=== PATIENT | female | born 1950 | race Caucasian/White ===

== ENCOUNTER 2017-09-10 08:59 | Inpatient (IN) ==
[2017-09-10] MEDS ORDERED: Ondansetron 4 MG/2 ML VIAL IVP ONE (09:42)
[2017-09-10] MEDS ORDERED: 0.9 % Sodium Chloride 1,000 ML IVC ONE ×2 (09:42→12:34)
[2017-09-10 09:59] LABS: Basophils # 0.1 K/mcL (0.0-0.2); Basophils % 0.8 %; Eosinophils % 0.3 %; Hematocrit 43.9 % (35.3-44.9); Hemoglobin 13.4 g/dL (11.5-15.4); Immature Granulocytes % 1.2 % (0-4); Lymphocytes # 0.9 K/mcL (0.6-4.6); Lymphocytes % 11.3 %; Mean Corpuscular HGB Conc 30.5 g/dL (31.6-35.5); Mean Corpuscular Hemoglobin 29.1 pg (28.0-33.3); Mean Corpuscular Volume 95.2 fL (83.0-100.0); Mean Platelet Volume 8.8 fL (9.4-12.4); Monocytes # 0.2 K/mcL (0.0-1.3); Monocytes % 2.5 %; Neutrophils # 6.4 K/mcL (1.6-8.9); Nucleated Red Blood Cells 0.5 /100 WBC (0); Platelet Count 107 K/mcL (140-400); Red Blood Count 4.61 M/mcL (3.82-4.97); Red Cell Distribution Width 16.6 % (11.5-14.5); Segmented Neutrophils % 83.9 %
--- NOTE | 2017-09-10 10:16 | Emergency Department Note ---
Disposition Clinical Impression: Normal anion gap metabolic acidosis Gastritis Qualifiers: Gastritis type: unspecified gastritis Chronicity: unspecified Gastritis bleeding: without bleeding Qualified Code(s): K29.70 - Gastritis, unspecified, without bleeding Disposition: Admitted As Inpatient Condition: Good Referrals: Chel Munroe TAIL RIPPER [Primary Care Provider] - Forms: ED Satisfaction Letter General Adult HPI - General Chief complaint: ED Chest Pain Stated complaint: Chest Pain Time Seen by Provider: 09/10/17 09:02 Source: EMS Mode of arrival: EMS Limitations: no limitations Nursing Notes Reviewed: Yes Vital Signs Reviewed: Yes - History of Present Illness HPI Narrative: 66-year-old female history of COPD not oxygen dependent who presents to the ER with a chief complaint of weakness, chest pain, nausea, not feeling well. Patient states she started feeling unwell yesterday. States she lives at home alone and has a sedentary lifestyle. He reports that she has had a cough that is chronic for her. She also states she has been nauseous. No episodes of vomiting, diarrhea or abdominal pain. Reports some chest pain as been constant since yesterday. No prior history of cardiac disease. EMS was called and the patient was brought in for evaluation. She reports she is prescribed tramadol but only uses them when she really needs them. States that her pain improved with it. Pt Subjective Complaint: Chest pain, weakness, nausea Onset (ago): day(s) Location: chest Radiation: non-radiation Pain Severity: mild Pain Scale: 3 Quality: stabbing Consistency: constant Improves with: nothing Worsens with: nothing Associated symptoms: Reports: chest pain, cough, nausea/vomiting. Denies: shortness of breath Treatments Prior to Arrival: none - Related Data Home Medications Medication Instructions Recorded Confirmed Atenolol [Tenormin] 25 mg PO QPM 09/10/17 09/10/17 Atenolol [Tenormin] 50 mg PO QAM 09/10/17 09/10/17 Atorvastatin [Lipitor] 80 mg PO HS 09/10/17 09/10/17 Omeprazole [PriLOSEC] 20 mg PO DAILY 09/10/17 09/10/17 Tramadol HCl [Ultram] 50 mg PO Q6-8H PRN 09/10/17 09/10/17 Allergies Allergy/AdvReac Type Severity Reaction Status Date / Time No Known Allergies Allergy Verified 07/19/17 09:11 All systems ED: reviewed and negative except as stated. Constitutional: Denies: fever Cardiovascular: Reports: chest pain Respiratory: Reports: cough, dyspnea Gastrointestinal: Reports: nausea. Denies: abdominal pain, vomiting Neurological: Reports: weakness Past Medical History - Past Medical History Attestation: Yes The following information was validated with the patient. Source: patient Medical history: Reports: diabetes, GERD, hyperlipidemia, hypertension, migraine Psychiatric history: Reports: no psych history - Social History Smoking Status: Current every day smoker Smokeless Tobacco Status: No Alcohol use: Reports: occasionally Drug use: Reports: none Physical Exam - General Limitations: no limitations General appearance: alert, in no apparent distress - Head Head exam: atraumatic, normocephalic - Eye Eye exam: Present: normal appearance - ENT ENT exam: normal exam - Neck Neck exam: Present: normal inspection, full ROM - Chest Chest inspection: Present: normal inspection, symmetric chest wall rise, tenderness (Reproducible sternal tenderness on exam) - Respiratory Respiratory exam: Present: normal lung sounds bilaterally - Cardiovascular Cardiovascular exam: Present: regular rate, normal rhythm, normal heart sounds - Abdominal Exam Abdominal exam: Present: soft, Non-Tender. Absent: tenderness - Extremities Exam Extremities exam: Present: normal inspection, full ROM - Expanded Upper Extremity Exam Shoulder exam: Present: normal inspection, full ROM Arm exam: Present: normal inspection, full ROM Elbow exam: Present: normal inspection, full ROM Forearm/Wrist exam: Present: normal inspection, full ROM Hand exam: Present: normal inspection, full ROM - Expanded Lower Extremity Exam Hip/Pelvis exam: Present: normal inspection, full ROM Upper leg exam: Present: normal inspection, full ROM Knee exam: Present: normal inspection, full ROM Lower leg exam: Present: normal inspection, full ROM Ankle exam: Present: normal inspection, full ROM Foot/toe exam: Present: normal inspection, full ROM - Neurological Exam Neurological exam: Present: alert, other (GCS 15. Nonfocal neurologic exam. Moves all extremities equally.) - Skin Skin exam: Present: warm, dry Course Course Narrative: Patient seen and examined. Vital signs reviewed. We will get an EKG, chest x- ray as well as labs and urinalysis for weakness. - Reevaluation(s) Reevaluation #1: Discussed results of labs with the patient. She is noted to be acidotic here with a bicarbonate of 10. She denies any alcohol ingestion, toxic alcohols, salicylates. She does not appear to be in DKA by labs. No evidence of uremia. We will continue IV rehydration. She requests something for her headache. We will also CT of her abdomen and pelvis as well as check a lactate level. Reevaluation #2: Patient's lactate is normal. I reviewed her prior labs showing profound hypokalemia in the past. She is unsure the etiology of this. I will discuss with nephrology and she will likely require admission for her metabolic derangements. - Consultations Consultation #1: I spoke with the on-call drain tile machine operator Dr. Perez. Discussed the patient's history labs and imaging as well as interventions today. Currently unsure of the etiology of her metabolic acidosis. He believe that she likely has a mixed acidosis. Does recommend to obtain urine pH, sodium, chloride, potassium 4 urine anion gap. Believes it could potentially be a renal tubular acidosis. Recommends admission to the hospitalist service with nephrology consultation. Vital Signs Temperature 97.7 F 09/10/17 09:00 Pulse Rate 110 09/10/17 09:00 Respiratory Rate 22 09/10/17 09:00 Blood Pressure 169/89 09/10/17 09:00 O2 Sat by Pulse Oximetry 98 09/10/17 09:00 Temperature 97.7 F 09/10/17 09:00 Pulse Rate 82 09/10/17 12:37 Respiratory Rate 18 09/10/17 12:37 Blood Pressure 161/78 09/10/17 12:37 O2 Sat by Pulse Oximetry 97 09/10/17 12:37 Oxygen Delivery Oxygen Delivery Nasal Cannula Medical Decision Making - [facility] Narrative Medical decision making narrative: 66-year-old female presents to the ER due to multiple complaints. Has felt weak and shaky as well as a headache. States she has had some chest pain during this time. Reports weight loss over the last several years. Reports she only eats once every couple of days. Her EKG is nonischemic. During her workup she was noted to have a bicarbonate of 10. VBG pH of 7.16. Lactate is normal. We did CT her abdomen and pelvis given her profound acidemia without evidence of acute pathology. Discussed with the on-call drain tile machine operator for recommendations. We did order additional urine studies with concern for possible RTA. Patient will be admitted to the hospitalist service with nephrology consultation for further management. This documentation is done with the assistance of Dragon dictation. There may be inaccuracies in indian blanket weaver or spelling and typographical errors. I examined this patient and my medical decision-making was reviewed with the Resident Physician. I agree with the documented findings, disposition and treatment plan as described except to the extent set forth below. Patient presents to the emergency department today and was seen by Dr. Carter and myself, I agree with his evaluation management plan, supervised care the patient's stay. Patient presents with multiple complaints she is feeling weak she shaky has a little bit of a headache. She is nontoxic in appearance here. She denies any chest pain at this time. Remaining lab work on her hydrate her and then reassess. She may need admission. Chest X-Ray 09/10/17 09:04 IMPRESSION: Negative chest. D/ / Kirit Love MD / Kirit Love MD Interpreting Provider: Kirit Love MD 11:53: Patient's labs come back and shows a bicarbonate of 10 with an anion gap metabolic acidosis. Searching for cause. She should she is getting lab work done now fluids and then we will reassess will need admission. 1400 hrs. colon was counseled with Dr. Brandt from nephrology. He will consult on patient here. He thinks this may be acute tubular renal acidosis. As she has had a history of hypokalemia in the past. We will admit her to medicine. She is in agreement with this plan. Patient is critical care time exclusive A separately billable procedures is 45 minutes. - Lab Data Lab results reviewed: Yes I reviewed the patient's lab results. Result diagrams: 09/10/17 09:50 09/10/17 09:50 Lab Results 09/10/17 09/10/17 09/10/17 Range/Units 09:50 09:50 10:44 WBC 7.6 (4.3-11.1) K/mcL RBC 4.61 (3.82-4.97) M/mcL Hgb 13.4 (11.5-15.4) g/dL Hct 43.9 (35.3-44.9) % MCV 95.2 (83.0-100.0) fL MCH 29.1 (28.0-33.3) pg MCHC 30.5 L (31.6-35.5) g/dL RDW 16.6 H (11.5-14.5) % Plt Count 107 L (140-400) K/mcL MPV 8.8 L (9.4-12.4) fL Immature Gran % 1.2 (0-4) % Seg Neutrophils % 83.9 % Lymphocytes % 11.3 % Monocytes % 2.5 % Eosinophils % 0.3 % Basophils % 0.8 % Neutrophils # 6.4 (1.6-8.9) K/mcL Lymphocytes # 0.9 (0.6-4.6) K/mcL Monocytes # 0.2 (0.0-1.3) K/mcL Eosinophils # 0.0 (0.0-0.6) K/mcL Basophils # 0.1 (0.0-0.2) K/mcL Nucleated RBCs/100 WBC 0.5 H (0) /100 WBC VBG pH (7.32-7.42) pH Units VBG pCO2 (41-51) mmHg VBG pO2 (25-50) mmHg VBG HCO3 (21-27) mEq/L Sodium 138 (136-145) mEq/L Potassium 4.0 (3.5-5.1) mEq/L Chloride 103 (98-107) mEq/L Carbon Dioxide 10 L* (23-29) mEq/L BUN 11 (8-23) mg/dL Creatinine 0.83 (0.60-1.20) mg/dL Est GFR ( Amer) > 60 (> 60) Est GFR (Non-Af Amer) > 60 (> 60) BUN/Creatinine Ratio 13 (6-26) Glucose 77 (70-105) mg/dL Calculated Osmolality 284 (280-300) Lactic Acid (0.5-2.2) mmol/L Calcium 7.8 L (8.6-10.3) mg/dL Total Bilirubin 0.8 (0.3-1.0) mg/dL AST 89 H (13-39) Units/L ALT 51 (7-52) Units/L Alkaline Phosphatase 175 H (34-104) Units/L Serum Total Protein 6.9 (6.4-8.9) g/dL Albumin 4.1 (3.5-5.7) g/dL Globulin 2.8 (2.4-3.5) g/dL Albumin/Globulin Ratio 1.5 (1.1-2.2) Beta-Hydroxybutyric Acd (0.02-0.27) mmol/L TSH 1.682 (0.340-5.600) mcIU/mL Urine Color (Yellow) Urine Clarity (Clear) Urine pH (5.0-8.0) pH Units Ur Specific Mellott (1.010-1.025) Urine Protein (Neg-Trace) mg/dL Urine Glucose (UA) (Normal) mg/dL Urine Ketones (Negative) mg/dL Urine Blood (Negative) Urine Nitrite (Negative) Urine Bilirubin (Negative) Urine Urobilinogen (Normal) mg/dL Ur Leukocyte Esterase (Negative) Urine Microscopic RBC (0-3) per hpf Urine Microscopic WBC (0-3) per hpf Ur Squamous Epith Cells (None-Few) per lpf Urine Bacteria (None-Few) per hpf Hyaline Casts (None-Few) per lpf Ur Culture Indicated? (NO) Urine Opiates Screen Negative (Gmfdta=509) ng/mL Acetaminophen (10-30) mcg/mL Ur Barbiturates Screen Negative (Oiboii=836) ng/mL Ur Phencyclidine Scrn Negative (Cutoff=25) ng/mL Ur Amphetamines Screen Negative (Lryomk=3510) ng/mL U Benzodiazepines Scrn Negative (Pocpec=966) ng/mL Urine Cocaine Screen Negative (Cutoff= 300) ng/mL U Marijuana (THC) Screen Negative (Cutoff = 50) ng/mL Ethyl Alcohol (0-10) mg/dL Person Notif of Crit 09/10/17 09/10/17 09/10/17 Range/Units 10:48 11:08 11:08 WBC (4.3-11.1) K/mcL RBC (3.82-4.97) M/mcL Hgb (11.5-15.4) g/dL Hct (35.3-44.9) % MCV (83.0-100.0) fL MCH (28.0-33.3) pg MCHC (31.6-35.5) g/dL RDW (11.5-14.5) % Plt Count (140-400) K/mcL MPV (9.4-12.4) fL Immature Gran % (0-4) % Seg Neutrophils % % Lymphocytes % % Monocytes % % Eosinophils % % Basophils % % Neutrophils # (1.6-8.9) K/mcL Lymphocytes # (0.6-4.6) K/mcL Monocytes # (0.0-1.3) K/mcL Eosinophils # (0.0-0.6) K/mcL Basophils # (0.0-0.2) K/mcL Nucleated RBCs/100 WBC (0) /100 WBC VBG pH (7.32-7.42) pH Units VBG pCO2 (41-51) mmHg VBG pO2 (25-50) mmHg VBG HCO3 (21-27) mEq/L Sodium (136-145) mEq/L Potassium (3.5-5.1) mEq/L Chloride (98-107) mEq/L Carbon Dioxide (23-29) mEq/L BUN (8-23) mg/dL Creatinine (0.60-1.20) mg/dL Est GFR ( Amer) (> 60) Est GFR (Non-Af Amer) (> 60) BUN/Creatinine Ratio (6-26) Glucose (70-105) mg/dL Calculated Osmolality (280-300) Lactic Acid 1.1 (0.5-2.2) mmol/L Calcium (8.6-10.3) mg/dL Total Bilirubin (0.3-1.0) mg/dL AST (13-39) Units/L ALT (7-52) Units/L Alkaline Phosphatase (34-104) Units/L Serum Total Protein (6.4-8.9) g/dL Albumin (3.5-5.7) g/dL Globulin (2.4-3.5) g/dL Albumin/Globulin Ratio (1.1-2.2) Beta-Hydroxybutyric Acd > 2.00 H (0.02-0.27) mmol/L TSH (0.340-5.600) mcIU/mL Urine Color Yellow (Yellow) Urine Clarity Clear (Clear) Urine pH 6.0 (5.0-8.0) pH Units Ur Specific Mellott 1.025 (1.010-1.025) Urine Protein 100 H (Neg-Trace) mg/dL Urine Glucose (UA) Normal (Normal) mg/dL Urine Ketones >=160 H (Negative) mg/dL Urine Blood Trace H (Negative) Urine Nitrite Negative (Negative) Urine Bilirubin Negative (Negative) Urine Urobilinogen Normal (Normal) mg/dL Ur Leukocyte Esterase Moderate H (Negative) Urine Microscopic RBC 3-5 H (0-3) per hpf Urine Microscopic WBC 5-15 H (0-3) per hpf Ur Squamous Epith Cells Many H (None-Few) per lpf Urine Bacteria None Seen (None-Few) per hpf Hyaline Casts None Seen (None-Few) per lpf Ur Culture Indicated? NO. (NO) Urine Opiates Screen (Slgqna=807) ng/mL Acetaminophen (10-30) mcg/mL Ur Barbiturates Screen (Tezzud=179) ng/mL Ur Phencyclidine Scrn (Cutoff=25) ng/mL Ur Amphetamines Screen (Pgtnid=3770) ng/mL U Benzodiazepines Scrn (Xpydgf=536) ng/mL Urine Cocaine Screen (Cutoff= 300) ng/mL U Marijuana (THC) Screen (Cutoff = 50) ng/mL Ethyl Alcohol < 10 (0-10) mg/dL Person Notif of Crit 09/10/17 09/10/17 Range/Units 11:08 11:19 WBC (4.3-11.1) K/mcL RBC (3.82-4.97) M/mcL Hgb (11.5-15.4) g/dL Hct (35.3-44.9) % MCV (83.0-100.0) fL MCH (28.0-33.3) pg MCHC (31.6-35.5) g/dL RDW (11.5-14.5) % Plt Count (140-400) K/mcL MPV (9.4-12.4) fL Immature Gran % (0-4) % Seg Neutrophils % % Lymphocytes % % Monocytes % % Eosinophils % % Basophils % % Neutrophils # (1.6-8.9) K/mcL Lymphocytes # (0.6-4.6) K/mcL Monocytes # (0.0-1.3) K/mcL Eosinophils # (0.0-0.6) K/mcL Basophils # (0.0-0.2) K/mcL Nucleated RBCs/100 WBC (0) /100 WBC VBG pH 7.17 L* (7.32-7.42) pH Units VBG pCO2 22 L (41-51) mmHg VBG pO2 100 H (25-50) mmHg VBG HCO3 8 L (21-27) mEq/L Sodium (136-145) mEq/L Potassium (3.5-5.1) mEq/L Chloride (98-107) mEq/L Carbon Dioxide (23-29) mEq/L BUN (8-23) mg/dL Creatinine (0.60-1.20) mg/dL Est GFR ( Amer) (> 60) Est GFR (Non-Af Amer) (> 60) BUN/Creatinine Ratio (6-26) Glucose (70-105) mg/dL Calculated Osmolality (280-300) Lactic Acid (0.5-2.2) mmol/L Calcium (8.6-10.3) mg/dL Total Bilirubin (0.3-1.0) mg/dL AST (13-39) Units/L ALT (7-52) Units/L Alkaline Phosphatase (34-104) Units/L Serum Total Protein (6.4-8.9) g/dL Albumin (3.5-5.7) g/dL Globulin (2.4-3.5) g/dL Albumin/Globulin Ratio (1.1-2.2) Beta-Hydroxybutyric Acd (0.02-0.27) mmol/L TSH (0.340-5.600) mcIU/mL Urine Color (Yellow) Urine Clarity (Clear) Urine pH (5.0-8.0) pH Units Ur Specific Mellott (1.010-1.025) Urine Protein (Neg-Trace) mg/dL Urine Glucose (UA) (Normal) mg/dL Urine Ketones (Negative) mg/dL Urine Blood (Negative) Urine Nitrite (Negative) Urine Bilirubin (Negative) Urine Urobilinogen (Normal) mg/dL Ur Leukocyte Esterase (Negative) Urine Microscopic RBC (0-3) per hpf Urine Microscopic WBC (0-3) per hpf Ur Squamous Epith Cells (None-Few) per lpf Urine Bacteria (None-Few) per hpf Hyaline Casts (None-Few) per lpf Ur Culture Indicated? (NO) Urine Opiates Screen (Zcdgbn=739) ng/mL Acetaminophen < 1.0 L (10-30) mcg/mL Ur Barbiturates Screen (Tllzul=563) ng/mL Ur Phencyclidine Scrn (Cutoff=25) ng/mL Ur Amphetamines Screen (Xfujkp=3697) ng/mL U Benzodiazepines Scrn (Jeeldi=276) ng/mL Urine Cocaine Screen (Cutoff= 300) ng/mL U Marijuana (THC) Screen (Cutoff = 50) ng/mL Ethyl Alcohol (0-10) mg/dL Person Notif of Crit dr carter - Radiology Data Radiology results reviewed: Yes I reviewed the patient's radiology results. Chest X-Ray 09/10/17 09:04 IMPRESSION: Negative chest. D/ / Kirit Love MD / Kirit Love MD Interpreting Provider: Kirit Love MD - EKG Data EKG #1 EKG attestation: Yes I reviewed and interpreted this EKG. EKG results narrative: EKG demonstrates sinus tachycardia with rate of 112. Normal axis. Normal intervals. Normal R-wave progression. No gross ST elevations or depressions. No acute ischemic findings. No significant changes from previous EKG dated .
[2017-09-10 10:33] LABS: Alanine Aminotransferase 51 Units/L (7-52); Albumin 4.1 g/dL (3.5-5.7); Albumin/Globulin Ratio 1.5 (1.1-2.2); Alkaline Phosphatase 175 Units/L (34-104); Aspartate Amino Transferase 89 Units/L (13-39); BUN/Creatinine Ratio 13 (6-26); Bilirubin,Total 0.8 mg/dL (0.3-1.0); Blood Urea Nitrogen 11 mg/dL (8-23); Calcium 7.8 mg/dL (8.6-10.3); Carbon Dioxide 10 mEq/L (23-29); Chloride 103 mEq/L (98-107); Globulin 2.8 g/dL (2.4-3.5); Glucose 77 mg/dL (70-105); Osmolality,Calculated 284 (280-300); Sodium 138 mEq/L (136-145); Thyroid Stimulating Hormone 1.682 mcIU/mL (0.340-5.600); Total Protein 6.9 g/dL (6.4-8.9); eGFR For African Americans > 60 (> 60); eGFR For Non-African Americans > 60 (> 60)
[2017-09-10 10:55] LABS: Bilirubin,Urine Negative (Negative); Blood,Urine Trace (Negative); Clarity,Urine Clear (Clear); Color,Urine Yellow (Yellow); Glucose,Urine (UA) Normal (Normal); Ketones,Urine >=160 mg/dL (Negative); Leukocyte Esterase,Urine Moderate (Negative); Nitrite,Urine Negative (Negative); Protein,Urine 100 mg/dL (Neg-Trace); Specific Gravity,Urine 1.025 (1.010-1.025); Urobilinogen,Urine Normal (Normal)
[2017-09-10 10:57] LABS: Bacteria,Urine None Seen per hpf (None-Few); Hyaline Casts,Urine None Seen per lpf (None-Few); Squamous Epithelial Cell,Urine Many per lpf (None-Few)
[2017-09-10 11:24] LABS: VBG HCO3 8 mEq/L (21-27); VBG PCO2 22 mmHg (41-51); VBG PH 7.17 pH Units (7.32-7.42); VBG PO2 100 mmHg (25-50)
[2017-09-10 11:35] LABS: Beta-Hydroxybutyric Acid > 2.00 mmol/L (0.02-0.27)
[2017-09-10 11:37] LABS: Ethanol < 10 mg/dL (0-10)
[2017-09-10 12:25] LABS: Amphetamine Screen,Urine Negative ng/mL (Cutoff=1000); Barbiturate Screen,Urine Negative ng/mL (Cutoff=200); Benzodiazepines Screen,Urine Negative ng/mL (Cutoff=200); Cannabinoid Screen,Urine Negative ng/mL (Cutoff = 50); Cocaine Screen,Urine Negative ng/mL (Cutoff= 300); Opiate Screen,Urine Negative ng/mL (Cutoff=300); Phencyclidine Screen,Urine Negative ng/mL (Cutoff=25)
[2017-09-10] MEDS ORDERED: Metoclopramide 10 MG/2 ML VIAL IVP ONE (12:34)
[2017-09-10] MEDS ORDERED: Naloxone 0.4 MG/ML INJ IVP PRN (17:01)
--- NOTE | 2017-09-10 17:11 | Internal Med History&Physical ---
Date of Encounter: 09/10/17 Time of Encounter: 16:20 Assessment and Plan (1) Normal anion gap metabolic acidosis Current visit: Yes Status: Acute Will place the pt into tele for observation She does have severe metabolic acidosis with HCo3 @ 10 mostly due to dehydration, with intractable nausea / vomiting due to gastritis will start her on NaHCo3 gtt Symptomatic and supportive care Nephro was consulted by ER (2) Gastritis Current visit: Yes Status: Acute Mostly viral gastritis reviewed CT of Abd showed gastritis no need of abx cont close monitoring symptomatic and supportive care Qualifiers: Gastritis type: unspecified gastritis Chronicity: unspecified Gastritis bleeding: without bleeding Qualified Code(s): K29.70 - Gastritis, unspecified , without bleeding (3) Dehydration Current visit: Yes Status: Acute cont IVF (4) Chest pain Current visit: Yes Status: Acute Atypical chest pain mostly musculoskeletal negative trop reviewed EKG - No acute ischemic changes, No ST T changes cont on Tele no further work up needed now Qualifiers: Qualified Code(s): R07.9 - Chest pain, unspecified (5) COPD (chronic obstructive pulmonary disease) Current visit: Yes Status: Acute not in exacerbation cont duoneb Qualifiers: Qualified Code(s): J44.9 - Chronic obstructive pulmonary disease, unspecified (6) Oral thrush Current visit: Yes Status: Acute noticed oral thrush started her on Nystastin tim (7) Hypertension Current visit: Yes Status: Acute resumed home meds fairly controlled - due to anxiety will use Hydralazine PRN Qualifiers: Qualified Code(s): I10 - Essential (primary) hypertension (8) Tobacco dependence Current visit: Yes Status: Acute Counseled to quit smoking on nicotine patch Internal Medicine - H&P: HPI Chief complaint: Nausea/ vomiting - dry heaves Admitted From: Emergency Dept Plans for Post Hospital Care: Home History of present illness: 66-year-old female history of COPD not oxygen dependent, HTN, chronic tobacco smoker who presents to the ER with a chief complaint of weakness, chest pain, nausea, not feeling well. She does c/o generalized body pains too. Patient states since yesterday she is not feeling well. States she lives at home alone and has a sedentary lifestyle. She denied any constipation / diarrhea, however she does c/o nasuea and vomiting. Reports some chest pain located sub sternally , non radiating, 4/10 in severity, sharp pain, worsening with movements, which has been constant since yesterday. No prior history of cardiac disease. EMS was called and the patient was brought in for evaluation. She reports she is prescribed tramadol but only uses them when she really needs them. States that her pain improved with it. Past Med Surg Social Fam HX - Past Medical History Medical history: diabetes, GERD, hyperlipidemia, hypertension, migraine Psychiatric history: no psych history - Social History Smoking Status: Current every day smoker Smokeless Tobacco Status: No Alcohol use: occasionally Drug use: none Internal Medicine - H&P: Meds Atenolol [Tenormin] 25 mg PO QPM 09/10/17 [History] Atenolol [Tenormin] 50 mg PO QAM 09/10/17 [History] Atorvastatin [Lipitor] 80 mg PO HS 09/10/17 [History] Omeprazole [PriLOSEC] 20 mg PO DAILY 09/10/17 [History] Tramadol HCl [Ultram] 50 mg PO Q6-8H PRN 09/10/17 [History] 3 Allergy/AdvReac Type Severity Reaction Status Date / Time No Known Allergies Allergy Verified 07/19/17 09:11 All Systems PM: A 10-system review of systems was performed and is negative for pertinent findings except as documented above in the HPI. Review of systems: Reviewed all the systems, everything is benign except the systems and symptoms I mentioned in HPI - Constitutional Vitals: Temp Pulse Resp BP Pulse Ox 97.7 F 82 22 156/84 97 09/10/17 09:00 09/10/17 12:37 09/10/17 16:57 09/10/17 16:57 09/10/17 12:37 General appearance: Present: cooperative, A&O X 3, answers questions appropriately Exam: Looks more weak,lethargic and dehydrated - Head Head exam: Present: atraumatic, normal inspection - ENT ENT exam: Present: mucous membranes dry Additional comments: oral thrush noticed - Neck Neck exam general surgery: Present: supple - Respiratory Respiratory exam: Present: decreased breath sounds. Absent: rales, respiratory distress, rhonchi, wheezes - Cardiovascular Cardiovascular exam: Present: RRR, +S1, +S2. Absent: tachycardia - GI/Abdominal GI/Abdominal exam: Present: normal bowel sounds, soft. Absent: rebound, rigid, tenderness - Extremities Exam Extremities exam: Absent: calf tenderness, pedal edema, tenderness - Back Exam Back exam: Absent: CVA tenderness (L), CVA tenderness (R) - Neurological Exam Neurological exam: Present: alert, oriented X3, no focal deficits, strengths equal and symetr throughout. Absent: pronater drift, facial droop, speech deficit - Psychiatric Psychiatric exam: Present: normal affect, normal mood - Skin Skin exam: Absent: rash Internal Med - H&P Results - Labs CBC & Chem 7: 09/10/17 09:50 09/10/17 09:50
[2017-09-10] MEDS: Nicotine 21 MG PATCH.TD24 TD SCH (17:43)
[2017-09-10] MEDS: *HR* HYDROcodone/Acet 5/325 mg TABLET PO PRN (17:45)
[2017-09-10] MEDS: Sodium Bicarbonate 75 MEQ in D5% in 0.45% NACL 1,000 ML IVC SCH (18:11)
[2017-09-10 18:52] LABS: Potassium,Urine 20.2 mEq/L; Sodium, Urine 166.6 mEq/L
[2017-09-10] MEDS: Nystatin SUSP 5 ML UD.LIQ PO SCH (21:13)
[2017-09-10] MEDS: Acetaminophen 325 MG TABLET PO PRN (21:15)
[2017-09-11 00:35] LABS: BUN/Creatinine Ratio 14 (6-26); Blood Urea Nitrogen 10 mg/dL (8-23); Carbon Dioxide 14 mEq/L (23-29); Chloride 108 mEq/L (98-107); Glucose 78 mg/dL (70-105); Magnesium 1.2 mg/dL (1.6-2.6); Osmolality,Calculated 278 (280-300); Phosphorous < 1.0 mg/dL (2.7-4.5); Potassium 3.3 mEq/L (3.5-5.1); Sodium 135 mEq/L (136-145); eGFR For African Americans > 60 (> 60); eGFR For Non-African Americans > 60 (> 60)
[2017-09-11] MEDS ORDERED: Potassium Phosphate 44 MEQ in 0.9 % Sodium Chloride 250 ML IVPB ONE (02:10)
[2017-09-11] MEDS: Sodium Bicarbonate 75 MEQ in D5% in 0.45% NACL 1,000 ML IVC SCH ×2 (02:58→15:20)
[2017-09-11] MEDS: *HR* HYDROcodone/Acet 5/325 mg TABLET PO PRN ×2 (04:24→21:37)
[2017-09-11 06:27] LABS: Hematocrit 35.3 % (35.3-44.9); Mean Corpuscular HGB Conc 31.4 g/dL (31.6-35.5); Mean Corpuscular Hemoglobin 29.2 pg (28.0-33.3); Mean Corpuscular Volume 92.9 fL (83.0-100.0); Mean Platelet Volume 10.3 fL (9.4-12.4); Red Cell Distribution Width 16.2 % (11.5-14.5)
[2017-09-11 06:29] LABS: Basophils % 0.8 %; Eosinophils # 0.2 K/mcL (0.0-0.6); Eosinophils % 4.6 %; Hemoglobin 11.1 g/dL (11.5-15.4); Immature Granulocytes % 0.8 % (0-4); Immature Platelets 2.4 % (1.1-6.1); Lymphocytes % 25.3 %; Monocytes # 0.2 K/mcL (0.0-1.3); Monocytes % 5.6 %; Neutrophils # 2.5 K/mcL (1.6-8.9); Nucleated Red Blood Cells 0.5 /100 WBC (0); Platelet Count 61 K/mcL (140-400); Segmented Neutrophils % 62.9 %
[2017-09-11 06:51] LABS: BUN/Creatinine Ratio 13 (6-26); Blood Urea Nitrogen 8 mg/dL (8-23); Calcium 7.2 mg/dL (8.6-10.3); Carbon Dioxide 19 mEq/L (23-29); Chloride 107 mEq/L (98-107); Chol/HDL Ratio 1.7 (0-4.9); Cholesterol 176 mg/dL (< 200); Glucose 113 mg/dL (70-105); HDL Cholesterol 101 mg/dL (40-59); LDL Cholesterol,Calculated 45 mg/dL (0-99); Osmolality,Calculated 281 (280-300); Sodium 136 mEq/L (136-145); Triglycerides 152 mg/dL (< 150); eGFR For African Americans > 60 (> 60); eGFR For Non-African Americans > 60 (> 60)
--- NOTE | 2017-09-11 08:00 | Nephrology Consult Note ---
Date of Encounter: 09/11/17 Time of Encounter: 07:57 Assessment and Plan (1) Metabolic acidosis Current Visit: Yes Status: Acute The patient presents with a significant metabolic acidosis. Initial lab studies suggested a combined normal anion gap with elevated anion gap metabolic acidosis. This morning her anion gap is normal. This is associated with hypophosphatemia, hypomagnesemia, and hypokalemia. Urinary anion gap is positive suggesting bicarbonate wasting. Differential diagnosis includes a proximal renal tubular acidosis and possible Fanconi syndrome. We are going to proceed with additional workup including 24-hour urine excretion of phosphorus and magnesium. Once we have these studies completed we can start replacement of both her phosphorus and magnesium. History of Present Illness - History of Present Illness This is a 66-year-old female who presents to the emergency room yesterday with a complaint of several days of experiencing weakness and chest pressure nausea and headache. She had been vomiting some mucus. She denied any diarrhea. She denies any fevers or chills. Initial labs showed that the patient had a significant metabolic acidosis. The anion gap suggested that the patient had a combined normal anion gap and elevated anion gap metabolic acidosis. She also was found to be hypophosphatemic and hypomagnesemic. Patient had been taking a potassium supplement prescribed by her physician approximately a year ago. She has not been taking any diuretics. She does take atenolol for hypertension. Laboratory studies today show that she is again hypokalemic. Yesterday her potassium was normal. She has been placed on a bicarbonate IV. Her urine anion gap is positive. Review of previous lab studies shows that she has been hypokalemic since 2013. Her CO2 on her chemistries has been low since 2017. She has been hypomagnesemic since 2014. There are no previous phosphorous levels available for review. Patient states that she has lost approximately 60 pounds since 2010. She does admit to changing her dietary habits. She also says that she has not had a very good appetite for the past 3 years or so but she thinks her weight has been relatively stable. She does not take aspirin. She occasionally takes [id number] nonsteroidal anti-inflammatory agents. She does smoke. She did have an open lung biopsy which she thinks was benign several years ago she is not sure exactly when. Past Med Surg Social Fam HX - Past Medical History Medical history: diabetes, GERD, hyperlipidemia, hypertension, migraine Psychiatric history: no psych history - Past Surgical History Surgical History: - Social History Smoking Status: Current every day smoker Packs per day: 1 Smokeless Tobacco Status: No Alcohol use: occasionally Drug use: none - Family History Mother Living Status: Hx Family Cardiac Disorders: Yes Hx Family Endocrine Disorder: Yes (uncontrolled DM) Father Living Status: Hx Family Cardiac Disorders: Yes Hx Family GI Disorders: Yes Medications and Allergies Atenolol [Tenormin] 25 mg PO QPM 09/10/17 [History] Atenolol [Tenormin] 50 mg PO QAM 09/10/17 [History] Atorvastatin [Lipitor] 80 mg PO HS 09/10/17 [History] Omeprazole [PriLOSEC] 20 mg PO DAILY 09/10/17 [History] Tramadol HCl [Ultram] 50 mg PO Q6-8H PRN 09/10/17 [History] 3 Allergy/AdvReac Type Severity Reaction Status Date / Time No Known Allergies Allergy Verified 07/19/17 09:11 Review of Systems Constitutional: as per HPI, anorexia, fatigue, headache(s), weakness, weight loss Eyes: bilateral: blurred vision (patient denies), diplopia (patient denies) Nose, mouth and throat: no dizziness, no headache(s) Cardiovascular: chest pain, chest pain at rest, dyspnea on exertion Respiratory: as per HPI, dyspnea on exertion Gastrointestinal: dyspepsia, nausea, vomiting, no abdominal pain, no change in bowel habits Genitourinary Female: as per HPI Musculoskeletal: no muscle weakness, no numbness Integumentary: no hirsutism, no striae Neurological: as per HPI Psychiatric: no depression, no difficulty concentrating Endocrine: as per HPI Exam - Vital Signs Vital signs: Initial Vital Signs Temp Pulse Resp BP Pulse Ox 97.7 F 110 22 169/89 98 09/10/17 09:00 09/10/17 09:00 09/10/17 09:00 09/10/17 09:00 09/10/17 09:00 Vital Signs - Last 8 Hours Temp Pulse Resp BP Pulse Ox 09/11/17 07:33 98.3 F 62 19 147/66 100 09/11/17 04:59 97.6 F 57 18 143/64 100 09/11/17 00:24 98.2 F 60 18 142/70 99 Intake and Output 09/10/17 09/10/17 09/11/17 15:59 23:59 07:59 Intake Total 1000 / 1000 1000 / 1000 Output Total 700 / 700 Balance 300 / 300 1000 / 1000 Intake: IV Fluids 1000 / 1000 1000 / 1000 0.9 % Sodium Chloride 1,000 ML 1000 / 1000 @ 3750 mls/hr IVC .Q16M ONE Rx# :[id number] Sodium Bicarbonate 75 MEQ In D5 1000 / 1000 % And 0.45% Nacl 1000 Ml Bag 1, 000 ML @ 125 mls/hr IVC .Q8H36M [facility] Rx#:[id number] Oral 0 / 0 0 / 0 Output: Urine 700 / 700 Other: Meal Dinner Percent of Meal Consumed 5% # Voids 1 1 Weight 55.338 kg Blood Glucose* 99 133 Patient Weight 09/11/17 23:59 Weight 55.338 kg - General Appearance Exam: Patient is alert and oriented. She is in no acute distress. Lungs show diminished breath sounds otherwise clear. Heart regular rate and rhythm without any murmurs or S4 gallops clicks or rubs. Abdomen shows normal bowel sounds braze masses again megaly or tenderness. Lower extremity show no peripheral edema. She has maintenance IV running. There is a thoracotomy scar on the left thoracic area. Results - Lab Results 09/11/17 05:58 09/11/17 05:58 Most recent lab results Calcium 7.2 mg/dL (8.6-10.3) L 09/11/17 05:58 Phosphorus 1.0 mg/dL (2.7-4.5) L* 09/11/17 05:58 Magnesium 2.0 mg/dL (1.6-2.6) 09/11/17 05:58 Urine Sodium 166.6 mEq/L 09/10/17 18:13 Consult Discharge Plan - Plan Referrals: Chel Munroe, METHODS AND PROCEDURES ANALYST [Primary Care Provider] -
[2017-09-11 08:01] LABS: Platelet Estimate Decreased (Normal)
[2017-09-11] MEDS: Nystatin SUSP 5 ML UD.LIQ PO SCH ×4 (09:22→21:41)
[2017-09-11] MEDS: Potassium Chloride Elixir 20 MEQ/15 ML UDC PO SCH ×2 (09:22→14:03)
[2017-09-11] MEDS: Nicotine 21 MG PATCH.TD24 TD SCH (09:23)
--- NOTE | 2017-09-11 14:58 | Internal Med Progress Note ---
Date of Encounter: 09/11/17 Time of Encounter: 09:00 - Assessment and plan (1) Metabolic acidosis Current Visit: Yes Status: Acute Assessment and plan: presented with anion gap metabolic acidosis, normal lactate; started on bicarbonate drip, serum bicarbonate improved to 19 today, anion gap closed; Nephrology consult appreciated- f/up urine studies. (2) COPD (chronic obstructive pulmonary disease) Current Visit: Yes Status: Chronic Assessment and plan: current smoker; not in acute exacerbation; continue PRN bronchodilators and supplemental O2; Qualifiers: COPD type: unspecified COPD Qualified Code(s): J44.9 - Chronic obstructive pulmonary disease, unspecified (3) Chest pain Current Visit: Yes Status: Resolved Assessment and plan: likely related to dry heaving and gastritis; cardiac enzymes, EKG negative for ACS/ischemia; Qualifiers: Chest pain type: unspecified Qualified Code(s): R07.9 - Chest pain, unspecified (4) Gastritis Current Visit: Yes Status: Chronic Assessment and plan: continue PPI; Qualifiers: Gastritis type: unspecified gastritis Chronicity: unspecified Gastritis bleeding: without bleeding Qualified Code(s): K29.70 - Gastritis, unspecified , without bleeding (5) Hypertension Current Visit: Yes Status: Chronic Assessment and plan: BP well-controlled; continue Atenolol; Qualifiers: Hypertension type: unspecified Qualified Code(s): I10 - Essential (primary ) hypertension (6) Tobacco dependence Current Visit: Yes Status: Chronic Assessment and plan: continue Nicotine transdermal patch; (7) Hypokalemia Current Visit: Yes Status: Acute Assessment and plan: no diuretic use, vomiting or diarrhea; f/up 24 hour urine potassium; supplement as needed, with oral KCl; (8) Hypophosphatemia Current Visit: Yes Status: Acute Assessment and plan: has received IV potassium phosphate; will start Neutraphos; - Subjective Interval history: Feels better; improving weakness and fatigue, improving nausea and chest pain; reports a poor appetite and oral intake in general; may be depressed.. noncompliant with physician appointments and home meds; - Constitutional Vitals: Temp Pulse Resp BP Pulse Ox 98.1 F 61 19 123/74 98 09/11/17 11:19 09/11/17 11:19 09/11/17 11:19 09/11/17 11:19 09/11/17 11:19 General appearance: Present: cachectic, A&O X 3, answers questions appropriately - Respiratory Respiratory exam: Present: CTAB. Absent: accessory muscle use, rales, rhonchi, wheezes - Cardiovascular Cardiovascular exam: Present: RRR, +S1, +S2. Absent: diastolic murmur, gallop, rubs, systolic murmur - GI/Abdominal GI/Abdominal exam: Present: normal bowel sounds, soft, no peritoneal signs. Absent: distended, tenderness - Extremities Exam Extremities exam: Present: full ROM, warm, radial pulses palpable and symmetrical. Absent: calf tenderness, cyanotic, pedal edema - Neurological Exam Neurological exam: Present: CN II-XII intact, oriented X3, no focal deficits. Absent: pronater drift, facial droop, speech deficit Internal Medicine: Result - Labs CBC & Chem 7: 09/11/17 05:58 09/11/17 05:58 Labs: Short CBC 09/11/17 Range/Units 05:58 WBC 4.0 L (4.3-11.1) K/mcL Hgb 11.1 L D (11.5-15.4) g/dL Hct 35.3 (35.3-44.9) % Plt Count 61 L (140-400) K/mcL Neutrophils # 2.5 (1.6-8.9) K/mcL BMP 09/10/17 09/11/17 23:57 05:58 Sodium 135 L 136 Potassium 3.3 L 3.0 L Chloride 108 H 107 Carbon Dioxide 14 L 19 L BUN 10 8 Creatinine 0.69 0.61 Glucose 78 113 H Calcium 7.0 L 7.2 L Cardiac Enzymes 09/10/17 09/10/17 Range/Units 17:45 23:57 Troponin I < 0.03 < 0.03 (< 0.04) ng/mL Consult Discharge Plan - Plan Referrals: Chel Munroe CNP [Primary Care Provider] - 09/20/17 9:00 am (Please follow up as schedule.... )
[2017-09-11] MEDS: Artificial Tears SOLN 15 ML BOTTLE BOTH EYES SCH ×2 (17:16→21:46)
--- NOTE | 2017-09-11 20:47 | Electrocardiograph Report ---
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
[2017-09-12] MEDS: Sodium Bicarbonate 75 MEQ in D5% in 0.45% NACL 1,000 ML IVC SCH (01:15)
[2017-09-12] MEDS: *HR* HYDROcodone/Acet 5/325 mg TABLET PO PRN ×2 (03:57→14:18)
[2017-09-12 04:38] LABS: Red Cell Distribution Width 16.2 % (11.5-14.5)
[2017-09-12 04:40] LABS: Basophils % 0.6 %; Eosinophils # 0.2 K/mcL (0.0-0.6); Eosinophils % 4.2 %; Hematocrit 36.2 % (35.3-44.9); Hemoglobin 11.8 g/dL (11.5-15.4); Immature Granulocytes % 0.4 % (0-4); Immature Platelets 3.7 % (1.1-6.1); Lymphocytes # 1.5 K/mcL (0.6-4.6); Lymphocytes % 29.1 %; Mean Corpuscular HGB Conc 32.6 g/dL (31.6-35.5); Mean Corpuscular Hemoglobin 29.6 pg (28.0-33.3); Mean Corpuscular Volume 90.7 fL (83.0-100.0); Mean Platelet Volume 10.5 fL (9.4-12.4); Monocytes # 0.1 K/mcL (0.0-1.3); Monocytes % 2.1 %; Red Blood Count 3.99 M/mcL (3.82-4.97); Segmented Neutrophils % 63.6 %
[2017-09-12 04:43] LABS: Neutrophils # 3.4 K/mcL (1.6-8.9)
[2017-09-12 04:44] LABS: Platelet Count 67 K/mcL (140-400)
[2017-09-12 05:07] LABS: BUN/Creatinine Ratio 7 (6-26); Blood Urea Nitrogen 4 mg/dL (8-23); Calcium 7.7 mg/dL (8.6-10.3); Carbon Dioxide 26 mEq/L (23-29); Chloride 105 mEq/L (98-107); Glucose 108 mg/dL (70-105); Magnesium 1.2 mg/dL (1.6-2.6); Osmolality,Calculated 283 (280-300); Phosphorous < 1.0 mg/dL (2.7-4.5); Potassium 3.3 mEq/L (3.5-5.1); Sodium 138 mEq/L (136-145); eGFR For African Americans > 60 (> 60); eGFR For Non-African Americans > 60 (> 60)
[2017-09-12] MEDS: Nystatin SUSP 5 ML UD.LIQ PO SCH ×4 (08:19→20:04)
[2017-09-12] MEDS: Artificial Tears SOLN 15 ML BOTTLE BOTH EYES SCH ×5 (08:20→20:21)
[2017-09-12] MEDS: Nicotine 21 MG PATCH.TD24 TD SCH (08:20)
[2017-09-12] MEDS: Acetaminophen 325 MG TABLET PO PRN (08:31)
--- NOTE | 2017-09-12 09:00 | Nephrology Progress Note ---
Date of Encounter: 09/12/17 Time of Encounter: 08:58 - Assessment and Plan (1) Metabolic acidosis Current Visit: Yes Status: Acute Patient is a clinical picture of some type of tubular acidosis and possible Fanconi syndrome. Her sodium bicarbonate is improved. I am going to switch her to oral bicarbonate and start her on phosphorus and magnesium replacement orally as well. She also will be placed on potassium replacement therapy. 24- hour urine studies have been ordered and are currently pending. Due to the patient's history of weight loss, no order a CT scan of abdomen and pelvis and chest just to rule out any type of underlying malignancy. Subjective Interval history: The patient reports multiple complaints. She is complaining of arm pain from IV infiltrations and bruising. She is also complaining of eye drainage. She is also complaining of diffuse pain. Her sodium bicarbonate is improved. Her phosphorus and magnesium remained low. Evaluation is in progress for tubular dysfunction possible Fanconi syndrome. Potassium remains low at 3.3. Objective - Vital Signs Vital signs: Vital Signs Temp Pulse Resp BP Pulse Ox 09/12/17 05:00 98.4 F 76 18 144/79 100 09/12/17 00:00 98.2 F 72 18 143/82 100 09/11/17 19:00 98.3 F 76 20 167/79 99 09/11/17 15:55 98.6 F 65 17 150/78 100 09/11/17 15:09 98 09/11/17 11:19 98.1 F 61 19 123/74 98 Intake and Output 09/11/17 09/12/17 09/12/17 23:59 07:59 15:59 Intake Total 1075 / 1075 360 / 360 Output Total 100 / 100 Balance 975 / 975 360 / 360 Intake: IV Fluids 1075 / 1075 Sodium Bicarbonate 75 MEQ In D5 1075 / 1075 % And 0.45% Nacl 1000 Ml Bag 1, 000 ML @ 125 mls/hr IVC .Q8H36M [facility] Rx#:[id number] Oral 360 / 360 Output: Urine 100 / 100 Other: # Voids 2 Weight 56.3 kg Patient Weight 09/12/17 23:59 Weight 56.3 kg - General Appearance Exam: Patient is alert and oriented. She is in no acute distress. Lungs diminished breath sounds otherwise clear. Heart regular rate and rhythm. Abdomen is benign. There is no peripheral edema noted lower extremities. There is some edema of the left upper extremity related to an infiltrated IV. - Lab 09/12/17 03:54 09/12/17 03:54 Most recent lab results Calcium 7.7 mg/dL (8.6-10.3) L 09/12/17 03:54 Phosphorus < 1.0 mg/dL (2.7-4.5) L* 09/12/17 03:54 Magnesium 1.2 mg/dL (1.6-2.6) L 09/12/17 03:54 Urine Sodium 166.6 mEq/L 09/10/17 18:13 Consult Discharge Plan - Plan Referrals: Chel Munroe, POLICE LIAISON OFFICER [Primary Care Provider] - 09/20/17 9:00 am (Please follow up as schedule.... )
[2017-09-12] MEDS ORDERED: Potassium Phosphate 44 MEQ in 0.9 % Sodium Chloride 250 ML IVPB ONE (10:32)
[2017-09-12] MEDS: Magnesium Oxide 400 MG TABLET PO SCH ×2 (10:59→20:04)
--- NOTE | 2017-09-12 17:37 | Internal Med Progress Note ---
Date of Encounter: 09/12/17 Time of Encounter: 10:00 - Assessment and plan (1) Metabolic acidosis Current Visit: Yes Status: Acute Assessment and plan: presented with anion gap metabolic acidosis, normal lactate; serum bicarbonate improved to 26 today, changed IV bicarbonate drip to oral sodium bicarbonate. Nephrology consult appreciated, suspect renal tubular acidosis/Fanconi syndrome. Pending 24-hour urine electrolytes. Physical and occupational therapy evaluation noted, patient has no needs at discharge. (2) COPD (chronic obstructive pulmonary disease) Current Visit: Yes Status: Chronic Assessment and plan: current smoker; not in acute exacerbation; continue PRN bronchodilators and supplemental O2; Qualifiers: COPD type: unspecified COPD Qualified Code(s): J44.9 - Chronic obstructive pulmonary disease, unspecified (3) Chest pain Current Visit: Yes Status: Resolved Qualifiers: Chest pain type: unspecified Qualified Code(s): R07.9 - Chest pain, unspecified (4) Gastritis Current Visit: Yes Status: Chronic Assessment and plan: continue PPI; Qualifiers: Gastritis type: unspecified gastritis Chronicity: unspecified Gastritis bleeding: without bleeding Qualified Code(s): K29.70 - Gastritis, unspecified , without bleeding (5) Hypertension Current Visit: Yes Status: Chronic Qualifiers: Hypertension type: unspecified Qualified Code(s): I10 - Essential (primary ) hypertension (6) Tobacco dependence Current Visit: Yes Status: Chronic (7) Hypokalemia Current Visit: Yes Status: Acute Assessment and plan: Continue to supplement with oral potassium chloride, started on scheduled potassium supplements. Also noted to have hypomagnesemia, supplement with IV magnesium sulfate and continue scheduled oral magnesium oxide. (8) Hypophosphatemia Current Visit: Yes Status: Acute Assessment and plan: Continue supplementation with IV potassium phosphate, started on scheduled Neutra-Phos. (9) Anorexia Current Visit: Yes Status: Acute Assessment and plan: Due to anorexia, weight loss, tobacco abuse, will check CT chest/abdomen/pelvis to rule out occult malignancy. - Subjective Interval history: Feels better but complains of burning in both her arms and hands due to multiple attempts at IV access and electrolyte supplements. Also reports daily yellowish secretions from both her eyes associated with crusting and burning. No chest pain, shortness of breath, abdominal pain. - Constitutional Vitals: Temp Pulse Resp BP Pulse Ox 97.8 F 75 16 165/79 100 09/12/17 14:24 09/12/17 14:24 09/12/17 14:24 09/12/17 14:24 09/12/17 14:24 General appearance: Present: cachectic, A&O X 3, answers questions appropriately - Respiratory Respiratory exam: Present: CTAB. Absent: accessory muscle use, rales, rhonchi, wheezes - Cardiovascular Cardiovascular exam: Present: RRR, +S1, +S2. Absent: diastolic murmur, gallop, rubs, systolic murmur - GI/Abdominal GI/Abdominal exam: Present: normal bowel sounds, soft, no peritoneal signs. Absent: distended, tenderness - Extremities Exam Extremities exam: Present: full ROM, warm, radial pulses palpable and symmetrical. Absent: calf tenderness, cyanotic, pedal edema - Neurological Exam Neurological exam: Present: CN II-XII intact, oriented X3, no focal deficits. Absent: pronater drift, facial droop, speech deficit Internal Medicine: Result - Labs CBC & Chem 7: 09/12/17 03:54 09/13/17 03:03 Labs: Short CBC 09/12/17 Range/Units 03:54 WBC 5.3 (4.3-11.1) K/mcL Hgb 11.8 (11.5-15.4) g/dL Hct 36.2 (35.3-44.9) % Plt Count 67 L (140-400) K/mcL Neutrophils # 3.4 (1.6-8.9) K/mcL BMP 09/12/17 03:54 Sodium 138 Potassium 3.3 L Chloride 105 Carbon Dioxide 26 BUN 4 L Creatinine 0.54 L Glucose 108 H Calcium 7.7 L - Impressions Impressions Abdomen/Pelvis CT 09/12/17 13:30 IMPRESSION: 1. No acute intrapulmonary findings. 2. No CT evidence of a pulmonary embolism. 3. Mild atherosclerotic disease of the thoracic aorta, without evidence of aneurysm or dissection. 4. No acute intra-abdominal or intrapelvic process. 5. Stable nonspecific diffuse wall thickening of the stomach, most likely secondary to a chronic gastritis. Underlying gastric malignancy cannot be excluded. 6. Stable diffuse hepatic steatosis. 7. Stable small 3 mm nodular high attenuation focus adherent to the anterior gallbladder wall, most likely a gallbladder polyp. This could be further characterized with a follow-up gallbladder ultrasound. 8. Stable bilateral renal cysts. 9. Stable small right adrenal adenoma. 10. Stable 5.6 cm cystic lesion within the left adnexal space. Recommend further evaluation with a follow-up pelvic ultrasound, as detailed on the prior study of 09/10/2017. D/ / 09/12/2017 14:59:22 Derick Herrera MD / aniya Interpreting Provider: Derick Herrera MD Chest CT 09/12/17 13:30 IMPRESSION: 1. No acute intrapulmonary findings. 2. No CT evidence of a pulmonary embolism. 3. Mild atherosclerotic disease of the thoracic aorta, without evidence of aneurysm or dissection. 4. No acute intra-abdominal or intrapelvic process. 5. Stable nonspecific diffuse wall thickening of the stomach, most likely secondary to a chronic gastritis. Underlying gastric malignancy cannot be excluded. 6. Stable diffuse hepatic steatosis. 7. Stable small 3 mm nodular high attenuation focus adherent to the anterior gallbladder wall, most likely a gallbladder polyp. This could be further characterized with a follow-up gallbladder ultrasound. 8. Stable bilateral renal cysts. 9. Stable small right adrenal adenoma. 10. Stable 5.6 cm cystic lesion within the left adnexal space. Recommend further evaluation with a follow-up pelvic ultrasound, as detailed on the prior study of 09/10/2017. D/ / 09/12/2017 14:59:22 Derick Herrera MD / aniya Interpreting Provider: Derick Herrera MD Consult Discharge Plan - Plan Referrals: Chel Munroe, LONG [Primary Care Provider] - 09/20/17 9:00 am (Please follow up as schedule.... )
[2017-09-12] MEDS ORDERED: Ciprofloxacin OPTH Soln 2.5 ML BOTTLE RIGHT EYE SCH (20:00)
[2017-09-12] MEDS: traMADol 50 MG TABLET PO PRN (20:04)
[2017-09-12] MEDS: Ciprofloxacin OPTH Soln 2.5 ML BOTTLE BOTH EYES SCH ×2 (20:07→23:38)
[2017-09-13 03:52] LABS: Alanine Aminotransferase 27 Units/L (7-52); Albumin/Globulin Ratio 1.4 (1.1-2.2); Alkaline Phosphatase 109 Units/L (34-104); Aspartate Amino Transferase 40 Units/L (13-39); BUN/Creatinine Ratio 10 (6-26); Bilirubin,Total 0.6 mg/dL (0.3-1.0); Blood Urea Nitrogen 5 mg/dL (8-23); Calcium 7.6 mg/dL (8.6-10.3); Carbon Dioxide 29 mEq/L (23-29); Chloride 107 mEq/L (98-107); Globulin 2.1 g/dL (2.4-3.5); Glucose 87 mg/dL (70-105); Magnesium 1.4 mg/dL (1.6-2.6); Osmolality,Calculated 287 (280-300); Phosphorous 2.1 mg/dL (2.7-4.5); Potassium 4.1 mEq/L (3.5-5.1); Sodium 140 mEq/L (136-145); Total Protein 5.1 g/dL (6.4-8.9); eGFR For African Americans > 60 (> 60); eGFR For Non-African Americans > 60 (> 60)
[2017-09-13] MEDS: Ciprofloxacin OPTH Soln 2.5 ML BOTTLE BOTH EYES SCH ×5 (05:27→21:16)
--- NOTE | 2017-09-13 09:02 | Nephrology Progress Note ---
Date of Encounter: 09/13/17 Time of Encounter: 08:20 - Assessment and Plan (1) Metabolic acidosis Current Visit: Yes Status: Acute Clinical picture of some type of tubular acidosis and possible Fanconi syndrome. Oral supplements K, Mg, Phos, Bicarb maintaining levels. Awaiting [address] abd and pelvis-5. Stable nonspecific diffuse wall thickening of the stomach, most likely secondary to a chronic gastritis. Underlying gastric malignancy cannot be excluded. Stable 5.6 cm cystic lesion within the left adnexal space. Recommendation for further evaluation with a follow-up pelvic ultrasound Will order pelvic US. Consult Dr. Stephenson for EGD. Subjective Interval history: Laying in bed, states just feels tired. Objective - Vital Signs Vital signs: Vital Signs Temp Pulse Resp BP Pulse Ox 09/13/17 06:53 98.1 F 80 16 164/96 98 09/13/17 05:20 98.2 F 81 17 162/87 99 09/13/17 00:17 98.1 F 79 16 161/86 98 09/12/17 19:20 98.1 F 71 17 141/79 99 Intake and Output 09/12/17 09/13/17 09/13/17 23:59 07:59 15:59 Other: # Voids 1 # Bowel Movements 1 Weight 57.323 kg Patient Weight 09/13/17 23:59 Weight 57.323 kg - General Appearance General appearance: Present: frail EENT: Present: mucous membranes moist Neck: Present: no JVD Respiratory: Present: clear Cardiology: Present: no edema, regular rate, regular rhythm Gastrointestinal: Present: normoactive bowel sounds, no tenderness Integumentary: Present: warm and dry Neurologic: Present: alert and oriented x3 - Lab 09/12/17 03:54 09/13/17 03:03 Most recent lab results Calcium 7.6 mg/dL (8.6-10.3) L 09/13/17 03:03 Phosphorus 2.1 mg/dL (2.7-4.5) L 09/13/17 03:03 Magnesium 1.4 mg/dL (1.6-2.6) L 09/13/17 03:03 Urine Sodium 166.6 mEq/L 09/10/17 18:13 Consult Discharge Plan - Plan Referrals: Chel Munroe, PATROL OFFICER [Primary Care Provider] - 09/20/17 9:00 am (Please follow up as schedule.... )
[2017-09-13] MEDS: Artificial Tears SOLN 15 ML BOTTLE BOTH EYES SCH ×4 (09:13→21:54)
[2017-09-13] MEDS: Magnesium Oxide 400 MG TABLET PO SCH ×2 (09:14→21:14)
[2017-09-13] MEDS: Nicotine 21 MG PATCH.TD24 TD SCH (09:15)
[2017-09-13] MEDS: Nystatin SUSP 5 ML UD.LIQ PO SCH ×4 (09:17→21:14)
[2017-09-13] MEDS: traMADol 50 MG TABLET PO PRN (09:21)
[2017-09-13] MEDS: Sodium Bicarbonate 75 MEQ in D5% in 0.45% NACL 1,000 ML IVC SCH ×2 (10:18→10:19)
[2017-09-13] MEDS ORDERED: Magnesium Sulfate 1 GM in 0.9 % Sodium Chloride 50 ML IVPB ONE (10:38)
[2017-09-13] MEDS: amLODIPine 5 MG TABLET PO SCH (11:19)
--- NOTE | 2017-09-13 11:34 | Gastroenterology Consult Note ---
<Alessio Zheng - Last Filed: 09/13/17 11:32> Date of Encounter: 09/13/17 Time of Encounter: 10:05 - Assessment and plan (1) Gastritis Current Visit: Yes Status: Chronic Assessment and plan: CT A/P showed diffuse wall thickening of the stomach, most likely secondary to chronic gastritis but malignancy cannot be ruled out. Plan for EGD to r/o esophagitis, gastritis, duodenitis, PUD, MW tear, AVM, or malignancy. Keep pt NPO. Continue PPI. Qualifiers: Gastritis type: unspecified gastritis Chronicity: unspecified Gastritis bleeding: without bleeding Qualified Code(s): K29.70 - Gastritis, unspecified , without bleeding - Time Spent With Patient Total time spent is greater than 50% in coordination of care (as documented) at patient's floor/unit and/or counseling patient: GI History of Present Illness - Data of Consult Patient: new to practice Consult date: 09/13/17 Requesting Physician: Joy Borjas MD - Consult Narrative Reason for consult: r/o malignancy History of present illness: Ms. Cabrera is a 66 year old female with PMHx of DM, GERD, HLD, HTN who presented to the ED with c/o weakness, chest pain, nausea, and vomiting. She denied fever , chills, vomiting, diarrhea, constipation, melena, hematochezia. CT A/P showed diffuse wall thickening of the stomach, most likely secondary to chronic gastritis but malignancy cannot be ruled out. Pt reports weight loss, but states she was trying to lose weight by changing her eating habits. She also states that she has not had a very good appetite for the past 3 years or so but she thinks her weight has been relatively stable. Procedures: Colonoscopy 02/03/2000 Dr. Renae: Tubular adenoma, villoglandular polyp. NSAIDs: None Anticoagulation: None Past Med Surg Social Fam HX - Past Medical History Medical history: diabetes, GERD, hyperlipidemia, hypertension, migraine Psychiatric history: no psych history - Past Surgical History Surgical History: - Social History Smoking Status: Current every day smoker Packs per day: 1 Smokeless Tobacco Status: No Alcohol use: occasionally Drug use: none - Family History Mother Living Status: Hx Family Cardiac Disorders: Yes Hx Family Endocrine Disorder: Yes (uncontrolled DM) Father Living Status: Hx Family Cardiac Disorders: Yes Hx Family GI Disorders: Yes - Gastrointestinal Gastrointestinal: Present: as per HPI - Constitutional Constitutional: as per HPI - EENT Eyes: as per HPI Ears: Present: as per HPI Nose, mouth and throat: Present: as per HPI - Cardiovascular Cardiovascular ROS: Present: as per HPI - Respiratory Respiratory IM: Present: as per HPI - Genitourinary Genitourinary: Absent: change in color, Urinary frequency - Neurological ROS Neurological GI: Present: as per HPI - Hematologic/Lymphatic Hematologic/Lymphatic pediatric: Present: as per HPI - Musculoskeletal Musculoskeletal ROS GI: Present: as per HPI - Integumentary Integumentary GI: Present: as per HPI - Psychiatric ROS Psychiatric GI: Present: as per HPI - Endocrine Endocrine IM: Present: as per HPI - Constitutional Vitals: Temp Pulse Resp BP Pulse Ox 98.0 F 69 16 138/81 97 09/13/17 10:54 09/13/17 10:54 09/13/17 10:54 09/13/17 10:54 09/13/17 10:54 General appearance: Present: cachectic, cooperative, A&O X 3, no acute distress , answers questions appropriately - Head Head exam: Present: atraumatic, normocephalic - Eye Eye exam: Present: normal appearance, sclera anicteric - ENT ENT exam: Present: mucous membranes dry - Neck Neck exam general surgery: Present: normal inspection, trachea midline - Respiratory Respiratory exam: Present: CTAB. Absent: rales, rhonchi - Cardiovascular Cardiovascular exam: Present: RRR, +S1, +S2 - GI/Abdominal GI/Abdominal exam: Present: soft, no peritoneal signs. Absent: distended, firm , guarding, tenderness - Rectal Rectal exam: Present: deferred - Extremities Exam Extremities exam: Present: warm - Neurological Exam Neurological exam: Present: no focal deficits - Psychiatric Psychiatric exam: Present: normal affect, normal mood - Skin Skin exam: Present: dry, intact, normal color, warm Results - Labs CBC & Chem 7: 09/12/17 03:54 09/13/17 03:03 Labs: Last Result Calcium 7.6 mg/dL (8.6-10.3) L 09/13/17 03:03 Troponin I < 0.03 ng/mL (< 0.04) 09/10/17 23:57 Triglycerides 152 mg/dL (< 150) H 09/11/17 05:58 Urine Opiates Screen Negative ng/mL ([id number]) 09/10/17 10:44 Entire Visit Hgb 11.8 g/dL (11.5-15.4) 09/12/17 03:54 Hct 36.2 % (35.3-44.9) 09/12/17 03:54 Total Bilirubin 0.6 mg/dL (0.3-1.0) 09/13/17 03:03 AST 40 Units/L (13-39) H 09/13/17 03:03 ALT 27 Units/L (7-52) 09/13/17 03:03 Acetaminophen < 1.0 mcg/mL (10-30) L 09/10/17 11:08 Consult Discharge Plan - Plan Referrals: Chel Munroe, DIRECTOR DIGITAL ANALYTICS [Primary Care Provider] - 09/20/17 9:00 am (Please follow up as schedule.... ) <Yaneth Stephenson - Last Filed: 09/13/17 17:10> Date of Encounter: 09/13/17 Time of Encounter: 17:00 - Time Spent With Patient Total time spent is greater than 50% in coordination of care (as documented) at patient's floor/unit and/or counseling patient: GI History of Present Illness - Data of Consult Requesting Physician: Joy Borjas MD - Consult Narrative History of present illness: Ms. Cabrera is a 66 year old female - Constitutional Vitals: Temp Pulse Resp BP Pulse Ox 98.4 F 67 15 143/51 99 09/13/17 17:08 09/13/17 17:08 09/13/17 17:08 09/13/17 17:08 09/13/17 17:08 Results - Labs CBC & Chem 7: 09/12/17 03:54 09/13/17 03:03 Labs: Last Result Calcium 7.6 mg/dL (8.6-10.3) L 09/13/17 03:03 Troponin I < 0.03 ng/mL (< 0.04) 09/10/17 23:57 Triglycerides 152 mg/dL (< 150) H 09/11/17 05:58 Urine Opiates Screen Negative ng/mL ([id number]) 09/10/17 10:44 Entire Visit Hgb 11.8 g/dL (11.5-15.4) 09/12/17 03:54 Hct 36.2 % (35.3-44.9) 09/12/17 03:54 Total Bilirubin 0.6 mg/dL (0.3-1.0) 09/13/17 03:03 AST 40 Units/L (13-39) H 09/13/17 03:03 ALT 27 Units/L (7-52) 09/13/17 03:03 Acetaminophen < 1.0 mcg/mL (10-30) L 09/10/17 11:08 - Impressions Impressions Pelvis Ultrasound 09/13/17 15:00 IMPRESSION: 1. 4.7 cm x 5.0 cm x 3.4 cm left ovarian cystic lesion not definitely present on 09/12/2007 and containing a 0.4 cm x 0.3 cm hyperechoic mural nodule. An ovarian neoplasm is favored. Recommend gynecology evaluation. 2. No ovarian torsion. 3. Normal sonographic appearance of the uterus and right ovary for age. 4. Trace free fluid appears at most minimally complex and is abnormal for age. The finding most likely is related to intra-abdominal inflammation. D/ / Alessio Schwartz MD / Alessio Schwartz MD Interpreting Provider: Alessio Schwartz MD - Attending Attestation I examined this patient and my medical decision-making was reviewed with the HRIS COORDINATOR. I agree with the documented findings, disposition and treatment plan as described except to the extent set forth below.
[2017-09-13] MEDS ORDERED: *HR* FentaNYL (PF) 100 MCG/2 ML VIAL ONE (16:29)
[2017-09-13] MEDS ORDERED: *HR* Midazolam HCl 5 MG/5 ML VIAL IVP ONE (16:29)
[2017-09-13] MEDS ORDERED: Tetracaine/Benzocaine/Butamben 200MG/SPRAY (100SPY/BOT) MM ONE (17:11)
[2017-09-13] MEDS ORDERED: Simethicone 40 MG/0.6 ML MLS IR ONE (17:11)
[2017-09-13] MEDS ORDERED: *HR* Midazolam HCl 2 MG/2 ML VIAL IVP ONE (17:11)
[2017-09-13] MEDS ORDERED: *HR* FentaNYL (PF) 100 MCG/2 ML VIAL IVP ONE (17:11)
--- NOTE | 2017-09-13 17:11 | Pre-Sedation Evaluation ---
Pre-sedation evaluation - Pre-sedation checklist Date of procedure: 09/13/17 Recent Vitals: Last Vital Signs Temp 98.4 F 09/13/17 17:08 Pulse 67 09/13/17 17:10 Resp 16 09/13/17 17:10 BP 147/57 09/13/17 17:10 Pulse Ox 99 09/13/17 17:10 ASA Classification *see protocol: CLASS III-Severe systemic disease Plan of Care: Pt appropriate candidate for procedure/moderate/conscious sedation , Risks/benefits of procedure/sedation discussed w/ patient/family
--- NOTE | 2017-09-13 17:13 | Internal Med Progress Note ---
Date of Encounter: 09/13/17 Time of Encounter: 11:00 - Assessment and plan (1) Metabolic acidosis Current Visit: Yes Status: Acute Assessment and plan: presented with anion gap metabolic acidosis, normal lactate; serum bicarbonate improved to 29 today, continue oral sodium bicarbonate. 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 Pending 24-hour urine electrolytes. Physical and occupational therapy evaluation noted, patient has no needs at discharge. (2) COPD (chronic obstructive pulmonary disease) Current Visit: Yes Status: Chronic Qualifiers: COPD type: unspecified COPD Qualified Code(s): J44.9 - Chronic obstructive pulmonary disease, unspecified (3) Chest pain Current Visit: Yes Status: Resolved Qualifiers: Chest pain type: unspecified Qualified Code(s): R07.9 - Chest pain, unspecified (4) Gastritis Current Visit: Yes Status: Chronic Qualifiers: Gastritis type: unspecified gastritis Chronicity: unspecified Gastritis bleeding: without bleeding Qualified Code(s): K29.70 - Gastritis, unspecified , without bleeding (5) Hypertension Current Visit: Yes Status: Chronic Qualifiers: Hypertension type: unspecified Qualified Code(s): I10 - Essential (primary ) hypertension (6) Tobacco dependence Current Visit: Yes Status: Chronic (7) Hypokalemia Current Visit: Yes Status: Resolved Assessment and plan: continue scheduled potassium supplements; (8) Hypophosphatemia Current Visit: Yes Status: Acute Assessment and plan: improving; Continue supplementation with IV potassium phosphate, started on scheduled Neutra-Phos. (9) Anorexia Current Visit: Yes Status: Acute Assessment and plan: Due to anorexia, weight loss, tobacco abuse, checked CT chest/abdomen/pelvis to rule out occult malignancy-showed no acute lung findings, nonspecific diffuse stomach wall thickening, stable 5.6 cm cystic lesion in the left adnexal space. Case was discussed with nephrology with GI, plan for EGD today to rule out gastritis versus malignancy. To check pelvic ultrasound to further evaluate adnexal lesion, could be a benign ovarian cyst. - Subjective Interval history: Feels much better today except some fatigue; no chest or abdominal pain, nausea , vomiting; has been having some dark-colored diarrhea; - Constitutional Vitals: Temp Pulse Resp BP Pulse Ox 98.4 F 67 16 147/57 99 09/13/17 17:08 09/13/17 17:10 09/13/17 17:10 09/13/17 17:10 09/13/17 17:10 General appearance: Present: cachectic, A&O X 3, answers questions appropriately - Respiratory Respiratory exam: Present: CTAB. Absent: accessory muscle use, rales, rhonchi, wheezes - Cardiovascular Cardiovascular exam: Present: RRR, +S1, +S2. Absent: diastolic murmur, gallop, rubs, systolic murmur - GI/Abdominal GI/Abdominal exam: Present: normal bowel sounds, soft, no peritoneal signs. Absent: distended, tenderness - Extremities Exam Extremities exam: Present: full ROM, warm, radial pulses palpable and symmetrical. Absent: calf tenderness, cyanotic, pedal edema - Neurological Exam Neurological exam: Present: CN II-XII intact, oriented X3, no focal deficits. Absent: pronater drift, facial droop, speech deficit Internal Medicine: Result - Labs CBC & Chem 7: 09/12/17 03:54 09/13/17 03:03 Labs: BMP 09/13/17 03:03 Sodium 140 Potassium 4.1 Chloride 107 Carbon Dioxide 29 BUN 5 L Creatinine 0.51 L Glucose 87 Calcium 7.6 L Liver Function 09/13/17 Range/Units 03:03 Total Bilirubin 0.6 (0.3-1.0) mg/dL AST 40 H (13-39) Units/L ALT 27 (7-52) Units/L Alkaline Phosphatase 109 H (34-104) Units/L Albumin 3.0 L (3.5-5.7) g/dL - Impressions Impressions Pelvis Ultrasound 09/13/17 15:00 IMPRESSION: 1. 4.7 cm x 5.0 cm x 3.4 cm left ovarian cystic lesion not definitely present on 09/12/2007 and containing a 0.4 cm x 0.3 cm hyperechoic mural nodule. An ovarian neoplasm is favored. Recommend gynecology evaluation. 2. No ovarian torsion. 3. Normal sonographic appearance of the uterus and right ovary for age. 4. Trace free fluid appears at most minimally complex and is abnormal for age. The finding most likely is related to intra-abdominal inflammation. D/ / Alessio Schwartz MD / Alessio Schwartz MD Interpreting Provider: Alessio Schwartz MD Consult Discharge Plan - Plan Referrals: Chel Munroe, INTEGRATION LEAD [Primary Care Provider] - 09/20/17 9:00 am (Please follow up as schedule.... )
[2017-09-14] MEDS: Ciprofloxacin OPTH Soln 2.5 ML BOTTLE BOTH EYES SCH ×4 (00:42→13:37)
[2017-09-14 05:18] LABS: Chloride 103 mEq/L (98-107); Potassium 4.6 mEq/L (3.5-5.1); Sodium 137 mEq/L (136-145)
[2017-09-14 05:43] LABS: Alanine Aminotransferase 27 Units/L (7-52); Albumin 3.1 g/dL (3.5-5.7); Albumin/Globulin Ratio 1.5 (1.1-2.2); Alkaline Phosphatase 113 Units/L (34-104); Aspartate Amino Transferase 47 Units/L (13-39); BUN/Creatinine Ratio 8 (6-26); Bilirubin,Total 0.7 mg/dL (0.3-1.0); Blood Urea Nitrogen 4 mg/dL (8-23); Calcium 8.2 mg/dL (8.6-10.3); Carbon Dioxide 28 mEq/L (23-29); Globulin 2.1 g/dL (2.4-3.5); Glucose 88 mg/dL (70-105); Magnesium 1.3 mg/dL (1.6-2.6); Osmolality,Calculated 280 (280-300); Phosphorous 2.5 mg/dL (2.7-4.5); Total Protein 5.2 g/dL (6.4-8.9); eGFR For African Americans > 60 (> 60); eGFR For Non-African Americans > 60 (> 60)
[2017-09-14 06:02] LABS: HIV-1&2 Antibody & p24 Ag Nonreactive (Nonreactive); Hepatitis A Antibody IgM Nonreactive (Nonreactive); Hepatitis B Core IgM Nonreactive (Nonreactive); Hepatitis B Surface Antigen Nonreactive (Nonreactive); Hepatitis C Virus Antibody Nonreactive (Nonreactive)
[2017-09-14] MEDS ORDERED: Magnesium Sulfate 2 GM in D5% in Water 100 ML IVPB ONE (08:49)
[2017-09-14] MEDS ORDERED: Magnesium Oxide 400 MG TABLET PO SCH (09:00)
[2017-09-14 09:31] LABS: Basophils % 0.8 %; Eosinophils # 0.2 K/mcL (0.0-0.6); Eosinophils % 5.1 %; Hematocrit 37.6 % (35.3-44.9); Hemoglobin 11.9 g/dL (11.5-15.4); Immature Granulocytes % 0.5 % (0-4); Immature Platelets 7.8 % (1.1-6.1); Lymphocytes # 0.9 K/mcL (0.6-4.6); Mean Corpuscular HGB Conc 31.6 g/dL (31.6-35.5); Mean Corpuscular Hemoglobin 29.6 pg (28.0-33.3); Mean Corpuscular Volume 93.5 fL (83.0-100.0); Mean Platelet Volume 11.3 fL (9.4-12.4); Monocytes # 0.3 K/mcL (0.0-1.3); Monocytes % 7.3 %; Neutrophils # 2.3 K/mcL (1.6-8.9); Platelet Count 72 K/mcL (140-400); Red Blood Count 4.02 M/mcL (3.82-4.97); Red Cell Distribution Width 16.2 % (11.5-14.5); Segmented Neutrophils % 61.3 %
--- NOTE | 2017-09-14 09:31 | Nephrology Progress Note ---
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 Oral supplements K, Mg, Phos, Bicarb maintaining levels. Awaiting 24 hour urine studies. Noted GI consult and EGD. Subjective Interval history: Laying in bed, states feels somewhat better, improved appetite. Objective - Vital Signs Vital signs: Vital Signs Temp Pulse Resp BP Pulse Ox 09/14/17 06:59 97.7 F 57 16 152/79 99 09/14/17 05:02 98.5 F 65 16 140/75 97 09/14/17 00:41 98.2 F 60 17 139/74 98 09/13/17 21:31 95 09/13/17 20:21 98.2 F 69 17 117/76 95 09/13/17 17:25 78 16 160/87 96 09/13/17 17:20 89 16 164/91 97 09/13/17 17:15 68 16 152/76 96 09/13/17 17:10 67 16 147/57 99 09/13/17 17:08 98.4 F 67 15 143/51 99 09/13/17 16:32 97.8 F 65 16 156/86 98 09/13/17 10:54 98.0 F 69 16 138/81 97 09/13/17 10:40 98.3 F 69 16 163/96 98 Intake and Output 09/13/17 09/14/17 09/14/17 23:59 07:59 15:59 Intake Total 800 / 800 Balance 800 / 800 Intake: Oral 800 / 800 Other: # Voids 1 1 Weight 57.3 kg Patient Weight 09/14/17 23:59 Weight 57.3 kg - General Appearance General appearance: Present: well-developed, appears started age EENT: Present: mucous membranes moist Neck: Present: no JVD Respiratory: Present: clear Cardiology: Present: no edema, regular rate, regular rhythm Gastrointestinal: Present: normoactive bowel sounds, no tenderness Integumentary: Present: warm and dry Neurologic: Present: alert and oriented x3 - Lab 09/12/17 03:54 09/14/17 03:50 Most recent lab results Calcium 8.2 mg/dL (8.6-10.3) L 09/14/17 03:50 Phosphorus 2.5 mg/dL (2.7-4.5) L 09/14/17 03:50 Magnesium 1.3 mg/dL (1.6-2.6) L 09/14/17 03:50 Urine Sodium 166.6 mEq/L 09/10/17 18:13 Consult Discharge Plan - Plan Referrals: Chel Munroe, EXP[employer]ED D[employer] DENTAL ASSISTANT [Primary Care Provider] - 09/20/17 9:00 am (Please follow up as schedule.... )
[2017-09-14 09:34] LABS: INR 1.1; Prothrombin Time 12.1 Seconds (9.4-12.1)
[2017-09-14 10:45] VITALS: BP 161/74
[2017-09-14] MEDS: Nicotine 21 MG PATCH.TD24 TD SCH (11:22)
[2017-09-14] MEDS: Nystatin SUSP 5 ML UD.LIQ PO SCH ×2 (11:23→13:36)
[2017-09-14] MEDS: amLODIPine 5 MG TABLET PO SCH (11:23)
[2017-09-14] MEDS: Artificial Tears SOLN 15 ML BOTTLE BOTH EYES SCH ×2 (11:24→13:37)
[2017-09-14 12:24] LABS: Total Volume 24 Hour,Urine 2.07 Liters (0.60-1.60)
[2017-09-14 12:25] LABS: Total Volume 24 Hour,Urine 2.07 Liters (0.60-1.60)
[2017-09-14 12:27] LABS: Total Volume 24 Hour,Urine 2.07 Liters (0.60-1.60)
--- NOTE | 2017-09-14 12:40 | Discharge Summary ---
Date of Encounter: 09/14/17 Time of Encounter: 12:37 - Discharge Diagnosis (1) Metabolic acidosis Priority: Primary Status: Acute (2) COPD (chronic obstructive pulmonary disease) Priority: Secondary Status: Chronic Qualifiers: COPD type: unspecified COPD Qualified Code(s): J44.9 - Chronic obstructive pulmonary disease, unspecified (3) Chest pain Priority: Primary Status: Resolved Qualifiers: Chest pain type: unspecified Qualified Code(s): R07.9 - Chest pain, unspecified (4) Hypertension Priority: Secondary Status: Chronic Qualifiers: Hypertension type: unspecified Qualified Code(s): I10 - Essential (primary ) hypertension (5) Tobacco dependence Priority: Secondary Status: Chronic (6) Hypokalemia Priority: Primary Status: Resolved (7) Hypophosphatemia Priority: Primary Status: Acute (8) Anorexia Priority: Primary Status: Chronic (9) Hypomagnesemia Priority: Primary Status: Acute (10) Ovarian cyst, left Priority: Primary Status: Acute - Discharge Medications Prescriptions: amLODIPine [Norvasc] 10 mg PO DAILY #60 tablet Atenolol [Tenormin] 50 mg PO BID #60 tablet Magnesium Oxide [Mag-Ox] 800 mg PO BID #120 tablet Phos-NaK [Neutra-Phos] 2 each PO BID #120 powd.pack Potassium Chloride 20 meq PO BID #60 tab.er.prt Sodium Bicarbonate 650 mg PO TID #180 tablet Home Medications: Atorvastatin [Lipitor] 80 mg PO HS 09/10/17 [History] Omeprazole [PriLOSEC] 20 mg PO DAILY 09/10/17 [History] Tramadol HCl [Ultram] 50 mg PO Q6-8H PRN 09/10/17 [History] Atenolol [Tenormin] 50 mg PO BID #60 tablet 09/14/17 [Rx] Magnesium Oxide [Mag-Ox] 800 mg PO BID #120 tablet 09/14/17 [Rx] Phos-NaK [Neutra-Phos] 2 each PO BID #120 powd.pack 09/14/17 [Rx] Potassium Chloride 20 meq PO BID #60 tab.er.prt 09/14/17 [Rx] Sodium Bicarbonate 650 mg PO TID #180 tablet 09/14/17 [Rx] amLODIPine [Norvasc] 10 mg PO DAILY #60 tablet 09/14/17 [Rx] Allergies/Adverse Reactions: 3 Allergy/AdvReac Type Severity Reaction Status Date / Time No Known Allergies Allergy Verified 07/19/17 09:11 Procedures/tests Complete & Pending: Procedures Performed prior 72 hours Category Date Time Status US pelvis extended [US] Routine Exams 09/13/17 15:00 Completed - Notes to Outpatient Provider Please monitor electrolytes, acidosis; scheduled DIRECTOR ASSET Oncology appointment for concerning left ovarian cyst, to r/o malignancy; Date of admission: 09/12/17 17:36 Primary care physician: Chel Munroe CNP Consults: 09/13/17 09:01 Consult to Gastroenterology [CONS] Routine Consulting Provider: Alex Byrnes Reason for Consult: diffuse wall thickening of the stomach on CT abd, r/o malignancy Time Notified: 09:05 Call Completed: Yes Discharging clinician: Joy Borjas Anticipated date of discharge: 09/14/17 - Patient Status Disposition: Home, Self-Care Condition: Good Functional capacity at discharge: independent ambulation Overall status at discharge: patient is progressing back to baseline - Ambulatory Orders Ambulatory Orders: Basic Metabolic Panel [CHEM] Time Frame: 1 Week, Facility: [facility], Location: Lab Magnesium [CHEM] Time Frame: 1 Week, Facility: [facility], Location: Lab Phosphorous [CHEM] Time Frame: 1 Week, Facility: [facility], Location: Lab - Discharge Instructions Follow Up With: Chel Munroe CNP [Primary Care Provider] - 09/20/17 9:00 am (Please follow up as schedule.... ) Additional Instructions: F/up with Nephrology in 2-3 weeks; please call Office on 09/17/17, for appointment; F/up with [facility] DIRECTOR ASSET-Oncology as scheduled - Diet and Activity Activity: resume usual activities as tolerated Diet: advance to your usual diet Hospital course: Ms. Cabrera is a 66 year old female with the above medical problems with poor medical compliance and follow-up, who was initially admitted with generalized weakness and malaise. Patient was noted to have abnormal metabolic panel with metabolic acidosis and electrolyte abnormalities. She was initially started on IV bicarbonate drip, potassium, magnesium and phosphorus were appropriately supplemented. Nephrology was consulted and patient was diagnosed with non- anion gap metabolic acidosis, likely related to a type of renal tubular acidosis versus Fanconi syndrome. 24-hour urine studies were ordered, which were pending at the time of discharge. Patient is to follow up with nephrology as outpatient. She also has significant history of anorexia, unintentional weight loss and chronic tobacco abuse. CT chest/abdomen/pelvis was done to rule out occult malignancy, which revealed nonspecific gastric wall thickening, left adnexal cyst. Gastroenterology was consulted and patient underwent EGD, which showed thickened gastric folds, biopsies pending. Pelvic ultrasound showed a 5 x 5 cm left ovarian cyst with mural nodule, to be further evaluated for malignancy. Case was discussed with with [facility]- DIRECTOR ASSET Oncology, and patient will be given a clinic appointment in the next 2 weeks. CA-125 and carcinoembryonic antigen were ordered at DIRECTOR ASSET request. Smoking cessation counseling was done for 4 minutes and patient verbalized understanding. Medication compliance and the importance of following up with her PCP and DIRECTOR ASSET oncology, nephrology was reinforced and she verbalized understanding. She is otherwise medically stable for discharge. Time spent discussing smoking cessation with patient: 3 to 10 minutes - Time Spent with Patient Total time spent providing and/or coordinating discharge services: Greater than 30 minutes (55 min) - Constitutional Vitals: Temp Pulse Resp BP Pulse Ox 98.3 F 61 17 161/74 99 09/14/17 10:43 09/14/17 10:43 09/14/17 10:43 09/14/17 10:43 09/14/17 10:43 General appearance: Present: cachectic, A&O X 3, answers questions appropriately - Cardiovascular Cardiovascular exam: Present: RRR, +S1, +S2. Absent: diastolic murmur, gallop, rubs, systolic murmur
[2017-09-14 14:31] LABS: Carcinoembryonic Antigen 6.6 ng/mL (Less than 5.0)
[2017-09-14 22:15] LABS: Potassium,Urine 13.7 mEq/L
[2017-09-16 03:15] LABS: Urine Magnesium mg/dL 1.8 mg/dL
== END 2017-09-14 15:47 | disposition home or self-care (01) | DRG 641 ==
LOC: 2ANU 08:59 → EMEROO 08:59 → SUATTDRO 16:19 → 2ANU 16:51
PROVIDERS: ADMIT Internal Medicine; ATTEND Internal Medicine
PROC: ENDOEBX (2017-09-13 16:00)

== ENCOUNTER 2017-12-05 17:58 | Inpatient (IN) ==
[2017-12-05] MEDS ORDERED: 0.9 % Sodium Chloride 1,000 ML IVC ONE (18:12)
[2017-12-05] MEDS ORDERED: Thiamine (B-1) 100 MG in D5% in Water 50 ML IVPB ONE (18:41)
[2017-12-05] MEDS ORDERED: diazePAM 10 MG/2 ML SYRINGE IVP ONE ×2 (18:42→19:49)
[2017-12-05 19:13] LABS: Basophils % 0.2 %; Hematocrit 34.5 % (35.3-44.9); Hemoglobin 11.7 g/dL (11.5-15.4); Immature Granulocytes % 0.8 % (0-4); Lymphocytes # 1.4 K/mcL (0.6-4.6); Lymphocytes % 14.3 %; Mean Corpuscular HGB Conc 33.9 g/dL (31.6-35.5); Mean Corpuscular Hemoglobin 31.3 pg (28.0-33.3); Mean Corpuscular Volume 92.2 fL (83.0-100.0); Mean Platelet Volume 10.4 fL (9.4-12.4); Monocytes % 9.8 %; Neutrophils # 7.4 K/mcL (1.6-8.9); Platelet Count 163 K/mcL (140-400); Red Blood Count 3.74 M/mcL (3.82-4.97); Segmented Neutrophils % 74.9 %
--- NOTE | 2017-12-05 19:34 | Emergency Department Note ---
Disposition Clinical Impression: Hypokalemia, Hypomagnesemia, Hypocalcemia, NSTEMI (non-ST elevated myocardial infarction), Elevated troponin I level Altered mental status Qualifiers: Altered mental status type: delirium Qualified Code(s): R41.0 - Disorientation , unspecified Disposition: Admitted As Inpatient Condition: Undetermined Time of Disposition: 01:30 Altered Mental Status HPI - General Chief Complaint: ED Altered Mental Status Stated Complaint: AMS Source: EMS Nursing Notes Reviewed: Yes Vital Signs Reviewed: Yes - History of Present Illness HPI Narrative: 67-year-old female brought in by EMS for altered mental status. Patient has a history of failure to thrive per family. Family also states that patient fell in her driveway one day ago but was still alert and oriented. Today, patient is completely altered and not responding to any commands. EMS was called at that time - Related Data Home Medications Medication Instructions Recorded Confirmed Atorvastatin [Lipitor] 80 mg PO HS 09/10/17 12/05/17 Omeprazole [PriLOSEC] 20 mg PO DAILY 09/10/17 12/05/17 Tramadol HCl [Ultram] 50 mg PO Q6-8H PRN 09/10/17 12/05/17 Lactulose [Lactulose] 15 ml PO DAILY 12/05/17 12/05/17 Magnesium Oxide [Mag-Ox] 400 mg PO TID 12/05/17 12/05/17 Previous Rx's Medication Instructions Recorded Atenolol [Tenormin] 50 mg PO BID #60 tablet 09/14/17 Phos-NaK [Neutra-Phos] 2 each PO BID #120 powd.pack 09/14/17 Potassium Chloride 20 meq PO BID #60 tab.er.prt 09/14/17 Sodium Bicarbonate 650 mg PO TID #180 tablet 09/14/17 amLODIPine [Norvasc] 10 mg PO DAILY #60 tablet 09/14/17 Allergies Allergy/AdvReac Type Severity Reaction Status Date / Time No Known Allergies Allergy Verified 12/05/17 18:06 Limitations: ROS unobtainable due to patients medical condition Past Medical History - Past Medical History Source: unable to obtain, old records reviewed, obtained from family (Daughter at bedside) Medical history: Reports: diabetes, GERD, hyperlipidemia, hypertension, migraine Surgical history: Reports: Psychiatric history: Reports: no psych history - Social History Smoking Status: Current every day smoker Smokeless Tobacco Status: No Alcohol use: Reports: occasionally Drug use: Reports: none Physical Exam Vital Signs Temperature 97.8 F 12/05/17 18:03 Pulse Rate 86 12/05/17 18:03 Respiratory Rate 16 12/05/17 18:03 Blood Pressure 121/23 12/05/17 18:03 O2 Sat by Pulse Oximetry 98 12/05/17 18:03 Temperature 97.8 F 12/05/17 18:03 Pulse Rate 86 12/05/17 18:03 Respiratory Rate 16 12/05/17 18:03 Blood Pressure 121/23 12/05/17 18:03 O2 Sat by Pulse Oximetry 98 12/05/17 18:03 Oxygen Delivery Oxygen Delivery Room Air CONSTITUTIONAL: Thin almost cachectic appearing female who is alert but not oriented and does not respond to any commands. Patient does purposely removed her hand when you touch her on any part of her body. Patient continues to rhithe about the bed. Some fine tremor's witness. HEAD: Normocephalic; atraumatic. EYES: PERRL, no scleral icterus. NOSE: The nose is normal in appearance without rhinorrhea RESP: Normal chest excursion with respiration; breath sounds clear and equal bilaterally; no wheezes, rhonchi, or rales CARD: Regular rhythm, without murmurs, rub or gallop ABD: Non-distended; non-tender, soft,without rigidity, rebound or guarding SKIN: Normal for age and race; warm and dry; no apparent lesions - General Limitations: altered mental status General appearance: alert - Head Head exam: normal inspection - Eye Eye exam: Present: normal appearance Course Course Narrative: Dr. Sirena briseno (Senior resident overseeing workup in conjunction with Dr. Gray and Dr. Muñiz) - I spoke with Dr. Duran about patient presentation , lab workup including EKG with new T wave inversions in lead II, Lead III, V2- v5, mild ST elevation in V3. Patient given aspirin 325mg. Dr. Duran was comfortable with ER team starting heparin after head CT came back. Head CT negative, rectal exam negative for blood. WIll proceed with heparin. Please see Dr. Muñiz's note for further care and dispo. - Reevaluation(s) Reevaluation #1: potassium 2.5 Medical restraints soft restraints ordered Time: 19:50 Reevaluation #2: CT scan negative for intracranial hemorrhage, heparin ordered. Time: 22:34 - Consultations Consultation #1: Dr. Borjas the hositalist has accepted the patient for admission to the ICU. Time: 23:30 Vital Signs Temperature 97.8 F 12/05/17 18:03 Pulse Rate 86 12/05/17 18:03 Respiratory Rate 16 12/05/17 18:03 Blood Pressure 121/23 12/05/17 18:03 O2 Sat by Pulse Oximetry 98 12/05/17 18:03 Temperature 97.8 F 12/05/17 18:03 Pulse Rate 78 12/05/17 23:49 Respiratory Rate 18 12/06/17 00:36 Blood Pressure 100/64 12/06/17 00:36 O2 Sat by Pulse Oximetry 100 12/06/17 01:11 Oxygen Delivery Oxygen Delivery Nasal Cannula Altered Mental Status - MDM Narrative Medical decision making narrative: Altered mental status. Patient is on her own and had a ground-level fall times one day ago which since then her condition has seemed to be declining. 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 Patient labs imaging workup were completed to identify causes the patient ultimately mental status today. However to do so required patient to be medically restrained and given a combination of Valium and Ativan along with Haldol to assist in completing patient's workup because patient has been fairly uncooperative. She has been alert but unresponsive to questioning or any direction. Patient's workup revealed severe hypokalemia, hypomagnesemia, and hypocalcemia for which patient received replacement therapy for to include 4 g of magnesium IV, 40 mEq of IV potassium, and 1 g of calcium carbonate. Patient's EKG came back with EKG changes from previous EKG for signs of ischemia with ST elevations in lead V3 and T-wave inversions across V2, V3 and V4. Troponin was ordered which resulted in an elevation of 2.05. Patient was started on treatment for NSTEMI to include low-dose heparin and aspirin. Therefore initiation of treatment patient required a head CT which was accomplished and was negative for any intracranial hemorrhage. Rectal exam was was performed and physical occult blood test negative for signs of blood in her stool. ABG was performed which was negative for acidosis or alkalosis. No hypercapnia as well and there is no widening of the anion gap. Of note there was a period would not patient required placement on nonrebreather mask and high flow O2 for drop in O2 saturation that was most likely secondary to her treatment with benzodiazepines include Valium and Ativan. Patient was monitored closely for any respiratory failure but recovered nicely without having to perform an intubation to secure an airway. Patient was then transferred for the ICU for further evaluation and treatment after she was accepted for admission by Dr. Borjas the hospitalist. - Lab Data Lab results reviewed: Yes I reviewed the patient's lab results. Lab results narrative: Short CBC 12/05/17 Range/Units 18:50 WBC 9.8 (4.3-11.1) K/mcL Hgb 11.7 (11.5-15.4) g/dL Hct 34.5 L (35.3-44.9) % Plt Count 163 (140-400) K/mcL Neutrophils # 7.4 (1.6-8.9) K/mcL BMP 12/05/17 Range/Units 18:50 Sodium 138 (136-145) mEq/L Potassium 2.5 L* (3.5-5.1) mEq/L Chloride 101 (98-107) mEq/L Carbon Dioxide 24 (23-29) mEq/L BUN 5 L (8-23) mg/dL Creatinine 0.64 (0.60-1.20) mg/dL Glucose 86 (70-105) mg/dL Calcium 6.5 L (8.6-10.3) mg/dL Cardiac Enzymes 12/05/17 Range/Units 18:50 Troponin I 2.05 H* (< 0.04) ng/mL Liver Function 12/05/17 Range/Units 18:50 Total Bilirubin 1.0 (0.3-1.0) mg/dL Direct Bilirubin 0.3 H (0.0-0.2) mg/dL AST 43 H (13-39) Units/L ALT 16 (7-52) Units/L Alkaline Phosphatase 92 (34-104) Units/L Albumin 3.4 L (3.5-5.7) g/dL Urine 12/05/17 Range/Units 19:27 Urine Color Yellow (Yellow) Urine Clarity Cloudy A (Clear) Urine pH 6.5 (5.0-8.0) pH Units Ur Specific [place] 1.008 L (1.010-1.025) Urine Protein Trace (Neg-Trace) mg/dL Urine Glucose (UA) Normal (Normal) mg/dL Result diagrams: 12/05/17 18:50 12/05/17 18:50 Lab Results 12/05/17 12/05/17 12/05/17 Range/Units 18:50 18:50 18:50 WBC 9.8 (4.3-11.1) K/mcL RBC 3.74 L (3.82-4.97) M/mcL Hgb 11.7 (11.5-15.4) g/dL Hct 34.5 L (35.3-44.9) % MCV 92.2 (83.0-100.0) fL MCH 31.3 (28.0-33.3) pg MCHC 33.9 (31.6-35.5) g/dL RDW 18.0 H (11.5-14.5) % Plt Count 163 (140-400) K/mcL MPV 10.4 (9.4-12.4) fL Immature Gran % 0.8 (0-4) % Seg Neutrophils % 74.9 % Lymphocytes % 14.3 % Monocytes % 9.8 % Eosinophils % 0.0 % Basophils % 0.2 % Neutrophils # 7.4 (1.6-8.9) K/mcL Lymphocytes # 1.4 (0.6-4.6) K/mcL Monocytes # 1.0 (0.0-1.3) K/mcL Eosinophils # 0.0 (0.0-0.6) K/mcL Basophils # 0.0 (0.0-0.2) K/mcL PT 16.2 H (9.4-12.1) Seconds INR 1.5 APTT 27.8 (26.0-36.0) Seconds Sample Site ABG pH (7.32-7.45) pH Units ABG pCO2 (35-45) mmHg ABG pO2 (85-104) mmHg ABG HCO3 (21-27) mEq/L ABG Total CO2 (20-26) mEq/L ABG O2 Saturation (95-98) % ABG Base Excess (-2 to 3) mEq/L Gunner Test O2 Delivery Device Sodium 138 (136-145) mEq/L Potassium 2.5 L* (3.5-5.1) mEq/L Chloride 101 (98-107) mEq/L Carbon Dioxide 24 (23-29) mEq/L BUN 5 L (8-23) mg/dL Creatinine 0.64 (0.60-1.20) mg/dL Est GFR ( Amer) > 60 (> 60) Est GFR (Non-Af Amer) > 60 (> 60) BUN/Creatinine Ratio 8 (6-26) Glucose 86 (70-105) mg/dL POC Glucose (70-99) mg/dL Calculated Osmolality 283 (280-300) Calcium 6.5 L (8.6-10.3) mg/dL Magnesium < 0.5 L (1.6-2.6) mg/dL Total Bilirubin 1.0 (0.3-1.0) mg/dL Direct Bilirubin 0.3 H (0.0-0.2) mg/dL Indirect Bilirubin 0.7 (0.0-1.2) mg/dL AST 43 H (13-39) Units/L ALT 16 (7-52) Units/L Alkaline Phosphatase 92 (34-104) Units/L Troponin I 2.05 H* (< 0.04) ng/mL Serum Total Protein 5.7 L (6.4-8.9) g/dL Albumin 3.4 L (3.5-5.7) g/dL Globulin 2.3 L (2.4-3.5) g/dL Albumin/Globulin Ratio 1.5 (1.1-2.2) Urine Color (Yellow) Urine Clarity (Clear) Urine pH (5.0-8.0) pH Units Ur Specific [place] (1.010-1.025) Urine Protein (Neg-Trace) mg/dL Urine Glucose (UA) (Normal) mg/dL Urine Ketones (Negative) mg/dL Urine Blood (Negative) Urine Nitrite (Negative) Urine Bilirubin (Negative) Urine Urobilinogen (Normal) mg/dL Ur Leukocyte Esterase (Negative) Urine Microscopic RBC (0-3) per hpf Urine Microscopic WBC (0-3) per hpf Ur Squamous Epith Cells (None-Few) per lpf Urine Bacteria (None-Few) per hpf Hyaline Casts (None-Few) per lpf Ur Culture Indicated? (NO) 12/05/17 12/05/17 12/06/17 Range/Units 19:27 22:58 00:53 WBC (4.3-11.1) K/mcL RBC (3.82-4.97) M/mcL Hgb (11.5-15.4) g/dL Hct (35.3-44.9) % MCV (83.0-100.0) fL MCH (28.0-33.3) pg MCHC (31.6-35.5) g/dL RDW (11.5-14.5) % Plt Count (140-400) K/mcL MPV (9.4-12.4) fL Immature Gran % (0-4) % Seg Neutrophils % % Lymphocytes % % Monocytes % % Eosinophils % % Basophils % % Neutrophils # (1.6-8.9) K/mcL Lymphocytes # (0.6-4.6) K/mcL Monocytes # (0.0-1.3) K/mcL Eosinophils # (0.0-0.6) K/mcL Basophils # (0.0-0.2) K/mcL PT (9.4-12.1) Seconds INR APTT (26.0-36.0) Seconds Sample Site R Radial ABG pH 7.44 (7.32-7.45) pH Units ABG pCO2 34 L (35-45) mmHg ABG pO2 349 H (85-104) mmHg ABG HCO3 23 (21-27) mEq/L ABG Total CO2 24 (20-26) mEq/L ABG O2 Saturation 100 H (95-98) % ABG Base Excess -1 (-2 to 3) mEq/L Gunner Test N/A O2 Delivery Device NRB Sodium (136-145) mEq/L Potassium (3.5-5.1) mEq/L Chloride (98-107) mEq/L Carbon Dioxide (23-29) mEq/L BUN (8-23) mg/dL Creatinine (0.60-1.20) mg/dL Est GFR ( Amer) (> 60) Est GFR (Non-Af Amer) (> 60) BUN/Creatinine Ratio (6-26) Glucose (70-105) mg/dL POC Glucose 83 (70-99) mg/dL Calculated Osmolality (280-300) Calcium (8.6-10.3) mg/dL Magnesium (1.6-2.6) mg/dL Total Bilirubin (0.3-1.0) mg/dL Direct Bilirubin (0.0-0.2) mg/dL Indirect Bilirubin (0.0-1.2) mg/dL AST (13-39) Units/L ALT (7-52) Units/L Alkaline Phosphatase (34-104) Units/L Troponin I (< 0.04) ng/mL Serum Total Protein (6.4-8.9) g/dL Albumin (3.5-5.7) g/dL Globulin (2.4-3.5) g/dL Albumin/Globulin Ratio (1.1-2.2) Urine Color Yellow (Yellow) Urine Clarity Cloudy A (Clear) Urine pH 6.5 (5.0-8.0) pH Units Ur Specific [place] 1.008 L (1.010-1.025) Urine Protein Trace (Neg-Trace) mg/dL Urine Glucose (UA) Normal (Normal) mg/dL Urine Ketones 15 H (Negative) mg/dL Urine Blood Negative (Negative) Urine Nitrite Negative (Negative) Urine Bilirubin Moderate H (Negative) Urine Urobilinogen Normal (Normal) mg/dL Ur Leukocyte Esterase Moderate H (Negative) Urine Microscopic RBC 0-3 (0-3) per hpf Urine Microscopic WBC 5-15 H (0-3) per hpf Ur Squamous Epith Cells Many H (None-Few) per lpf Urine Bacteria None Seen (None-Few) per hpf Hyaline Casts None Seen (None-Few) per lpf Ur Culture Indicated? NO. A (NO) - Radiology Data Radiology results reviewed: Yes I reviewed the patient's radiology results. Chest X-Ray 12/05/17 18:12 IMPRESSION: No acute process. D/ / Simone Garcia MD / Simone Garcia MD Interpreting Provider: Simone Garcia MD Head CT 12/05/17 18:13 IMPRESSION: No acute intracranial abnormality. D/ / 12/05/2017 22:27:47 Dylan Mark MD / [email or web address] Interpreting Provider: Dylan Mark MD - EKG Data EKG attestation: Yes I reviewed and interpreted this EKG. EKG results narrative: EKG taken to December 2017 and 1920 hrs. shows sinus rhythm at a rate of 81 beats minute with no acute ST elevation in V3 with T-wave inversion in V2 V3 and V4. This is a change from previous EKG taken 09/10/2017 which shows a sinus tachycardia some mild ST depressions in V3. EKG #2 taken to December 2017 at 2147 hrs. shows sinus tachycardia at a rate of 101 beats minute with decrease in deep T waves in [address] elevation. The rest of waveform morphology similar to previous. TPA Checklist - LKW: 3-4.5 hrs Add. Warnings/Precautions Patient/family understanding: The patient/family members have been counseled and understood the risk, benefit , and alternatives of treatment.
[2017-12-05 19:38] LABS: Bilirubin,Urine Moderate (Negative); Blood,Urine Negative (Negative); Clarity,Urine Cloudy (Clear); Color,Urine Yellow (Yellow); Glucose,Urine (UA) Normal (Normal); Ketones,Urine 15 mg/dL (Negative); Leukocyte Esterase,Urine Moderate (Negative); Nitrite,Urine Negative (Negative); PH,Urine 6.5 pH Units (5.0-8.0); Protein,Urine Trace mg/dL (Neg-Trace); Specific Gravity,Urine 1.008 (1.010-1.025); Urobilinogen,Urine Normal (Normal)
[2017-12-05 19:41] LABS: Bacteria,Urine None Seen per hpf (None-Few); Hyaline Casts,Urine None Seen per lpf (None-Few); RBC,Urine 0-3 per hpf (0-3); Squamous Epithelial Cell,Urine Many per lpf (None-Few)
[2017-12-05 19:50] LABS: Alanine Aminotransferase 16 Units/L (7-52); Albumin 3.4 g/dL (3.5-5.7); Albumin/Globulin Ratio 1.5 (1.1-2.2); Alkaline Phosphatase 92 Units/L (34-104); Aspartate Amino Transferase 43 Units/L (13-39); BUN/Creatinine Ratio 8 (6-26); Bilirubin,Direct 0.3 mg/dL (0.0-0.2); Bilirubin,Indirect 0.7 mg/dL (0.0-1.2); Blood Urea Nitrogen 5 mg/dL (8-23); Calcium 6.5 mg/dL (8.6-10.3); Carbon Dioxide 24 mEq/L (23-29); Chloride 101 mEq/L (98-107); Globulin 2.3 g/dL (2.4-3.5); Glucose 86 mg/dL (70-105); Magnesium < 0.5 mg/dL (1.6-2.6); Osmolality,Calculated 283 (280-300); Potassium 2.5 mEq/L (3.5-5.1); Sodium 138 mEq/L (136-145); Total Protein 5.7 g/dL (6.4-8.9); eGFR For African Americans > 60 (> 60); eGFR For Non-African Americans > 60 (> 60)
[2017-12-05] MEDS ORDERED: Aspirin 81 MG TAB.CHEW PO STA (20:12)
[2017-12-05] MEDS ORDERED: *HR* LORazepam 2 MG/ML VIAL IVP ONE (20:13)
[2017-12-05 20:19] LABS: Troponin I 2.05 ng/mL (< 0.04)
[2017-12-05] MEDS ORDERED: Haloperidol Lactate 5 MG/ML VIAL IVP ONE (20:44)
[2017-12-05] MEDS ORDERED: *HR* Heparin 5,000 UNIT/ML VIAL IVP PRN ×2 (22:32)
[2017-12-05] MEDS ORDERED: *HR* Heparin 5,000 UNIT/ML VIAL IVP ONE (22:32)
[2017-12-05] MEDS ORDERED: Heparin 25,000 UNIT/500 ML D5W 25,000 UNIT/500 ML BAG IVC SCH (22:45)
[2017-12-05 22:49] LABS: INR 1.5; Prothrombin Time 16.2 Seconds (9.4-12.1)
[2017-12-05 22:51] LABS: Activated Partial Thrombo Time 27.8 Seconds (26.0-36.0)
[2017-12-05 23:03] LABS: ABG Base Excess -1 mEq/L (-2 to 3); ABG HCO3 23 mEq/L (21-27); ABG Oxygen Saturation 100 % (95-98); ABG PCO2 34 mmHg (35-45); ABG PH 7.44 pH Units (7.32-7.45); ABG PO2 349 mmHg (85-104); ABG TCO2 24 mEq/L (20-26)
--- NOTE | 2017-12-06 01:01 | Emergency Department Note ---
Disposition Clinical Impression: Altered mental status Disposition: Admitted As Inpatient Condition: Undetermined General Adult HPI - General Chief complaint: ED Altered Mental Status Stated complaint: AMS Source: EMS Limitations: altered mental status - History of Present Illness Pain Scale: 0 - Related Data Home Medications Medication Instructions Recorded Confirmed Atorvastatin [Lipitor] 80 mg PO HS 09/10/17 12/05/17 Omeprazole [PriLOSEC] 20 mg PO DAILY 09/10/17 12/05/17 Tramadol HCl [Ultram] 50 mg PO Q6-8H PRN 09/10/17 12/05/17 Lactulose [Lactulose] 15 ml PO DAILY 12/05/17 12/05/17 Magnesium Oxide [Mag-Ox] 400 mg PO TID 12/05/17 12/05/17 Previous Rx's Medication Instructions Recorded Atenolol [Tenormin] 50 mg PO BID #60 tablet 09/14/17 Phos-NaK [Neutra-Phos] 2 each PO BID #120 powd.pack 09/14/17 Potassium Chloride 20 meq PO BID #60 tab.er.prt 09/14/17 Sodium Bicarbonate 650 mg PO TID #180 tablet 09/14/17 amLODIPine [Norvasc] 10 mg PO DAILY #60 tablet 09/14/17 Allergies Allergy/AdvReac Type Severity Reaction Status Date / Time No Known Allergies Allergy Verified 12/05/17 18:06 Past Medical History - Past Medical History Medical history: Reports: diabetes, GERD, hyperlipidemia, hypertension, migraine Surgical history: Reports: Psychiatric history: Reports: no psych history - Social History Smoking Status: Current every day smoker Smokeless Tobacco Status: No Alcohol use: Reports: occasionally Drug use: Reports: none Physical Exam - General Limitations: altered mental status General appearance: alert Course Vital Signs Temperature 97.8 F 12/05/17 18:03 Pulse Rate 86 12/05/17 18:03 Respiratory Rate 16 12/05/17 18:03 Blood Pressure 121/23 12/05/17 18:03 O2 Sat by Pulse Oximetry 98 12/05/17 18:03 Temperature 97.8 F 12/05/17 18:03 Pulse Rate 78 12/05/17 23:49 Respiratory Rate 18 12/06/17 00:36 Blood Pressure 100/64 12/06/17 00:36 O2 Sat by Pulse Oximetry 100 12/05/17 23:49 Oxygen Delivery Oxygen Delivery Nasal Cannula Medical Decision Making - Lab Data Result diagrams: 12/05/17 18:50 12/05/17 18:50 Lab Results 12/05/17 12/05/17 12/05/17 Range/Units 18:50 18:50 18:50 WBC 9.8 (4.3-11.1) K/mcL RBC 3.74 L (3.82-4.97) M/mcL Hgb 11.7 (11.5-15.4) g/dL Hct 34.5 L (35.3-44.9) % MCV 92.2 (83.0-100.0) fL MCH 31.3 (28.0-33.3) pg MCHC 33.9 (31.6-35.5) g/dL RDW 18.0 H (11.5-14.5) % Plt Count 163 (140-400) K/mcL MPV 10.4 (9.4-12.4) fL Immature Gran % 0.8 (0-4) % Seg Neutrophils % 74.9 % Lymphocytes % 14.3 % Monocytes % 9.8 % Eosinophils % 0.0 % Basophils % 0.2 % Neutrophils # 7.4 (1.6-8.9) K/mcL Lymphocytes # 1.4 (0.6-4.6) K/mcL Monocytes # 1.0 (0.0-1.3) K/mcL Eosinophils # 0.0 (0.0-0.6) K/mcL Basophils # 0.0 (0.0-0.2) K/mcL PT 16.2 H (9.4-12.1) Seconds INR 1.5 APTT 27.8 (26.0-36.0) Seconds Sample Site ABG pH (7.32-7.45) pH Units ABG pCO2 (35-45) mmHg ABG pO2 (85-104) mmHg ABG HCO3 (21-27) mEq/L ABG Total CO2 (20-26) mEq/L ABG O2 Saturation (95-98) % ABG Base Excess (-2 to 3) mEq/L Gunner Test O2 Delivery Device Sodium 138 (136-145) mEq/L Potassium 2.5 L* (3.5-5.1) mEq/L Chloride 101 (98-107) mEq/L Carbon Dioxide 24 (23-29) mEq/L BUN 5 L (8-23) mg/dL Creatinine 0.64 (0.60-1.20) mg/dL Est GFR ( Amer) > 60 (> 60) Est GFR (Non-Af Amer) > 60 (> 60) BUN/Creatinine Ratio 8 (6-26) Glucose 86 (70-105) mg/dL Calculated Osmolality 283 (280-300) Calcium 6.5 L (8.6-10.3) mg/dL Magnesium < 0.5 L (1.6-2.6) mg/dL Total Bilirubin 1.0 (0.3-1.0) mg/dL Direct Bilirubin 0.3 H (0.0-0.2) mg/dL Indirect Bilirubin 0.7 (0.0-1.2) mg/dL AST 43 H (13-39) Units/L ALT 16 (7-52) Units/L Alkaline Phosphatase 92 (34-104) Units/L Troponin I 2.05 H* (< 0.04) ng/mL Serum Total Protein 5.7 L (6.4-8.9) g/dL Albumin 3.4 L (3.5-5.7) g/dL Globulin 2.3 L (2.4-3.5) g/dL Albumin/Globulin Ratio 1.5 (1.1-2.2) Urine Color (Yellow) Urine Clarity (Clear) Urine pH (5.0-8.0) pH Units Ur Specific [place] (1.010-1.025) Urine Protein (Neg-Trace) mg/dL Urine Glucose (UA) (Normal) mg/dL Urine Ketones (Negative) mg/dL Urine Blood (Negative) Urine Nitrite (Negative) Urine Bilirubin (Negative) Urine Urobilinogen (Normal) mg/dL Ur Leukocyte Esterase (Negative) Urine Microscopic RBC (0-3) per hpf Urine Microscopic WBC (0-3) per hpf Ur Squamous Epith Cells (None-Few) per lpf Urine Bacteria (None-Few) per hpf Hyaline Casts (None-Few) per lpf Ur Culture Indicated? (NO) 12/05/17 12/05/17 Range/Units 19:27 22:58 WBC (4.3-11.1) K/mcL RBC (3.82-4.97) M/mcL Hgb (11.5-15.4) g/dL Hct (35.3-44.9) % MCV (83.0-100.0) fL MCH (28.0-33.3) pg MCHC (31.6-35.5) g/dL RDW (11.5-14.5) % Plt Count (140-400) K/mcL MPV (9.4-12.4) fL Immature Gran % (0-4) % Seg Neutrophils % % Lymphocytes % % Monocytes % % Eosinophils % % Basophils % % Neutrophils # (1.6-8.9) K/mcL Lymphocytes # (0.6-4.6) K/mcL Monocytes # (0.0-1.3) K/mcL Eosinophils # (0.0-0.6) K/mcL Basophils # (0.0-0.2) K/mcL PT (9.4-12.1) Seconds INR APTT (26.0-36.0) Seconds Sample Site R Radial ABG pH 7.44 (7.32-7.45) pH Units ABG pCO2 34 L (35-45) mmHg ABG pO2 349 H (85-104) mmHg ABG HCO3 23 (21-27) mEq/L ABG Total CO2 24 (20-26) mEq/L ABG O2 Saturation 100 H (95-98) % ABG Base Excess -1 (-2 to 3) mEq/L Gunner Test N/A O2 Delivery Device NRB Sodium (136-145) mEq/L Potassium (3.5-5.1) mEq/L Chloride (98-107) mEq/L Carbon Dioxide (23-29) mEq/L BUN (8-23) mg/dL Creatinine (0.60-1.20) mg/dL Est GFR ( Amer) (> 60) Est GFR (Non-Af Amer) (> 60) BUN/Creatinine Ratio (6-26) Glucose (70-105) mg/dL Calculated Osmolality (280-300) Calcium (8.6-10.3) mg/dL Magnesium (1.6-2.6) mg/dL Total Bilirubin (0.3-1.0) mg/dL Direct Bilirubin (0.0-0.2) mg/dL Indirect Bilirubin (0.0-1.2) mg/dL AST (13-39) Units/L ALT (7-52) Units/L Alkaline Phosphatase (34-104) Units/L Troponin I (< 0.04) ng/mL Serum Total Protein (6.4-8.9) g/dL Albumin (3.5-5.7) g/dL Globulin (2.4-3.5) g/dL Albumin/Globulin Ratio (1.1-2.2) Urine Color Yellow (Yellow) Urine Clarity Cloudy A (Clear) Urine pH 6.5 (5.0-8.0) pH Units Ur Specific [place] 1.008 L (1.010-1.025) Urine Protein Trace (Neg-Trace) mg/dL Urine Glucose (UA) Normal (Normal) mg/dL Urine Ketones 15 H (Negative) mg/dL Urine Blood Negative (Negative) Urine Nitrite Negative (Negative) Urine Bilirubin Moderate H (Negative) Urine Urobilinogen Normal (Normal) mg/dL Ur Leukocyte Esterase Moderate H (Negative) Urine Microscopic RBC 0-3 (0-3) per hpf Urine Microscopic WBC 5-15 H (0-3) per hpf Ur Squamous Epith Cells Many H (None-Few) per lpf Urine Bacteria None Seen (None-Few) per hpf Hyaline Casts None Seen (None-Few) per lpf Ur Culture Indicated? NO. A (NO) Attestation Statement - Attestation Attestation: I examined this patient and my medical decision-making was reviewed with the Resident Physician. I agree with the documented findings, disposition and treatment plan as described except to the extent set forth below. Heavy drinker who hasn't drank in at least a couple of days and probably longer. Pt stated earlier that she hadn't drank in about a week and a half but not sure how reliable this is. Drinks a 12-pack of beer and/or vodka, anywhere from a half bottle to a full bottle per day. Fell yesterday, neighbor called daughter who came to check on her. At that point she was awake, conversant, apologizing to the daughter for the neighbor bothering her. Changed when she saw her today. Restless, minimal to no tremor. HR/BP/temp normal, not in DTs, hard to make case for alcohol withdrawal. LFTs normal except for minimal elevation of AST. Thiamine given, no change. K+ 2.5, Mg++ undetectable, replaced in ED. Sodium normal. Urine not infected. CT normal. Not retaining CO2. I don't have a clear explanation for her mental status change at this point. EKG is abnormal with deep T-wave inversion in V3 with PHONG, but PHONG is not present in 2 contiguous leads and there is no reciprocal ST depression. EKG and abnormal troponin were discussed with cardiology by Dr. Pack, they will discuss pros and cons of heart cath with family tomorrow. Given her mental stats, elevated troponin, severe electrolye abnormalities, pt will be admitted to the ICU overnight. Critical care time: I was directly and primarily involved in the care of this patient for 40 minutes excluding procedures.
[2017-12-06] MEDS ORDERED: Naloxone 0.4 MG/ML INJ IVP PRN (01:10)
[2017-12-06] MEDS ORDERED: 0.9 % Sodium Chloride 1,000 ML IVC SCH (01:15)
[2017-12-06] MEDS ORDERED: Calcium Gluconate 2,000 MG in 0.9 % Sodium Chloride 100 ML IVPB ONE (01:21)
[2017-12-06] MEDS ORDERED: *HR* LORazepam 2 MG/ML VIAL IVP PRN ×3 (01:27→13:37)
[2017-12-06] MEDS ORDERED: *HR* LORazepam 2 MG/ML VIAL ONE (01:35)
--- NOTE | 2017-12-06 01:35 | Internal Med History&Physical ---
Date of Encounter: 12/06/17 Time of Encounter: 01:29 Internal Medicine - H&P: HPI Chief complaint: AMS Admitted From: Emergency Dept Plans for Post Hospital Care: Home History of present illness: Ms. Cabrera is a 67 year old female with past medical history of chronic alcoholism, hypertension, GERD, and recent hospitalization for electrolyte abnormalities and failure to thrive who presented to [facility] on 12/05/2017 for altered mental status. Per patient's daughter and son who are at bedside, the patient was found down wall retrieving her mail yesterday by the neighbor. A squad was called at that time. Patient was initially treated, however, she quickly refused to be transferred to the ED. Patient's daughter saw her when she got off work yesterday evening and states that she seemed a little confused but still who she was and was alert and oriented. Her daughter checked on her today after she got off work, and the patient was unable to identify her. She was minimally responsive. Upon arrival to the ED, patient was restless picking at things. She was not alert or oriented at all. Initial laboratory analysis revealed severe hypokalemia and hypomagnesemia. Patient had elevations of her troponin and T- wave inversions in 23 and V2 through V5. Cardiology was consulted from the ED and recommended a heparin drip and aspirin after CT scan of the head was negative for acute intracranial pathology. Patient was given multiple doses of benzodiazepine to quell her agitation. She was able to report at one point that she had not drank alcohol for a week and a half. During examination, patient does not follow commands. She is minimally responsive. She is however protecting her airway and appears to be resting somewhat comfortably. Patient's daughter states patient was recently hospitalized here 2 months ago. At that time, it was noted that patient had some gastric fold thickening for which she was post to follow-up with GI. An outpatient EGD and colonoscopy were supposed to be scheduled, however, patient's daughter states she has been canceling recent doctor's appointments. Also a left-sided ovarian cyst was found. Patient was referred to the [facility]. Patient' s daughter states she went to initial evaluation with negative CEA 125 tumor marker. However she believes patient did not go to follow-up appointments. She also denies patient following up with her nephrology appointment that was scheduled during last hospitalization for further workup to rule out Fanconi's anemia. Her daughter reports the patient has been progressively forgetting things lately. She states she will get lost when trying to drive home, and has forgotten her a few times. She reports that her mom has complained of diarrhea, but is unsure of her other ROS. Past Med Surg Social Fam HX - Past Medical History Attestation: Yes The following information was validated with the patient. Source: patient, old records reviewed Medical history: COPD, GERD, hyperlipidemia, hypertension, migraine Psychiatric history: anxiety, depression, other (Chronic alcoholism) - Past Surgical History Surgical History: - Social History Smoking Status: Current every day smoker Packs per day: 2 Smokeless Tobacco Status: No Alcohol use: heavy Drug use: none Occupational status: retired Current living situation: Home - Independent Recent Out of Country Travel Within the Last 8 Weeks: No Exposure or Possible Exposure to Illness During Travel: No - Family History Mother Living Status: Hx Family Cardiac Disorders: Yes Hx Family Endocrine Disorder: Yes (uncontrolled DM) Father Living Status: Hx Family Cardiac Disorders: Yes Hx Family GI Disorders: Yes Internal Medicine - H&P: Meds Atorvastatin [Lipitor] 80 mg PO HS 09/10/17 [History] Omeprazole [PriLOSEC] 20 mg PO DAILY 09/10/17 [History] Tramadol HCl [Ultram] 50 mg PO Q6-8H PRN 09/10/17 [History] Atenolol [Tenormin] 50 mg PO BID #60 tablet 09/14/17 [Rx] Phos-NaK [Neutra-Phos] 2 each PO BID #120 powd.pack 09/14/17 [Rx] Potassium Chloride 20 meq PO BID #60 tab.er.prt 09/14/17 [Rx] Sodium Bicarbonate 650 mg PO TID #180 tablet 09/14/17 [Rx] amLODIPine [Norvasc] 10 mg PO DAILY #60 tablet 09/14/17 [Rx] Lactulose [Lactulose] 15 ml PO DAILY 12/05/17 [History] Magnesium Oxide [Mag-Ox] 400 mg PO TID 12/05/17 [History] 3 Allergy/AdvReac Type Severity Reaction Status Date / Time No Known Allergies Allergy Verified 12/05/17 18:06 ROS unobtainable: due to mental status All Systems PM: A 10-system review of systems was performed and is negative for pertinent findings except as documented above in the HPI. - Constitutional Vitals: Temp Pulse Resp BP Pulse Ox 97.8 F 78 18 100/64 100 12/05/17 18:03 12/05/17 23:49 12/06/17 00:36 12/06/17 00:36 12/06/17 01:11 General appearance: Present: A&O X 0, disheveled, no acute distress, underweight , loss of weight. Absent: cooperative - Head Head exam: Present: atraumatic, normocephalic Additional comments: Telangiectasias noted on bilateral cheeks. - Eye Eye exam: Present: conjuntiva pink, sclera anicteric - Neck Neck exam general surgery: Present: supple, trachea midline. Absent: lymphadenopathy - Respiratory Respiratory exam: Present: CTAB. Absent: accessory muscle use, rales, rhonchi, wheezes - Cardiovascular Cardiovascular exam: Present: RRR, +S1, +S2. Absent: diastolic murmur, gallop, rubs, systolic murmur - GI/Abdominal GI/Abdominal exam: Present: normal bowel sounds, soft, no peritoneal signs. Absent: distended, firm, guarding, tenderness - Extremities Exam Extremities exam: Present: warm, radial pulses palpable and symmetrical. Absent : calf tenderness, cyanotic, pedal edema - Neurological Exam Neurological exam: Present: altered. Absent: pronater drift, facial droop, speech deficit - Skin Skin exam: Present: dry, intact, warm Internal Med - H&P Results - Labs CBC & Chem 7: 12/05/17 18:50 12/05/17 18:50 - Assessment and plan (1) Encephalopathy Current Visit: Yes Status: Acute Assessment and plan: 67-year-old female with past medical history chronic alcoholism and reported medical noncompliance presents to [facility] with AMS. -Patient's family reports concerns for recent onset of dementia. At this point considering metabolic versus toxic encephalopathy. Patients LFTs WNL, however, patient with some stigmata of liver disease including telangiectasias. -CT head negative for acute abnormality. -We will continue to trend up BMPs every 4 hours and replete as necessary. -We will get an ammonia level, tox screen, TSH. -CIWA protocol. (2) NSTEMI (non-ST elevated myocardial infarction) Current Visit: Yes Status: Acute Assessment and plan: Patient with EKG changes including T-wave inversions in II, III, and V2 through V5 and troponins elevated at 2.05. -We will trend troponins, EKG in the morning. -Telemetry. -Aspirin given in the ED. -Continue heparin drip. -Cardiology to see the patient tomorrow to discuss LHC with family. -echo in the AM -NPO (3) Hypokalemia Current Visit: No Status: Acute Assessment and plan: Electrolyte protocol orders per ICU nurses. -Repletion as necessary. (4) Hypomagnesemia Current Visit: Yes Status: Acute Assessment and plan: Electrolyte protocol orders per ICU nurses. -Repletion as necessary. (5) Hypocalcemia Current Visit: Yes Status: Acute Assessment and plan: 2 g IV calcium gluconate given. -Repletion per electrolyte protocol orders. (6) Ovarian cyst, left Current Visit: No Status: Acute (7) Hypertension Current Visit: No Status: Chronic Assessment and plan: Blood pressure borderline low. Will hold home medications for now. Qualifiers: Hypertension type: unspecified Qualified Code(s): I10 - Essential (primary ) hypertension (8) COPD (chronic obstructive pulmonary disease) Current Visit: No Status: Chronic Assessment and plan: Chronic, stable. Qualifiers: COPD type: unspecified COPD Qualified Code(s): J44.9 - Chronic obstructive pulmonary disease, unspecified (9) DVT prophylaxis Current Visit: Yes Status: Acute Assessment and plan: Patient currently on heparin drip. - Time Spent With Patient Total time spent is greater than 50% in coordination of care (as documented) at patient's floor/unit and/or counseling patient:
[2017-12-06] MEDS ORDERED: Potassium Phosphate 44 MEQ in 0.9 % Sodium Chloride 250 ML IVPB PRN (01:36)
[2017-12-06] MEDS ORDERED: Haloperidol Lactate 5 MG/ML VIAL IVP ONE (02:14)
[2017-12-06 02:17] LABS: Amphetamine Screen,Urine Negative ng/mL (Cutoff=1000); Barbiturate Screen,Urine Negative ng/mL (Cutoff=200); Benzodiazepines Screen,Urine Positive ng/mL (Cutoff=200); Cannabinoid Screen,Urine Negative ng/mL (Cutoff = 50); Cocaine Screen,Urine Negative ng/mL (Cutoff= 300); Opiate Screen,Urine Negative ng/mL (Cutoff=300); Phencyclidine Screen,Urine Negative ng/mL (Cutoff=25)
[2017-12-06 02:21] LABS: Troponin I 2.24 ng/mL (< 0.04)
[2017-12-06 02:22] LABS: BUN/Creatinine Ratio 7 (6-26); Blood Urea Nitrogen 5 mg/dL (8-23); Calcium 6.3 mg/dL (8.6-10.3); Carbon Dioxide 23 mEq/L (23-29); Chloride 107 mEq/L (98-107); Glucose 92 mg/dL (70-105); Magnesium 2.1 mg/dL (1.6-2.6); Osmolality,Calculated 291 (280-300); Phosphorous 2.1 mg/dL (2.7-4.5); Potassium 2.6 mEq/L (3.5-5.1); Sodium 142 mEq/L (136-145); eGFR For African Americans > 60 (> 60); eGFR For Non-African Americans > 60 (> 60)
--- NOTE | 2017-12-06 02:53 | Event Note ---
Date of Encounter: 12/06/17 Time of Encounter: 01:30 Patient was assessed and evaluated along with site medical director , agree with the detailed H&P except to the extent set forth below- 67 year old female with h/o- medical noncompliance and lost to followup, chronic alcoholism, who is known to me from previous admission, is brought in by family with altered mental status and failure to thrive. I have seen patient for electrolyte abnormalities, non anion gap metabolic acidosis, left ovarian mass, and arranged for nephrology and [facility] Oncology followups for these, but she failed to f/up per her family. Patient cannot provide history due to altered mentation, which was provided by her daughter; Patient is noted to be cachectic, awake but not alert; picking at things; restless and trying to pull put medical lines; Chest- S1, S2 heard, lungs are clear to auscultation B/L Abdomen- soft and nontender Labs show significantly low serum K, Mg, Ca; elevated Troponin; EKG shows sinus rhythm with ST depression and TWI in anterolateral leads; CT head shows no acute abnormality Acute toxic/metabolic encephalopathy- alcohol-related dementia vs withdrawal vs Wernicke's encephalopathy, electrolyte abnormalities; supportive care, treat underlying conditions. Hypokalemia, hypomagnesemia, hypophosphatemia, hypocalcemia- likely due to poor oral intake and alcohol abuse; replace appropriately and monitor closely; NSTEMI- elevated Troponin with EKG changes; does not report chest pain; case was d/w Cardiology by ER, recommend anticoagulation with IV Heparin drip; to resume ASA and statin; check TTE; f/up Cardiology consult; Telemetry, serial Troponins; Chronic alcoholism- at risk for withdrawal; CIWA protocol; PRN IV Haldol, noted to be very agitated and restless; may require Precedex drip, if she fails current, treatment; soft wrist restraints, fall precautions, 1:1 sitter for safety. Thiamine and folate supplements; Failure to thrive- patient requires placement. reference services head and Nutrition consult;
[2017-12-06 06:11] LABS: Eosinophils % 0.4 %; Immature Granulocytes % 0.4 % (0-4)
[2017-12-06 06:13] LABS: Basophils % 0.2 %; Hematocrit 29.3 % (35.3-44.9); Hemoglobin 9.8 g/dL (11.5-15.4); Lymphocytes % 20.3 %; Mean Corpuscular HGB Conc 33.4 g/dL (31.6-35.5); Mean Corpuscular Hemoglobin 31.2 pg (28.0-33.3); Mean Corpuscular Volume 93.3 fL (83.0-100.0); Mean Platelet Volume 10.1 fL (9.4-12.4); Monocytes # 0.4 K/mcL (0.0-1.3); Monocytes % 8.6 %; Neutrophils # 3.5 K/mcL (1.6-8.9); Red Blood Count 3.14 M/mcL (3.82-4.97); Red Cell Distribution Width 18.1 % (11.5-14.5); Segmented Neutrophils % 70.1 %
[2017-12-06 06:34] LABS: BUN/Creatinine Ratio 8 (6-26); Blood Urea Nitrogen 5 mg/dL (8-23); Calcium 6.1 mg/dL (8.6-10.3); Carbon Dioxide 20 mEq/L (23-29); Chloride 113 mEq/L (98-107); Glucose 75 mg/dL (70-105); Magnesium 1.6 mg/dL (1.6-2.6); Osmolality,Calculated 290 (280-300); Phosphorous 9.1 mg/dL (2.7-4.5); Potassium 5.2 mEq/L (3.5-5.1); Sodium 142 mEq/L (136-145); eGFR For African Americans > 60 (> 60); eGFR For Non-African Americans > 60 (> 60)
[2017-12-06 06:48] LABS: Thyroid Stimulating Hormone 1.732 mcIU/mL (0.340-5.600)
[2017-12-06 07:23] LABS: Platelet Count 87 K/mcL (140-400)
[2017-12-06 07:26] LABS: Troponin I 1.35 ng/mL (< 0.04)
[2017-12-06 08:07] LABS: BUN/Creatinine Ratio 8 (6-26); Blood Urea Nitrogen 5 mg/dL (8-23); Calcium 6.2 mg/dL (8.6-10.3); Carbon Dioxide 18 mEq/L (23-29); Chloride 113 mEq/L (98-107); Glucose 76 mg/dL (70-105); Osmolality,Calculated 288 (280-300); Potassium 2.9 mEq/L (3.5-5.1); Sodium 141 mEq/L (136-145); eGFR For African Americans > 60 (> 60); eGFR For Non-African Americans > 60 (> 60)
--- NOTE | 2017-12-06 09:34 | Cardiology Consult Note ---
<Karla Isidro - Last Filed: 12/06/17 10:33> Date of Encounter: 12/06/17 Time of Encounter: 10:31 Assessment and Plan (1) NSTEMI (non-ST elevated myocardial infarction) Current Visit: Yes Status: Acute Echo pending at this time. Patient is not a cath candidate at this time due to decreasing platelets and altered mental status. Profound drop in platelet ( almost 50%) concerns for suspected HIT. We will defer management of heparin to primary team but benefit may not outweigh the risk at this time. Hold aspirin therapy due to decrease in platelets as well. Discussion w patient/family: The assessment and plan as outlined above was discussed with the patient and/or family members who expressed understanding and agreement. All questions were answered. Thank you for involving us in the care of your patient. Please call with any questions. History of Present Illness Consult date: 12/06/17 Consult reason: NSTEMI History of present illness: Ms. Cabrera is a 67 year old female past medical history of chronic alcoholism, hypertension admitted to the hospital for AMS and NSTEMI. Patient unable to provide any history. Patient denies complaints in the room. Distractable and picking at things during interview. CT completed in ED WNL. Patient started on heparin for NSTEMI. Past Med Surg Social Fam HX - Past Medical History Medical history: COPD, GERD, hyperlipidemia, hypertension, migraine Psychiatric history: anxiety, depression, other (Chronic alcoholism) - Past Surgical History Surgical History: - Social History Smoking Status: Current every day smoker Packs per day: 2 Smokeless Tobacco Status: No Alcohol use: heavy Drug use: none - Family History Mother Living Status: Hx Family Cardiac Disorders: Yes Hx Family Endocrine Disorder: Yes (uncontrolled DM) Father Living Status: Hx Family Cardiac Disorders: Yes Hx Family GI Disorders: Yes Medications and Allergies Atorvastatin [Lipitor] 80 mg PO HS 09/10/17 [History] Omeprazole [PriLOSEC] 20 mg PO DAILY 09/10/17 [History] Tramadol HCl [Ultram] 50 mg PO Q6-8H PRN 09/10/17 [History] Atenolol [Tenormin] 50 mg PO BID #60 tablet 09/14/17 [Rx] Phos-NaK [Neutra-Phos] 2 each PO BID #120 powd.pack 09/14/17 [Rx] Potassium Chloride 20 meq PO BID #60 tab.er.prt 09/14/17 [Rx] Sodium Bicarbonate 650 mg PO TID #180 tablet 09/14/17 [Rx] amLODIPine [Norvasc] 10 mg PO DAILY #60 tablet 09/14/17 [Rx] Lactulose [Lactulose] 15 ml PO DAILY 12/05/17 [History] Magnesium Oxide [Mag-Ox] 400 mg PO TID 12/05/17 [History] 3 Allergy/AdvReac Type Severity Reaction Status Date / Time No Known Allergies Allergy Verified 12/05/17 18:06 ROS unobtainable: due to mental status All Systems Review: The remainder of the systems were reviewed and are negative Physical Examination Vital Signs, Last 4 Hours Temp Pulse Resp BP Pulse Ox 12/06/17 09:00 97.7 F 84 20 106/64 100 12/06/17 08:00 97.7 F 70 20 102/66 100 12/06/17 07:00 77 22 106/65 100 12/06/17 06:00 77 16 114/73 100 General: No Apparent Distress, Other (Altered) HEENT: Atraumatic, Normocephaly Neck: No JVD, Normal carotid pulses Cardiac: Reg Rate and Rhythm, Normal S1 and S2, No Murmur Lungs: Normal Breath Sounds, No Wheeze, Rales, Rhonchi Neuro: No focal deficits noted Abdomen: Soft, Non-Tender Skin: No rashes noted on visualized skin Musculoskeletal: No Chest Wall Tenderness Extremities: No Edema, Normal Pulses Results 12/06/17 06:01 12/06/17 07:36 Lab Results 12/06/17 12/06/17 12/06/17 01:43 06:01 06:01 WBC 5.0 Hgb 9.8 L D Hct 29.3 L Plt Count 87 L APTT Sodium 142 142 Potassium 2.6 L 5.2 H D Chloride 107 113 H Carbon Dioxide 23 20 L BUN 5 L 5 L Creatinine 0.69 0.64 Glucose 92 75 Calcium 6.3 L 6.1 L Magnesium 2.1 1.6 Troponin I 2.24 H* B-Natriuretic Peptide TSH 12/06/17 12/06/17 12/06/17 06:01 06:01 06:01 WBC Hgb Hct Plt Count APTT 85.5 H D Sodium Potassium Chloride Carbon Dioxide BUN Creatinine Glucose Calcium Magnesium Troponin I 1.35 H* B-Natriuretic Peptide 2096 H TSH 1.732 12/06/17 07:36 WBC Hgb Hct Plt Count APTT Sodium 141 Potassium 2.9 L D Chloride 113 H Carbon Dioxide 18 L BUN 5 L Creatinine 0.65 Glucose 76 Calcium 6.2 L Magnesium Troponin I B-Natriuretic Peptide TSH Consult Discharge Plan - Plan Referrals: Chel Munroe, SILVERLIGHT DEVELOPER [Primary Care Provider] - <Ashley Duran - Last Filed: 12/06/17 13:40> Date of Encounter: 12/06/17 - Attending Attestation I examined this patient and my medical decision-making was reviewed with the Resident Physician. I agree with the documented findings, disposition and treatment plan. Ms. Cabrera independently seen and examined. Presented with AMS and a fall. History of alcoholism. Incidentally discovered to have elevated troponin, 2.24 now downtrending. ECG with marked TWI anterior leads which appear new. Patient denies having recent chest pain - she is unsure of the details of her presentation. Agree with echo for further evaluation and guidance in plan of care. Given history of alcoholism and mild abnormality of LFTs in addition to newly reduced platelet count, am hesitant to recommend LHC. Patient expresses understanding - does not indicate her wishes at this time. Patient on heparin gtt - platelet count decreased significantly. Will defer heparin management to primary team. Continue statin. Hold asa in light of profound drop in platelets. Further recommendations pending Echo. Assessment and Plan Discussion w patient/family: The assessment and plan as outlined above was discussed with the patient and/or family members who expressed understanding and agreement. All questions were answered. Thank you for involving us in the care of your patient. Please call with any questions. History of Present Illness History of present illness: Ms. Cabrera is a 67 year old female All Systems Review: The remainder of the systems were reviewed and are negative Physical Examination Vital Signs, Last 4 Hours Pulse Resp BP Pulse Ox 12/06/17 12:00 91 20 102/63 100 12/06/17 11:00 78 20 109/66 100 12/06/17 10:00 81 20 111/68 100 Results 12/06/17 11:56 12/06/17 07:36 Lab Results 12/06/17 12/06/17 12/06/17 01:43 06:01 06:01 WBC 5.0 Hgb 9.8 L D Hct 29.3 L Plt Count 87 L APTT Sodium 142 142 Potassium 2.6 L 5.2 H D Chloride 107 113 H Carbon Dioxide 23 20 L BUN 5 L 5 L Creatinine 0.69 0.64 Glucose 92 75 Calcium 6.3 L 6.1 L Magnesium 2.1 1.6 Troponin I 2.24 H* B-Natriuretic Peptide [facility] 12/06/17 12/06/17 12/06/17 06:01 06:01 06:01 WBC Hgb Hct Plt Count APTT 85.5 H D Sodium Potassium Chloride Carbon Dioxide BUN Creatinine Glucose Calcium Magnesium Troponin I 1.35 H* B-Natriuretic Peptide 2096 H [facility] 1.732 12/06/17 12/06/17 12/06/17 07:36 11:56 11:56 WBC Hgb Hct Plt Count APTT 66.6 H Sodium 141 Potassium 2.9 L D Chloride 113 H Carbon Dioxide 18 L BUN 5 L Creatinine 0.65 Glucose 76 Calcium 6.2 L Magnesium Troponin I 1.10 H* B-Natriuretic Peptide [facility] 12/06/17 12/06/17 11:56 11:56 WBC 5.6 Hgb 10.8 L Hct 32.7 L Plt Count 95 L APTT Sodium Potassium Chloride Carbon Dioxide BUN Creatinine Glucose Calcium Magnesium 1.6 Troponin I B-Natriuretic Peptide [facility]
[2017-12-06 09:37] LABS: Anisocytosis 1+ (Not Present); Platelet Estimate Slight Decrease (Normal)
[2017-12-06] MEDS ORDERED: D5% in Water 1,000 ML IVC PRN (12:08)
[2017-12-06] MEDS ORDERED: *HR* Dextrose 50 % in Water (Syg) 50 ML SYRINGE IVP PRN (12:08)
[2017-12-06] MEDS ORDERED: Dextrose Gel 15 GM/37.5 ML TUBE PO PRN ×2 (12:08)
[2017-12-06 12:30] LABS: Hemoglobin 10.8 g/dL (11.5-15.4); Red Cell Distribution Width 18.6 % (11.5-14.5)
[2017-12-06 12:31] LABS: Hematocrit 32.7 % (35.3-44.9); Immature Platelets 5.2 % (1.1-6.1); Mean Corpuscular Hemoglobin 31.3 pg (28.0-33.3); Mean Corpuscular Volume 94.8 fL (83.0-100.0); Mean Platelet Volume 10.2 fL (9.4-12.4); Red Blood Count 3.45 M/mcL (3.82-4.97)
[2017-12-06 12:45] LABS: Magnesium 1.6 mg/dL (1.6-2.6); Phosphorous 5.7 mg/dL (2.7-4.5)
--- NOTE | 2017-12-06 13:42 | Internal Med Progress Note ---
Date of Encounter: 12/06/17 Time of Encounter: 13:39 - Assessment and plan (1) NSTEMI (non-ST elevated myocardial infarction) Current Visit: Yes Status: Acute Assessment and plan: Non-STEMI EKG changes including T-wave inversions in II, III, and V2 through V5 and troponins elevated at 2.05. -Telemetry. -Aspirin , atenolol, Lipitor -Continue heparin drip. -Cardiology to decide on C -echo pending Thrombocytopenia is likely related to alcohol abuse There was concern about her thrombocytopenia, unlikely HIT. During last admission the patient's platelets dropped, pharmacy reviewed the records and the patient did not receive any heparin at any point. Platelets were rechecked and her numbers slightly increased To 95 ( it was 87). Consider switching to Arixtra/fondaparinux 2.5 mg Sub Q if HIT is suspected (2) COPD (chronic obstructive pulmonary disease) Current Visit: No Status: Chronic Assessment and plan: Chronic, stable. No exacerbation Qualifiers: Qualified Code(s): J44.9 - Chronic obstructive pulmonary disease, unspecified (3) Hypertension Current Visit: No Status: Chronic Assessment and plan: Blood pressure was low upon admission. Stable Qualifiers: Qualified Code(s): I10 - Essential (primary) hypertension (4) Hypokalemia Current Visit: No Status: Acute Assessment and plan: Electrolyte protocol orders per ICU nurses. -Repletion as necessary. (5) Hypomagnesemia Current Visit: Yes Status: Acute Assessment and plan: Electrolyte protocol orders per ICU nurses. -Repletion (6) Ovarian cyst, left Current Visit: No Status: Acute (7) Hypocalcemia Current Visit: Yes Status: Acute Assessment and plan: Received 2 g IV calcium gluconate given. Replete orally (8) Encephalopathy Current Visit: Yes Status: Acute Assessment and plan: Acute metabolic encephalopathy, consider alcohol withdrawal No evidence of hepatic encephalopathy Continue lactulose concerns for recent onset of dementia. At this point considering metabolic versus toxic encephalopathy. -CT head negative for acute abnormality. -CIWA protocol. Start low dose Librium Ativan as needed - Time Spent With Patient Total time spent is greater than 50% in coordination of care (as documented) at patient's floor/unit and/or counseling patient: - Subjective Interval history: Denies any chest pain, does not remember what happened last night, denies any shortness of breath, no abdominal pain or dysuria. No fevers - Constitutional Vitals: Temp Pulse Resp BP Pulse Ox 97.7 F 91 20 102/63 100 12/06/17 09:00 12/06/17 12:00 12/06/17 12:00 12/06/17 12:00 12/06/17 12:00 General appearance: Present: disheveled, A&O X 3, no acute distress, underweight , loss of weight. Absent: cooperative - Head Head exam: Present: atraumatic, normocephalic - Eye Eye exam: Present: PERRL, conjuntiva pink, sclera anicteric Pupils: Present: PERRL - Neck Neck exam general surgery: Present: supple, trachea midline. Absent: lymphadenopathy - Respiratory Respiratory exam: Present: CTAB. Absent: accessory muscle use, rales, rhonchi, wheezes - Cardiovascular Cardiovascular exam: Present: RRR, +S1, +S2. Absent: diastolic murmur, gallop, rubs, systolic murmur - GI/Abdominal GI/Abdominal exam: Present: normal bowel sounds, soft, no peritoneal signs. Absent: distended, tenderness - Extremities Exam Extremities exam: Present: warm, radial pulses palpable and symmetrical. Absent : calf tenderness, cyanotic, pedal edema - Neurological Exam Neurological exam: Present: CN II-XII intact, oriented X3, no focal deficits. Absent: pronater drift, facial droop, speech deficit - Skin Skin exam: Present: dry, intact Internal Medicine: Result - Labs CBC & Chem 7: 12/06/17 11:56 12/06/17 07:36 Labs: Short CBC 12/06/17 12/06/17 Range/Units 06:01 11:56 WBC 5.0 5.6 (4.3-11.1) K/mcL Hgb 9.8 L D 10.8 L (11.5-15.4) g/dL Hct 29.3 L 32.7 L (35.3-44.9) % Plt Count 87 L 95 L (140-400) K/mcL Neutrophils # 3.5 (1.6-8.9) K/mcL BMP 12/06/17 12/06/17 12/06/17 01:43 06:01 07:36 Sodium 142 142 141 Potassium 2.6 L 5.2 H D 2.9 L D Chloride 107 113 H 113 H Carbon Dioxide 23 20 L 18 L BUN 5 L 5 L 5 L Creatinine 0.69 0.64 0.65 Glucose 92 75 76 Calcium 6.3 L 6.1 L 6.2 L Cardiac Enzymes 12/06/17 12/06/17 12/06/17 Range/Units 01:43 06:01 11:56 Troponin I 2.24 H* 1.35 H* 1.10 H* (< 0.04) ng/mL - ABG Interpretation ABG results: ABG ABG pH 7.44 pH Units (7.32-7.45) 12/05/17 22:58 ABG pCO2 34 mmHg (35-45) L 12/05/17 22:58 ABG pO2 349 mmHg (85-104) H 12/05/17 22:58 ABG O2 Saturation 100 % (95-98) H 12/05/17 22:58 PT/INR, D-dimer PT 16.2 Seconds (9.4-12.1) H 12/05/17 18:50 Consult Discharge Plan - Plan Referrals: Chel Munroe, WEATHERIZATION TECHNICIAN [Primary Care Provider] -
[2017-12-06 14:29] LABS: BUN/Creatinine Ratio 9 (6-26); Blood Urea Nitrogen 6 mg/dL (8-23); Calcium 6.4 mg/dL (8.6-10.3); Carbon Dioxide 19 mEq/L (23-29); Chloride 113 mEq/L (98-107); Glucose 81 mg/dL (70-105); Osmolality,Calculated 293 (280-300); Sodium 143 mEq/L (136-145); eGFR For African Americans > 60 (> 60); eGFR For Non-African Americans > 60 (> 60)
[2017-12-06] MEDS: Pantoprazole 40 MG VIAL IVP SCH (14:31)
[2017-12-06] MEDS: Potassium Chloride 10 MEQ in 0.9 % Sodium Chloride 100 ML IVPB PRN ×4 (15:12→18:51)
[2017-12-06] MEDS: Lactulose Oral Soln 20 GM/30 ML UDC PO SCH (15:45)
[2017-12-06] MEDS: Cholecalciferol (D-3) 1,000 UNIT TABLET PO SCH (15:45)
--- NOTE | 2017-12-06 16:18 | Electrocardiograph Report ---
[address] [place] [address] Test Date: 2017-12-05 Pat Name: Amy Cabrera Department: 104 Room: 11 Gender: F Actuarial Mathematician: BONI : 1950 Requested By: Justo Muñiz Order Number: [id number] Reading MD: Ashley Duran Measurements Intervals [place] Rate: 101 P: 64 MA: 137 QRS: 28 QRSD: 74 T: 267 QT: 347 QTc: 405 Interpretive Statements SINUS TACHY[address]ARDIA ST DEVIATION AND MARKED T-WAVE ABNORMALITY, CONSIDER ANTEROLATERAL ISCHEMIA [- 0.5+ mV T WAVE IN I/aVL/V3-V6] ARTIFACT Electronically Signed On 12-06-2017 16:16:27 EDT by Ashley Duran
--- NOTE | 2017-12-06 16:20 | Electrocardiograph Report ---
[place] [address] Test Date: 2017-12-05 Pat Name: Amy Cabrera Department: 102 Room: 11 Gender: F Pie Icer Machine: Colleen : 1950 Requested By: Justo Muñiz Order Number: [id number] Reading MD: Ashley Duran Measurements Intervals [place] Rate: 81 P: 41 WA: 179 QRS: 25 QRSD: 82 T: 259 QT: 386 QTc: 423 Interpretive Statements SINUS RHYTHM MARKED T-WAVE ABNORMALITY, CONSIDER ANTEROLATERAL ISCHEMIA [-0.5+ mV T WAVE IN I/aVL/V3-V6] MODERATE T-WAVE ABNORMALITY, CONSIDER INFERIOR ISCHEMIA [-0.1+ mV T WAVE IN II/aVF] Electronically Signed On 12-06-2017 16:19:00 EDT by Ashley Duran
[2017-12-06] MEDS: Thiamine (B-1) 100 MG, Folic Acid 1 MG, MVI, adult with vitamin K 10 ML in 0.9 % Sodi... IVPB SCH (17:26)
[2017-12-06] MEDS: *HR* LORazepam 2 MG/ML VIAL IVP PRN ×2 (19:23→20:27)
[2017-12-06] MEDS ORDERED: Dexmedetomidine HCl 400 MCG/100 ML MLS IVC ONE (19:47)
[2017-12-06] MEDS: Dexmedetomidine HCl 400 MCG/100 ML MLS IVC SCH (19:56)
[2017-12-06] MEDS ORDERED: Haloperidol Lactate 5 MG/ML VIAL IM STA (21:07)
[2017-12-06] MEDS: Nicotine 21 MG PATCH.TD24 TD SCH (21:14)
[2017-12-06 23:33] LABS: ABG Base Excess -8 mEq/L (-2 to 3); ABG HCO3 18 mEq/L (21-27); ABG Oxygen Saturation 97 % (95-98); ABG PCO2 33 mmHg (35-45); ABG PH 7.34 pH Units (7.32-7.45); ABG PO2 92 mmHg (85-104); ABG TCO2 19 mEq/L (20-26)
[2017-12-07 00:50] LABS: BUN/Creatinine Ratio 11 (6-26); Blood Urea Nitrogen 9 mg/dL (8-23); Calcium 6.7 mg/dL (8.6-10.3); Carbon Dioxide 17 mEq/L (23-29); Chloride 118 mEq/L (98-107); Glucose 158 mg/dL (70-105); Magnesium 1.8 mg/dL (1.6-2.6); Osmolality,Calculated 296 (280-300); Phosphorous 4.2 mg/dL (2.7-4.5); Potassium 3.5 mEq/L (3.5-5.1); Sodium 142 mEq/L (136-145); eGFR For African Americans > 60 (> 60); eGFR For Non-African Americans > 60 (> 60)
[2017-12-07] MEDS ORDERED: Haloperidol Lactate 5 MG/ML VIAL IM STA (02:59)
[2017-12-07] MEDS ORDERED: Haloperidol Lactate 5 MG/ML VIAL ONE (03:03)
[2017-12-07] MEDS ORDERED: Haloperidol Lactate 5 MG/ML VIAL IVP STA (03:22)
[2017-12-07 03:58] LABS: Hematocrit 29.2 % (35.3-44.9); Hemoglobin 9.4 g/dL (11.5-15.4); Mean Corpuscular HGB Conc 32.2 g/dL (31.6-35.5)
[2017-12-07 03:59] LABS: Immature Platelets 6.6 % (1.1-6.1); Mean Corpuscular Volume 96.4 fL (83.0-100.0); Mean Platelet Volume 11.2 fL (9.4-12.4); Red Blood Count 3.03 M/mcL (3.82-4.97); Red Cell Distribution Width 18.9 % (11.5-14.5)
[2017-12-07] MEDS: Potassium Chloride 10 MEQ in 0.9 % Sodium Chloride 100 ML IVPB PRN ×3 (04:05→07:08)
[2017-12-07 04:11] LABS: BUN/Creatinine Ratio 11 (6-26); Blood Urea Nitrogen 9 mg/dL (8-23); Calcium 6.8 mg/dL (8.6-10.3); Carbon Dioxide 16 mEq/L (23-29); Chloride 118 mEq/L (98-107); Glucose 163 mg/dL (70-105); Osmolality,Calculated 292 (280-300); Potassium 3.6 mEq/L (3.5-5.1); Sodium 140 mEq/L (136-145); eGFR For African Americans > 60 (> 60); eGFR For Non-African Americans > 60 (> 60)
[2017-12-07] MEDS ORDERED: *HR* FentaNYL (PF) 100 MCG/2 ML VIAL ONE (07:26)
[2017-12-07] MEDS ORDERED: Norepinephrine 4 MG in D5% in Water 250 ML IVC SCH (07:30)
[2017-12-07] MEDS ORDERED: *HR* FentaNYL (PF) 100 MCG/2 ML VIAL IVP ONE (07:31)
[2017-12-07] MEDS ORDERED: *HR* Etomidate 20 MG/10 ML AMPUL IVP ONE (07:46)
[2017-12-07 08:18] LABS: ABG Base Excess -7 mEq/L (-2 to 3); ABG HCO3 18 mEq/L (21-27); ABG Oxygen Saturation 99 % (95-98); ABG PCO2 37 mmHg (35-45); ABG PO2 138 mmHg (85-104); ABG TCO2 20 mEq/L (20-26); Blood Gas Modality ASSIST CONTROL; Blood Gas PEEP 5 cm H2O; Blood Gas Respiration Rate 12; Blood Gas VT 450 cc
[2017-12-07] MEDS ORDERED: Lacri-Lube 3.5 GM TUBE BOTH EYES PRN (08:18)
[2017-12-07] MEDS ORDERED: *HR* Midazolam HCl 2 MG/2 ML VIAL IV ONE (08:18)
[2017-12-07] MEDS: Pantoprazole 40 MG VIAL IVP SCH (08:54)
[2017-12-07] MEDS: Chlorhexidine Rinse 15 ML MOUTHWASH MM SCH ×2 (08:54→21:19)
[2017-12-07] MEDS: Cholecalciferol (D-3) 1,000 UNIT TABLET PO SCH (08:55)
[2017-12-07] MEDS: Nicotine 21 MG PATCH.TD24 TD SCH (08:55)
[2017-12-07] MEDS: Magnesium Oxide 400 MG TABLET PO SCH (08:55)
[2017-12-07] MEDS: Norepinephrine 4 MG in D5% in Water 250 ML IVC SCH (08:56)
[2017-12-07] MEDS: Lactulose Oral Soln 20 GM/30 ML UDC PO SCH (08:57)
[2017-12-07] MEDS: Potassium Chloride Elixir 20 MEQ/15 ML UDC PO SCH ×2 (09:15→15:49)
--- NOTE | 2017-12-07 09:47 | Cardiology Progress Note ---
<Karla Isidro L - Last Filed: 12/07/17 09:50> Date of Encounter: 12/07/17 Time of Encounter: 09:47 Assessment and Plan (1) NSTEMI (non-ST elevated myocardial infarction) Current Visit: Yes Status: Acute Echo concerning for ischemia in LAD territory. Patient is not a cath candidate at this time due to decreasing platelets and altered mental status. Due to concern for HIT recommend stopping heparin and starting bivalrudin for anticoagulation. Plan to sign off on patient until mental status improves for reassessment for possible cath. Discussion w patient/family: The assessment and plan as outlined above was discussed with the patient and/or family members who expressed understanding and agreement. All questions were answered. Thank you for involving us in the care of your patient. Please call with any questions. Subjective Interval history: Patient became tachypnic overnight with respiratory rate of >60. Decision made my intestivist to intubate patient this am. Patient's troponin continues to downtrend. Echo concerning for ischemia in the LAD region. Objective Vital Signs, Last 4 Hours Temp Pulse Resp BP Pulse Ox 12/07/17 09:00 74 21 102/78 100 12/07/17 08:00 97.0 F L 71 14 95/68 98 12/07/17 07:40 21 98 12/07/17 07:17 62 96 12/07/17 07:00 79 65 95/74 100 12/07/17 06:00 74 60 90/79 94 General: Other (intubated) HEENT: Atraumatic, Normocephaly, Mucus Membranes Moist Neck: No JVD, Normal carotid pulses Cardiac: Reg Rate and Rhythm, Normal S1 and S2, No Murmur Lungs: Other (coarse breath sounds, left greater than right) Neuro: No focal deficits noted Abdomen: Soft Skin: No rashes noted on visualized skin Extremities: No Cyanosis, Normal Pulses Results 12/07/17 03:23 12/07/17 03:23 Lab Results 12/06/17 12/06/17 12/06/17 11:56 11:56 11:56 WBC 5.6 Hgb 10.8 L Hct 32.7 L Plt Count 95 L APTT 66.6 H Sodium Potassium Chloride Carbon Dioxide BUN Creatinine Glucose Calcium Magnesium Troponin I 1.10 H* 12/06/17 12/07/17 12/07/17 11:56 00:23 03:23 WBC 6.2 Hgb 9.4 L Hct 29.2 L Plt Count 76 L APTT Sodium 143 142 Potassium 3.0 L 3.5 Chloride 113 H 118 H Carbon Dioxide 19 L 17 L BUN 6 L 9 Creatinine 0.67 0.84 Glucose 81 158 H Calcium 6.4 L 6.7 L Magnesium 1.6 1.8 Troponin I 12/07/17 03:23 WBC Hgb Hct Plt Count APTT Sodium 140 Potassium 3.6 Chloride 118 H Carbon Dioxide 16 L BUN 9 Creatinine 0.81 Glucose 163 H Calcium 6.8 L Magnesium Troponin I Consult Discharge Plan - Plan Referrals: Chel Munroe, [employer] [Primary Care Provider] - <Ashley Duran - Last Filed: 12/07/17 12:45> Date of Encounter: 12/07/17 Assessment and Plan Discussion w patient/family: I examined this patient and my medical decision-making was reviewed with the Resident Physician. I agree with the documented findings, disposition and treatment plan. Ms. Cabrera's echo returned with LV systolic dysfunction and regional variations. Together with the ECG, findings are concerning for LAD territory. However, at this time she is not a good candidate for LHC. Heparin was stopped out of concern for HIT and platelet count decreased. Recommend addition of an alternative to heparin such as Bivalrudin for anticoagulation. It is also not known whether patient could be compliant with medical therapy and may be at risk for increased bleeding if she continues to abuse alcohol. Will make attempt to contact family for clarification of her social situation. Objective Vital Signs, Last 4 Hours Temp Pulse Resp BP Pulse Ox 12/07/17 12:09 98.2 F 12/07/17 12:00 98.2 F 70 20 81/65 100 12/07/17 11:30 20 100 12/07/17 11:00 69 20 105/77 100 12/07/17 09:35 95 12/07/17 09:00 74 21 102/78 100 Results 12/07/17 03:23 12/07/17 03:23 Lab Results 12/06/17 12/06/17 12/07/17 11:56 11:56 00:23 WBC Hgb Hct Plt Count APTT 66.6 H Sodium 143 142 Potassium 3.0 L 3.5 Chloride 113 H 118 H Carbon Dioxide 19 L 17 L BUN 6 L 9 Creatinine 0.67 0.84 Glucose 81 158 H Calcium 6.4 L 6.7 L Magnesium 1.6 1.8 12/07/17 12/07/17 03:23 03:23 WBC 6.2 Hgb 9.4 L Hct 29.2 L Plt Count 76 L APTT Sodium 140 Potassium 3.6 Chloride 118 H Carbon Dioxide 16 L BUN 9 Creatinine 0.81 Glucose 163 H Calcium 6.8 L Magnesium
[2017-12-07] MEDS ORDERED: Perflutren Lipid Microsphere 1.3 ML in 0.9 % Sodium Chloride 8.7 ML IVP ONE (12:56)
--- NOTE | 2017-12-07 13:19 | Pulmonology Consult Note ---
<Alessio Kohler - Last Filed: 12/07/17 16:54> Date of Encounter: 12/07/17 Time of Encounter: 09:45 Assessment and Plan (1) Encephalopathy Current Visit: Yes Status: Acute Metabolic encephalopathy, secondary likely to alcohol and electrolyte disturbance The patient was found to have significant electrolyte abnormalities Head CT is negative for acute intracranial process No obvious indicators of hepatic disease The patient has been sedated for intubation, we will continue to monitor Correct electrolytes over course of stay (2) NSTEMI (non-ST elevated myocardial infarction) Current Visit: Yes Status: Acute NSTEMI, elevated troponin on arrival Troponins 2.05 -> 2.24 -> 1.35 -> 1.[address]-T wave changes in the infero lateral leads Echo is concerning for ischemic hypokinesis, and there is evidence of L Atrial thrombus There is concern for HIT, so heparin was stopped. Started on Argatriban Appreciate cordiology recommendations (3) Acute and chronic respiratory failure with hypoxia Current Visit: Yes Status: Acute Attentive examination the patient was extremely distress Respirations were occurring at approximately 30 or 35/m on BiPAP Due to the patient's mental state and respiratory distress, we determine that intubation would be appropriate Post Intubation AB.3/37/138/18/99 on FiO2 50% The patient this time demonstrates no evidence of infectious process Chest x-ray does show some air trapping, however no consolidation We will continue to monitor, SBT in the morning (4) Elevated troponin I level Current Visit: Yes Status: Acute Blood pressure borderline low. Will hold home medications for now. (5) Hypertension Current Visit: No Status: Chronic Qualifiers: Hypertension type: unspecified Qualified Code(s): I10 - Essential (primary ) hypertension (6) Hypokalemia Current Visit: Yes Status: Acute Electrolyte protocol orders per ICU nurses. -Repletion as necessary (7) Hypomagnesemia Current Visit: Yes Status: Acute Electrolyte protocol orders per ICU nurses. -Repletion as necessary (8) DVT prophylaxis Current Visit: Yes Status: Acute History of Present Illness Consult date: 12/07/17 Requesting physician: Joy Borjas Reason for consult: COPD Chief complaint: Shortness of breath History of present illness: Ms. Cabrera is a 67-year-old woman with a past medical history significant for chronic alcoholism, hypertension, GERD, recent hospitalization for electrolyte abnormalities and a failure to thrive who presented to the [facility] on 12/05/2017 for altered mental status. Definitely, at the time of examination, the patient is unable to communicate effectively due to severe respiratory distress, and shortly after she was intubated. A significant amount of her history is drawn from that of previous notes. It appears that the patient was originally feeling short of breath and was brought to the ED via squad when her daughter found her restless at home and altered. According to her daughter. The patient was recently hospitalized here approximately 2 months ago at which time she had some concerns for GI and ovarian cyst which was worked up for possible carcinogenic origin and found to be negative thus far. Apparently the patient has been complaining of abdominal pain and diarrhea , and she has been more forgetful than she had been previously. Resolve the significant medical history unable to obtain from previous encounters. Past Med Surg Social Fam HX - Past Medical History Medical history: COPD, GERD, hyperlipidemia, hypertension, migraine Psychiatric history: anxiety, depression, other (Chronic alcoholism) - Past Surgical History Surgical History: - Social History Smoking Status: Current every day smoker Packs per day: 2 Smokeless Tobacco Status: No Alcohol use: heavy Drug use: none - Family History Mother Living Status: Hx Family Cardiac Disorders: Yes Hx Family Endocrine Disorder: Yes (uncontrolled DM) Father Living Status: Hx Family Cardiac Disorders: Yes Hx Family GI Disorders: Yes Medications and Allergies Atorvastatin [Lipitor] 80 mg PO HS 09/10/17 [History] Omeprazole [PriLOSEC] 20 mg PO DAILY 09/10/17 [History] Tramadol HCl [Ultram] 50 mg PO Q6-8H PRN 09/10/17 [History] Atenolol [Tenormin] 50 mg PO BID #60 tablet 09/14/17 [Rx] Phos-NaK [Neutra-Phos] 2 each PO BID #120 powd.pack 09/14/17 [Rx] Potassium Chloride 20 meq PO BID #60 tab.er.prt 09/14/17 [Rx] Sodium Bicarbonate 650 mg PO TID #180 tablet 09/14/17 [Rx] amLODIPine [Norvasc] 10 mg PO DAILY #60 tablet 09/14/17 [Rx] Lactulose [Lactulose] 15 ml PO DAILY 12/05/17 [History] Magnesium Oxide [Mag-Ox] 400 mg PO TID 12/05/17 [History] 3 Allergy/AdvReac Type Severity Reaction Status Date / Time No Known Allergies Allergy Verified 12/05/17 18:06 ROS unobtainable: due to endotracheal tube, due to mental status All Systems: The remainder of the systems were reviewed and are negative Physical Examination Vital Signs: Vital Signs, Last 4 Hours Temp Pulse Resp BP Pulse Ox 12/07/17 12:09 98.2 F 12/07/17 12:00 98.2 F 70 20 81/65 100 12/07/17 11:30 20 100 12/07/17 11:00 69 20 105/77 100 12/07/17 10:00 98.2 F 70 20 104/77 100 12/07/17 09:35 95 Gen: Vitals noted. Patient is very distressed on BiPAP HEENT: PERRL/EOMI, oropharynx clear, Normocephalic, atraumatic Neck: Supple. There is a firmness over the patient's trachea consistent with healing of goiter Cardiac: RRR, no murmur, +S1/S2 Pulmonary: CTA bilaterally, no wheezes, rales or rhonchi, equal chest expansion Abdomen: soft, nontender, BS noted, no guarding MSK: ROM intact, no joint swelling noted Extremities: no BLE edema, nontender calf, no cyanosis or clubbing Neuro: moves all extremities, no focal deficits. Orientation is difficult to assess due to mental status Psych: Sporadic and confused behavior Ventilator Settings Ventilator Settings: Ventilator Settings, Last 8 Hours Ventilator Tidal Volume 450 Setting Ventilator Tidal Volume 450 Setting Ventilator Tidal Volume 450 Setting Ventilator Tidal Volume 450 Setting Ventilator Tidal Volume 450 Setting Ventilator Tidal Volume 450 Setting Ventilator Tidal Volume 450 Setting Ventilator Tidal Volume 450 Setting Ventilator Tidal Volume 450 Setting Ventilator Respiratory Rate 20 Setting Ventilator Respiratory Rate 20 Setting Ventilator Respiratory Rate 20 Setting Ventilator Respiratory Rate 20 Setting Ventilator Respiratory Rate 20 Setting Ventilator Respiratory Rate 12 Setting Ventilator Respiratory Rate 12 Setting Ventilator Respiratory Rate 12 Setting Ventilator Respiratory Rate 12 Setting Actual Respiratory Rate 20 Actual Respiratory Rate 20 Actual Respiratory Rate 20 Actual Respiratory Rate 20 Actual Respiratory Rate 20 Actual Respiratory Rate 13 Positive End Expiratory 5 Pressure Positive End Expiratory 5 Pressure Positive End Expiratory 5 Pressure Positive End Expiratory 5 Pressure Positive End Expiratory 5 Pressure Positive End Expiratory 5 Pressure Positive End Expiratory 5 Pressure Positive End Expiratory 5 Pressure Positive End Expiratory 5 Pressure Peak Inspiratory Airway 24 Pressure Peak Inspiratory Airway 24 Pressure Peak Inspiratory Airway 24 Pressure Peak Inspiratory Airway 24 Pressure Peak Inspiratory Airway 27 Pressure Peak Inspiratory Airway 27 Pressure Results - Laboratory Findings CBC and BMP: 12/07/17 03:23 12/07/17 13:31 ABG ABG pH 7.30 pH Units (7.32-7.45) L 12/07/17 08:14 ABG pCO2 37 mmHg (35-45) 12/07/17 08:14 ABG pO2 138 mmHg (85-104) H 12/07/17 08:14 ABG O2 Saturation 99 % (95-98) H 12/07/17 08:14 PT/INR, D-dimer PT 16.2 Seconds (9.4-12.1) H 12/05/17 18:50 Abnormal lab findings: Abnormal lab results RBC 3.03 M/mcL (3.82-4.97) L 12/07/17 03:23 Hgb 9.4 g/dL (11.5-15.4) L 12/07/17 03:23 Hct 29.2 % (35.3-44.9) L 12/07/17 03:23 RDW 18.9 % (11.5-14.5) H 12/07/17 03:23 Plt Count 76 K/mcL (140-400) L 12/07/17 03:23 Platelet Estimate Slight Decrease (Normal) L 12/06/17 06:01 Immature Plt Fraction 6.6 % (1.1-6.1) H 12/07/17 03:23 Anisocytosis 1+ (Not Present) A 12/06/17 06:01 PT 16.2 Seconds (9.4-12.1) H 12/05/17 18:50 APTT 66.6 Seconds (26.0-36.0) H 12/06/17 11:56 ABG pH 7.30 pH Units (7.32-7.45) L 12/07/17 08:14 ABG pO2 138 mmHg (85-104) H 12/07/17 08:14 ABG HCO3 18 mEq/L (21-27) L 12/07/17 08:14 ABG O2 Saturation 99 % (95-98) H 12/07/17 08:14 ABG Base Excess -7 mEq/L (-2 to 3) L 12/07/17 08:14 Chloride 118 mEq/L (98-107) H 12/07/17 03:23 Carbon Dioxide 16 mEq/L (23-29) L 12/07/17 03:23 Glucose 163 mg/dL (70-105) H 12/07/17 03:23 POC Glucose 115 mg/dL (70-99) H 12/07/17 11:34 Calcium 6.8 mg/dL (8.6-10.3) L 12/07/17 03:23 Direct Bilirubin 0.3 mg/dL (0.0-0.2) H 12/05/17 18:50 AST 43 Units/L (13-39) H 12/05/17 18:50 Troponin I 1.10 ng/mL (< 0.04) H* 12/06/17 11:56 B-Natriuretic Peptide 2096 pg/mL (Less than 100) H 12/06/17 06:01 Serum Total Protein 5.7 g/dL (6.4-8.9) L 12/05/17 18:50 Albumin 3.4 g/dL (3.5-5.7) L 12/05/17 18:50 Globulin 2.3 g/dL (2.4-3.5) L 12/05/17 18:50 Urine Clarity Cloudy (Clear) A 12/05/17 19:27 Ur Specific Sadler 1.008 (1.010-1.025) L 12/05/17 19:27 Urine Ketones 15 mg/dL (Negative) H 12/05/17 19:27 Urine Bilirubin Moderate (Negative) H 12/05/17 19:27 Ur Leukocyte Esterase Moderate (Negative) H 12/05/17 19:27 Urine Microscopic WBC 5-15 per hpf (0-3) H 12/05/17 19:27 Ur Squamous Epith Cells Many per lpf (None-Few) H 12/05/17 19:27 Ur Culture Indicated? NO. (NO) A 12/05/17 19:27 U Benzodiazepines Scrn Positive ng/mL (Dinncj=843) H 12/06/17 01:30 - Clinical Findings Intake & Output: Intake & Output 12/06/17 12/07/17 12/07/17 23:59 07:59 15:59 Intake Total 980 / 980 1826.2 / 1826.2 Output Total 1540 / 1540 125 / 125 150 / 150 Balance -560 / -560 1701.2 / 1701.2 -150 / -150 Consult Discharge Plan - Plan Referrals: Chel Munroe, [employer] [Primary Care Provider] - <Aria Bell - Last Filed: 12/07/17 21:05> Date of Encounter: 12/07/17 All Systems: The remainder of the systems were reviewed and are negative Physical Examination Vital Signs: Vital Signs, Last 4 Hours Temp Pulse Resp BP Pulse Ox 12/07/17 20:41 97.7 F 12/07/17 19:51 20 117/79 90 12/07/17 19:00 66 20 117/77 95 12/07/17 18:00 65 20 114/76 94 12/07/17 17:14 20 98 12/07/17 17:00 65 20 113/75 99 Ventilator Settings Ventilator Settings: Ventilator Settings, Last 8 Hours Ventilator Tidal Volume 450 Setting Ventilator Tidal Volume 450 Setting Ventilator Tidal Volume 450 Setting Ventilator Tidal Volume 450 Setting Ventilator Tidal Volume 450 Setting Ventilator Tidal Volume 450 Setting Ventilator Tidal Volume 450 Setting Ventilator Tidal Volume 450 Setting Ventilator Tidal Volume 450 Setting Ventilator Tidal Volume 450 Setting Ventilator Tidal Volume 450 Setting Ventilator Respiratory Rate 20 Setting Ventilator Respiratory Rate 20 Setting Ventilator Respiratory Rate 20 Setting Ventilator Respiratory Rate 20 Setting Ventilator Respiratory Rate 20 Setting Ventilator Respiratory Rate 20 Setting Ventilator Respiratory Rate 20 Setting Ventilator Respiratory Rate 20 Setting Ventilator Respiratory Rate 20 Setting Ventilator Respiratory Rate 20 Setting Ventilator Respiratory Rate 20 Setting Actual Respiratory Rate 20 Actual Respiratory Rate 20 Actual Respiratory Rate 20 Actual Respiratory Rate 20 Actual Respiratory Rate 20 Actual Respiratory Rate 20 Actual Respiratory Rate 20 Actual Respiratory Rate 20 Actual Respiratory Rate 20 Actual Respiratory Rate 20 Actual Respiratory Rate 20 Positive End Expiratory 5 Pressure Positive End Expiratory 5 Pressure Positive End Expiratory 5 Pressure Positive End Expiratory 5 Pressure Positive End Expiratory 5 Pressure Positive End Expiratory 5 Pressure Positive End Expiratory 5 Pressure Positive End Expiratory 5 Pressure Positive End Expiratory 5 Pressure Positive End Expiratory 5 Pressure Positive End Expiratory 5 Pressure Peak Inspiratory Airway 25 Pressure Peak Inspiratory Airway 25 Pressure Peak Inspiratory Airway 25 Pressure Peak Inspiratory Airway 25 Pressure Peak Inspiratory Airway 26 Pressure Peak Inspiratory Airway 26 Pressure Peak Inspiratory Airway 26 Pressure Peak Inspiratory Airway 26 Pressure Peak Inspiratory Airway 27 Pressure Peak Inspiratory Airway 26 Pressure Peak Inspiratory Airway 24 Pressure Results - Laboratory Findings CBC and BMP: 12/07/17 03:23 12/07/17 13:31 ABG ABG pH 7.30 pH Units (7.32-7.45) L 12/07/17 08:14 ABG pCO2 37 mmHg (35-45) 12/07/17 08:14 ABG pO2 138 mmHg (85-104) H 12/07/17 08:14 ABG O2 Saturation 99 % (95-98) H 12/07/17 08:14 PT/INR, D-dimer PT 16.2 Seconds (9.4-12.1) H 12/05/17 18:50 Abnormal lab findings: Abnormal lab results RBC 3.03 M/mcL (3.82-4.97) L 12/07/17 03:23 Hgb 9.4 g/dL (11.5-15.4) L 12/07/17 03:23 Hct 29.2 % (35.3-44.9) L 12/07/17 03:23 RDW 18.9 % (11.5-14.5) H 12/07/17 03:23 Plt Count 76 K/mcL (140-400) L 12/07/17 03:23 Platelet Estimate Slight Decrease (Normal) L 12/06/17 06:01 Immature Plt Fraction 6.6 % (1.1-6.1) H 12/07/17 03:23 Anisocytosis 1+ (Not Present) A 12/06/17 06:01 PT 16.2 Seconds (9.4-12.1) H 12/05/17 18:50 APTT 66.6 Seconds (26.0-36.0) H 12/06/17 11:56 ABG pH 7.30 pH Units (7.32-7.45) L 12/07/17 08:14 ABG pO2 138 mmHg (85-104) H 12/07/17 08:14 ABG HCO3 18 mEq/L (21-27) L 12/07/17 08:14 ABG O2 Saturation 99 % (95-98) H 12/07/17 08:14 ABG Base Excess -7 mEq/L (-2 to 3) L 12/07/17 08:14 Chloride 118 mEq/L (98-107) H 12/07/17 03:23 Carbon Dioxide 16 mEq/L (23-29) L 12/07/17 03:23 Glucose 163 mg/dL (70-105) H 12/07/17 03:23 POC Glucose 136 mg/dL (70-99) H 12/07/17 20:11 Calcium 6.8 mg/dL (8.6-10.3) L 12/07/17 03:23 Venous Ioniz Calcium 1.08 mmol/L (1.15-1.35) L 12/07/17 13:36 Direct Bilirubin 0.3 mg/dL (0.0-0.2) H 12/05/17 18:50 AST 43 Units/L (13-39) H 12/05/17 18:50 Troponin I 1.10 ng/mL (< 0.04) H* 12/06/17 11:56 B-Natriuretic Peptide 2096 pg/mL (Less than 100) H 12/06/17 06:01 Serum Total Protein 5.7 g/dL (6.4-8.9) L 12/05/17 18:50 Albumin 3.4 g/dL (3.5-5.7) L 12/05/17 18:50 Globulin 2.3 g/dL (2.4-3.5) L 12/05/17 18:50 Urine Clarity Cloudy (Clear) A 12/05/17 19:27 Ur Specific Sadler 1.008 (1.010-1.025) L 12/05/17 19:27 Urine Ketones 15 mg/dL (Negative) H 12/05/17 19:27 Urine Bilirubin Moderate (Negative) H 12/05/17 19:27 Ur Leukocyte Esterase Moderate (Negative) H 12/05/17 19:27 Urine Microscopic WBC 5-15 per hpf (0-3) H 12/05/17 19:27 Ur Squamous Epith Cells Many per lpf (None-Few) H 12/05/17 19:27 Ur Culture Indicated? NO. (NO) A 12/05/17 19:27 U Benzodiazepines Scrn Positive ng/mL (Zwbqdi=189) H 12/06/17 01:30 - Clinical Findings Intake & Output: Intake & Output 12/07/17 12/07/17 12/07/17 07:59 15:59 23:59 Intake Total 1876.2 / 1876.2 100 / 100 260 / 260 Output Total 125 / 125 150 / 150 200 / 200 Balance 1751.2 / 1751.2 -50 / -50 60 / 60 - Attending Attestation I saw and evaluated this patient and my medical decision-making was reviewed with the Resident Physician. I agree with the documented findings, disposition and treatment plan as described except to the extent set forth below. We independently had [id number] contact with the patient I spent 45 minutes of Critical Care time with this patient. It involved decision making of high complexity to assess, manipulate, and support vital organ system failure and/or to prevent further life threatening deterioration of the patient's condition. The time involved in the performance of separately reportable procedures was not counted toward critical care time . Patient seen and examined at bedside Labs, radiology, chart personally reviewed. Management was reviewed during multidisciplinary critical care rounds. DENTURE CONTOUR WIRE SPECIALIST:Patient is completely disoriented with hallucinations patient has extensive alcoholic history of late she is not drinking alcohol that much during the past week , looks like alcohol withdrawal , when i examined patient was completely obtunded .CT head was repeated to make sure any intracranial bleed as patient was on anti-coagulation . Most likely secondary to toxic and metabolic encephalopathy .. Pulm: Patient COPD changes in the CXR with some airtrapping but no consolidation ABG looks uncompensated metabolic acidosis . Cards: Patient has NSTEMI with Chronic systolic heart failure with EF of 20% patient has LV thrombus will need anti-coagulation because of thrombocytopenia held heparin drip . Going to start on Argatroban FEN-GI: According to Nutrition recs Renal: Labs reviewed ID:No active source of infection Heme/Onc:Thrombocytopenia Endo: Glucose Monitored Integ/MSK: Skin Care per routine ICU Nursing Protocol to prevent ulcers. Lines: All lines examined without evidence of infection : Dispo: Patient remains critically ill CODE: Full Code
[2017-12-07] MEDS: Lacri-Lube 3.5 GM TUBE BOTH EYES SCH ×3 (13:38→21:16)
[2017-12-07 13:40] LABS: VBG Ionized Calcium 1.08 mmol/L (1.15-1.35)
[2017-12-07 13:57] LABS: Magnesium 1.9 mg/dL (1.6-2.6)
[2017-12-07] MEDS: Argatroban 250 MG in D5% in Water 250 ML IVC SCH (15:39)
[2017-12-07] MEDS: Thiamine (B-1) 100 MG, Folic Acid 1 MG, MVI, adult with vitamin K 10 ML in 0.9 % Sodi... IVPB SCH (18:14)
--- NOTE | 2017-12-07 20:53 | Procedure Note ---
Date of procedure: 12/07/17 Pre-op diagnosis: Acute respiratory failure Post-op diagnosis: same Procedure: A time-out was completed verifying correct patient, procedure, site, positioning , and special equipment if applicable. The patient was placed in a flat position. Sedation was obtained using Fentanyl and additionally with Etomidate 20mg. The patient was easily ventilated using an ambu bag. The [employer]/ MAC 3 BLADE was used and inserted into the oropharynx at which time there was a Grade 1 view of the vocal cords. A 7.5-zambian endotracheal tube was inserted and visualized going through the vocal cords. The stylette was removed. Colorimetric change was visualized on the CO2 meter. Breath sounds were heard in both lung [place] equally. The endotracheal tube was placed at 23 cm, measured at the teeth. Attending was present for the entire procedure. A chest x-ray was ordered to assess for pneumothorax and verify endotrachealtube placement. Estimated Blood Loss: Nil The patient tolerated the procedure well and there were no complications. Surgeon: Aria Bell Was there an fws faculty assistant present: Yes Talent Development Specialist: Alessio Kohler Estimated blood loss (cc): 0 Specimen: none Pathology: none sent Condition: critical
[2017-12-07] MEDS: Dexmedetomidine HCl 400 MCG/100 ML MLS IVC SCH (21:15)
[2017-12-07 22:34] LABS: VBG Ionized Calcium 1.12 mmol/L (1.15-1.35)
[2017-12-08] MEDS: Lacri-Lube 3.5 GM TUBE BOTH EYES SCH ×6 (00:31→20:49)
[2017-12-08] MEDS: Dexmedetomidine HCl 400 MCG/100 ML MLS IVC SCH ×2 (04:28→14:07)
[2017-12-08 05:25] LABS: Basophils % 0.4 %; Eosinophils # 0.1 K/mcL (0.0-0.6); Hematocrit 29.5 % (35.3-44.9); Hemoglobin 9.5 g/dL (11.5-15.4); Immature Granulocytes % 0.8 % (0-4); Lymphocytes % 13.2 %; Mean Corpuscular HGB Conc 32.2 g/dL (31.6-35.5); Mean Corpuscular Hemoglobin 31.3 pg (28.0-33.3); Mean Platelet Volume 11.5 fL (9.4-12.4); Monocytes # 0.6 K/mcL (0.0-1.3); Monocytes % 7.6 %; Neutrophils # 5.9 K/mcL (1.6-8.9); Red Blood Count 3.04 M/mcL (3.82-4.97); Red Cell Distribution Width 19.4 % (11.5-14.5)
[2017-12-08 05:26] LABS: Platelet Count 74 K/mcL (140-400)
[2017-12-08 05:39] LABS: ABG Base Excess -6 mEq/L (-2 to 3); ABG HCO3 17 mEq/L (21-27); ABG Oxygen Saturation 99 % (95-98); ABG PCO2 24 mmHg (35-45); ABG PH 7.46 pH Units (7.32-7.45); ABG PO2 142 mmHg (85-104); ABG TCO2 18 mEq/L (20-26); Blood Gas Modality VC; Blood Gas PEEP 5 cm H2O; Blood Gas Respiration Rate 20; Blood Gas VT 450 cc
[2017-12-08 05:47] LABS: BUN/Creatinine Ratio 19 (6-26); Blood Urea Nitrogen 13 mg/dL (8-23); Calcium 7.5 mg/dL (8.6-10.3); Carbon Dioxide 19 mEq/L (23-29); Chloride 119 mEq/L (98-107); Glucose 172 mg/dL (70-105); Osmolality,Calculated 296 (280-300); Sodium 141 mEq/L (136-145); eGFR For African Americans > 60 (> 60); eGFR For Non-African Americans > 60 (> 60)
--- NOTE | 2017-12-08 06:22 | Electrocardiograph Report ---
[address] [place], [place] [address] Test Date: 2017-12-06 Pat Name: Amy Cabrera Department: 109 Room: 11 Gender: F Pest Control Chemical Technician: DAMIEN : 1950 Requested By: Mary Kate Borjas Order Number: [id number] Reading MD: Navjot Amor Measurements Intervals [place] Rate: 132 P: 25 W[place]: 84 QRS: 43 QRSD: 70 T: 244 QT: 365 QTc: 443 Interpretive Statements SINUS TACHYCARDIA WITH SHORT [place] INTERVAL ANTEROLATERAL ISCHEMIA CONSIDER INFERIOR ISCHEMIA Electronically Signed On 12-08-2017 6:20:33 EDT by Navjot Amor
[2017-12-08] MEDS: Chlorhexidine Rinse 15 ML MOUTHWASH MM SCH ×2 (07:39→20:49)
[2017-12-08] MEDS: Lactulose Oral Soln 20 GM/30 ML UDC PO SCH (07:39)
[2017-12-08] MEDS: Magnesium Oxide 400 MG TABLET PO SCH (07:39)
[2017-12-08] MEDS: Potassium Chloride Elixir 20 MEQ/15 ML UDC PO SCH ×2 (07:39→17:07)
[2017-12-08] MEDS: Cholecalciferol (D-3) 1,000 UNIT TABLET PO SCH (07:39)
[2017-12-08] MEDS: Nicotine 21 MG PATCH.TD24 TD SCH (07:40)
[2017-12-08] MEDS ORDERED: Ringers Solution, Lactated 1,000 ML IVC SCH (08:30)
[2017-12-08] MEDS: Pantoprazole 40 MG VIAL IVP SCH (10:17)
--- NOTE | 2017-12-08 10:40 | Pulmonology Progress Note ---
<Alessio Kohler - Last Filed: 12/08/17 10:37> Date of Encounter: 12/08/17 Time of Encounter: 08:25 Assessment and Plan (1) Encephalopathy Current Visit: Yes Status: Acute Metabolic encephalopathy, secondary likely to alcohol and electrolyte disturbance The patient was found to have significant electrolyte abnormalities Head CT is negative for acute intracranial process No obvious indicators of hepatic disease The patient has been sedated for intubation, we will continue to monitor Maintain electrolytes over course of stay Attempt sedation vacation for SBT later this afternoon We will be starting Seroquel 20mg. Baseline QTc 443 Repeat EKG tomorrow morning (2) NSTEMI (non-ST elevated myocardial infarction) Current Visit: Yes Status: Acute NSTEMI, elevated troponin on arrival Troponins 2.05 -> 2.24 -> 1.35 -> 1.[address]-T wave changes in the infero lateral leads Echo is concerning for ischemic hypokinesis, and there is evidence of L Atrial thrombus There is concern for HIT, so heparin was stopped. Started on Argatriban Appreciate cordiology recommendations (3) Mural thrombus of heart Current Visit: Yes Status: Acute Mural thrombus demonstrated on echocardiogram Cardiology is on board, recommends anticoagulation We started the patient on argatriban (4) Acute and chronic respiratory failure with hypoxia Current Visit: Yes Status: Acute Acute on chronic respiratory failure with hypoxia, status post intubation Patient's respiratory status is improved greatly overnight while intubated The patient this time demonstrates no evidence of infectious process Chest x-ray does show some air trapping, however no consolidation AB.46/24/142/17/99% on 35% FiO2 Patient currently has respiratory alkalosis, we will decrease minute ventilation to achieve mild acidosis We will attempt to decrease sedation later today for SBT Goal to liberate from vent DAX (5) Hypertension Current Visit: No Status: Chronic Blood pressure borderline low. Will hold home medications for now. Qualifiers: Hypertension type: unspecified Qualified Code(s): I10 - Essential (primary ) hypertension (6) Hypokalemia Current Visit: Yes Status: Acute Electrolyte protocol orders per ICU nurses. -Repletion as necessary (7) Hypomagnesemia Current Visit: Yes Status: Acute Electrolyte protocol orders per ICU nurses. -Repletion as necessary (8) DVT prophylaxis Current Visit: Yes Status: Acute On Argatriban Subjective Principal diagnosis: Respiratory Failure Interval history: The patient remains sedated and intubated. She did not have any acute problems overnight. Echocardiogram yesterday did demonstrate new left mural thrombus which required the addition of anti-coagulation. Objective PUL Vital signs: Last Vital Signs Temp 97.7 F 12/08/17 08:00 Pulse 65 12/08/17 10:00 Resp 27 12/08/17 10:00 BP 95/61 12/08/17 10:00 Pulse Ox 100 12/08/17 10:00 Gen: Vitals noted. Patient is sedated on ventilator and appears comfortable HEENT: Normocephalic, atraumatic Neck: Supple. There is a firmness over the patient's trachea consistent with goiter Cardiac: RRR, no murmur, +S1/S2 Pulmonary: CTAB with minimally diminished right base Abdomen: soft, nontender, BS noted, no guarding MSK: ROM intact, no joint swelling noted Extremities: no BLE edema, nontender calf, no cyanosis or clubbing Neuro: Currently sedated on ventilator. Ventilator Settings Ventilator Settings: Ventilator Settings, Last 8 Hours Ventilator Mode A/C Ventilator Mode A/C Ventilator Mode A/C Ventilator Mode A/C Ventilator Mode A/C Ventilator Mode A/C Ventilator Tidal Volume 380 Setting Ventilator Tidal Volume 450 Setting Ventilator Tidal Volume 450 Setting Ventilator Tidal Volume 450 Setting Ventilator Tidal Volume 450 Setting Ventilator Tidal Volume 450 Setting Ventilator Tidal Volume 450 Setting Ventilator Tidal Volume 450 Setting Ventilator Tidal Volume 450 Setting Ventilator Tidal Volume 450 Setting Ventilator Respiratory Rate 16 Setting Ventilator Respiratory Rate 20 Setting Ventilator Respiratory Rate 20 Setting Ventilator Respiratory Rate 20 Setting Ventilator Respiratory Rate 20 Setting Ventilator Respiratory Rate 20 Setting Ventilator Respiratory Rate 20 Setting Ventilator Respiratory Rate 20 Setting Ventilator Respiratory Rate 20 Setting Ventilator Respiratory Rate 20 Setting Actual Respiratory Rate 27 Actual Respiratory Rate 20 Actual Respiratory Rate 20 Actual Respiratory Rate 20 Actual Respiratory Rate 20 Actual Respiratory Rate 20 Actual Respiratory Rate 20 Actual Respiratory Rate 20 Actual Respiratory Rate 20 Positive End Expiratory 5 Pressure Positive End Expiratory 5 Pressure Positive End Expiratory 5 Pressure Positive End Expiratory 5 Pressure Positive End Expiratory 5 Pressure Positive End Expiratory 5 Pressure Positive End Expiratory 5 Pressure Positive End Expiratory 5 Pressure Positive End Expiratory 5 Pressure Positive End Expiratory 5 Pressure Peak Inspiratory Airway 24 Pressure Peak Inspiratory Airway 26 Pressure Peak Inspiratory Airway 25 Pressure Peak Inspiratory Airway 24 Pressure Peak Inspiratory Airway 26 Pressure Peak Inspiratory Airway 25 Pressure Peak Inspiratory Airway 24 Pressure Peak Inspiratory Airway 24 Pressure Peak Inspiratory Airway 24 Pressure Results - Laboratory Findings CBC and BMP: 12/08/17 05:15 12/08/17 05:15 ABG ABG pH 7.46 pH Units (7.32-7.45) H 12/08/17 05:35 ABG pCO2 24 mmHg (35-45) L 12/08/17 05:35 ABG pO2 142 mmHg (85-104) H 12/08/17 05:35 ABG O2 Saturation 99 % (95-98) H 12/08/17 05:35 PT/INR, D-dimer PT 16.2 Seconds (9.4-12.1) H 12/05/17 18:50 Abnormal lab findings: Abnormal lab results RBC 3.04 M/mcL (3.82-4.97) L 12/08/17 05:15 Hgb 9.5 g/dL (11.5-15.4) L 12/08/17 05:15 Hct 29.5 % (35.3-44.9) L 12/08/17 05:15 RDW 19.4 % (11.5-14.5) H 12/08/17 05:15 Plt Count 74 K/mcL (140-400) L 12/08/17 05:15 Platelet Estimate Slight Decrease (Normal) L 12/06/17 06:01 Immature Plt Fraction 6.6 % (1.1-6.1) H 12/07/17 03:23 Anisocytosis 1+ (Not Present) A 12/06/17 06:01 PT 16.2 Seconds (9.4-12.1) H 12/05/17 18:50 APTT 60.5 Seconds (26.0-36.0) H 12/08/17 05:15 ABG pH 7.46 pH Units (7.32-7.45) H 12/08/17 05:35 ABG pCO2 24 mmHg (35-45) L 12/08/17 05:35 ABG pO2 142 mmHg (85-104) H 12/08/17 05:35 ABG HCO3 17 mEq/L (21-27) L 12/08/17 05:35 ABG Total CO2 18 mEq/L (20-26) L 12/08/17 05:35 ABG O2 Saturation 99 % (95-98) H 12/08/17 05:35 ABG Base Excess -6 mEq/L (-2 to 3) L 12/08/17 05:35 Chloride 119 mEq/L (98-107) H 12/08/17 05:15 Carbon Dioxide 19 mEq/L (23-29) L 12/08/17 05:15 Glucose 172 mg/dL (70-105) H 12/08/17 05:15 POC Glucose 179 mg/dL (70-99) H 12/08/17 07:45 Calcium 7.5 mg/dL (8.6-10.3) L 12/08/17 05:15 Venous Ioniz Calcium 1.12 mmol/L (1.15-1.35) L 12/07/17 22:30 Direct Bilirubin 0.3 mg/dL (0.0-0.2) H 12/05/17 18:50 AST 43 Units/L (13-39) H 12/05/17 18:50 Troponin I 1.10 ng/mL (< 0.04) H* 12/06/17 11:56 B-Natriuretic Peptide 2096 pg/mL (Less than 100) H 12/06/17 06:01 Serum Total Protein 5.7 g/dL (6.4-8.9) L 12/05/17 18:50 Albumin 3.4 g/dL (3.5-5.7) L 12/05/17 18:50 Globulin 2.3 g/dL (2.4-3.5) L 12/05/17 18:50 Urine Clarity Cloudy (Clear) A 12/05/17 19:27 Ur Specific [place] 1.008 (1.010-1.025) L 12/05/17 19:27 Urine Ketones 15 mg/dL (Negative) H 12/05/17 19:27 Urine Bilirubin Moderate (Negative) H 12/05/17 19:27 Ur Leukocyte Esterase Moderate (Negative) H 12/05/17 19:27 Urine Microscopic WBC 5-15 per hpf (0-3) H 12/05/17 19:27 Ur Squamous Epith Cells Many per lpf (None-Few) H 12/05/17 19:27 Ur Culture Indicated? NO. (NO) A 12/05/17 19:27 U Benzodiazepines Scrn Positive ng/mL (Lnfgwr=112) H 12/06/17 01:30 - Clinical Findings Intake & Output: Intake & Output 12/07/17 12/08/17 12/08/17 23:59 07:59 15:59 Intake Total 472.5 / 472.5 1154.2 / 1154.2 Output Total 200 / 200 150 / 150 Balance 272.5 / 272.5 1004.2 / 1004.2 -10 Weight 62.8 kg Consult Discharge Plan - Plan Referrals: Chel Munroe, [employer] ADMINISTRATOR [Primary Care Provider] - <Aria Bell - Last Filed: 12/08/17 23:40> Date of Encounter: 12/08/17 Objective PUL Vital signs: Last Vital Signs Temp 97.5 F L 12/08/17 20:51 Pulse 59 12/08/17 23:00 Resp 23 12/08/17 23:00 BP 88/59 12/08/17 23:00 Pulse Ox 100 12/08/17 23:00 Ventilator Settings Ventilator Settings: Ventilator Settings, Last 8 Hours Ventilator Mode A/C Ventilator Mode A/C Ventilator Mode A/C Ventilator Mode A/C Ventilator Mode A/C Ventilator Tidal Volume 380 Setting Ventilator Tidal Volume 380 Setting Ventilator Tidal Volume 380 Setting Ventilator Tidal Volume 380 Setting Ventilator Tidal Volume 380 Setting Ventilator Tidal Volume 380 Setting Ventilator Tidal Volume 380 Setting Ventilator Tidal Volume 380 Setting Ventilator Tidal Volume 380 Setting Ventilator Respiratory Rate 16 Setting Ventilator Respiratory Rate 16 Setting Ventilator Respiratory Rate 16 Setting Ventilator Respiratory Rate 16 Setting Ventilator Respiratory Rate 16 Setting Ventilator Respiratory Rate 16 Setting Ventilator Respiratory Rate 16 Setting Ventilator Respiratory Rate 16 Setting Ventilator Respiratory Rate 16 Setting Actual Respiratory Rate 23 Actual Respiratory Rate 27 Actual Respiratory Rate 22 Actual Respiratory Rate 26 Actual Respiratory Rate 22 Actual Respiratory Rate 24 Actual Respiratory Rate 23 Actual Respiratory Rate 25 Actual Respiratory Rate 26 Positive End Expiratory 5 Pressure Positive End Expiratory 5 Pressure Positive End Expiratory 5 Pressure Positive End Expiratory 5 Pressure Positive End Expiratory 5 Pressure Positive End Expiratory 5 Pressure Positive End Expiratory 5 Pressure Positive End Expiratory 5 Pressure Positive End Expiratory 5 Pressure Peak Inspiratory Airway 21 Pressure Peak Inspiratory Airway 22 Pressure Peak Inspiratory Airway 23 Pressure Peak Inspiratory Airway 23 Pressure Peak Inspiratory Airway 26 Pressure Peak Inspiratory Airway 24 Pressure Peak Inspiratory Airway 26 Pressure Peak Inspiratory Airway 24 Pressure Peak Inspiratory Airway 21 Pressure Results - Laboratory Findings CBC and BMP: 12/08/17 05:15 12/08/17 05:15 ABG ABG pH 7.46 pH Units (7.32-7.45) H 12/08/17 05:35 ABG pCO2 24 mmHg (35-45) L 12/08/17 05:35 ABG pO2 142 mmHg (85-104) H 12/08/17 05:35 ABG O2 Saturation 99 % (95-98) H 12/08/17 05:35 PT/INR, D-dimer PT 16.2 Seconds (9.4-12.1) H 12/05/17 18:50 Abnormal lab findings: Abnormal lab results RBC 3.04 M/mcL (3.82-4.97) L 12/08/17 05:15 Hgb 9.5 g/dL (11.5-15.4) L 12/08/17 05:15 Hct 29.5 % (35.3-44.9) L 12/08/17 05:15 RDW 19.4 % (11.5-14.5) H 12/08/17 05:15 Plt Count 74 K/mcL (140-400) L 12/08/17 05:15 Platelet Estimate Slight Decrease (Normal) L 12/06/17 06:01 Immature Plt Fraction 6.6 % (1.1-6.1) H 12/07/17 03:23 Anisocytosis 1+ (Not Present) A 12/06/17 06:01 PT 16.2 Seconds (9.4-12.1) H 12/05/17 18:50 APTT 58.0 Seconds (26.0-36.0) H 12/08/17 12:20 ABG pH 7.46 pH Units (7.32-7.45) H 12/08/17 05:35 ABG pCO2 24 mmHg (35-45) L 12/08/17 05:35 ABG pO2 142 mmHg (85-104) H 12/08/17 05:35 ABG HCO3 17 mEq/L (21-27) L 12/08/17 05:35 ABG Total CO2 18 mEq/L (20-26) L 12/08/17 05:35 ABG O2 Saturation 99 % (95-98) H 12/08/17 05:35 ABG Base Excess -6 mEq/L (-2 to 3) L 12/08/17 05:35 Chloride 119 mEq/L (98-107) H 12/08/17 05:15 Carbon Dioxide 19 mEq/L (23-29) L 12/08/17 05:15 Glucose 172 mg/dL (70-105) H 12/08/17 05:15 POC Glucose 153 mg/dL (70-99) H 12/08/17 23:20 Calcium 7.5 mg/dL (8.6-10.3) L 12/08/17 05:15 Venous Ioniz Calcium 1.12 mmol/L (1.15-1.35) L 12/07/17 22:30 Direct Bilirubin 0.3 mg/dL (0.0-0.2) H 12/05/17 18:50 AST 43 Units/L (13-39) H 12/05/17 18:50 Troponin I 1.10 ng/mL (< 0.04) H* 12/06/17 11:56 B-Natriuretic Peptide 2096 pg/mL (Less than 100) H 12/06/17 06:01 Serum Total Protein 5.7 g/dL (6.4-8.9) L 12/05/17 18:50 Albumin 3.4 g/dL (3.5-5.7) L 12/05/17 18:50 Globulin 2.3 g/dL (2.4-3.5) L 12/05/17 18:50 Urine Clarity Cloudy (Clear) A 12/05/17 19:27 Ur Specific [place] 1.008 (1.010-1.025) L 12/05/17 19:27 Urine Ketones 15 mg/dL (Negative) H 12/05/17 19:27 Urine Bilirubin Moderate (Negative) H 12/05/17 19:27 Ur Leukocyte Esterase Moderate (Negative) H 12/05/17 19:27 Urine Microscopic WBC 5-15 per hpf (0-3) H 12/05/17 19:27 Ur Squamous Epith Cells Many per lpf (None-Few) H 12/05/17 19:27 Ur Culture Indicated? NO. (NO) A 12/05/17 19:27 U Benzodiazepines Scrn Positive ng/mL (Dihyjs=113) H 12/06/17 01:30 - Clinical Findings Intake & Output: Intake & Output 12/08/17 12/08/17 12/08/17 07:59 15:59 23:59 Intake Total 1154.2 / 1154.2 542 / 542 311 / 311 Output Total 150 / 150 25 / 25 175 / 175 Balance 1004.2 / 1004.2 517 / 517 136 / 136 Weight 62.8 kg - Attending Attestation - Attending Attestation I saw and evaluated this patient and my medical decision-making was reviewed with the Resident Physician. I agree with the documented findings, disposition and treatment plan as described except to the extent set forth below. We independently had [id number] contact with the patient I spent 33 minutes of Critical Care time with this patient. It involved decision making of high complexity to assess, manipulate, and support vital organ system failure and/or to prevent further life threatening deterioration of the patient's condition. The time involved in the performance of separately reportable procedures was not counted toward critical care time . Patient seen and examined at bedside Labs, radiology, chart personally reviewed. Management was reviewed during multidisciplinary critical care rounds. PRECAST WORKER:Patient is completely disoriented with hallucinations patient has extensive alcoholic history of late she is not drinking alcohol that much during the past week , looks like alcohol withdrawal , when i examined patient was completely obtunded .CT head was repeated to make sure any intracranial bleed as patient was on anti-coagulation . Most likely secondary to toxic and metabolic encephalopathy .. 5/ Patient has alcohol withdrawal will add Seroquel will give sedation holiday Pulm: Patient COPD changes in the CXR with some airtrapping but no consolidation adjusted TV and RR . Lung protective strategy . Cards: Patient has NSTEMI with Chronic systolic heart failure with EF of 20% patient has LV thrombus will need anti-coagulation because of thrombocytopenia held heparin drip . Started on Argatroban . FEN-GI: According to Nutrition recs Renal: Labs reviewed decreased urine output will give some IV fluids ID:No active source of infection Heme/Onc:Thrombocytopenia Endo: Glucose Monitored Integ/MSK: Skin Care per routine ICU Nursing Protocol to prevent ulcers. Lines: All lines examined without evidence of infection : Dispo: Patient remains critically ill CODE: Full Code
[2017-12-08] MEDS: Norepinephrine 4 MG in D5% in Water 250 ML IVC SCH (12:24)
[2017-12-08] MEDS: Thiamine (B-1) 100 MG, Folic Acid 1 MG, MVI, adult with vitamin K 10 ML in 0.9 % Sodi... IVPB SCH (18:15)
[2017-12-09] MEDS: Lacri-Lube 3.5 GM TUBE BOTH EYES SCH ×6 (00:52→20:59)
[2017-12-09] MEDS: Dexmedetomidine HCl 400 MCG/100 ML MLS IVC SCH ×3 (00:53→23:05)
[2017-12-09 04:19] LABS: Mean Corpuscular Volume 99.7 fL (83.0-100.0); Red Cell Distribution Width 19.7 % (11.5-14.5)
[2017-12-09 04:21] LABS: Basophils % 0.1 %; Eosinophils # 0.1 K/mcL (0.0-0.6); Hematocrit 29.1 % (35.3-44.9); Hemoglobin 9.1 g/dL (11.5-15.4); Immature Granulocytes % 1.7 % (0-4); Immature Platelets 9.4 % (1.1-6.1); Lymphocytes # 1.1 K/mcL (0.6-4.6); Lymphocytes % 13.5 %; Mean Corpuscular HGB Conc 31.3 g/dL (31.6-35.5); Mean Corpuscular Hemoglobin 31.2 pg (28.0-33.3); Mean Platelet Volume 11.7 fL (9.4-12.4); Monocytes # 0.7 K/mcL (0.0-1.3); Monocytes % 8.6 %; Neutrophils # 5.9 K/mcL (1.6-8.9); Nucleated Red Blood Cells 0.3 /100 WBC (0); Red Blood Count 2.92 M/mcL (3.82-4.97); Segmented Neutrophils % 75.1 %
[2017-12-09 04:23] LABS: VBG Ionized Calcium 1.22 mmol/L (1.15-1.35)
[2017-12-09 04:31] LABS: Platelet Count 87 K/mcL (140-400)
[2017-12-09 04:46] LABS: BUN/Creatinine Ratio 26 (6-26); Blood Urea Nitrogen 16 mg/dL (8-23); Calcium 7.9 mg/dL (8.6-10.3); Carbon Dioxide 22 mEq/L (23-29); Chloride 118 mEq/L (98-107); Glucose 182 mg/dL (70-105); Magnesium 1.5 mg/dL (1.6-2.6); Osmolality,Calculated 300 (280-300); Potassium 5.1 mEq/L (3.5-5.1); Sodium 142 mEq/L (136-145); eGFR For African Americans > 60 (> 60); eGFR For Non-African Americans > 60 (> 60)
[2017-12-09 05:06] LABS: Anisocytosis 1+ (Not Present); Poikilocytosis 2+ (Not Present)
[2017-12-09 05:07] LABS: Macrocytosis Present (Not Present); Platelet Estimate Decreased (Normal)
[2017-12-09 05:58] LABS: ABG Base Excess -6 mEq/L (-2 to 3); ABG HCO3 18 mEq/L (21-27); ABG Oxygen Saturation 99 % (95-98); ABG PCO2 28 mmHg (35-45); ABG PH 7.41 pH Units (7.32-7.45); ABG PO2 122 mmHg (85-104); ABG TCO2 19 mEq/L (20-26); Blood Gas Modality ASSIST CONTROL; Blood Gas PEEP 5 cm H2O; Blood Gas Respiration Rate 16; Blood Gas VT 380 cc
[2017-12-09] MEDS: Argatroban 250 MG in D5% in Water 250 ML IVC SCH (06:13)
[2017-12-09] MEDS ORDERED: Ringers Solution, Lactated 1,000 ML IVC ONE (07:17)
[2017-12-09] MEDS: Pantoprazole 40 MG VIAL IVP SCH (07:47)
[2017-12-09] MEDS: Norepinephrine 4 MG in D5% in Water 250 ML IVC SCH (07:53)
[2017-12-09] MEDS: Chlorhexidine Rinse 15 ML MOUTHWASH MM SCH ×2 (07:56→20:57)
[2017-12-09] MEDS: Cholecalciferol (D-3) 1,000 UNIT TABLET PO SCH (08:02)
[2017-12-09] MEDS: Magnesium Oxide 400 MG TABLET PO SCH (08:02)
[2017-12-09] MEDS: Nicotine 21 MG PATCH.TD24 TD SCH (08:02)
[2017-12-09] MEDS: Lactulose Oral Soln 20 GM/30 ML UDC PO SCH (08:03)
--- NOTE | 2017-12-09 08:42 | Pulmonology Progress Note ---
<Alessio Kohlre - Last Filed: 12/09/17 10:02> Date of Encounter: 12/09/17 Time of Encounter: 07:30 Assessment and Plan (1) Encephalopathy Current Visit: Yes Status: Acute Metabolic encephalopathy, secondary likely to alcohol and electrolyte disturbance The patient was found to have significant electrolyte abnormalities Head CT is negative for acute intracranial process No obvious indicators of hepatic disease The patient has been sedated for intubation, we will continue to monitor Maintain electrolytes over course of stay Started Seroquel yesterday with 25mg Increase Seroquel to 25mg BID (2) NSTEMI (non-ST elevated myocardial infarction) Current Visit: Yes Status: Acute NSTEMI, elevated troponin on arrival Troponins 2.05 -> 2.24 -> 1.35 -> 1.[address]-T wave changes in the infero lateral leads Echo is concerning for ischemic hypokinesis, and there is evidence of L Atrial thrombus There is concern for HIT, so heparin was stopped. Started on Argatriban Cardiology has signed off with no further recommendations (3) Mural thrombus of heart Current Visit: Yes Status: Acute Mural thrombus demonstrated on echocardiogram Cardiology is on board, recommends anticoagulation We started the patient on argatriban (4) Acute and chronic respiratory failure with hypoxia Current Visit: Yes Status: Acute Acute on chronic respiratory failure with hypoxia, status post intubation Patient's respiratory status is improved greatly overnight while intubated The patient this time demonstrates no evidence of infectious process Chest x-ray does show some air trapping, however no consolidation AB.41/28/122/8/19/99 on 30% FIO2 Patient currently has respiratory alkalosis, we will decrease minute ventilation to achieve mild acidosis Failed SBT due to tachypnea and increased/intolerable work of breathing We will increase sedation and attempt again tomorrow (5) Decreased urine output Current Visit: Yes Status: Acute Decreased urine output with hematuria Currently on Argatriban for mural thrombus We will give one liter of lactated ringers, consider Albumin after (6) Hypertension Current Visit: No Status: Chronic Blood pressure borderline low. Will hold home medications for now. Qualifiers: Hypertension type: unspecified Qualified Code(s): I10 - Essential (primary ) hypertension (7) Hypokalemia Current Visit: Yes Status: Acute Electrolyte protocol orders per ICU nurses. -Repletion as necessary (8) Hypomagnesemia Current Visit: Yes Status: Acute Electrolyte protocol orders per ICU nurses. -Repletion as necessary (9) DVT prophylaxis Current Visit: Yes Status: Acute On Argatriban Subjective Principal diagnosis: Respiratory Failure Interval history: The patient remains on vent. She did undergo CPAP trial this morning without success. Objective PUL Vital signs: Last Vital Signs Temp 96.4 F L 12/09/17 07:51 Pulse 65 12/09/17 08:00 Resp 28 12/09/17 08:00 BP 99/66 12/09/17 08:00 Pulse Ox 100 12/09/17 08:00 Gen: Vitals noted. Patient is alert, and appears uncomfortable/distressed HEENT: Normocephalic, atraumatic Neck: Supple. There is a firmness over the patient's trachea consistent with goiter Cardiac: RRR, no murmur, +S1/S2 Pulmonary: CTAB Abdomen: soft, nontender, BS noted, no guarding MSK: ROM intact, no joint swelling noted Extremities: Trace BLE edema, nontender calf, no cyanosis or clubbing Neuro: Alert and distressed, cannot communicate due to ET tube. Ventilator Settings Ventilator Settings: Ventilator Settings, Last 8 Hours Ventilator Mode A/C Ventilator Mode A/C Ventilator Mode A/C Ventilator Mode A/C Ventilator Mode A/C Ventilator Mode A/C Ventilator Mode A/C Ventilator Tidal Volume 380 Setting Ventilator Tidal Volume 380 Setting Ventilator Tidal Volume 380 Setting Ventilator Tidal Volume 380 Setting Ventilator Tidal Volume 380 Setting Ventilator Tidal Volume 380 Setting Ventilator Tidal Volume 380 Setting Ventilator Tidal Volume 380 Setting Ventilator Tidal Volume 380 Setting Ventilator Respiratory Rate 16 Setting Ventilator Respiratory Rate 16 Setting Ventilator Respiratory Rate 16 Setting Ventilator Respiratory Rate 16 Setting Ventilator Respiratory Rate 16 Setting Ventilator Respiratory Rate 16 Setting Ventilator Respiratory Rate 16 Setting Ventilator Respiratory Rate 16 Setting Ventilator Respiratory Rate 16 Setting Actual Respiratory Rate 24 Actual Respiratory Rate 30 Actual Respiratory Rate 23 Actual Respiratory Rate 27 Actual Respiratory Rate 24 Actual Respiratory Rate 21 Actual Respiratory Rate 27 Actual Respiratory Rate 29 Positive End Expiratory 5 Pressure Positive End Expiratory 5 Pressure Positive End Expiratory 5 Pressure Positive End Expiratory 5 Pressure Positive End Expiratory 5 Pressure Positive End Expiratory 5 Pressure Positive End Expiratory 5 Pressure Positive End Expiratory 5 Pressure Positive End Expiratory 5 Pressure Peak Inspiratory Airway 23 Pressure Peak Inspiratory Airway 23 Pressure Peak Inspiratory Airway 25 Pressure Peak Inspiratory Airway 25 Pressure Peak Inspiratory Airway 26 Pressure Peak Inspiratory Airway 27 Pressure Peak Inspiratory Airway 31 Pressure Peak Inspiratory Airway 27 Pressure Results - Laboratory Findings CBC and BMP: 12/09/17 04:00 12/09/17 04:00 ABG ABG pH 7.41 pH Units (7.32-7.45) 12/09/17 05:55 ABG pCO2 28 mmHg (35-45) L 12/09/17 05:55 ABG pO2 122 mmHg (85-104) H 12/09/17 05:55 ABG O2 Saturation 99 % (95-98) H 12/09/17 05:55 PT/INR, D-dimer PT 16.2 Seconds (9.4-12.1) H 12/05/17 18:50 Abnormal lab findings: Abnormal lab results RBC 2.92 M/mcL (3.82-4.97) L 12/09/17 04:00 Hgb 9.1 g/dL (11.5-15.4) L 12/09/17 04:00 Hct 29.1 % (35.3-44.9) L 12/09/17 04:00 MCHC 31.3 g/dL (31.6-35.5) L 12/09/17 04:00 RDW 19.7 % (11.5-14.5) H 12/09/17 04:00 Plt Count 87 K/mcL (140-400) L 12/09/17 04:00 Nucleated RBCs/100 WBC 0.3 /100 WBC (0) H 12/09/17 04:00 Platelet Estimate Decreased (Normal) L 12/09/17 04:00 Immature Plt Fraction 9.4 % (1.1-6.1) H 12/09/17 04:00 Poikilocytosis 2+ (Not Present) A 12/09/17 04:00 Anisocytosis 1+ (Not Present) A 12/09/17 04:00 Macrocytosis Present (Not Present) A 12/09/17 04:00 PT 16.2 Seconds (9.4-12.1) H 12/05/17 18:50 APTT 55.2 Seconds (26.0-36.0) H 12/09/17 04:00 ABG pCO2 28 mmHg (35-45) L 12/09/17 05:55 ABG pO2 122 mmHg (85-104) H 12/09/17 05:55 ABG HCO3 18 mEq/L (21-27) L 12/09/17 05:55 ABG Total CO2 19 mEq/L (20-26) L 12/09/17 05:55 ABG O2 Saturation 99 % (95-98) H 12/09/17 05:55 ABG Base Excess -6 mEq/L (-2 to 3) L 12/09/17 05:55 Chloride 118 mEq/L (98-107) H 12/09/17 04:00 Carbon Dioxide 22 mEq/L (23-29) L 12/09/17 04:00 Glucose 182 mg/dL (70-105) H 12/09/17 04:00 POC Glucose 125 mg/dL (70-99) H 12/09/17 07:11 Calcium 7.9 mg/dL (8.6-10.3) L 12/09/17 04:00 Magnesium 1.5 mg/dL (1.6-2.6) L 12/09/17 04:00 Direct Bilirubin 0.3 mg/dL (0.0-0.2) H 12/05/17 18:50 AST 43 Units/L (13-39) H 12/05/17 18:50 Troponin I 1.10 ng/mL (< 0.04) H* 12/06/17 11:56 B-Natriuretic Peptide 2096 pg/mL (Less than 100) H 12/06/17 06:01 Serum Total Protein 5.7 g/dL (6.4-8.9) L 12/05/17 18:50 Albumin 3.4 g/dL (3.5-5.7) L 12/05/17 18:50 Globulin 2.3 g/dL (2.4-3.5) L 12/05/17 18:50 Urine Clarity Cloudy (Clear) A 12/05/17 19:27 Ur Specific [place] 1.008 (1.010-1.025) L 12/05/17 19:27 Urine Ketones 15 mg/dL (Negative) H 12/05/17 19:27 Urine Bilirubin Moderate (Negative) H 12/05/17 19:27 Ur Leukocyte Esterase Moderate (Negative) H 12/05/17 19:27 Urine Microscopic WBC 5-15 per hpf (0-3) H 12/05/17 19:27 Ur Squamous Epith Cells Many per lpf (None-Few) H 12/05/17 19:27 Ur Culture Indicated? NO. (NO) A 12/05/17 19:27 U Benzodiazepines Scrn Positive ng/mL (Cqgxrr=800) H 12/06/17 01:30 - Clinical Findings Intake & Output: Intake & Output 12/08/17 12/09/17 12/09/17 23:59 07:59 15:59 Intake Total 443 / 443 1446.2 / 1446.2 100 / 100 Output Total 200 / 200 85 / 85 Balance 243 / 243 1361.2 / 1361.2 100 / 100 Weight 66.1 kg Consult Discharge Plan - Plan Referrals: Chel Munroe CNP [Primary Care Provider] - <Aria Bell - Last Filed: 12/09/17 12:00> Date of Encounter: 12/09/17 Objective PUL Vital signs: Last Vital Signs Temp 96.9 F L 12/09/17 11:28 Pulse 67 12/09/17 11:04 Resp 30 12/09/17 11:09 BP 96/64 12/09/17 11:09 Pulse Ox 100 12/09/17 11:09 Ventilator Settings Ventilator Settings: Ventilator Settings, Last 8 Hours Ventilator Mode A/C Ventilator Mode A/C Ventilator Mode A/C Ventilator Mode A/C Ventilator Tidal Volume 380 Setting Ventilator Tidal Volume 380 Setting Ventilator Tidal Volume 380 Setting Ventilator Tidal Volume 380 Setting Ventilator Tidal Volume 380 Setting Ventilator Tidal Volume 380 Setting Ventilator Tidal Volume 380 Setting Ventilator Tidal Volume 380 Setting Ventilator Tidal Volume 380 Setting Ventilator Tidal Volume 380 Setting Ventilator Respiratory Rate 16 Setting Ventilator Respiratory Rate 16 Setting Ventilator Respiratory Rate 16 Setting Ventilator Respiratory Rate 16 Setting Ventilator Respiratory Rate 16 Setting Ventilator Respiratory Rate 16 Setting Ventilator Respiratory Rate 16 Setting Ventilator Respiratory Rate 16 Setting Ventilator Respiratory Rate 16 Setting Ventilator Respiratory Rate 16 Setting Actual Respiratory Rate 22 Actual Respiratory Rate 30 Actual Respiratory Rate 27 Actual Respiratory Rate 24 Actual Respiratory Rate 26 Actual Respiratory Rate 24 Actual Respiratory Rate 30 Actual Respiratory Rate 23 Actual Respiratory Rate 27 Positive End Expiratory 5 Pressure Positive End Expiratory 5 Pressure Positive End Expiratory 5 Pressure Positive End Expiratory 5 Pressure Positive End Expiratory 5 Pressure Positive End Expiratory 5 Pressure Positive End Expiratory 5 Pressure Positive End Expiratory 5 Pressure Positive End Expiratory 5 Pressure Positive End Expiratory 5 Pressure Peak Inspiratory Airway 25 Pressure Peak Inspiratory Airway 23 Pressure Peak Inspiratory Airway 22 Pressure Peak Inspiratory Airway 22 Pressure Peak Inspiratory Airway 20 Pressure Peak Inspiratory Airway 23 Pressure Peak Inspiratory Airway 23 Pressure Peak Inspiratory Airway 25 Pressure Peak Inspiratory Airway 25 Pressure Results - Laboratory Findings CBC and BMP: 12/09/17 04:00 12/09/17 04:00 ABG ABG pH 7.41 pH Units (7.32-7.45) 12/09/17 05:55 ABG pCO2 28 mmHg (35-45) L 12/09/17 05:55 ABG pO2 122 mmHg (85-104) H 12/09/17 05:55 ABG O2 Saturation 99 % (95-98) H 12/09/17 05:55 PT/INR, D-dimer PT 16.2 Seconds (9.4-12.1) H 12/05/17 18:50 Abnormal lab findings: Abnormal lab results RBC 2.92 M/mcL (3.82-4.97) L 12/09/17 04:00 Hgb 9.1 g/dL (11.5-15.4) L 12/09/17 04:00 Hct 29.1 % (35.3-44.9) L 12/09/17 04:00 MCHC 31.3 g/dL (31.6-35.5) L 12/09/17 04:00 RDW 19.7 % (11.5-14.5) H 12/09/17 04:00 Plt Count 87 K/mcL (140-400) L 12/09/17 04:00 Nucleated RBCs/100 WBC 0.3 /100 WBC (0) H 12/09/17 04:00 Platelet Estimate Decreased (Normal) L 12/09/17 04:00 Immature Plt Fraction 9.4 % (1.1-6.1) H 12/09/17 04:00 Poikilocytosis 2+ (Not Present) A 12/09/17 04:00 Anisocytosis 1+ (Not Present) A 12/09/17 04:00 Macrocytosis Present (Not Present) A 12/09/17 04:00 PT 16.2 Seconds (9.4-12.1) H 12/05/17 18:50 APTT 55.2 Seconds (26.0-36.0) H 12/09/17 04:00 ABG pCO2 28 mmHg (35-45) L 12/09/17 05:55 ABG pO2 122 mmHg (85-104) H 12/09/17 05:55 ABG HCO3 18 mEq/L (21-27) L 12/09/17 05:55 ABG Total CO2 19 mEq/L (20-26) L 12/09/17 05:55 ABG O2 Saturation 99 % (95-98) H 12/09/17 05:55 ABG Base Excess -6 mEq/L (-2 to 3) L 12/09/17 05:55 Chloride 118 mEq/L (98-107) H 12/09/17 04:00 Carbon Dioxide 22 mEq/L (23-29) L 12/09/17 04:00 Glucose 182 mg/dL (70-105) H 12/09/17 04:00 POC Glucose 148 mg/dL (70-99) H 12/09/17 11:10 Calcium 7.9 mg/dL (8.6-10.3) L 12/09/17 04:00 Magnesium 1.5 mg/dL (1.6-2.6) L 12/09/17 04:00 Direct Bilirubin 0.3 mg/dL (0.0-0.2) H 12/05/17 18:50 AST 43 Units/L (13-39) H 12/05/17 18:50 Troponin I 1.10 ng/mL (< 0.04) H* 12/06/17 11:56 B-Natriuretic Peptide 2096 pg/mL (Less than 100) H 12/06/17 06:01 Serum Total Protein 5.7 g/dL (6.4-8.9) L 12/05/17 18:50 Albumin 3.4 g/dL (3.5-5.7) L 12/05/17 18:50 Globulin 2.3 g/dL (2.4-3.5) L 12/05/17 18:50 Urine Clarity Cloudy (Clear) A 12/05/17 19:27 Ur Specific [place] 1.008 (1.010-1.025) L 12/05/17 19:27 Urine Ketones 15 mg/dL (Negative) H 12/05/17 19:27 Urine Bilirubin Moderate (Negative) H 12/05/17 19:27 Ur Leukocyte Esterase Moderate (Negative) H 12/05/17 19:27 Urine Microscopic WBC 5-15 per hpf (0-3) H 12/05/17 19:27 Ur Squamous Epith Cells Many per lpf (None-Few) H 12/05/17 19:27 Ur Culture Indicated? NO. (NO) A 12/05/17 19:27 U Benzodiazepines Scrn Positive ng/mL (Yhnfxg=124) H 12/06/17 01:30 - Clinical Findings Intake & Output: Intake & Output 12/08/17 12/09/17 12/09/17 23:59 07:59 15:59 Intake Total 443 / 443 1496.2 / 1496.2 1106 / 1106 Output Total 200 / 200 85 / 85 150 / 150 Balance 243 / 243 1411.2 / 1411.2 956 / 956 Weight 66.1 kg - Attending Attestation - Attending Attestation I saw and evaluated this patient and my medical decision-making was reviewed with the Resident Physician. I agree with the documented findings, disposition and treatment plan as described except to the extent set forth below. We independently had [id number] contact with the patient . Patient seen and examined at bedside Labs, radiology, chart personally reviewed. Management was reviewed during multidisciplinary critical care rounds. 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 Most likely secondary to toxic and metabolic encephalopathy .. 5/ Patient has alcohol withdrawal will add Seroquel will give sedation holiday 12/09 She is more awake and following commands to continue precedex , patient is off Versed Pulm: Patient COPD changes in the CXR with some airtrapping but no consolidation adjusted TV and RR . Lung protective strategy . 5/6 Tried SBT patient RR was in the 40's .On ventilator patient has acceptable oxygenation and ventilation. Cards: Patient has NSTEMI with Chronic systolic heart failure with EF of 20% patient has LV thrombus will need anti-coagulation because of thrombocytopenia held heparin drip . Started on Argatroban . FEN-GI: According to Nutrition recs Renal: Labs reviewed decreased urine output will give some IV fluids ID:No active source of infection Heme/Onc:Thrombocytopenia Endo: Glucose Monitored Integ/MSK: Skin Care per routine ICU Nursing Protocol to prevent ulcers. Lines: All lines examined without evidence of infection : Dispo: Patient remains critically ill CODE: Full Code
[2017-12-10] MEDS: Lacri-Lube 3.5 GM TUBE BOTH EYES SCH ×6 (00:05→20:14)
[2017-12-10 04:26] LABS: Eosinophils % 0.7 %; Immature Granulocytes % 0.8 % (0-4)
[2017-12-10 04:27] LABS: Basophils % 0.2 %; Eosinophils # 0.1 K/mcL (0.0-0.6); Hematocrit 27.8 % (35.3-44.9); Hemoglobin 8.7 g/dL (11.5-15.4); Immature Platelets 6.6 % (1.1-6.1); Lymphocytes # 0.9 K/mcL (0.6-4.6); Lymphocytes % 8.7 %; Mean Corpuscular HGB Conc 31.3 g/dL (31.6-35.5); Mean Corpuscular Hemoglobin 31.1 pg (28.0-33.3); Mean Corpuscular Volume 99.3 fL (83.0-100.0); Mean Platelet Volume 11.5 fL (9.4-12.4); Monocytes % 10.4 %; Neutrophils # 8.4 K/mcL (1.6-8.9); Platelet Count 104 K/mcL (140-400); Red Cell Distribution Width 19.4 % (11.5-14.5); Segmented Neutrophils % 79.2 %
[2017-12-10 04:28] LABS: Monocytes # 1.1 K/mcL (0.0-1.3)
[2017-12-10 04:35] LABS: ABG Base Excess -2 mEq/L (-2 to 3); ABG HCO3 22 mEq/L (21-27); ABG Oxygen Saturation 98 % (95-98); ABG PCO2 32 mmHg (35-45); ABG PH 7.43 pH Units (7.32-7.45); ABG PO2 96 mmHg (85-104); ABG TCO2 22 mEq/L (20-26); Blood Gas Modality ASSIST CONTROL; Blood Gas PEEP 5 cm H2O; Blood Gas Respiration Rate 16; Blood Gas VT 380 cc
[2017-12-10 04:50] LABS: Alanine Aminotransferase 15 Units/L (7-52); Albumin 2.1 g/dL (3.5-5.7); Alkaline Phosphatase 90 Units/L (34-104); Aspartate Amino Transferase 14 Units/L (13-39); BUN/Creatinine Ratio 22 (6-26); Bilirubin,Total 0.4 mg/dL (0.3-1.0); Blood Urea Nitrogen 15 mg/dL (8-23); Calcium 7.8 mg/dL (8.6-10.3); Carbon Dioxide 22 mEq/L (23-29); Chloride 113 mEq/L (98-107); Globulin 2.2 g/dL (2.4-3.5); Glucose 165 mg/dL (70-105); Osmolality,Calculated 293 (280-300); Potassium 3.9 mEq/L (3.5-5.1); Sodium 139 mEq/L (136-145); Total Protein 4.3 g/dL (6.4-8.9); eGFR For African Americans > 60 (> 60); eGFR For Non-African Americans > 60 (> 60)
[2017-12-10 05:10] LABS: Platelet Estimate Slight Decrease (Normal)
[2017-12-10 05:11] LABS: Hypochromasia Present (Not Present); Macrocytosis Present (Not Present); Poikilocytosis 1+ (Not Present)
[2017-12-10] MEDS: Potassium Chloride 10 MEQ in 0.9 % Sodium Chloride 100 ML IVPB PRN (05:22)
[2017-12-10 05:42] LABS: VBG Ionized Calcium 1.21 mmol/L (1.15-1.35); VBG PH 7.32 pH Units (7.32-7.42)
--- NOTE | 2017-12-10 08:36 | Pulmonology Progress Note ---
<HarperLindydenia M - Last Filed: 12/10/17 13:17> Date of Encounter: 12/10/17 Objective PUL Vital signs: Last Vital Signs Temp 96.4 F L 12/10/17 08:10 Pulse 64 12/10/17 09:00 Resp 20 12/10/17 09:00 BP 96/59 12/10/17 09:00 Pulse Ox 100 12/10/17 09:00 Ventilator Settings Ventilator Settings: Ventilator Settings, Last 8 Hours Ventilator Mode CPAP Ventilator Mode CPAP Ventilator Mode VC+ Ventilator Mode VC+ Ventilator Mode A/C Ventilator Mode VC+ Ventilator Mode VC+ Ventilator Tidal Volume 380 Setting Ventilator Tidal Volume 380 Setting Ventilator Tidal Volume 380 Setting Ventilator Tidal Volume 380 Setting Ventilator Tidal Volume 380 Setting Ventilator Tidal Volume 380 Setting Ventilator Tidal Volume 380 Setting Ventilator Respiratory Rate 16 Setting Ventilator Respiratory Rate 16 Setting Ventilator Respiratory Rate 16 Setting Ventilator Respiratory Rate 16 Setting Ventilator Respiratory Rate 16 Setting Ventilator Respiratory Rate 16 Setting Ventilator Respiratory Rate 16 Setting Actual Respiratory Rate 35 Actual Respiratory Rate 25 Actual Respiratory Rate 24 Actual Respiratory Rate 21 Actual Respiratory Rate 21 Actual Respiratory Rate 20 Actual Respiratory Rate 20 Positive End Expiratory 5 Pressure Positive End Expiratory 5 Pressure Positive End Expiratory 5 Pressure Positive End Expiratory 5 Pressure Positive End Expiratory 5 Pressure Positive End Expiratory 5 Pressure Positive End Expiratory 5 Pressure Peak Inspiratory Airway 15 Pressure Peak Inspiratory Airway 27 Pressure Peak Inspiratory Airway 25 Pressure Peak Inspiratory Airway 24 Pressure Peak Inspiratory Airway 23 Pressure Peak Inspiratory Airway 23 Pressure Peak Inspiratory Airway 23 Pressure Results - Laboratory Findings CBC and BMP: 12/10/17 04:15 12/10/17 04:15 ABG ABG pH 7.42 pH Units (7.32-7.45) 12/10/17 09:35 ABG pCO2 33 mmHg (35-45) L 12/10/17 09:35 ABG pO2 86 mmHg (85-104) 12/10/17 09:35 ABG O2 Saturation 97 % (95-98) 12/10/17 09:35 PT/INR, D-dimer PT 16.2 Seconds (9.4-12.1) H 12/05/17 18:50 Abnormal lab findings: Abnormal lab results RBC 2.80 M/mcL (3.82-4.97) L 12/10/17 04:15 Hgb 8.7 g/dL (11.5-15.4) L 12/10/17 04:15 Hct 27.8 % (35.3-44.9) L 12/10/17 04:15 MCHC 31.3 g/dL (31.6-35.5) L 12/10/17 04:15 RDW 19.4 % (11.5-14.5) H 12/10/17 04:15 Plt Count 104 K/mcL (140-400) L 12/10/17 04:15 Nucleated RBCs/100 WBC 0.3 /100 WBC (0) H 12/09/17 04:00 Platelet Estimate Slight Decrease (Normal) L 12/10/17 04:15 Immature Plt Fraction 6.6 % (1.1-6.1) H 12/10/17 04:15 Hypochromasia Present (Not Present) A 12/10/17 04:15 Poikilocytosis 1+ (Not Present) A 12/10/17 04:15 Anisocytosis 1+ (Not Present) A 12/09/17 04:00 Macrocytosis Present (Not Present) A 12/10/17 04:15 PT 16.2 Seconds (9.4-12.1) H 12/05/17 18:50 APTT 50.7 Seconds (26.0-36.0) H 12/10/17 04:15 ABG pCO2 33 mmHg (35-45) L 12/10/17 09:35 Chloride 113 mEq/L (98-107) H 12/10/17 04:15 Carbon Dioxide 22 mEq/L (23-29) L 12/10/17 04:15 Glucose 165 mg/dL (70-105) H 12/10/17 04:15 POC Glucose 115 mg/dL (70-99) H 12/10/17 07:35 Calcium 7.8 mg/dL (8.6-10.3) L 12/10/17 04:15 Direct Bilirubin 0.3 mg/dL (0.0-0.2) H 12/05/17 18:50 Troponin I 1.10 ng/mL (< 0.04) H* 12/06/17 11:56 B-Natriuretic Peptide 2096 pg/mL (Less than 100) H 12/06/17 06:01 Serum Total Protein 4.3 g/dL (6.4-8.9) L 12/10/17 04:15 Albumin 2.1 g/dL (3.5-5.7) L 12/10/17 04:15 Globulin 2.2 g/dL (2.4-3.5) L 12/10/17 04:15 Albumin/Globulin Ratio 1.0 (1.1-2.2) L 12/10/17 04:15 Urine Clarity Cloudy (Clear) A 12/05/17 19:27 Ur Specific [place] 1.008 (1.010-1.025) L 12/05/17 19:27 Urine Ketones 15 mg/dL (Negative) H 12/05/17 19:27 Urine Bilirubin Moderate (Negative) H 12/05/17 19:27 Ur Leukocyte Esterase Moderate (Negative) H 12/05/17 19:27 Urine Microscopic WBC 5-15 per hpf (0-3) H 12/05/17 19:27 Ur Squamous Epith Cells Many per lpf (None-Few) H 12/05/17 19:27 Ur Culture Indicated? NO. (NO) A 12/05/17 19:27 U Benzodiazepines Scrn Positive ng/mL ([id number]=577) H 12/06/17 01:30 - Clinical Findings Intake & Output: Intake & Output 12/09/17 12/10/17 12/10/17 23:59 07:59 15:59 Intake Total 1440 / 1440 752 / 752 350 / 350 Output Total 200 / 200 250 / 250 150 / 150 Balance 1240 / 1240 502 / 502 200 / 200 Weight 68.9 kg Consult Discharge Plan - Plan Referrals: Chel Munroe, EXTENSION EDGER [Primary Care Provider] - - Attending Attestation I examined this patient and my medical decision-making was reviewed with the Resident Physician. I agree with the documented findings, disposition and treatment plan as described except to the extent set forth below. Patient seen and examined. Labs, radiology, chart personally reviewed. Agree with resident's history and physical, assessment, plan with following comments: OUTDOOR STUDIES DIRECTOR: Patient doesn't follows commands, Increase Serqual dose Pulmonary: Acceptable oxygenation and ventilation and failed CPAP trial. Changed vent setting on her and follow up ABG is acceptable. Cardiovascular: stable GI: Nutrition per dietary and GI prophylaxis per routine Heme: DVT prophylaxis per routine. Patient has on Argatroban and change to Fundopronax. ID: No antibiotics Renal; urine out put and renal funtion reviewed Endorcine: blood glucose is monitored Lines: all lines checked and no evidence of infections Skin: skin care to prevent pressure ulcers per nursing routine care I spent 35 min of Critical Care time with this patient. It involved decision making of high complexity to assess, manipulate, and support vital organ system failure and/or to prevent further life threatening deterioration of the patient' s condition. The time involved in the performance of separately reportable procedures was not counted toward critical care time. <Donaldo Ochoa - Last Filed: 12/10/17 16:24> Date of Encounter: 12/10/17 Time of Encounter: 14:39 Assessment and Plan (1) Encephalopathy Current Visit: Yes Status: Acute Metabolic encephalopathy, secondary likely to alcohol and electrolyte disturbance The patient was found to have significant electrolyte abnormalities Patient is on CICA protocol Head CT is negative for acute intracranial processes. No obvious indications of hepatic disease The patient has been sedated for intubation we will continue to monitor we did attempt to try CPAP today patient did fail his his respiratory rate increased. Maintained electrolytes over course of stay. Increase Seroquel from 25 mg twice daily to 50 mg twice daily We will attempt transition to CPAP tomorrow. (2) CHF (congestive heart failure) Current Visit: Yes Status: Acute Patient does have newly diagnosed systolic CHF per cardiology is unclear what the etiology and chronicity is. There is been no prior cardiac Vasser testing or ischemic evaluation. Cumulative I/O are +8383 mL Cardiology recommended changing atenolol to low-dose Toprol-XL and to optimize as blood pressure and heart rate will allow. Also consider addition of OCTAVIANO inhibitor if BP will allow by discharge. They also recommended left heart catheterization to rule out ischemic etiology but patient is a poor candidate at this time due to reduced hemoglobin and platelets. No continue to monitor. The recommended strict I's and O's, daily weights, sodium and fluid restricted diet cardiology still following Qualifiers: Heart failure type: systolic Heart failure chronicity: unspecified Qualified Code(s): I50.20 - Unspecified systolic (congestive) heart failure (3) NSTEMI (non-ST elevated myocardial infarction) Current Visit: Yes Status: Acute NSTEMI, elevated troponin on arrival Troponins 2.05> 2.24>1.35> 1.10 Troponins have normalized there is no need to keep on following troponins he has been canceled. EKG did show ST wave changes in the inferolateral leads. EKG was reviewed on myself did not show any signs of QT prolongation as the QTC was 443 so there is little concern for adding more cervical to prolong the QT. Echo was concerning for ischemic hypokinesis and there was evidence of a left atrial thrombus. There is concern for hit so heparin was stopped and argatroban was started but since then has been stopped and we transitioned patient to fondaparinux 7.5 daily. Cardiology did see the patient again and they recommend possible catheterization once hemodynamically stable for further recommendations from them please review their note Cardiology has seen the patient and they would like to place the patient on Coumadin with a goal INR of 2-3. This can be done after testing procedures are completed and prior to discharge. If HIT his negative based on lab testing we will follow their recommendations of Lovenox-Coumadin bridge. (4) Acute and chronic respiratory failure with hypoxia Current Visit: Yes Status: Acute Acute on chronic respiratory failure with hypoxia, status post an ablation. Patient's respiratory status improved greatly after being intubated The patient this time does not demonstrate any infectious processes. Next line chest x-ray does show some air trapping however no consolidation. AB.42/33/86/22/23/97 100 percent on 30 FiO2 via CPAP/PS Patient's respiratory alkalosis has normalized we change the vent to later settings to fit this. Patient is still sedated at this time we will attempt SBT tomorrow also will increase Seroquel (5) Mural thrombus of heart Current Visit: Yes Status: Acute Mural thrombus demonstrated on echocardiogram Cardiology is still following the patient has recommended anticoagulation patient is on fondaparinux we will consider bridging to warfarin as patient stabilizes For further recommendations please refer to cardiology's note (6) Decreased urine output Current Visit: Yes Status: Acute There was decreased urine output with hematuria. Patient is now on Lovenox for anticoagulation. 1 L of lactate Ringer's was given patient's urine output has increased since being on this. Continue strict I's and O's and daily weights (7) Hypertension Current Visit: No Status: Chronic Blood pressure has been borderline low continue to hold medications now and will continue to monitor Qualifiers: Hypertension type: unspecified Qualified Code(s): I10 - Essential (primary ) hypertension (8) Hypomagnesemia Current Visit: Yes Status: Acute Electrolyte protocol orders per ICU nurses. Repletion as necessary (9) Hypokalemia Current Visit: Yes Status: Acute Electrolyte protocol orders per ICU nurses. Repletion as necessary (10) DVT prophylaxis Current Visit: Yes Status: Acute Was on argatriban but we are changing to fondaparinux 7.5 daily Subjective Principal diagnosis: Respiratory Failure Interval history: Patient is still on the vent did attempt CPAP trial today patient did not do well with that as respiratory rate continued to increase. We will possibly attempt tomorrow Objective PUL Vital signs: Last Vital Signs Temp 96.4 F L 12/10/17 08:10 Pulse 58 12/10/17 06:00 Resp 25 12/10/17 06:00 BP 102/60 12/10/17 06:00 Pulse Ox 100 12/10/17 06:00 General appearance: no acute distress, other (Intubated and sedated at this time and somnolent) Eyes: nonicteric ENT: oropharynx moist Neck: supple Effort: normal Auscultation: bilateral: rales Cardiovascular: regular rate and rhythm Gastrointestinal: normoactive bowel sounds, soft, non-tender, non-distended Integumentary: normal Extremities: no cyanosis, no edema, no clubbing Musculoskeletal: no deformities, ROM normal normal mental status, non-focal exam, pupils equal and round, unable to assess due to mental status Ventilator Settings Ventilator Settings: Ventilator Settings, Last 8 Hours Ventilator Mode VC+ Ventilator Mode VC+ Ventilator Mode A/C Ventilator Mode VC+ Ventilator Mode VC+ Ventilator Mode VC+ Ventilator Mode VC+ Ventilator Tidal Volume 380 Setting Ventilator Tidal Volume 380 Setting Ventilator Tidal Volume 380 Setting Ventilator Tidal Volume 380 Setting Ventilator Tidal Volume 380 Setting Ventilator Tidal Volume 380 Setting Ventilator Tidal Volume 380 Setting Ventilator Tidal Volume 380 Setting Ventilator Tidal Volume 380 Setting Ventilator Tidal Volume 380 Setting Ventilator Respiratory Rate 16 Setting Ventilator Respiratory Rate 16 Setting Ventilator Respiratory Rate 16 Setting Ventilator Respiratory Rate 16 Setting Ventilator Respiratory Rate 16 Setting Ventilator Respiratory Rate 16 Setting Ventilator Respiratory Rate 16 Setting Ventilator Respiratory Rate 16 Setting Ventilator Respiratory Rate 16 Setting Ventilator Respiratory Rate 16 Setting Actual Respiratory Rate 25 Actual Respiratory Rate 24 Actual Respiratory Rate 21 Actual Respiratory Rate 21 Actual Respiratory Rate 20 Actual Respiratory Rate 20 Actual Respiratory Rate 25 Actual Respiratory Rate 24 Actual Respiratory Rate 25 Positive End Expiratory 5 Pressure Positive End Expiratory 5 Pressure Positive End Expiratory 5 Pressure Positive End Expiratory 5 Pressure Positive End Expiratory 5 Pressure Positive End Expiratory 5 Pressure Positive End Expiratory 5 Pressure Positive End Expiratory 5 Pressure Positive End Expiratory 5 Pressure Positive End Expiratory 5 Pressure Peak Inspiratory Airway 27 Pressure Peak Inspiratory Airway 25 Pressure Peak Inspiratory Airway 24 Pressure Peak Inspiratory Airway 23 Pressure Peak Inspiratory Airway 23 Pressure Peak Inspiratory Airway 23 Pressure Peak Inspiratory Airway 25 Pressure Peak Inspiratory Airway 24 Pressure Peak Inspiratory Airway 23 Pressure Results - Laboratory Findings CBC and BMP: 12/10/17 04:15 12/10/17 04:15 ABG ABG pH 7.43 pH Units (7.32-7.45) 12/10/17 04:31 ABG pCO2 32 mmHg (35-45) L 12/10/17 04:31 ABG pO2 96 mmHg (85-104) 12/10/17 04:31 ABG O2 Saturation 98 % (95-98) 12/10/17 04:31 PT/INR, D-dimer PT 16.2 Seconds (9.4-12.1) H 12/05/17 18:50 Abnormal lab findings: Abnormal lab results RBC 2.80 M/mcL (3.82-4.97) L 12/10/17 04:15 Hgb 8.7 g/dL (11.5-15.4) L 12/10/17 04:15 Hct 27.8 % (35.3-44.9) L 12/10/17 04:15 MCHC 31.3 g/dL (31.6-35.5) L 12/10/17 04:15 RDW 19.4 % (11.5-14.5) H 12/10/17 04:15 Plt Count 104 K/mcL (140-400) L 12/10/17 04:15 Nucleated RBCs/100 WBC 0.3 /100 WBC (0) H 12/09/17 04:00 Platelet Estimate Slight Decrease (Normal) L 12/10/17 04:15 Immature Plt Fraction 6.6 % (1.1-6.1) H 12/10/17 04:15 Hypochromasia Present (Not Present) A 12/10/17 04:15 Poikilocytosis 1+ (Not Present) A 12/10/17 04:15 Anisocytosis 1+ (Not Present) A 12/09/17 04:00 Macrocytosis Present (Not Present) A 12/10/17 04:15 PT 16.2 Seconds (9.4-12.1) H 12/05/17 18:50 APTT 50.7 Seconds (26.0-36.0) H 12/10/17 04:15 ABG pCO2 32 mmHg (35-45) L 12/10/17 04:31 Chloride 113 mEq/L (98-107) H 12/10/17 04:15 Carbon Dioxide 22 mEq/L (23-29) L 12/10/17 04:15 Glucose 165 mg/dL (70-105) H 12/10/17 04:15 POC Glucose 115 mg/dL (70-99) H 12/10/17 07:35 Calcium 7.8 mg/dL (8.6-10.3) L 12/10/17 04:15 Direct Bilirubin 0.3 mg/dL (0.0-0.2) H 12/05/17 18:50 Troponin I 1.10 ng/mL (< 0.04) H* 12/06/17 11:56 B-Natriuretic Peptide 2096 pg/mL (Less than 100) H 12/06/17 06:01 Serum Total Protein 4.3 g/dL (6.4-8.9) L 12/10/17 04:15 Albumin 2.1 g/dL (3.5-5.7) L 12/10/17 04:15 Globulin 2.2 g/dL (2.4-3.5) L 12/10/17 04:15 Albumin/Globulin Ratio 1.0 (1.1-2.2) L 12/10/17 04:15 Urine Clarity Cloudy (Clear) A 12/05/17 19:27 Ur Specific [place] 1.008 (1.010-1.025) L 12/05/17 19:27 Urine Ketones 15 mg/dL (Negative) H 12/05/17 19:27 Urine Bilirubin Moderate (Negative) H 12/05/17 19:27 Ur Leukocyte Esterase Moderate (Negative) H 12/05/17 19:27 Urine Microscopic WBC 5-15 per hpf (0-3) H 12/05/17 19:27 Ur Squamous Epith Cells Many per lpf (None-Few) H 12/05/17 19:27 Ur Culture Indicated? NO. (NO) A 12/05/17 19:27 U Benzodiazepines Scrn Positive ng/mL ([id number]=264) H 12/06/17 01:30 - Diagnostic Findings Chest x-ray: image reviewed - Clinical Findings Intake & Output: Intake & Output 12/09/17 12/10/17 12/10/17 23:59 07:59 15:59 Intake Total 1440 / 1440 752 / 752 Output Total 200 / 200 250 / 250 150 / 150 Balance 1240 / 1240 502 / 502 -150 / -150 Weight 68.9 kg
[2017-12-10] MEDS: Cholecalciferol (D-3) 1,000 UNIT TABLET PO SCH (08:43)
[2017-12-10] MEDS: Lactulose Oral Soln 20 GM/30 ML UDC PO SCH (08:43)
[2017-12-10] MEDS: Nicotine 21 MG PATCH.TD24 TD SCH (08:43)
[2017-12-10] MEDS: Magnesium Oxide 400 MG TABLET PO SCH (08:43)
[2017-12-10] MEDS: Pantoprazole 40 MG VIAL IVP SCH (08:45)
[2017-12-10] MEDS: Chlorhexidine Rinse 15 ML MOUTHWASH MM SCH ×2 (08:45→20:14)
[2017-12-10] MEDS: Argatroban 250 MG in D5% in Water 250 ML IVC SCH (09:22)
[2017-12-10 09:38] LABS: ABG Base Excess -2 mEq/L (-2 to 3); ABG HCO3 22 mEq/L (21-27); ABG Oxygen Saturation 97 % (95-98); ABG PCO2 33 mmHg (35-45); ABG PH 7.42 pH Units (7.32-7.45); ABG PO2 86 mmHg (85-104); ABG TCO2 23 mEq/L (20-26); Blood Gas Modality CPAP/PS; Blood Gas Pressure Support 10 cm H2O
[2017-12-10] MEDS: Dexmedetomidine HCl 400 MCG/100 ML MLS IVC SCH ×3 (10:20→21:14)
[2017-12-10] MEDS: Norepinephrine 4 MG in D5% in Water 250 ML IVC SCH (12:54)
--- NOTE | 2017-12-10 12:59 | Cardiology Progress Note ---
Date of Encounter: 12/10/17 Time of Encounter: 12:30 Assessment and Plan (1) CHF (congestive heart failure) Current Visit: Yes Status: Acute Newly diagnosed severe systolic CHF. Unclear etiology and chronicity. Hx of chronic ETOH abuse. No prior CV testing or ischemic evaluation. Remains intubated/sedated. Appears volume overload upon exam. Cumulative I&O: +8383 mL Change atenolol (has been held 24+ hours d/t hypotension) to low dose Toprol-Xl- -optimize as BP/HR will allow. Consider addition of ACEi if BP will allow by discharge. Ideally recommend LHC to r/o ischemic etiology, however patient is a poor candidate due to reduced HgB and PLT. Hematology consult pending, appreciate recommendations. Recommend strict I&O's, daily weights, Na/fluid restricted diet. Will continue to follow. Qualifiers: Heart failure type: systolic Heart failure chronicity: unspecified Qualified Code(s): I50.20 - Unspecified systolic (congestive) heart failure (2) Elevated troponin I level Current Visit: Yes Status: Acute Peak troponin 2.24 in the setting of acute encephalopathy. ACS cannot be ruled out, was on heparin gt, transitioned to agatroban, and now on fondaparinux No reported chest pain prior to event per previous documentation. Ischemic ECG changes noted. No prior CV testing. Of note, during last admission 2017 (severe electroylyte abnormality, FTT) she was found to have a complex pelvic mass in which malignancy could not be excluded, was referred to [facility], per notes (eCW), patient opted for surveillance given known hx of ovarian cyst and negative CA-125. TTE shows severe reduction in LVEF, 15-20% with segmental LV systolic dysfunction with LV thrombus. Patient is currently a poor candidate for LHC given anemia/thrombocytopenia. Recommend LHC when able, appreciate Hematology recommendations. Not a candidate for cardiac rehab at this time. Continue betablocker, statin. Start ASA 81 mg daily if okay with Hematology. (3) LV (left ventricular) mural thrombus Current Visit: Yes Status: Acute LV thrombus identified on repeat limited TTE (with definity). 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 Agratroban stopped, Fondaparinux to be started SC today. Hematology consulted today for long-term anticoagulation recommendations/safety ; ideally will place on Coumadin (goal INR 2-3) when testing/procedures have been completed and/or prior to discharge. Discussed with Dr. Amor; if HIT not suspected, would recommend lovenox-coumadin bridge. (4) Encephalopathy Current Visit: Yes Status: Acute Secondary to chronic alcoholism. Remains intubated d/t alcohol withdraw, CIWA protocol. ICU team to manage. Discussion w patient/family: The assessment and plan as outlined above was discussed with the patient and/or family members who expressed understanding and agreement. All questions were answered. Thank you for involving us in the care of your patient. Please call with any questions. The patient will be discussed and reviewed with Dr. Amor; changes to be made accordingly. Subjective Principal diagnosis: Respiratory Failure Interval history: Seen and examined. Remains intubated and sedated. Family not present at bedside. Objective Vital Signs, Last 4 Hours Temp Pulse Resp BP Pulse Ox 12/10/17 12:00 97.6 F 66 18 97/56 100 12/10/17 11:51 18 100 12/10/17 11:00 69 17 104/56 100 12/10/17 10:50 18 105/68 100 12/10/17 10:00 74 44 104/87 100 12/10/17 09:00 64 20 96/59 100 General: Conversant, Other (intubated/sedated) Cardiac: Reg Rate and Rhythm, Normal S1 and S2 Lungs: Normal Breath Sounds Neuro: Other (intubated/sedated) Extremities: Other (generalized edema noted bilateral lower and upper extremities/dependent edema) Results 12/10/17 04:15 12/10/17 04:15 Lab Results 12/09/17 12/09/17 12/10/17 12:00 20:20 04:15 WBC Hgb Hct Plt Count APTT 50.7 H Sodium Potassium Chloride Carbon Dioxide BUN Creatinine Glucose Calcium Magnesium 1.7 2.2 Total Bilirubin AST ALT Alkaline Phosphatase 12/10/17 12/10/17 12/10/17 04:15 04:15 04:15 WBC 10.6 Hgb 8.7 L Hct 27.8 L Plt Count 104 L APTT Sodium 139 Potassium 3.9 Chloride 113 H Carbon Dioxide 22 L BUN 15 Creatinine 0.67 Glucose 165 H Calcium 7.8 L Magnesium 2.0 Total Bilirubin 0.4 AST 14 ALT 15 Alkaline Phosphatase 90 Active Medications Artificial Tears (Lacri-Lube) 1 appl BOTH EYES Q4HR EVARISTO PRN Reason: Protocol Stop: 06/08/18 12:01 Last Admin: 12/10/17 12:16 Dose: 1 appl Artificial Tears (Lacri-Lube) 1 appl BOTH EYES Q2HR PRN; Protocol PRN Reason: Dry Eyes Stop: 06/08/18 08:19 Atenolol (Tenormin) 50 mg PO BID EVARISTO Stop: 06/07/18 21:01 Last Admin: 12/10/17 09:23 Dose: Not Given Atorvastatin Calcium (Lipitor) 80 mg PO HS EVARISTO Stop: 06/07/18 21:01 Last Admin: 12/09/17 20:57 Dose: 80 mg Calcium Carbonate (Tums) 1,000 mg PO TID EVARISTO PRN Reason: Protocol Stop: 06/07/18 15:01 Last Admin: 12/10/17 08:43 Dose: 1,000 mg Chlordiazepoxide HCl (Librium) 10 mg PO QID EVARISTO Stop: 06/07/18 13:46 Last Admin: 12/10/17 12:16 Dose: 10 mg Chlorhexidine Gluconate (Chlorhexidine Rinse) 15 ml MM BID EVARISTO Stop: 06/08/18 09:01 Last Admin: 12/10/17 08:45 Dose: 15 ml Dextrose/Water (Dextrose 50% (Syg)) 25 ml IVP AD PRN PRN Reason: Hypoglycemia Stop: 06/07/18 12:09 Fondaparinux (Arixtra) 7.5 mg SQ DAILY EVARISTO Stop: 06/12/18 12:16 Glucagon (Glucagen) 1 mg IM ONCE PRN PRN Reason: Hypoglycemia Stop: 06/07/18 12:09 Glucose (Gluctose) 15 gm PO ONCE PRN PRN Reason: Hypoglycemia Stop: 06/07/18 12:09 Glucose (Gluctose) 30 gm PO ONCE PRN PRN Reason: Hypoglycemia Stop: 06/07/18 12:09 Calcium Gluconate 1,000 mg/ (Sodium Chloride) 110 mls @ 220 mls/hr IVPB Q6HR PRN PRN Reason: Hypocalcemia Stop: 06/07/18 01:37 Last Infusion: 12/07/17 16:40 Dose: Infused Magnesium Sulfate (Magnesium Sulfate Premix 2gm/50ml) 2 gm in 50 mls @ 50 mls/ hr IVPB Q6H PRN PRN Reason: Hypomagnesemia Stop: 06/07/18 01:37 Last Admin: 12/09/17 14:05 Dose: 50 mls/hr Potassium Phosphate 44 meq/ (Sodium Chloride) 260 mls @ 40 mls/hr IVPB Q10H PRN PRN Reason: Phosphate less than 3 Stop: 06/07/18 01:37 Last Infusion: 12/06/17 11:38 Dose: Infused Dextrose (Dextrose 5%) 1,000 mls @ 100 mls/hr IVC .Q10H PRN PRN Reason: HYPOGLYCEMIA Stop: 06/07/18 12:09 Potassium Chloride 10 meq/ (Sodium Chloride) 100 mls @ 100 mls/hr IVPB Q1H PRN PRN Reason: Potassium less than 4 Stop: 06/07/18 01:37 Last Infusion: 12/10/17 06:42 Dose: Infused Dexmedetomidine HCl (Precedex Premix) 400 mcg in 100 mls @ 2.676 mls/hr IVC .Q24H EVARISTO; 0.2 MCG/KG/HR PRN Reason: Protocol Stop: 06/07/18 19:46 Last Admin: 12/10/17 11:05 Dose: 0.7 mcg/kg/hr, 9.367 mls/hr Dopamine HCl/Dextrose (Dopamine Premix 400mg/250ml) 400 mg in 250 mls @ 5.018 mls/hr IVC .Q24H EVARISTO; 2.5 MCG/KG/MIN PRN Reason: Protocol Stop: 06/08/18 07:31 Last Admin: 12/10/17 12:54 Dose: Not Given Norepinephrine Bitartrate 4 mg (/ Dextrose) 254 mls @ 0 mls/hr IVC CONT EVARISTO; MCG/MIN PRN Reason: Protocol Stop: 06/08/18 07:46 Last Admin: 12/10/17 12:54 Dose: Not Given Midazolam HCl 50 mg/ Sodium (Chloride) 100 mls @ 4 mls/hr IVC CONT EVARISTO; 2 MG/HR PRN Reason: Protocol Stop: 06/08/18 08:16 Last Titration: 12/10/17 10:18 Dose: 2 mg/hr, 4 mls/hr Lactulose (Lactulose) 20 gm PO DAILY EVARISTO Stop: 06/07/18 14:01 Last Admin: 12/10/17 08:43 Dose: 20 gm Lorazepam (Ativan) 2 mg IVP Q6HR PRN PRN Reason: [email or web address] Stop: 06/07/18 13:38 Last Admin: 12/06/17 18:11 Dose: 2 mg Lorazepam (Ativan) 4 mg IVP Q4HR PRN PRN Reason: [email or web address] Stop: 06/07/18 13:38 Lorazepam (Ativan) 1 mg IVP Q1H PRN PRN Reason: Anxiety Stop: 06/07/18 01:28 Last Admin: 12/06/17 20:27 Dose: 1 mg Magnesium Oxide (Mag-Ox) 400 mg PO DAILY EVARISTO PRN Reason: Protocol Stop: 06/08/18 09:01 Last Admin: 12/10/17 08:43 Dose: 400 mg Naloxone HCl (Narcan) 0.4 mg IVP Q2MIN PRN PRN Reason: SEE COMMENTS Stop: 06/07/18 01:11 Nicotine (Nicoderm) 21 mg TD DAILY EVARISTO PRN Reason: Protocol Stop: 06/07/18 21:16 Last Admin: 12/10/17 08:43 Dose: 21 mg Pantoprazole Sodium (Protonix) 40 mg IVP DAILY@0730 EVARISTO Stop: 06/07/18 12:31 Last Admin: 12/10/17 08:45 Dose: 40 mg Quetiapine Fumarate (Seroquel) 50 mg PO BID EVARISTO PRN Reason: Protocol Stop: 06/11/18 21:01 Sodium Bicarbonate (Sodium Bicarbonate) 650 mg PO TID EVARISTO Stop: 06/07/18 15:01 Last Admin: 12/10/17 08:43 Dose: 650 mg Vitamin D (Vitamin D) 1,000 unit PO DAILY EVARISTO Stop: 06/07/18 13:46 Last Admin: 12/10/17 08:43 Dose: 1,000 unit - Imaging and Cardiology Echo: report reviewed Other Results: 12 hour tele: avg HR=63 SR. No significant event noted. - EKG Interpretation EKG results cardiology: personally reviewed Consult Discharge Plan - Plan Referrals: Chel Munroe, CATALOGING ASSISTANT [Primary Care Provider] -
[2017-12-10] MEDS: *HR* Fondaparinux 7.5 MG/0.6 ML SYRINGE SQ SCH (13:58)
[2017-12-11] MEDS: Lacri-Lube 3.5 GM TUBE BOTH EYES SCH ×7 (00:10→23:54)
[2017-12-11 04:59] LABS: Basophils % 0.2 %; Eosinophils # 0.1 K/mcL (0.0-0.6); Eosinophils % 0.5 %; Hematocrit 26.2 % (35.3-44.9); Hemoglobin 8.2 g/dL (11.5-15.4); Immature Granulocytes % 1.2 % (0-4); Lymphocytes # 1.2 K/mcL (0.6-4.6); Lymphocytes % 9.9 %; Mean Corpuscular HGB Conc 31.3 g/dL (31.6-35.5); Mean Corpuscular Hemoglobin 30.9 pg (28.0-33.3); Mean Corpuscular Volume 98.9 fL (83.0-100.0); Mean Platelet Volume 11.7 fL (9.4-12.4); Monocytes # 1.3 K/mcL (0.0-1.3); Monocytes % 10.4 %; Neutrophils # 9.6 K/mcL (1.6-8.9); Platelet Count 120 K/mcL (140-400); Red Blood Count 2.65 M/mcL (3.82-4.97); Red Cell Distribution Width 19.2 % (11.5-14.5); Segmented Neutrophils % 77.8 %
[2017-12-11 05:09] LABS: BUN/Creatinine Ratio 27 (6-26); Blood Urea Nitrogen 17 mg/dL (8-23); Calcium 7.9 mg/dL (8.6-10.3); Carbon Dioxide 21 mEq/L (23-29); Chloride 114 mEq/L (98-107); Glucose 146 mg/dL (70-105); Osmolality,Calculated 298 (280-300); Potassium 4.1 mEq/L (3.5-5.1); Sodium 142 mEq/L (136-145); eGFR For African Americans > 60 (> 60); eGFR For Non-African Americans > 60 (> 60)
[2017-12-11 05:10] LABS: Magnesium 1.5 mg/dL (1.6-2.6); Phosphorous 4.1 mg/dL (2.7-4.5)
[2017-12-11 05:19] LABS: ABG Base Excess 0 mEq/L (-2 to 3); ABG HCO3 24 mEq/L (21-27); ABG Oxygen Saturation 97 % (95-98); ABG PCO2 36 mmHg (35-45); ABG PH 7.43 pH Units (7.32-7.45); ABG PO2 84 mmHg (85-104); ABG TCO2 25 mEq/L (20-26); Blood Gas Modality VC; Blood Gas PEEP 5 cm H2O; Blood Gas Respiration Rate 12; Blood Gas VT 450 cc
--- NOTE | 2017-12-11 07:41 | Pulmonology Progress Note ---
<Lindy Saleemdenia M - Last Filed: 12/11/17 15:35> Date of Encounter: 12/11/17 Objective PUL Vital signs: Last Vital Signs Temp 98.2 F 12/11/17 04:00 Pulse 62 12/11/17 06:00 Resp 24 12/11/17 06:58 BP 112/66 12/11/17 06:58 Pulse Ox 100 12/11/17 06:58 Ventilator Settings Ventilator Settings: Ventilator Settings, Last 8 Hours Ventilator Mode VC+ Ventilator Mode VC+ Ventilator Mode VC+ Ventilator Mode VC+ Ventilator Mode A/C Ventilator Mode A/C Ventilator Mode VC+ Ventilator Mode VC+ Ventilator Tidal Volume 450 Setting Ventilator Tidal Volume 450 Setting Ventilator Tidal Volume 450 Setting Ventilator Tidal Volume 450 Setting Ventilator Tidal Volume 450 Setting Ventilator Tidal Volume 450 Setting Ventilator Tidal Volume 450 Setting Ventilator Tidal Volume 450 Setting Ventilator Tidal Volume 450 Setting Ventilator Tidal Volume 450 Setting Ventilator Tidal Volume 450 Setting Ventilator Respiratory Rate 12 Setting Ventilator Respiratory Rate 12 Setting Ventilator Respiratory Rate 12 Setting Ventilator Respiratory Rate 12 Setting Ventilator Respiratory Rate 12 Setting Ventilator Respiratory Rate 12 Setting Ventilator Respiratory Rate 12 Setting Ventilator Respiratory Rate 12 Setting Ventilator Respiratory Rate 12 Setting Ventilator Respiratory Rate 12 Setting Ventilator Respiratory Rate 12 Setting Actual Respiratory Rate 24 Actual Respiratory Rate 16 Actual Respiratory Rate 14 Actual Respiratory Rate 16 Actual Respiratory Rate 20 Actual Respiratory Rate 15 Actual Respiratory Rate 15 Actual Respiratory Rate 16 Actual Respiratory Rate 15 Actual Respiratory Rate 18 Actual Respiratory Rate 19 Positive End Expiratory 5 Pressure Positive End Expiratory 5 Pressure Positive End Expiratory 5 Pressure Positive End Expiratory 5 Pressure Positive End Expiratory 5 Pressure Positive End Expiratory 5 Pressure Positive End Expiratory 5 Pressure Positive End Expiratory 5 Pressure Positive End Expiratory 5 Pressure Positive End Expiratory 5 Pressure Positive End Expiratory 5 Pressure Positive End Expiratory 5 Pressure Peak Inspiratory Airway 15 Pressure Peak Inspiratory Airway 20 Pressure Peak Inspiratory Airway 23 Pressure Peak Inspiratory Airway 19 Pressure Peak Inspiratory Airway 19 Pressure Peak Inspiratory Airway 19 Pressure Peak Inspiratory Airway 18 Pressure Peak Inspiratory Airway 18 Pressure Peak Inspiratory Airway 24 Pressure Peak Inspiratory Airway 19 Pressure Peak Inspiratory Airway 22 Pressure Results - Laboratory Findings CBC and BMP: 12/11/17 04:00 12/11/17 04:00 ABG ABG pH 7.43 pH Units (7.32-7.45) 12/11/17 05:16 ABG pCO2 36 mmHg (35-45) 12/11/17 05:16 ABG pO2 84 mmHg (85-104) L 12/11/17 05:16 ABG O2 Saturation 97 % (95-98) 05/08/18 05:16 PT/INR, D-dimer PT 16.2 Seconds (9.4-12.1) H 12/05/17 18:50 Abnormal lab findings: Abnormal lab results WBC 12.3 K/mcL (4.3-11.1) H 12/11/17 04:00 RBC 2.65 M/mcL (3.82-4.97) L 12/11/17 04:00 Hgb 8.2 g/dL (11.5-15.4) L 12/11/17 04:00 Hct 26.2 % (35.3-44.9) L 12/11/17 04:00 MCHC 31.3 g/dL (31.6-35.5) L 12/11/17 04:00 RDW 19.2 % (11.5-14.5) H 12/11/17 04:00 Plt Count 120 K/mcL (140-400) L 12/11/17 04:00 Neutrophils # 9.6 K/mcL (1.6-8.9) H 12/11/17 04:00 Nucleated RBCs/100 WBC 0.3 /100 WBC (0) H 12/09/17 04:00 Platelet Estimate Slight Decrease (Normal) L 12/10/17 04:15 Immature Plt Fraction 6.6 % (1.1-6.1) H 12/10/17 04:15 Hypochromasia Present (Not Present) A 12/10/17 04:15 Poikilocytosis 1+ (Not Present) A 12/10/17 04:15 Anisocytosis 1+ (Not Present) A 12/09/17 04:00 Macrocytosis Present (Not Present) A 12/10/17 04:15 PT 16.2 Seconds (9.4-12.1) H 12/05/17 18:50 APTT 50.7 Seconds (26.0-36.0) H 12/10/17 04:15 ABG pO2 84 mmHg (85-104) L 12/11/17 05:16 Chloride 114 mEq/L (98-107) H 12/11/17 04:00 Carbon Dioxide 21 mEq/L (23-29) L 12/11/17 04:00 BUN/Creatinine Ratio 27 (6-26) H 12/11/17 04:00 Glucose 146 mg/dL (70-105) H 12/11/17 04:00 POC Glucose 143 mg/dL (70-99) H 12/11/17 04:48 Calcium 7.9 mg/dL (8.6-10.3) L 12/11/17 04:00 Magnesium 1.5 mg/dL (1.6-2.6) L 12/11/17 04:14 Direct Bilirubin 0.3 mg/dL (0.0-0.2) H 12/05/17 18:50 Troponin I 1.10 ng/mL (< 0.04) H* 12/06/17 11:56 B-Natriuretic Peptide 2096 pg/mL (Less than 100) H 12/06/17 06:01 Serum Total Protein 4.3 g/dL (6.4-8.9) L 12/10/17 04:15 Albumin 2.1 g/dL (3.5-5.7) L 12/10/17 04:15 Globulin 2.2 g/dL (2.4-3.5) L 12/10/17 04:15 Albumin/Globulin Ratio 1.0 (1.1-2.2) L 12/10/17 04:15 Urine Clarity Cloudy (Clear) A 12/05/17 19:27 Ur Specific [place] 1.008 (1.010-1.025) L 12/05/17 19:27 Urine Ketones 15 mg/dL (Negative) H 12/05/17 19:27 Urine Bilirubin Moderate (Negative) H 12/05/17 19:27 Ur Leukocyte Esterase Moderate (Negative) H 12/05/17 19:27 Urine Microscopic WBC 5-15 per hpf (0-3) H 12/05/17 19:27 Ur Squamous Epith Cells Many per lpf (None-Few) H 12/05/17 19:27 Ur Culture Indicated? NO. (NO) A 12/05/17 19:27 U Benzodiazepines Scrn Positive ng/mL (Ilgndy=332) H 12/06/17 01:30 - Clinical Findings Intake & Output: Intake & Output 12/10/17 12/10/17 12/11/17 15:59 23:59 07:59 Intake Total 827 / 827 813 / 813 613 / 613 Output Total 400 / 400 300 / 300 350 / 350 Balance 427 / 427 513 / 513 263 / 263 Consult Discharge Plan - Plan Referrals: Chel Munroe, CORPORATE SAFETY COORDINATOR [Primary Care Provider] - - Attending Attestation I examined this patient and my medical decision-making was reviewed with the Resident Physician. I agree with the documented findings, disposition and treatment plan as described except to the extent set forth below. Patient seen and examined. Labs, radiology, chart personally reviewed. 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 Patient did not tolerate spontaneous breathing trial. Cardiovascular: Relatively stable and cardiology follow-up. GI: Nutrition per dietary and GI prophylaxis per routine Heme: DVT prophylaxis per routine. Patient will need long-term anticoagulation ID: Continue antibiotics and plan to de-escalation Renal; urine out put and renal funtion reviewed Endorcine: blood glucose is monitored Lines: all lines checked and no evidence of infections Skin: skin care to prevent pressure ulcers per nursing routine care <Donaldo Ochoa - Last Filed: 12/11/17 17:39> Date of Encounter: 12/11/17 Time of Encounter: 14:41 Assessment and Plan (1) Encephalopathy Current Visit: Yes Status: Acute Metabolic encephalopathy, secondary likely to alcohol and electrolyte disturbance The patient was found to have significant electrolyte abnormalities Patient is on CIWA protocol Head CT is negative for acute intracranial processes. No obvious indications of hepatic disease The patient has been sedated for intubation we will continue to monitor we did attempt to try CPAP today patient did fail his his respiratory rate increased. Maintained electrolytes over course of stay. Increase Seroquel from 25 mg twice daily to 50 mg twice daily Attempted to transition to CPAP today patient only last a few hours for longer than yesterday so We will attempt transition to CPAP tomorrow. (2) CHF (congestive heart failure) Current Visit: Yes Status: Acute Patient does have newly diagnosed systolic CHF per cardiology is unclear what the etiology and chronicity is. There is been no prior cardiac Vasser testing or ischemic evaluation. Cumulative I/O are +8383 mL Cardiology recommended changing atenolol to low-dose Toprol-XL and to optimize as blood pressure and heart rate will allow. Also consider addition of OCTAVIANO inhibitor if BP will allow by discharge. They also recommended left heart catheterization to rule out ischemic etiology but patient is a poor candidate at this time due to reduced hemoglobin and platelets. No continue to monitor. The recommended strict I's and O's, daily weights, sodium and fluid restricted diet cardiology still following Patient did seem to be fluid overloaded as she was +9 L based on ins and outs so we will give 40 mg Lasix today see if she has better urine output as well as get some fluid off her. Qualifiers: Heart failure type: systolic Heart failure chronicity: unspecified Qualified Code(s): I50.20 - Unspecified systolic (congestive) heart failure (3) NSTEMI (non-ST elevated myocardial infarction) Current Visit: Yes Status: Acute NSTEMI, elevated troponin on arrival Troponins 2.05> 2.24>1.35> 1.10 Troponins have normalized there is no need to keep on following troponins he has been canceled. EKG did show ST wave changes in the inferolateral leads. EKG was reviewed on myself did not show any signs of QT prolongation as the QTC was 443 so there is little concern for adding more cervical to prolong the QT. Echo was concerning for ischemic hypokinesis and there was evidence of a left atrial thrombus. There is concern for hit so heparin was stopped and argatroban was started but since then has been stopped and we transitioned patient to fondaparinux 7.5 daily. Cardiology did see the patient again and they recommend possible catheterization once hemodynamically stable for further recommendations from them please review their note Cardiology has seen the patient and they would like to place the patient on Coumadin with a goal INR of 2-3. This can be done after testing procedures are completed and prior to discharge. If HIT his negative based on lab testing we will follow their recommendations of Lovenox-Coumadin bridge. (4) Acute and chronic respiratory failure with hypoxia Current Visit: Yes Status: Acute Acute on chronic respiratory failure with hypoxia, status post an ablation. Patient's respiratory status improved greatly after being intubated The patient this time does not demonstrate any infectious processes. Next line chest x-ray does show some air trapping however no consolidation. AB.42/33/86/// 100 percent on 30 FiO2 via CPAP/PS Patient's respiratory alkalosis has normalized we change the vent to later settings to fit this. Patient is still sedated at this time we will attempt SBT tomorrow also will increase Seroquel (5) Mural thrombus of heart Current Visit: Yes Status: Acute Mural thrombus demonstrated on echocardiogram Cardiology is still following the patient has recommended anticoagulation patient is on fondaparinux we will consider bridging to warfarin as patient stabilizes For further recommendations please refer to cardiology's note (6) Decreased urine output Current Visit: Yes Status: Acute There was decreased urine output with hematuria. Patient is now on Lovenox for anticoagulation. 1 L of lactate Ringer's was given patient's urine output has increased since being on this. Continue strict I's and O's and daily weights To help with urine output we will also give 40 mg IV Lasix also to help with her fluid retention. We will continue to monitor (7) Hypertension Current Visit: No Status: Chronic Blood pressure has been borderline low continue to hold medications now and will continue to monitor Qualifiers: Hypertension type: unspecified Qualified Code(s): I10 - Essential (primary ) hypertension (8) Hypomagnesemia Current Visit: Yes Status: Acute Electrolyte protocol orders per ICU nurses. Repletion as necessary (9) Hypokalemia Current Visit: Yes Status: Acute Electrolyte protocol orders per ICU nurses. Repletion as necessary (10) Malnutrition Current Visit: Yes Status: Acute Due to patient's alcoholism as well as electrolyte imbalance she does have history of malnutrition and she does not feel herself and mainly just eats food by drinking alcohol. Nutrition and dietary is following the patient and is getting her tube feeds. We will continue to follow their recommendations were to feeds. As far as for the electrolyte imbalance we will follow the electrolyte protocol for the nurses to replenish. Qualifiers: Malnutrition type: protein-calorie malnutrition Protein-calorie malnutrition severity: moderate Qualified Code(s): E44.0 - Moderate protein- calorie malnutrition (11) DVT prophylaxis Current Visit: Yes Status: Acute Was on argatriban but we are changing to fondaparinux 7.5 daily Subjective Principal diagnosis: Respiratory Failure Interval history: Patient is still on the vent did attempt CPAP trial today patient did not do well with that as respiratory rate continued to increase. We will attempt as listed in the day and if not well we will try again tomorrow. Patient on exam did seem a little fluid overloaded so we will consider giving Lasix. Otherwise there are no other events overnight. Patient is still sedated and intubated at this time Objective PUL Vital signs: Last Vital Signs Temp 98.2 F 12/11/17 04:00 Pulse 62 12/11/17 06:00 Resp 24 12/11/17 06:58 BP 112/66 12/11/17 06:58 Pulse Ox 100 12/11/17 06:58 General appearance: no acute distress Eyes: nonicteric ENT: oropharynx moist Neck: supple Effort: normal Auscultation: bilateral: diminished breath sounds, wheezes, rales Cardiovascular: regular rate and rhythm Gastrointestinal: normoactive bowel sounds, soft, non-tender, non-distended Integumentary: normal Extremities: no cyanosis, no edema, no clubbing Musculoskeletal: no deformities, ROM normal pupils equal and round, unable to assess due to mental status Ventilator Settings Ventilator Settings: Ventilator Settings, Last 8 Hours Ventilator Mode VC+ Ventilator Mode VC+ Ventilator Mode VC+ Ventilator Mode VC+ Ventilator Mode A/C Ventilator Mode A/C Ventilator Mode VC+ Ventilator Mode VC+ Ventilator Tidal Volume 450 Setting Ventilator Tidal Volume 450 Setting Ventilator Tidal Volume 450 Setting Ventilator Tidal Volume 450 Setting Ventilator Tidal Volume 450 Setting Ventilator Tidal Volume 450 Setting Ventilator Tidal Volume 450 Setting Ventilator Tidal Volume 450 Setting Ventilator Tidal Volume 450 Setting Ventilator Tidal Volume 450 Setting Ventilator Tidal Volume 450 Setting Ventilator Tidal Volume 450 Setting Ventilator Respiratory Rate 12 Setting Ventilator Respiratory Rate 12 Setting Ventilator Respiratory Rate 12 Setting Ventilator Respiratory Rate 12 Setting Ventilator Respiratory Rate 12 Setting Ventilator Respiratory Rate 12 Setting Ventilator Respiratory Rate 12 Setting Ventilator Respiratory Rate 12 Setting Ventilator Respiratory Rate 12 Setting Ventilator Respiratory Rate 12 Setting Ventilator Respiratory Rate 12 Setting Ventilator Respiratory Rate 12 Setting Actual Respiratory Rate 24 Actual Respiratory Rate 16 Actual Respiratory Rate 14 Actual Respiratory Rate 16 Actual Respiratory Rate 20 Actual Respiratory Rate 15 Actual Respiratory Rate 15 Actual Respiratory Rate 16 Actual Respiratory Rate 15 Actual Respiratory Rate 18 Actual Respiratory Rate 19 Actual Respiratory Rate 16 Positive End Expiratory 5 Pressure Positive End Expiratory 5 Pressure Positive End Expiratory 5 Pressure Positive End Expiratory 5 Pressure Positive End Expiratory 5 Pressure Positive End Expiratory 5 Pressure Positive End Expiratory 5 Pressure Positive End Expiratory 5 Pressure Positive End Expiratory 5 Pressure Positive End Expiratory 5 Pressure Positive End Expiratory 5 Pressure Positive End Expiratory 5 Pressure Positive End Expiratory 5 Pressure Peak Inspiratory Airway 15 Pressure Peak Inspiratory Airway 20 Pressure Peak Inspiratory Airway 23 Pressure Peak Inspiratory Airway 19 Pressure Peak Inspiratory Airway 19 Pressure Peak Inspiratory Airway 19 Pressure Peak Inspiratory Airway 18 Pressure Peak Inspiratory Airway 18 Pressure Peak Inspiratory Airway 24 Pressure Peak Inspiratory Airway 19 Pressure Peak Inspiratory Airway 22 Pressure Peak Inspiratory Airway 22 Pressure Results - Laboratory Findings CBC and BMP: 12/11/17 04:00 12/11/17 04:00 ABG ABG pH 7.43 pH Units (7.32-7.45) 12/11/17 05:16 ABG pCO2 36 mmHg (35-45) 12/11/17 05:16 ABG pO2 84 mmHg (85-104) L 12/11/17 05:16 ABG O2 Saturation 97 % (95-98) 12/11/17 05:16 PT/INR, D-dimer PT 16.2 Seconds (9.4-12.1) H 12/05/17 18:50 Abnormal lab findings: Abnormal lab results WBC 12.3 K/mcL (4.3-11.1) H 12/11/17 04:00 RBC 2.65 M/mcL (3.82-4.97) L 12/11/17 04:00 Hgb 8.2 g/dL (11.5-15.4) L 12/11/17 04:00 Hct 26.2 % (35.3-44.9) L 12/11/17 04:00 MCHC 31.3 g/dL (31.6-35.5) L 12/11/17 04:00 RDW 19.2 % (11.5-14.5) H 12/11/17 04:00 Plt Count 120 K/mcL (140-400) L 12/11/17 04:00 Neutrophils # 9.6 K/mcL (1.6-8.9) H 12/11/17 04:00 Nucleated RBCs/100 WBC 0.3 /100 WBC (0) H 12/09/17 04:00 Platelet Estimate Slight Decrease (Normal) L 12/10/17 04:15 Immature Plt Fraction 6.6 % (1.1-6.1) H 12/10/17 04:15 Hypochromasia Present (Not Present) A 12/10/17 04:15 Poikilocytosis 1+ (Not Present) A 12/10/17 04:15 Anisocytosis 1+ (Not Present) A 12/09/17 04:00 Macrocytosis Present (Not Present) A 12/10/17 04:15 PT 16.2 Seconds (9.4-12.1) H 12/05/17 18:50 APTT 50.7 Seconds (26.0-36.0) H 12/10/17 04:15 ABG pO2 84 mmHg (85-104) L 12/11/17 05:16 Chloride 114 mEq/L (98-107) H 12/11/17 04:00 Carbon Dioxide 21 mEq/L (23-29) L 12/11/17 04:00 BUN/Creatinine Ratio 27 (6-26) H 12/11/17 04:00 Glucose 146 mg/dL (70-105) H 12/11/17 04:00 POC Glucose 143 mg/dL (70-99) H 12/11/17 04:48 Calcium 7.9 mg/dL (8.6-10.3) L 12/11/17 04:00 Magnesium 1.5 mg/dL (1.6-2.6) L 12/11/17 04:14 Direct Bilirubin 0.3 mg/dL (0.0-0.2) H 12/05/17 18:50 Troponin I 1.10 ng/mL (< 0.04) H* 12/06/17 11:56 B-Natriuretic Peptide 2096 pg/mL (Less than 100) H 12/06/17 06:01 Serum Total Protein 4.3 g/dL (6.4-8.9) L 12/10/17 04:15 Albumin 2.1 g/dL (3.5-5.7) L 12/10/17 04:15 Globulin 2.2 g/dL (2.4-3.5) L 12/10/17 04:15 Albumin/Globulin Ratio 1.0 (1.1-2.2) L 12/10/17 04:15 Urine Clarity Cloudy (Clear) A 12/05/17 19:27 Ur Specific [place] 1.008 (1.010-1.025) L 12/05/17 19:27 Urine Ketones 15 mg/dL (Negative) H 12/05/17 19:27 Urine Bilirubin Moderate (Negative) H 12/05/17 19:27 Ur Leukocyte Esterase Moderate (Negative) H 12/05/17 19:27 Urine Microscopic WBC 5-15 per hpf (0-3) H 12/05/17 19:27 Ur Squamous Epith Cells Many per lpf (None-Few) H 12/05/17 19:27 Ur Culture Indicated? NO. (NO) A 12/05/17 19:27 U Benzodiazepines Scrn Positive ng/mL (Wpuyhl=656) H 12/06/17 01:30 - Diagnostic Findings Chest x-ray: image reviewed - Clinical Findings Intake & Output: Intake & Output 12/10/17 12/10/17 12/11/17 15:59 23:59 07:59 Intake Total 827 / 827 813 / 813 613 / 613 Output Total 400 / 400 300 / 300 350 / 350 Balance 427 / 427 513 / 513 263 / 263
[2017-12-11] MEDS: Magnesium Oxide 400 MG TABLET PO SCH (08:29)
[2017-12-11] MEDS: Cholecalciferol (D-3) 1,000 UNIT TABLET PO SCH (08:29)
[2017-12-11] MEDS: Pantoprazole 40 MG VIAL IVP SCH (08:29)
[2017-12-11] MEDS: Chlorhexidine Rinse 15 ML MOUTHWASH MM SCH ×2 (08:29→20:47)
[2017-12-11] MEDS: Nicotine 21 MG PATCH.TD24 TD SCH (08:30)
[2017-12-11] MEDS: *HR* Fondaparinux 7.5 MG/0.6 ML SYRINGE SQ SCH (08:30)
[2017-12-11] MEDS: Lactulose Oral Soln 20 GM/30 ML UDC PO SCH (08:31)
[2017-12-11] MEDS ORDERED: Metoprolol XL (24 HR) Succ 25 MG TAB.ER.24H PO SCH (09:00)
[2017-12-11] MEDS: Norepinephrine 4 MG in D5% in Water 250 ML IVC SCH (09:43)
[2017-12-11] MEDS ORDERED: Furosemide 40 MG/4 ML VIAL IVP SCH (11:00)
[2017-12-11] MEDS: Dexmedetomidine HCl 400 MCG/100 ML MLS IVC SCH ×2 (11:03→20:49)
--- NOTE | 2017-12-11 16:12 | Cardiology Progress Note ---
Date of Encounter: 12/11/17 Time of Encounter: 16:10 Assessment and Plan (1) LV (left ventricular) mural thrombus Current Visit: Yes Status: Acute LV thrombus seen on a repeat liited echo (with definity). 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 Hematology was consulted. Currently on Fondaparinux SQ. Appreciate hematology recs. Coumadin is recommended with known LV thrombus with goal INR 2.0-3.0. If patient is not determined to have HIT coumadin with lovenox bridge would be recommended. Hematology consult is pending. (2) CHF (congestive heart failure) Current Visit: Yes Status: Acute Newly diagnosed severe systolic CHF this admission. Unclear etiology and chronicity. Hx of chronic ETOH abuse. No prior CV testing or ischemic evaluation. Remains intubated/sedated. Appears volume overload upon exam. Cumulative I&O: +8383 mL Toprol XL added yesterday, low dose. On hold for hypotension. Lasix also held and she is intermittently requiring pressor support. Consider addition of bb/ ACEi if BP will allow by discharge. Ideally recommend LHC to r/o ischemic etiology, however patient is a poor candidate due to reduced HgB and PLT. Hematology consult pending, appreciate recommendations. Recommend strict I&O's, daily weights, Na/fluid restricted diet. Will continue to follow. Qualifiers: Heart failure type: systolic Heart failure chronicity: unspecified Qualified Code(s): I50.20 - Unspecified systolic (congestive) heart failure (3) Elevated troponin I level Current Visit: Yes Status: Acute Peak troponin 2.24 in the setting of acute encephalopathy. ACS cannot be ruled out, was on heparin gt, transitioned to agatroban, and now on fondaparinux No reported chest pain prior to event per previous documentation. Ischemic ECG changes noted. No prior CV history or testing. Of note, during last admission 2017 (severe electroylyte abnormality, FTT) she was found to have a complex pelvic mass in which malignancy could not be excluded, was referred to [facility], per notes (eCW), patient opted for surveillance given known hx of ovarian cyst and negative CA-125. TTE shows severe reduction in LVEF, 15-20% with segmental LV systolic dysfunction with LV thrombus. Patient is currently a poor candidate for LHC given anemia/thrombocytopenia. Recommend LHC when able, appreciate Hematology recommendations. Not a candidate for cardiac rehab at this time. Continue statin. Hold bb for hypotension. Start ASA 81 mg daily if okay with Hematology. Discussion w patient/family: The assessment and plan as outlined above was discussed with the patient and/or family members who expressed understanding and agreement. All questions were answered. Thank you for involving us in the care of your patient. Please call with any questions. Subjective Principal diagnosis: Respiratory Failure Interval history: No change. Patient remains intubated and sedated. Objective Vital Signs, Last 4 Hours Pulse Resp BP Pulse Ox 12/11/17 15:33 19 86/57 93 12/11/17 14:00 67 12 97/64 97 12/11/17 13:25 13 96/60 97 12/11/17 13:00 67 13 96/60 97 General: Other (sedated) HEENT: Atraumatic, Normocephaly, Mucus Membranes Moist Neck: No JVD, Normal carotid pulses Cardiac: Reg Rate and Rhythm, Normal S1 and S2, No Murmur Lungs: Normal Breath Sounds, No Wheeze, Rales, Rhonchi Neuro: Other (Unable to assess.) Abdomen: Soft, Non-Tender Skin: No rashes noted on visualized skin Musculoskeletal: No Chest Wall Tenderness Extremities: No Clubbing, No Cyanosis, Normal Pulses, Other (2+ pitting BLE edema) Results 12/11/17 04:00 12/11/17 04:00 Lab Results 12/11/17 12/11/17 12/11/17 04:00 04:00 04:14 WBC 12.3 H Hgb 8.2 L Hct 26.2 L Plt Count 120 L Sodium 142 Potassium 4.1 Chloride 114 H Carbon Dioxide 21 L BUN 17 Creatinine 0.62 Glucose 146 H Calcium 7.9 L Magnesium 1.5 L 12/11/17 13:00 WBC Hgb Hct Plt Count Sodium Potassium Chloride Carbon Dioxide BUN Creatinine Glucose Calcium Magnesium 1.9 - Imaging and Cardiology Echo: report reviewed - EKG Interpretation EKG results cardiology: personally reviewed Consult Discharge Plan - Plan Referrals: Chel Munroe, SENIOR DIRECTOR INSIGHT [Primary Care Provider] -
[2017-12-12] MEDS ORDERED: traMADol 50 MG TABLET PO ONE (03:33)
[2017-12-12] MEDS: Lacri-Lube 3.5 GM TUBE BOTH EYES SCH ×2 (03:54→07:56)
[2017-12-12 04:34] LABS: VBG Ionized Calcium 1.18 mmol/L (1.15-1.35)
[2017-12-12 04:35] LABS: Basophils % 0.3 %; Eosinophils # 0.1 K/mcL (0.0-0.6); Eosinophils % 1.1 %; Hematocrit 27.2 % (35.3-44.9); Hemoglobin 8.4 g/dL (11.5-15.4); Immature Granulocytes % 0.8 % (0-4); Lymphocytes # 1.2 K/mcL (0.6-4.6); Lymphocytes % 11.1 %; Mean Corpuscular HGB Conc 30.9 g/dL (31.6-35.5); Mean Corpuscular Volume 100.4 fL (83.0-100.0); Mean Platelet Volume 11.6 fL (9.4-12.4); Monocytes # 1.1 K/mcL (0.0-1.3); Monocytes % 9.4 %; Neutrophils # 8.6 K/mcL (1.6-8.9); Platelet Count 148 K/mcL (140-400); Red Blood Count 2.71 M/mcL (3.82-4.97); Red Cell Distribution Width 18.9 % (11.5-14.5); Segmented Neutrophils % 77.3 %
[2017-12-12 04:51] LABS: BUN/Creatinine Ratio 27 (6-26); Blood Urea Nitrogen 20 mg/dL (8-23); Calcium 8.3 mg/dL (8.6-10.3); Carbon Dioxide 25 mEq/L (23-29); Chloride 107 mEq/L (98-107); Glucose 138 mg/dL (70-105); Osmolality,Calculated 295 (280-300); Sodium 140 mEq/L (136-145); eGFR For African Americans > 60 (> 60); eGFR For Non-African Americans > 60 (> 60)
[2017-12-12 05:24] LABS: ABG Base Excess 3 mEq/L (-2 to 3); ABG HCO3 27 mEq/L (21-27); ABG Oxygen Saturation 99 % (95-98); ABG PCO2 38 mmHg (35-45); ABG PH 7.46 pH Units (7.32-7.45); ABG PO2 128 mmHg (85-104); ABG TCO2 28 mEq/L (20-26); Blood Gas Modality VC; Blood Gas VT 450 cc
--- NOTE | 2017-12-12 07:49 | Pulmonology Progress Note ---
<Donaldo Ochoa - Last Filed: 12/12/17 14:18> Date of Encounter: 12/12/17 Time of Encounter: 14:18 Assessment and Plan (1) Encephalopathy Current Visit: Yes Status: Acute Metabolic encephalopathy, secondary likely to alcohol and electrolyte disturbance The patient was found to have significant electrolyte abnormalities Patient is on CIWA protocol Head CT is negative for acute intracranial processes. No obvious indications of hepatic disease Patient was intubated during her stay in the ICU is no longer intubated. Maintained electrolytes over course of stay. Increase Seroquel from 25 mg twice daily to 50 mg twice daily Patient was extubated today and doing well. Patient is alert but not oriented mental status is improving throughout the day she becomes less sedated. (2) CHF (congestive heart failure) Current Visit: Yes Status: Acute Patient does have newly diagnosed systolic CHF per cardiology is unclear what the etiology and chronicity is. There is been no prior cardiac Vasser testing or ischemic evaluation. Cumulative I/O are +7490 mL Cardiology recommended changing atenolol to low-dose Toprol-XL and to optimize as blood pressure and heart rate will allow. Also consider addition of OCTAVIANO inhibitor if BP will allow by discharge. Cardiology is still recommending left heart catheterization to rule out ischemia. They said they will continue to monitor the patient and will reexamine later today or possibly tomorrow for this to be done. The recommended strict I's and O's, daily weights, sodium and fluid restricted diet cardiology still following Patient did seem to be fluid overloaded as she was +7 L based on ins and outs so we will give another 40 mg Lasix today see if she has better urine output as well as get some fluid off her. Qualifiers: Heart failure type: systolic Heart failure chronicity: unspecified Qualified Code(s): I50.20 - Unspecified systolic (congestive) heart failure (3) NSTEMI (non-ST elevated myocardial infarction) Current Visit: Yes Status: Acute NSTEMI, elevated troponin on arrival Troponins 2.05> 2.24>1.35> 1.10 Troponins have normalized there is no need to keep on following troponins he has been canceled. EKG did show ST wave changes in the inferolateral leads. EKG was reviewed on myself did not show any signs of QT prolongation as the QTC was 443 so there is little concern for adding more cervical to prolong the QT. Echo was concerning for ischemic hypokinesis and there was evidence of a left atrial thrombus. There is concern for hit so heparin was stopped and argatroban was started but since then has been stopped and we transitioned patient to fondaparinux 7.5 daily. Cardiology did see the patient again and they recommend possible catheterization once hemodynamically stable for further recommendations from them please review their note Cardiology has seen the patient and they would like to place the patient on Coumadin with a goal INR of 2-3. This can be done after testing procedures are completed and prior to discharge. If HIT his negative based on lab testing we will follow their recommendations of Lovenox-Coumadin bridge. (4) Acute and chronic respiratory failure with hypoxia Current Visit: Yes Status: Acute Acute on chronic respiratory failure with hypoxia, status post an ablation. Patient's respiratory status improved greatly after being intubated The patient this time does not demonstrate any infectious processes. Next line chest x-ray does show some air trapping however no consolidation. AB.42/33/86/22/23/97 100 percent on 30 FiO2 via CPAP/PS Patient is no longer intubated she was x-rayed with success and more alert but not fully oriented at this time. Rest Tory of her has gotten better since removing the endotracheal tube. (5) Mural thrombus of heart Current Visit: Yes Status: Acute Mural thrombus demonstrated on echocardiogram Cardiology is still following the patient has recommended anticoagulation patient is on fondaparinux we will consider bridging to warfarin as patient stabilizes For further recommendations please refer to cardiology's note We will bridge to Coumadin with the fondaparinux once patient passes her swallow study after being extubated (6) Decreased urine output Current Visit: Yes Status: Acute There was decreased urine output with hematuria. Patient is now on Lovenox for anticoagulation. 1 L of lactate Ringer's was given patient's urine output has increased since being on this. Continue strict I's and O's and daily weights To help with urine output we will also give 40 mg IV Lasix also to help with her fluid retention. We will continue to monitor (7) Hypertension Current Visit: No Status: Chronic Blood pressure has been borderline low continue to hold medications now and will continue to monitor Qualifiers: Hypertension type: unspecified Qualified Code(s): I10 - Essential (primary ) hypertension (8) Hypomagnesemia Current Visit: Yes Status: Acute Electrolyte protocol orders per ICU nurses. Repletion as necessary (9) Hypokalemia Current Visit: Yes Status: Acute Electrolyte protocol orders per ICU nurses. Repletion as necessary (10) Malnutrition Current Visit: Yes Status: Acute Due to patient's alcoholism as well as electrolyte imbalance she does have history of malnutrition and she does not feel herself and mainly just eats food by drinking alcohol. Nutrition and dietary is following the patient and is getting her tube feeds. We will continue to follow their recommendations were to feeds. As far as for the electrolyte imbalance we will follow the electrolyte protocol for the nurses to replenish. We will order an other banana bag to help replenish electrolytes and also help with her most likely macrocytic anemia that is secondary to B12/folate deficiency. We will also give a B12 shot here. We will order a B12 and folic acid labs to monitor Qualifiers: Malnutrition type: protein-calorie malnutrition Protein-calorie malnutrition severity: moderate Qualified Code(s): E44.0 - Moderate protein- calorie malnutrition (11) DVT prophylaxis Current Visit: Yes Status: Acute Was on argatriban but we are changing to fondaparinux 7.5 daily once passing swallow study will change to Coumadin by bridging. Subjective Principal diagnosis: Respiratory Failure Interval history: Patient did well overnight there are no acute events. She was extubated this morning and did well she is a little more alert and able to answer questions but is having a slow time with her voice. Patient on exam did seem a little fluid overloaded so we will consider giving Lasix. Otherwise there are no other events overnight. Patient is no longer sedated or intubated Objective PUL Vital signs: Last Vital Signs Temp 97.7 F 12/12/17 04:00 Pulse 69 12/12/17 07:00 Resp 19 12/12/17 07:00 BP 100/66 12/12/17 07:00 Pulse Ox 100 12/12/17 07:00 General appearance: no acute distress, alert Eyes: nonicteric ENT: oropharynx moist Neck: supple Effort: normal Auscultation: bilateral: clear, diminished breath sounds Cardiovascular: regular rate and rhythm Gastrointestinal: normoactive bowel sounds, soft, non-tender, non-distended Integumentary: normal Extremities: no cyanosis, no edema, no clubbing Musculoskeletal: no deformities, ROM normal normal mental status, non-focal exam, pupils equal and round Ventilator Settings Ventilator Settings: Ventilator Settings, Last 8 Hours Ventilator Mode VC+ Ventilator Mode VC+ Ventilator Mode VC+ Ventilator Mode VC+ Ventilator Mode VC+ Ventilator Mode VC+ Ventilator Tidal Volume 450 Setting Ventilator Tidal Volume 450 Setting Ventilator Tidal Volume 450 Setting Ventilator Tidal Volume 450 Setting Ventilator Tidal Volume 450 Setting Ventilator Tidal Volume 450 Setting Ventilator Tidal Volume 450 Setting Ventilator Tidal Volume 450 Setting Ventilator Respiratory Rate 12 Setting Ventilator Respiratory Rate 12 Setting Ventilator Respiratory Rate 12 Setting Ventilator Respiratory Rate 12 Setting Ventilator Respiratory Rate 12 Setting Ventilator Respiratory Rate 12 Setting Ventilator Respiratory Rate 12 Setting Ventilator Respiratory Rate 12 Setting Actual Respiratory Rate 19 Actual Respiratory Rate 16 Actual Respiratory Rate 16 Actual Respiratory Rate 15 Actual Respiratory Rate 13 Actual Respiratory Rate 15 Actual Respiratory Rate 13 Actual Respiratory Rate 12 Actual Respiratory Rate 12 Actual Respiratory Rate 13 Actual Respiratory Rate 12 Positive End Expiratory 5 Pressure Positive End Expiratory 5 Pressure Positive End Expiratory 5 Pressure Positive End Expiratory 5 Pressure Positive End Expiratory 5 Pressure Positive End Expiratory 5 Pressure Positive End Expiratory 5 Pressure Positive End Expiratory 5 Pressure Positive End Expiratory 5 Pressure Positive End Expiratory 5 Pressure Positive End Expiratory 5 Pressure Peak Inspiratory Airway 14 Pressure Peak Inspiratory Airway 14 Pressure Peak Inspiratory Airway 14 Pressure Peak Inspiratory Airway 18 Pressure Peak Inspiratory Airway 19 Pressure Peak Inspiratory Airway 19 Pressure Peak Inspiratory Airway 20 Pressure Peak Inspiratory Airway 20 Pressure Peak Inspiratory Airway 25 Pressure Peak Inspiratory Airway 21 Pressure Peak Inspiratory Airway 23 Pressure Results - Laboratory Findings CBC and BMP: 12/12/17 04:15 12/12/17 04:15 ABG ABG pH 7.46 pH Units (7.32-7.45) H 12/12/17 05:20 ABG pCO2 38 mmHg (35-45) 12/12/17 05:20 ABG pO2 128 mmHg (85-104) H 12/12/17 05:20 ABG O2 Saturation 99 % (95-98) H 12/12/17 05:20 PT/INR, D-dimer PT 16.2 Seconds (9.4-12.1) H 12/05/17 18:50 Abnormal lab findings: Abnormal lab results RBC 2.71 M/mcL (3.82-4.97) L 12/12/17 04:15 Hgb 8.4 g/dL (11.5-15.4) L 12/12/17 04:15 Hct 27.2 % (35.3-44.9) L 12/12/17 04:15 MCV 100.4 fL (83.0-100.0) H 12/12/17 04:15 MCHC 30.9 g/dL (31.6-35.5) L 12/12/17 04:15 RDW 18.9 % (11.5-14.5) H 12/12/17 04:15 Nucleated RBCs/100 WBC 0.3 /100 WBC (0) H 12/09/17 04:00 Platelet Estimate Slight Decrease (Normal) L 12/10/17 04:15 Immature Plt Fraction 6.6 % (1.1-6.1) H 12/10/17 04:15 Hypochromasia Present (Not Present) A 12/10/17 04:15 Poikilocytosis 1+ (Not Present) A 12/10/17 04:15 Anisocytosis 1+ (Not Present) A 12/09/17 04:00 Macrocytosis Present (Not Present) A 12/10/17 04:15 PT 16.2 Seconds (9.4-12.1) H 12/05/17 18:50 APTT 50.7 Seconds (26.0-36.0) H 12/10/17 04:15 ABG pH 7.46 pH Units (7.32-7.45) H 12/12/17 05:20 ABG pO2 128 mmHg (85-104) H 12/12/17 05:20 ABG Total CO2 28 mEq/L (20-26) H 12/12/17 05:20 ABG O2 Saturation 99 % (95-98) H 12/12/17 05:20 BUN/Creatinine Ratio 27 (6-26) H 12/12/17 04:15 Glucose 138 mg/dL (70-105) H 12/12/17 04:15 POC Glucose 110 mg/dL (70-99) H 12/12/17 07:15 Calcium 8.3 mg/dL (8.6-10.3) L 12/12/17 04:15 Direct Bilirubin 0.3 mg/dL (0.0-0.2) H 12/05/17 18:50 Troponin I 1.10 ng/mL (< 0.04) H* 12/06/17 11:56 B-Natriuretic Peptide 2096 pg/mL (Less than 100) H 12/06/17 06:01 Serum Total Protein 4.3 g/dL (6.4-8.9) L 12/10/17 04:15 Albumin 2.1 g/dL (3.5-5.7) L 12/10/17 04:15 Globulin 2.2 g/dL (2.4-3.5) L 12/10/17 04:15 Albumin/Globulin Ratio 1.0 (1.1-2.2) L 12/10/17 04:15 Urine Clarity Cloudy (Clear) A 12/05/17 19:27 Ur Specific [place] 1.008 (1.010-1.025) L 12/05/17 19:27 Urine Ketones 15 mg/dL (Negative) H 12/05/17 19:27 Urine Bilirubin Moderate (Negative) H 12/05/17 19:27 Ur Leukocyte Esterase Moderate (Negative) H 12/05/17 19:27 Urine Microscopic WBC 5-15 per hpf (0-3) H 12/05/17 19:27 Ur Squamous Epith Cells Many per lpf (None-Few) H 12/05/17 19:27 Ur Culture Indicated? NO. (NO) A 12/05/17 19:27 U Benzodiazepines Scrn Positive ng/mL (Rndnwa=014) H 12/06/17 01:30 - Diagnostic Findings Chest x-ray: image reviewed - Clinical Findings Intake & Output: Intake & Output 12/11/17 12/11/17 12/12/17 15:59 23:59 07:59 Intake Total 125 / 125 400 / 400 791 / 791 Output Total 1650 / 1650 1100 / 1100 260 / 260 Balance -1525 / -1525 -700 / -700 531 / 531 Weight 67.4 kg Consult Discharge Plan - Plan Referrals: Chel Munroe, SOAP GRINDER [Primary Care Provider] - <Yojana Saleem - Last Filed: 12/12/17 16:03> Date of Encounter: 12/12/17 Objective PUL Vital signs: Last Vital Signs Temp 98.3 F 12/12/17 08:15 Pulse 85 12/12/17 09:00 Resp 31 12/12/17 09:00 BP 93/67 12/12/17 09:00 Pulse Ox 93 12/12/17 09:00 Ventilator Settings Ventilator Settings: Ventilator Settings, Last 8 Hours Ventilator Mode VC+ Ventilator Mode VC+ Ventilator Mode VC+ Ventilator Tidal Volume 450 Setting Ventilator Tidal Volume 450 Setting Ventilator Tidal Volume 450 Setting Ventilator Tidal Volume 450 Setting Ventilator Respiratory Rate 12 Setting Ventilator Respiratory Rate 12 Setting Ventilator Respiratory Rate 12 Setting Ventilator Respiratory Rate 12 Setting Actual Respiratory Rate 19 Actual Respiratory Rate 16 Actual Respiratory Rate 16 Actual Respiratory Rate 15 Actual Respiratory Rate 13 Actual Respiratory Rate 15 Actual Respiratory Rate 13 Positive End Expiratory 5 Pressure Positive End Expiratory 5 Pressure Positive End Expiratory 5 Pressure Positive End Expiratory 5 Pressure Positive End Expiratory 5 Pressure Positive End Expiratory 5 Pressure Positive End Expiratory 5 Pressure Peak Inspiratory Airway 14 Pressure Peak Inspiratory Airway 14 Pressure Peak Inspiratory Airway 14 Pressure Peak Inspiratory Airway 18 Pressure Peak Inspiratory Airway 19 Pressure Peak Inspiratory Airway 19 Pressure Peak Inspiratory Airway 20 Pressure Results - Laboratory Findings CBC and BMP: 12/12/17 04:15 12/12/17 04:15 ABG ABG pH 7.46 pH Units (7.32-7.45) H 12/12/17 05:20 ABG pCO2 38 mmHg (35-45) 12/12/17 05:20 ABG pO2 128 mmHg (85-104) H 12/12/17 05:20 ABG O2 Saturation 99 % (95-98) H 12/12/17 05:20 PT/INR, D-dimer PT 16.2 Seconds (9.4-12.1) H 12/05/17 18:50 Abnormal lab findings: Abnormal lab results RBC 2.71 M/mcL (3.82-4.97) L 12/12/17 04:15 Hgb 8.4 g/dL (11.5-15.4) L 12/12/17 04:15 Hct 27.2 % (35.3-44.9) L 12/12/17 04:15 MCV 100.4 fL (83.0-100.0) H 12/12/17 04:15 MCHC 30.9 g/dL (31.6-35.5) L 12/12/17 04:15 RDW 18.9 % (11.5-14.5) H 12/12/17 04:15 Nucleated RBCs/100 WBC 0.3 /100 WBC (0) H 12/09/17 04:00 Platelet Estimate Slight Decrease (Normal) L 12/10/17 04:15 Immature Plt Fraction 6.6 % (1.1-6.1) H 12/10/17 04:15 Hypochromasia Present (Not Present) A 12/10/17 04:15 Poikilocytosis 1+ (Not Present) A 12/10/17 04:15 Anisocytosis 1+ (Not Present) A 12/09/17 04:00 Macrocytosis Present (Not Present) A 12/10/17 04:15 PT 16.2 Seconds (9.4-12.1) H 12/05/17 18:50 APTT 50.7 Seconds (26.0-36.0) H 12/10/17 04:15 ABG pH 7.46 pH Units (7.32-7.45) H 12/12/17 05:20 ABG pO2 128 mmHg (85-104) H 12/12/17 05:20 ABG Total CO2 28 mEq/L (20-26) H 12/12/17 05:20 ABG O2 Saturation 99 % (95-98) H 12/12/17 05:20 BUN/Creatinine Ratio 27 (6-26) H 12/12/17 04:15 Glucose 138 mg/dL (70-105) H 12/12/17 04:15 POC Glucose 110 mg/dL (70-99) H 12/12/17 07:15 Calcium 8.3 mg/dL (8.6-10.3) L 12/12/17 04:15 Direct Bilirubin 0.3 mg/dL (0.0-0.2) H 12/05/17 18:50 Troponin I 1.10 ng/mL (< 0.04) H* 12/06/17 11:56 B-Natriuretic Peptide 2096 pg/mL (Less than 100) H 12/06/17 06:01 Serum Total Protein 4.3 g/dL (6.4-8.9) L 12/10/17 04:15 Albumin 2.1 g/dL (3.5-5.7) L 12/10/17 04:15 Globulin 2.2 g/dL (2.4-3.5) L 12/10/17 04:15 Albumin/Globulin Ratio 1.0 (1.1-2.2) L 12/10/17 04:15 Urine Clarity Cloudy (Clear) A 12/05/17 19:27 Ur Specific [place] 1.008 (1.010-1.025) L 12/05/17 19:27 Urine Ketones 15 mg/dL (Negative) H 12/05/17 19:27 Urine Bilirubin Moderate (Negative) H 12/05/17 19:27 Ur Leukocyte Esterase Moderate (Negative) H 12/05/17 19:27 Urine Microscopic WBC 5-15 per hpf (0-3) H 12/05/17 19:27 Ur Squamous Epith Cells Many per lpf (None-Few) H 12/05/17 19:27 Ur Culture Indicated? NO. (NO) A 12/05/17 19:27 U Benzodiazepines Scrn Positive ng/mL (Digzwp=490) H 12/06/17 01:30 - Clinical Findings Intake & Output: Intake & Output 12/11/17 12/12/17 12/12/17 23:59 07:59 15:59 Intake Total 400 / 400 791 / 791 Output Total 1100 / 1100 385 / 385 Balance -700 / -700 406 / 406 Weight 67.4 kg - Attending Attestation I examined this patient and my medical decision-making was reviewed with the Resident Physician. I agree with the documented findings, disposition and treatment plan as described except to the extent set forth below. Patient seen and examined. Labs, radiology, chart personally reviewed. Agree with resident's history and physical, assessment, plan with following comments: MISSION COMMANDER: Patient follows commands, Pulmonary: Acceptable oxygenation and ventilation and patient was successfully extubated Cardiovascular: stable and cardiology to follow up regarding further workup GI: Nutrition per dietary and GI prophylaxis per routine Heme: DVT prophylaxis per routine and patient has anemia most likely of having history of alcohol. ID: Continue antibiotics and plan to de-escalation Renal; urine out put and renal funtion reviewed Endorcine: blood glucose is monitored Lines: all lines checked and no evidence of infections Skin: skin care to prevent pressure ulcers per nursing routine care
[2017-12-12] MEDS: Cholecalciferol (D-3) 1,000 UNIT TABLET PO SCH (07:53)
[2017-12-12] MEDS: Magnesium Oxide 400 MG TABLET PO SCH (07:53)
[2017-12-12] MEDS: Pantoprazole 40 MG VIAL IVP SCH (07:54)
[2017-12-12] MEDS: *HR* Fondaparinux 7.5 MG/0.6 ML SYRINGE SQ SCH (07:54)
[2017-12-12] MEDS: Chlorhexidine Rinse 15 ML MOUTHWASH MM SCH (07:54)
[2017-12-12] MEDS: Lactulose Oral Soln 20 GM/30 ML UDC PO SCH (07:54)
[2017-12-12] MEDS: Nicotine 21 MG PATCH.TD24 TD SCH (07:54)
[2017-12-12] MEDS: Norepinephrine 4 MG in D5% in Water 250 ML IVC SCH (07:55)
[2017-12-12] MEDS: OXYCODONE Oral CONC 10 MG/0.5 ML ORAL.SYG SL PRN ×3 (11:10→22:27)
--- NOTE | 2017-12-12 12:36 | Cardiology Progress Note ---
Date of Encounter: 12/12/17 Time of Encounter: 12:15 Assessment and Plan (1) CHF (congestive heart failure) Current Visit: Yes Status: Acute Newly diagnosed severe systolic CHF this admission. Unclear etiology and chronicity. Hx of chronic ETOH abuse. No prior CV testing or ischemic evaluation. Recently extubated. Appears volume overload upon exam. Cumulative I&O: +7140 mL Resume toprol XL when BP improves, now off sedation. Lasix also held and she is intermittently requiring pressor support. Consider addition of bb/ACEi if BP will allow by discharge. Ideally recommend LHC to r/o ischemic etiology, however patient is a poor candidate due to reduced HgB and PLT. Hematology consult pending, appreciate recommendations. Of note, H/H and PLT appear stable today. Recommend strict I&O's, daily weights, Na/fluid restricted diet. Will continue to follow. Qualifiers: Heart failure type: systolic Heart failure chronicity: unspecified Qualified Code(s): I50.20 - Unspecified systolic (congestive) heart failure (2) Elevated troponin I level Current Visit: Yes Status: Acute Peak troponin 2.24 in the setting of acute encephalopathy. ACS cannot be ruled out, was on heparin gt, transitioned to agatroban, and now on fondaparinux No reported chest pain prior to event per previous documentation. Ischemic ECG changes noted. No prior CV history or testing. Of note, during last admission 2017 (severe electroylyte abnormality, FTT) she was found to have a complex pelvic mass in which malignancy could not be excluded, was referred to [facility], per notes (eCW), patient opted for surveillance given known hx of ovarian cyst and negative CA-125. TTE shows severe reduction in LVEF, 15-20% with segmental LV systolic dysfunction with LV thrombus. Patient is currently a poor candidate for LHC given anemia/thrombocytopenia. Recommend LHC when able, appreciate Hematology recommendations. Not a candidate for cardiac rehab at this time. Continue statin. Hold bb for hypotension. Start ASA 81 mg daily if okay with Hematology. (3) LV (left ventricular) mural thrombus Current Visit: Yes Status: Acute LV thrombus seen on a repeat liited echo (with definity). 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 Hematology was consulted. Currently on Fondaparinux SQ. Appreciate hematology recs. Coumadin is recommended with known LV thrombus with goal INR 2.0-3.0. If patient is not determined to have HIT coumadin with lovenox bridge would be recommended. Hematology consult is pending. (4) Encephalopathy Current Visit: Yes Status: Acute Secondary to chronic alcoholism. Remains intubated d/t alcohol withdraw, CIWA protocol. ICU team to manage. Discussion w patient/family: The assessment and plan as outlined above was discussed with the patient and/or family members who expressed understanding and agreement. All questions were answered. Thank you for involving us in the care of your patient. Please call with any questions. The patient will be discussed and reviewed with Dr. Amor; changes to be made accordingly. Subjective Principal diagnosis: Respiratory Failure Interval history: Seen and examined. Tachypnea noted, patient able to respond to simple verbal commands. JACQUES x4. Family not present at bedside. Objective Vital Signs, Last 4 Hours Temp Pulse Resp BP Pulse Ox 12/12/17 11:20 98.1 F 12/12/17 11:00 84 20 117/58 97 12/12/17 10:00 84 20 117/68 97 12/12/17 09:00 85 31 93/67 93 General: Other (appears acutely ill) Cardiac: Reg Rate and Rhythm, Normal S1 and S2 Lungs: Other (Tachypnea, coarse breath sounds) Neuro: Other (Alert, responds to simple verbal commands) Abdomen: Soft Skin: No rashes noted on visualized skin Musculoskeletal: No Chest Wall Tenderness Extremities: Other (generalized edema noted) Results 12/12/17 04:15 12/12/17 04:15 Lab Results 12/11/17 12/11/17 12/12/17 13:00 22:00 04:15 WBC 11.1 Hgb 8.4 L Hct 27.2 L Plt Count 148 Sodium Potassium Chloride Carbon Dioxide BUN Creatinine Glucose Calcium Magnesium 1.9 2.2 12/12/17 04:15 WBC Hgb Hct Plt Count Sodium 140 Potassium 4.0 Chloride 107 Carbon Dioxide 25 BUN 20 Creatinine 0.73 Glucose 138 H Calcium 8.3 L Magnesium 2.0 - Imaging and Cardiology Echo: report reviewed Other Results: 12 hour tele: avg HR=69 SR - EKG Interpretation EKG results cardiology: personally reviewed Consult Discharge Plan - Plan Referrals: Chel Munroe, PROFESSOR OF ENGLISH [Primary Care Provider] -
[2017-12-12] MEDS ORDERED: Furosemide 40 MG/4 ML VIAL IVP ONE (13:08)
[2017-12-12] MEDS ORDERED: Cyanocobalamin (B-12) 1,000 MCG/ML VIAL IM ONE (13:08)
[2017-12-12] MEDS ORDERED: Thiamine (B-1) 100 MG, Folic Acid 1 MG, MVI, adult with vitamin K 10 ML in 0.9 % Sodi... IVPB SCH (18:00)
[2017-12-12] MEDS ORDERED: *HR* Warfarin 5 MG TABLET PO ONE (18:00)
[2017-12-12] MEDS ORDERED: Warfarin perPT PO PRN (18:00)
[2017-12-13 04:26] LABS: Basophils % 0.3 %; Eosinophils # 0.1 K/mcL (0.0-0.6); Eosinophils % 0.7 %; Hematocrit 25.7 % (35.3-44.9); Hemoglobin 8.5 g/dL (11.5-15.4); Immature Granulocytes % 0.7 % (0-4); Immature Platelets 3.3 % (1.1-6.1); Lymphocytes # 1.2 K/mcL (0.6-4.6); Lymphocytes % 11.8 %; Mean Corpuscular HGB Conc 33.1 g/dL (31.6-35.5); Mean Corpuscular Hemoglobin 32.3 pg (28.0-33.3); Mean Corpuscular Volume 97.7 fL (83.0-100.0); Mean Platelet Volume 10.4 fL (9.4-12.4); Monocytes # 0.9 K/mcL (0.0-1.3); Neutrophils # 7.6 K/mcL (1.6-8.9); Platelet Count 214 K/mcL (140-400); Red Blood Count 2.63 M/mcL (3.82-4.97); Red Cell Distribution Width 18.4 % (11.5-14.5); Segmented Neutrophils % 77.5 %
[2017-12-13 04:54] LABS: BUN/Creatinine Ratio 23 (6-26); Blood Urea Nitrogen 17 mg/dL (8-23); Calcium 8.1 mg/dL (8.6-10.3); Carbon Dioxide 28 mEq/L (23-29); Chloride 107 mEq/L (98-107); Glucose 86 mg/dL (70-105); Osmolality,Calculated 299 (280-300); Sodium 144 mEq/L (136-145); eGFR For African Americans > 60 (> 60); eGFR For Non-African Americans > 60 (> 60)
[2017-12-13 05:03] LABS: INR 1.4; Prothrombin Time 15.1 Seconds (9.4-12.1)
[2017-12-13 05:23] LABS: VBG Ionized Calcium 1.09 mmol/L (1.15-1.35)
[2017-12-13] MEDS: Nicotine 21 MG PATCH.TD24 TD SCH (07:51)
[2017-12-13] MEDS: Magnesium Oxide 400 MG TABLET PO SCH (07:51)
[2017-12-13] MEDS: Cholecalciferol (D-3) 1,000 UNIT TABLET PO SCH (07:51)
[2017-12-13] MEDS: Lactulose Oral Soln 20 GM/30 ML UDC PO SCH (07:51)
[2017-12-13] MEDS: *HR* Fondaparinux 7.5 MG/0.6 ML SYRINGE SQ SCH (07:51)
--- NOTE | 2017-12-13 08:29 | Pulmonology Progress Note ---
<Yojana Saleem M - Last Filed: 12/13/17 10:24> Date of Encounter: 12/13/17 Objective PUL Vital signs: Last Vital Signs Temp 98.5 F 12/13/17 07:45 Pulse 94 12/13/17 09:00 Resp 25 12/13/17 09:00 BP 100/52 12/13/17 09:00 Pulse Ox 100 12/13/17 09:00 Results - Laboratory Findings CBC and BMP: 12/13/17 04:06 12/13/17 04:06 ABG ABG pH 7.46 pH Units (7.32-7.45) H 12/12/17 05:20 ABG pCO2 38 mmHg (35-45) 12/12/17 05:20 ABG pO2 128 mmHg (85-104) H 12/12/17 05:20 ABG O2 Saturation 99 % (95-98) H 12/12/17 05:20 PT/INR, D-dimer PT 15.1 Seconds (9.4-12.1) H 12/13/17 04:06 Abnormal lab findings: Abnormal lab results RBC 2.63 M/mcL (3.82-4.97) L 12/13/17 04:06 Hgb 8.5 g/dL (11.5-15.4) L 12/13/17 04:06 Hct 25.7 % (35.3-44.9) L 12/13/17 04:06 RDW 18.4 % (11.5-14.5) H 12/13/17 04:06 Nucleated RBCs/100 WBC 0.3 /100 WBC (0) H 12/09/17 04:00 Platelet Estimate Slight Decrease (Normal) L 12/10/17 04:15 Hypochromasia Present (Not Present) A 12/10/17 04:15 Poikilocytosis 1+ (Not Present) A 12/10/17 04:15 Anisocytosis 1+ (Not Present) A 12/09/17 04:00 Macrocytosis Present (Not Present) A 12/10/17 04:15 PT 15.1 Seconds (9.4-12.1) H 12/13/17 04:06 APTT 50.7 Seconds (26.0-36.0) H 12/10/17 04:15 ABG pH 7.46 pH Units (7.32-7.45) H 12/12/17 05:20 ABG pO2 128 mmHg (85-104) H 12/12/17 05:20 ABG Total CO2 28 mEq/L (20-26) H 12/12/17 05:20 ABG O2 Saturation 99 % (95-98) H 12/12/17 05:20 Calcium 8.1 mg/dL (8.6-10.3) L 12/13/17 04:06 Venous Ioniz Calcium 1.09 mmol/L (1.15-1.35) L 12/13/17 04:35 Direct Bilirubin 0.3 mg/dL (0.0-0.2) H 12/05/17 18:50 Troponin I 1.10 ng/mL (< 0.04) H* 12/06/17 11:56 B-Natriuretic Peptide 2096 pg/mL (Less than 100) H 12/06/17 06:01 Serum Total Protein 4.3 g/dL (6.4-8.9) L 12/10/17 04:15 Albumin 2.1 g/dL (3.5-5.7) L 12/10/17 04:15 Globulin 2.2 g/dL (2.4-3.5) L 12/10/17 04:15 Albumin/Globulin Ratio 1.0 (1.1-2.2) L 12/10/17 04:15 Urine Clarity Cloudy (Clear) A 12/05/17 19:27 Ur Specific [place] 1.008 (1.010-1.025) L 12/05/17 19:27 Urine Ketones 15 mg/dL (Negative) H 12/05/17 19:27 Urine Bilirubin Moderate (Negative) H 12/05/17 19:27 Ur Leukocyte Esterase Moderate (Negative) H 12/05/17 19:27 Urine Microscopic WBC 5-15 per hpf (0-3) H 12/05/17 19:27 Ur Squamous Epith Cells Many per lpf (None-Few) H 12/05/17 19:27 Ur Culture Indicated? NO. (NO) A 12/05/17 19:27 U Benzodiazepines Scrn Positive ng/mL (Wjpoes=591) H 12/06/17 01:30 - Clinical Findings Intake & Output: Intake & Output 12/12/17 12/13/1712/13/18 23:59 07:59 15:59 Intake Total 511.2 / 511.2 Output Total 900 / 900 650 / 650 Balance -388.8 / -388.8 -650 / -650 Weight 66 kg Consult Discharge Plan - Plan Referrals: Chel Munroe, [employer] [Primary Care Provider] - - Attending Attestation I examined this patient and my medical decision-making was reviewed with the Resident Physician. I agree with the documented findings, disposition and treatment plan as described except to the extent set forth below. Patient seen and examined. Labs, radiology, chart personally reviewed. 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 Check CXR Renal; urine out put and renal funtion reviewed Endorcine: blood glucose is monitored Lines: all lines checked and no evidence of infections Skin: skin care to prevent pressure ulcers per nursing routine care Patient to be transferred to the floor. <DonDonlado - Last Filed: 12/13/17 11:26> Date of Encounter: 12/13/17 Time of Encounter: 11:15 Assessment and Plan (1) Encephalopathy Current Visit: Yes Status: Acute Metabolic encephalopathy, secondary likely to alcohol and electrolyte disturbance The patient was found to have significant electrolyte abnormalities C whop protocol has been stopped as patient has had no signs of seizures or withdrawal while here. Head CT is negative for acute intracranial processes. No obvious indications of hepatic disease Patient was intubated during her stay in the ICU is no longer intubated. Maintained electrolytes over course of stay. Cervical has been stopped due to patient being anxious. Patient was extubated today and doing well. Patient is alert but not oriented mental status is improving throughout the day she becomes less sedated. (2) CHF (congestive heart failure) Current Visit: Yes Status: Acute Patient does have newly diagnosed systolic CHF per cardiology is unclear what the etiology and chronicity is. There is been no prior cardiac Vasser testing or ischemic evaluation. Cumulative I/O are +4690 mL Cardiology recommended changing atenolol to low-dose Toprol-XL and to optimize as blood pressure and heart rate will allow. Also consider addition of OCTAVIANO inhibitor if BP will allow by discharge. Cardiology is still recommending left heart catheterization to rule out ischemia. They said they will continue to monitor the patient and will reexamine later today or possibly tomorrow for this to be done. The recommended strict I's and O's, daily weights, sodium and fluid restricted diet cardiology still following Patient did seem to be fluid overloaded as she was +4 L based on ins and outs so we will give another 40 mg Lasix today see if she has better urine output as well as get some fluid off her. Qualifiers: Heart failure type: systolic Heart failure chronicity: unspecified Qualified Code(s): I50.20 - Unspecified systolic (congestive) heart failure (3) NSTEMI (non-ST elevated myocardial infarction) Current Visit: Yes Status: Acute NSTEMI, elevated troponin on arrival Troponins 2.05> 2.24>1.35> 1.10 Troponins have normalized there is no need to keep on following troponins he has been canceled. EKG did show ST wave changes in the inferolateral leads. EKG was reviewed on myself did not show any signs of QT prolongation as the QTC was 443 so there is little concern for adding more cervical to prolong the QT. Echo was concerning for ischemic hypokinesis and there was evidence of a left atrial thrombus. There is concern for hit so heparin was stopped and argatroban was started but since then has been stopped and we transitioned patient to fondaparinux 7.5 daily. Fondaparinux has now been changed to Lovenox as has a shorter half-life and works better for cardiology. Cardiology did see the patient again and they recommend possible catheterization once hemodynamically stable for further recommendations from them please review their note Cardiology has seen the patient and they would like to place the patient on Coumadin with a goal INR of 2-3. This can be done after testing procedures are completed and prior to discharge. If HIT his negative based on lab testing we will follow their recommendations of Lovenox-Coumadin bridge. We will hold the Lovenox as well as Coumadin today and tell the heart catheterization is placed. (4) Acute and chronic respiratory failure with hypoxia Current Visit: Yes Status: Acute Acute on chronic respiratory failure with hypoxia, status post an ablation. Patient's respiratory status improved greatly after being intubated The patient this time does not demonstrate any infectious processes. Next line chest x-ray does show some air trapping however no consolidation. AB.42/33/86/22//97 100 percent on 30 FiO2 via CPAP/PS Patient is no longer intubated she was x-rayed with success and more alert but not fully oriented at this time. Respirations has gotten better since removing the endotracheal tube. Patient has been doing much better since being extubated. She did have increasing creation so chest x-ray was ordered which showed possible left sided pneumonia that could be aspirated. Started patient on Zosyn and sputum cultures are ordered and pending (5) Aspiration pneumonia Current Visit: Yes Status: Acute Patient was noticed to have increased secretions after having the endotracheal tube removed due to this we repeated a chest x-ray today which shows possibility of left lower lobe consolidation possible aspiration pneumonia due to having the endotracheal tube removed. At this time we will start patient on Zosyn. Patient is being transferred to the medical floor so the medical team will continue to follow this. Sputum cultures were ordered and are pending Qualifiers: Aspiration pneumonia type: unspecified Laterality: left Lung location: lower lobe of lung Qualified Code(s): J69.0 - Pneumonitis due to inhalation of food and vomit (6) Mural thrombus of heart Current Visit: Yes Status: Acute Mural thrombus demonstrated on echocardiogram Cardiology is still following the patient has recommended anticoagulation patient is on fondaparinux we will consider bridging to warfarin as patient stabilizes For further recommendations please refer to cardiology's note We will bridge to Coumadin with the fondaparinux once patient passes her swallow study after being extubated We will hold the Coumadin until patient undergoes left heart catheterization tomorrow. Change patient from fondaparinux to Lovenox as there is very low likelihood of hit in Lovenox has a shorter half-life which is easier for cardiology for heart catheterization and easier for bridging. (7) Decreased urine output Current Visit: Yes Status: Acute There was decreased urine output with hematuria. Patient is now on Lovenox for anticoagulation. 1 L of lactate Ringer's was given patient's urine output has increased since being on this. Continue strict I's and O's and daily weights To help with urine output we will also give 40 mg IV Lasix also to help with her fluid retention. We will continue to monitor (8) Hypertension Current Visit: No Status: Chronic Blood pressure has been borderline low continue to hold medications now and will continue to monitor Qualifiers: Hypertension type: unspecified Qualified Code(s): I10 - Essential (primary ) hypertension (9) Hypomagnesemia Current Visit: Yes Status: Acute Electrolyte protocol orders per ICU nurses. Repletion as necessary (10) Hypokalemia Current Visit: Yes Status: Acute Electrolyte protocol orders per ICU nurses. Repletion as necessary (11) Malnutrition Current Visit: Yes Status: Acute Due to patient's alcoholism as well as electrolyte imbalance she does have history of malnutrition and she does not feel herself and mainly just eats food by drinking alcohol. Nutrition and dietary is following the patient and is getting her tube feeds. We will continue to follow their recommendations were to feeds. As far as for the electrolyte imbalance we will follow the electrolyte protocol for the nurses to replenish. We will order an other banana bag to help replenish electrolytes and also help with her most likely macrocytic anemia that is secondary to B12/folate deficiency. This could also be an iron deficiency which again can be followed via the primary team. We will also give a B12 shot here. We will order a B12 and folic acid labs to monitor Qualifiers: Malnutrition type: protein-calorie malnutrition Protein-calorie malnutrition severity: moderate Qualified Code(s): E44.0 - Moderate protein- calorie malnutrition (12) DVT prophylaxis Current Visit: Yes Status: Acute Patient is now on Lovenox and we are any bridging to Coumadin once patient finishes left heart catheterization tomorrow. Subjective Principal diagnosis: Respiratory Failure Interval history: Patient did well overnight there are no acute events. She was extubated yesterday and did well she is a little more alert and able to answer questions but is having a slow time with her voice. Patient on exam did seem a little fluid overloaded so we will consider giving Lasix. Otherwise there are no other events overnight. Patient is no other intubated and much more stable at this time so we will transfer patient out of the ICU to a hospital floor bed. Objective PUL Vital signs: Last Vital Signs Temp 98.5 F 12/13/17 07:45 Pulse 104 12/13/17 08:00 Resp 20 12/13/17 08:00 BP 140/76 12/13/17 08:00 Pulse Ox 100 12/13/17 08:00 General appearance: no acute distress Eyes: nonicteric ENT: oropharynx moist, other (Increased secretions orally.) Neck: supple Effort: normal Auscultation: bilateral: clear, wheezes Cardiovascular: regular rate and rhythm Gastrointestinal: normoactive bowel sounds, soft, non-tender, non-distended Integumentary: normal Musculoskeletal: no deformities, ROM normal normal mental status, non-focal exam, pupils equal and round, motor strength normal and symmetric Results - Laboratory Findings CBC and BMP: 12/13/17 04:06 12/13/17 04:06 ABG ABG pH 7.46 pH Units (7.32-7.45) H 12/12/17 05:20 ABG pCO2 38 mmHg (35-45) 12/12/17 05:20 ABG pO2 128 mmHg (85-104) H 12/12/17 05:20 ABG O2 Saturation 99 % (95-98) H 12/12/17 05:20 PT/INR, D-dimer PT 15.1 Seconds (9.4-12.1) H 12/13/17 04:06 Abnormal lab findings: Abnormal lab results RBC 2.63 M/mcL (3.82-4.97) L 12/13/17 04:06 Hgb 8.5 g/dL (11.5-15.4) L 12/13/17 04:06 Hct 25.7 % (35.3-44.9) L 12/13/17 04:06 RDW 18.4 % (11.5-14.5) H 12/13/17 04:06 Nucleated RBCs/100 WBC 0.3 /100 WBC (0) H 12/09/17 04:00 Platelet Estimate Slight Decrease (Normal) L 12/10/17 04:15 Hypochromasia Present (Not Present) A 12/10/17 04:15 Poikilocytosis 1+ (Not Present) A 12/10/17 04:15 Anisocytosis 1+ (Not Present) A 12/09/17 04:00 Macrocytosis Present (Not Present) A 12/10/17 04:15 PT 15.1 Seconds (9.4-12.1) H 12/13/17 04:06 APTT 50.7 Seconds (26.0-36.0) H 12/10/17 04:15 ABG pH 7.46 pH Units (7.32-7.45) H 12/12/17 05:20 ABG pO2 128 mmHg (85-104) H 12/12/17 05:20 ABG Total CO2 28 mEq/L (20-26) H 12/12/17 05:20 ABG O2 Saturation 99 % (95-98) H 12/12/17 05:20 Calcium 8.1 mg/dL (8.6-10.3) L 12/13/17 04:06 Venous Ioniz Calcium 1.09 mmol/L (1.15-1.35) L 12/13/17 04:35 Direct Bilirubin 0.3 mg/dL (0.0-0.2) H 12/05/17 18:50 Troponin I 1.10 ng/mL (< 0.04) H* 12/06/17 11:56 B-Natriuretic Peptide 2096 pg/mL (Less than 100) H 12/06/17 06:01 Serum Total Protein 4.3 g/dL (6.4-8.9) L 12/10/17 04:15 Albumin 2.1 g/dL (3.5-5.7) L 12/10/17 04:15 Globulin 2.2 g/dL (2.4-3.5) L 12/10/17 04:15 Albumin/Globulin Ratio 1.0 (1.1-2.2) L 12/10/17 04:15 Urine Clarity Cloudy (Clear) A 12/05/17 19:27 Ur Specific [place] 1.008 (1.010-1.025) L 12/05/17 19:27 Urine Ketones 15 mg/dL (Negative) H 12/05/17 19:27 Urine Bilirubin Moderate (Negative) H 12/05/17 19:27 Ur Leukocyte Esterase Moderate (Negative) H 12/05/17 19:27 Urine Microscopic WBC 5-15 per hpf (0-3) H 12/05/17 19:27 Ur Squamous Epith Cells Many per lpf (None-Few) H 12/05/17 19:27 Ur Culture Indicated? NO. (NO) A 12/05/17 19:27 U Benzodiazepines Scrn Positive ng/mL (Ewtaky=623) H 12/06/17 01:30 - Diagnostic Findings Chest x-ray: report reviewed, image reviewed - Clinical Findings Intake & Output: Intake & Output 12/12/17 12/13/17 12/13/17 23:59 07:59 15:59 Intake Total 511.2 / 511.2 Output Total 900 / 900 650 / 650 Balance -388.8 / -388.8 -650 / -650 Weight 66 kg
--- NOTE | 2017-12-13 09:38 | Cardiology Progress Note ---
Date of Encounter: 12/13/17 Time of Encounter: 09:30 Assessment and Plan (1) CHF (congestive heart failure) Current Visit: Yes Status: Acute Newly diagnosed severe systolic CHF this admission. Unclear etiology and chronicity. Hx of chronic ETOH abuse. No prior CV testing or ischemic evaluation. Recently extubated. Appears volume overload upon exam. Cumulative I&O: +4160 mL, satisfactory response to IV lasix. Volume overload improved. Will resume Toprol XL today with holding parameters. Consider addition of ACEi if BP will allow by discharge. PLT now normal, H/H remains stable. If respiratory status will allow, plan for LHC in AM. Long discussion with patient today, she is agreeable to proceed. Recommend strict I&O's, daily weights, Na/fluid restricted diet. Will continue to follow. Qualifiers: Heart failure type: systolic Heart failure chronicity: unspecified Qualified Code(s): I50.20 - Unspecified systolic (congestive) heart failure (2) Elevated troponin I level Current Visit: Yes Status: Acute Peak troponin 2.24 in the setting of acute encephalopathy. ACS cannot be ruled out, was on heparin gt, transitioned to agatroban, and now on fondaparinux No reported chest pain prior to event per previous documentation. Ischemic ECG changes noted. No prior CV history or testing. Of note, during last admission 2017 (severe electrolyte abnormality, FTT) she was found to have a complex pelvic mass in which malignancy could not be excluded, was referred to [facility], per notes (eCW), patient opted for surveillance given known hx of ovarian cyst and negative CA-125. TTE shows severe reduction in LVEF, 15-20% with segmental LV systolic dysfunction with LV thrombus. H/H and PLT stable--plan for LHC in AM if respiratory status will allow. Not a candidate for cardiac rehab at this time. Continue statin; will start ASA, start BB. (3) LV (left ventricular) mural thrombus Current Visit: Yes Status: Acute LV thrombus seen on a repeat liited echo (with definity). 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 Hematology was consulted. Currently on Fondaparinux SQ. Appreciate hematology recs. Coumadin is recommended with known LV thrombus with goal INR 2.0-3.0. If patient is not determined to have HIT coumadin with lovenox bridge would be recommended. Hematology consult is pending. (4) Encephalopathy Current Visit: Yes Status: Acute Secondary to chronic alcoholism. Remains intubated d/t alcohol withdraw, CIWA protocol. ICU team to manage. Discussion w patient/family: The assessment and plan as outlined above was discussed with the patient and/or family members who expressed understanding and agreement. All questions were answered. Thank you for involving us in the care of your patient. Please call with any questions. The patient will be discussed and reviewed with Dr. Amor; changes to be made accordingly. Subjective Principal diagnosis: Respiratory Failure Interval history: Seen and examined. Patient is alert and oriented x3. Breathing improved from yesterday, volume overload improved. No complaints today upon exam other than left heel pain. Objective Vital Signs, Last 4 Hours Temp Pulse Resp BP Pulse Ox 12/13/17 08:00 103 20 140/76 100 12/13/17 07:45 98.5 F 12/13/17 07:00 100 20 122/70 100 12/13/17 06:00 97 20 143/71 96 General: Conversant, No Apparent Distress HEENT: Atraumatic, Normocephaly, Mucus Membranes Moist Cardiac: Reg Rate and Rhythm, Normal S1 and S2 Lungs: Normal Breath Sounds Neuro: Alert and responsive Abdomen: Soft Extremities: Normal Pulses, Other (generalized edema) Results 12/13/17 04:06 12/13/17 04:06 Lab Results 12/13/17 12/13/17 12/13/17 04:06 04:06 04:06 WBC 9.8 Hgb 8.5 L Hct 25.7 L Plt Count 214 INR 1.4 Sodium 144 Potassium 4.0 Chloride 107 Carbon Dioxide 28 BUN 17 Creatinine 0.74 Glucose 86 Calcium 8.1 L Active Medications Atorvastatin Calcium (Lipitor) 80 mg PO HS EVARISTO Stop: 06/07/18 21:01 Last Admin: 12/12/17 20:02 Dose: 80 mg Calcium Carbonate (Tums) 1,000 mg PO TID EVARISTO PRN Reason: Protocol Stop: 06/07/18 15:01 Last Admin: 12/13/17 07:51 Dose: 1,000 mg Chlordiazepoxide HCl (Librium) 10 mg PO QID EVARISTO Stop: 06/07/18 13:46 Last Admin: 12/13/17 07:51 Dose: 10 mg Dextrose/Water (Dextrose 50% (Syg)) 25 ml IVP AD PRN PRN Reason: Hypoglycemia Stop: 06/07/18 12:09 Fondaparinux (Arixtra) 7.5 mg SQ DAILY EVARISTO Stop: 06/11/18 13:56 Last Admin: 12/13/17 07:51 Dose: 7.5 mg Glucagon (Glucagen) 1 mg IM ONCE PRN PRN Reason: Hypoglycemia Stop: 06/07/18 12:09 Glucose (Gluctose) 15 gm PO ONCE PRN PRN Reason: Hypoglycemia Stop: 06/07/18 12:09 Glucose (Gluctose) 30 gm PO ONCE PRN PRN Reason: Hypoglycemia Stop: 06/07/18 12:09 Calcium Gluconate 1,000 mg/ (Sodium Chloride) 110 mls @ 220 mls/hr IVPB Q6HR PRN PRN Reason: Hypocalcemia Stop: 06/07/18 01:37 Last Admin: 12/13/17 07:52 Dose: 220 mls/hr Magnesium Sulfate (Magnesium Sulfate Premix 2gm/50ml) 2 gm in 50 mls @ 50 mls/ hr IVPB Q6H PRN PRN Reason: Hypomagnesemia Stop: 06/07/18 01:37 Last Admin: 12/11/17 14:52 Dose: 50 mls/hr Potassium Phosphate 44 meq/ (Sodium Chloride) 260 mls @ 40 mls/hr IVPB Q10H PRN PRN Reason: Phosphate less than 3 Stop: 06/07/18 01:37 Last Infusion: 12/06/17 11:38 Dose: Infused Dextrose (Dextrose 5%) 1,000 mls @ 100 mls/hr IVC .Q10H PRN PRN Reason: HYPOGLYCEMIA Stop: 06/07/18 12:09 Potassium Chloride 10 meq/ (Sodium Chloride) 100 mls @ 100 mls/hr IVPB Q1H PRN PRN Reason: Potassium less than 4 Stop: 06/07/18 01:37 Last Infusion: 12/10/17 06:42 Dose: Infused Midazolam HCl 50 mg/ Sodium (Chloride) 100 mls @ 4 mls/hr IVC CONT EVARISTO; 2 MG/HR PRN Reason: Protocol Stop: 06/08/18 08:16 Last Titration: 12/12/17 05:14 Dose: 0 mg/hr, 0 mls/hr Thiamine HCl 100 mg/ Folic Acid 1 mg/ Multivitamins 10 ml / Sodium Chloride 511.2 mls @ 85.2 mls/hr IVPB DAILY@1800 EVARISTO Stop: 06/13/18 18:01 Last Infusion: 12/12/17 23:00 Dose: Infused Lactulose (Lactulose) 20 gm PO DAILY EVARISTO Stop: 06/07/18 14:01 Last Admin: 12/13/17 07:51 Dose: 20 gm Lorazepam (Ativan) 2 mg IVP Q6HR PRN PRN Reason: CIWA>10 Stop: 06/07/18 13:38 Last Admin: 12/06/17 18:11 Dose: 2 mg Lorazepam (Ativan) 4 mg IVP Q4HR PRN PRN Reason: CIWA>20 Stop: 06/07/18 13:38 Lorazepam (Ativan) 1 mg IVP Q1H PRN PRN Reason: Anxiety Stop: 06/07/18 01:28 Last Admin: 12/06/17 20:27 Dose: 1 mg Magnesium Oxide (Mag-Ox) 400 mg PO DAILY EVARISTO PRN Reason: Protocol Stop: 06/08/18 09:01 Last Admin: 12/13/17 07:51 Dose: 400 mg Naloxone HCl (Narcan) 0.4 mg IVP Q2MIN PRN PRN Reason: SEE COMMENTS Stop: 06/07/18 01:11 Nicotine (Nicoderm) 21 mg TD DAILY EVARISTO PRN Reason: Protocol Stop: 06/07/18 21:16 Last Admin: 12/13/17 07:51 Dose: 21 mg Oxycodone HCl (Oxycodone Oral Conc) 5 mg SL Q6HR PRN; Protocol PRN Reason: Pain Stop: 06/13/18 10:49 Last Admin: 12/12/17 22:27 Dose: 5 mg Quetiapine Fumarate (Seroquel) 50 mg PO BID EVARISTO PRN Reason: Protocol Stop: 06/11/18 21:01 Last Admin: 12/13/17 07:50 Dose: 50 mg Sodium Bicarbonate (Sodium Bicarbonate) 650 mg PO TID EVARISTO Stop: 06/07/18 15:01 Last Admin: 12/13/17 07:50 Dose: 650 mg Vitamin D (Vitamin D) 1,000 unit PO DAILY EVARISTO Stop: 06/07/18 13:46 Last Admin: 12/13/17 07:51 Dose: 1,000 unit Warfarin Sodium (Coumadin Perpt) 1 each PO DAILY@1800 PRN PRN Reason: SEE COMMENTS Stop: 06/13/18 18:01 - Imaging and Cardiology Echo: report reviewed Other Results: 12 hour tele: avg IC=463 ST/SR - EKG Interpretation EKG results cardiology: personally reviewed Consult Discharge Plan - Plan Referrals: Chel Munroe, DIRECTOR OF STRATEGIC INITIATIVES [Primary Care Provider] -
[2017-12-13] MEDS ORDERED: Furosemide 40 MG/4 ML VIAL IVP ONE (09:48)
[2017-12-13] MEDS ORDERED: Aspirin Enteric Coated 81 MG Tablet PO SCH (10:15)
[2017-12-13 10:45] LABS: Folate 13.5 ng/mL (3.0-16.0)
[2017-12-13 10:48] LABS: Vitamin B12 > 1500 pg/mL (250-1100)
[2017-12-13] MEDS ORDERED: Piperacillin/Tazobactam 3.375 GM in 0.9 % Sodium Chloride Mini Bag 100 ML IVPB SCH (11:00)
[2017-12-13 13:43] LABS: VBG Ionized Calcium 1.09 mmol/L (1.15-1.35)
[2017-12-13] MEDS ORDERED: Dextrose Gel 15 GM/37.5 ML TUBE PO PRN ×2 (16:29)
[2017-12-13] MEDS ORDERED: Naloxone 0.4 MG/ML INJ IVP PRN (16:29)
[2017-12-13] MEDS ORDERED: *HR* LORazepam 2 MG/ML VIAL IVP PRN (16:29)
[2017-12-13] MEDS ORDERED: Warfarin perPT PO PRN (16:29)
[2017-12-13] MEDS ORDERED: *HR* Dextrose 50 % in Water (Syg) 50 ML SYRINGE IVP PRN (16:29)
[2017-12-13] MEDS ORDERED: D5% in Water 1,000 ML IVC PRN (16:29)
[2017-12-13] MEDS: Piperacillin/Tazobactam 3.375 GM in 0.9 % Sodium Chloride Mini Bag 100 ML IVPB SCH (17:26)
[2017-12-13] MEDS: Metoprolol XL (24 HR) Succ 25 MG TAB.ER.24H PO SCH (17:32)
[2017-12-13] MEDS ORDERED: Thiamine (B-1) 100 MG, Folic Acid 1 MG, MVI, adult with vitamin K 10 ML in 0.9 % Sodi... IVPB SCH (18:00)
[2017-12-13] MEDS ORDERED: *HR* Warfarin 5 MG TABLET PO ONE (18:00)
[2017-12-13] MEDS: OXYCODONE Oral CONC 10 MG/0.5 ML ORAL.SYG SL PRN (21:11)
[2017-12-13] MEDS ORDERED: GuaiFENesin Liq 200 MG/10 ML UDC PO PRN (22:15)
[2017-12-14] MEDS: Piperacillin/Tazobactam 3.375 GM in 0.9 % Sodium Chloride Mini Bag 100 ML IVPB SCH ×4 (01:27→23:02)
[2017-12-14 03:50] LABS: INR 1.5; Prothrombin Time 16.3 Seconds (9.4-12.1)
[2017-12-14] MEDS ORDERED: *HR* Enoxaparin 60 MG/0.6 ML SYRINGE SQ SCH (08:00)
[2017-12-14] MEDS: Metoprolol XL (24 HR) Succ 25 MG TAB.ER.24H PO SCH (09:10)
[2017-12-14] MEDS: Aspirin Enteric Coated 81 MG Tablet PO SCH (09:10)
[2017-12-14] MEDS: Magnesium Oxide 400 MG TABLET PO SCH (09:11)
[2017-12-14] MEDS: Lactulose Oral Soln 20 GM/30 ML UDC PO SCH (09:11)
[2017-12-14] MEDS: Nicotine 21 MG PATCH.TD24 TD SCH (09:11)
[2017-12-14] MEDS: Cholecalciferol (D-3) 1,000 UNIT TABLET PO SCH (09:11)
--- NOTE | 2017-12-14 09:45 | Event Note ---
Date of Encounter: 12/14/17 Time of Encounter: 09:00 - Cardiology Event Note Planning for [facility] today. Hgb remains stable. Plt normal. Patient layed flat for 20 min and tolerated well with SPO2 staying above 94%. CXR reviewed with Dr. Amor. Reported at skin fold verses small pnuemothorax. Noted that pulmonology reported LLL consolidation likely due to aspiration pneumonia yesterday. Will repeat CXR to r/o pnuemothorax prior to [facility]. R/B/A of [facility] reviewed. Patient agrees to proceed.
--- NOTE | 2017-12-14 14:33 | Pre-Sedation Evaluation ---
Pre-sedation evaluation - Pre-sedation checklist Date of procedure: 12/14/17 Procedure: Heart Cath Recent Vitals: Last Vital Signs Temp 99.3 F 12/14/17 11:35 Pulse 88 12/14/17 11:35 Resp 14 12/14/17 11:35 BP 130/80 12/14/17 11:35 Pulse Ox 98 12/14/17 11:35 H&P (including ROS) documented in medical record: Yes Previous reaction to sedatives/anesthetics: No Dietary Status: NPO after Midnight Dentition: No loose teeth or bridges ASA Classification *see protocol: CLASS II-Mild systemic disease
[2017-12-14] MEDS ORDERED: 0.9 % Sodium Chloride 1,000 ML ONE ×2 (14:37→15:03)
[2017-12-14] MEDS ORDERED: Nitroglycerin 1,000 MCG/10 ML VIAL IV ONE (14:38)
[2017-12-14] MEDS ORDERED: Heparin 1,000 UNITS/500 mL 500 ML ONE (14:38)
[2017-12-14] MEDS ORDERED: *HR* Heparin 10,000 UNIT/10 ML VIAL ONE (14:38)
[2017-12-14] MEDS ORDERED: ISOVUE-370 200 ML INFUS..BTL IV ONE (14:38)
[2017-12-14] MEDS ORDERED: *HR* Midazolam HCl 2 MG/2 ML VIAL ONE (15:13)
[2017-12-14] MEDS ORDERED: *HR* FentaNYL (PF) 100 MCG/2 ML VIAL ONE (15:13)
--- NOTE | 2017-12-14 15:56 | Invasive Diagnostic Lab Proc ---
Name: Amy Cabrera Date of Study: 12/14/2017 Date: 1950 Ht: 66.1in Medical Record#: [id number] Age: 67 Wt: 132.28lb Gender: Female BSA: 1.68 Order #: [id number] BMI: 21.26 Physicians Procedure Physician: Zhao Gonsalez MD Referring MD: Cehl Munroe CNP Referring MD: Staff Name Position Time In [place] Santiago RN Drug Safety Specialist 03:00 PM Aide Blankenship RT (R) Monitor 03:01 PM Nohelia Xiong RT Scrub 03:01 PM Indications Indication Non-Stemi Procedures Performed Procedure CORONARY ARTERY ANGIO S&I Pre-Procedure Checklist Pt not NPO for procedure and MD aware. Plan of Care Patient will tolerate the procedure without complications. Adequate level of comfort will be maintained. Hemodynamics will remain stable Patient will recover from procedure without complications. Respiratory function will be maintained. Cardiac rhythm will remain stable. Patient temperature will be maintained. Patient and/or family have verbalized understanding of the procedure. Patient Education Chief Complaint/Reason for Test: Cardiac Cath Developmental Category: Geriatric (65+ years) Developmentally Appropriate for Age: Yes Learning Barriers: None Education Needs: Procedure Education Method: Verbal Information Taught: Cardiac Cath Educational Evaluation: Able to repeat information Intravenous Access Time IV Size Location DC'd Fluid/Drip Rate Units RN 20g 1 /" Patent On Arrival Lt Antecubital Allergies NKA No Known Allergies Vital Signs Time BP (mmHg) HR (bpm) O2 Sat. RR (bpm) LOC 130 / 80 88 98 % 20 5 = Fully awake and oriented or at pre-proc level 03:12 PM 162 / 86 88 100 % 03:17 PM 151 / 85 88 100 % 03:21 PM 153 / 84 87 100 % 03:26 PM 156 / 83 89 100 % 03:31 PM 155 / 81 89 97 % 03:37 PM 158 / 79 90 97 % 03:42 PM 154 / 79 88 97 % Procedural Medications Time Medication Dose Units Method Given By 03:12 PM Oxygen 2 L/min nasal cannula [place] Santiago RN 03:18 PM Versed 0.5 mg Intravenous [place] Santiago RN 03:18 PM Fentanyl 25 mcg Intravenous [place] Santiago RN 03:23 PM Lidocaine 2% 10 ml Subcutaneous Zhao Gonsalez MD ASA Classification: CLASS II- Mild systemic disease (i.e. well-controlled diabetes, hypertension, asthma, cigarette smoking) Myron Score Preprocedure Postprocedure Activity 2- Moves 4 extremities sustained head lift Activity Circulation 2- SBP +/= 20 points of pre-anesthetic level Circulation Consciousness 2- Awake and alert oriented x 3 Consciousness O2 Saturation 1- Needs O2 inhalation to maintain O2 saturation of 90% O2 Saturation Respiratory 1- Labored or limited respiration requires airway Respiratory Total Score 8 Total Score Contrast Agent: Isovue Diagnostic Contrast: 54 ml Total Contrast: 54 ml Fluoro Dose: 223 mGy Procedure Log Time Note Enter By 02:45 PM CathStat 03:00 PM Physician arrived 15:00 [email or web address] 03:00 PM Pt arrived to research laboratory technician 2 at 15:00 [email or web address] 03:01 PM Washington Santiago RN Position: Drug Safety Specialist Time in: 15:00 [email or web address] 03:01 PM Aide Blankenship RT (R) Position: Monitor Time in: 15: kkner 03:01 PM Nohelia Xiong RT Position: Scrub Time in: 15:01 [email or web address] 03:01 PM Patient charges- Angio tray pack, Navilyst 3mm J, Pulse Oximetry and ACIST tubing and transducer [email or web address] 03:01 PM IV Supplies used: J loop Angio Cath. kkallner 03:02 PM Case Delayed No, inpatient kkallner 03:02 PM ASA Class CLASS II- Mild systemic disease (i.e. well-controlled diabetes, hypertension, asthma, cigarette smoking) kkallner 03:04 PM Case Start 03:04 PM Meet and greet completed kkallner 03:05 PM Sign in performed according to hospital policy. [email or web address] 03:05 PM Procedure start 15:05 kkallner 03:11 PM Vitals capture started with the following parameters, Patient=Adult, Interval=5 min, Initial Cmfcplwh=676 mmHg, Deflation Rate=5 mmHg, Cuff placed on Right Arm 03:12 PM HR=88 bpm, NTWW=892/86 mmhg, HxZ9=564.0 %, Comment=Sinus Rhythm 03:12 PM Time: 15:12 Oxygen on at 2 L/min per nasal cannula by Washington Santiago RN [facility] 03:17 PM HR=88 bpm, RNFG=712/85 mmhg, WtT2=661.0 %, Comment=Sinus Rhythm 03:18 PM Time: 15:18 Versed 0.5 mg Intravenous Given by Washington Santiago RN [email or web address] 03:18 PM Time: 15:18 Fentanyl 25 mcg Intravenous Given by Washington Santiago RN [email or web address] 03:21 PM Pressure channel 1 zero failed. 03:21 PM HR=87 bpm, KTSM=787/84 mmhg, ViA1=571.0 %, Comment=Sinus Rhythm 03:21 PM Pressure channel 1 zeroed. 03:22 PM Time: 15:22 Patient comfortable and pain free: Yes dspell 03: PM Time out performed according to hospital policy dspell 03:23 PM Time: 15:23 10 ml Lidocaine 2% to right groin Subcutaneous Given by [facility]alez [facility] 03:24 PM Micro-Introducer Kit utilized for sheath placement dspell 03:25 PM Clinical Presentation: Non-STEMI dspell 03:25 PM Bolus angiogram of right Femoral complete: hand injection for a total of 3 mls dsp:26 PM Access obtained by percutaneous puncture. 6Fr 10cm Terumo Hildebran sheath placed in right Femoral artery. [id number] dspell 03:26 PM 5Fr FR 4 catheter inserted over the wire [facility] ell:26 PM 0.035 145cm Navilyst 3mmJ wire [id number] dspell 03:26 PM HR=89 bpm, EODQ=637/83 mmhg, LsL8=903.0 %, Comment=Sinus Rhythm 03:27 PM Recorded Pressure: Ao, HR=86, Condition=Condition 1 (Aorta) Ao 153/69/105 03:27 PM RCA angiography performed in multiple views. dsp 03:28 PM Lesion found in Mid RCA. Pre Stenosis: 25 Pre EZE Flow: 3: Complete and Brisk Flow/Perfusion dspell 03:28 PM Catheter removed dspell 03:28 PM 5Fr FL 4 catheter inserted over the wire [facility] dspell 03:28 PM LCA angiography performed in multiple views. dspell 03:29 PM Recorded Pressure: Ao, HR=87, Condition=Condition 1 (Aorta) Ao 156/70/106 03:30 PM Recorded Pressure: Ao, HR=84, Condition=Condition 1 (Aorta) Ao 128/70/97 03:30 PM Catheter removed dspellman 03:31 PM Coronary Dominance: right dspellman 03:31 PM HR=89 bpm, YBTP=293/81 mmhg, SpO2=97.0 %, Comment=Sinus Rhythm 03:32 PM Lesion found in Proximal LAD. Pre Stenosis: 25 Pre EZE Flow: 3: Complete and Brisk Flow/Perfusion dspellman 03:32 PM Lesion found in Mid LAD. Pre Stenosis: 40 Pre EZE Flow: 3: Complete and Brisk Flow/Perfusion dspellman 03:33 PM Recorded Pressure: Ao, HR=91, Condition=Condition 1 (Aorta) Ao 139/79/108 03:34 PM Proximal Left Anterior Descending Coronary Artery with 25% stenosis. If graft is supplying this territory, 0 % stenosis. dspellman 03:34 PM Mid/Distal Left Anterior Descending Coronary Artery and diagonal branches with 40% stenosis. If graft is supplying this area, 0 % stenosis dspellman 03:36 PM Procedure completed at 15:36 dspellman 03:36 PM Did you address EZE flow and Dominance? Yes dspellman 03:37 PM HR=90 bpm, NZTY=373/79 mmhg, SpO2=97.0 %, Comment=Sinus Rhythm 03:38 PM Time: 15:22 Patient comfortable and pain free: Yes dspellman 03:38 PM Sign out completed: Radiation Dose 223.04 mGy Fluoro Time: 1.3 Isovue 370 - 200ml contrast 54 ml given by Zhao Gonsalez MD. Complications: NoneCardiac Rehab Consult needed: NoConfirmed administered medications: Yes dspellman 03:40 PM Isovue 370 - 200ml,1 Bottle(s) used. dspellman 03:40 PM Arterial sheath pulled, Mynx closure device used and was Successful [id number] S/N. dspellman 03:40 PM Estimated Blood Loss: minimal dspellman 03:41 PM Post ECG NSR dspellman 03:41 PM Post Blood Pressure 158/79 dspellman 03:41 PM 15:41 Post Pulses Bilateral DP & PT 1+ dspellman 03:41 PM Information taught Cardiac Cath and Mynx dspellman 03:41 PM Education needs Procedure, Plan of Care, and Responsibilities of Patient in Care dspellman 03:41 PM Learning barriers :None dspellman 03:41 PM Education Methods Verbal dspellman 03:41 PM Education evaluation Able to repeat information dspell 03:41 PM Site status No bleeding/hematoma - Rt Groin as reported by Nohelia Xiong RT at 15:41 dspell 03:41 PM Opsite applied dspell 03:42 PM HR=88 bpm, DFCH=538/79 mmhg, SpO2=97 % 03:42 PM Complications: None dspell 03:42 PM Fluoro Time: 1.3 dspell 03:42 PM Isovue 370 - 200ml contrast [address] Gonsalez. dspell 03:42 PM Radiation Dose 223.04 mGy dspell 03:46 PM Report given to Alyssia HEREDIA Pt taken to 3A Room #21. 15:46 dspell 03:46 PM Patient out of room: 15:46 [facility] Complications Complication None None Hemodynamics Pressures Site Systolic/A Wave Diastolic/V Wave Mean AO 153 69 105 AO 156 70 106 AO 128 70 97 AO 139 79 108 Post Procedure Information Blood Pressure: 158/79 mmHg Rhythm: NSR Site Checks Time Location Status Staff Sheath In? Note 03:41 PM Rt Groin No bleeding/hematoma Nohelia Xiong RT Pulses Time Site Pre-Procedure Post-Procedure Note Bilateral DP & PT 1+ 3:41:00 PM Bilateral DP & PT 1+ Updated by Nohelia Xiong RT (R) on 12/14/2017 3:46:59 PM RT Derek electronically signed on 12/14/2017 3:47:52 PM with status of Final
--- NOTE | 2017-12-14 16:01 | Event Note ---
Date of Encounter: 12/14/17 Time of Encounter: 15:59 - Cardiology Event Note LHC completed. 40% mLAD and 25% pLAD stenosis. No significant lesions that warrant intervention. NICMP. Add ACEi given CMP--Lisinopril 2.5mg daily. Continue BB. In regards to LV thrombus, Coumadin with goal INR 2-3. Needs bridging per primary team until therapeutic. Cardiology signing off. Reconsult PRN. Will coordinate outpt follow-up in 2-3 weeks as outpt.
--- NOTE | 2017-12-14 16:21 | Oncology Inp Consult Note ---
<Dk Clark Jr - Last Filed: 12/14/17 18:11> Date of Encounter: 12/14/17 Time of Encounter: 16:16 Assessment and Plan (1) LV (left ventricular) mural thrombus Status: Acute Assessment and plan: Patient with LV mural thrombus on arixtra. She had LHC completed today. She has 40% mLAD and 25% pLAD stenosis. No significant lesions that warrant intervention. NICMP. Add ACEi given CMP--Lisinopril 2.5mg daily. Continue BB. Concern for HIT syndrome. Hematology consulted. After review, we feel she does not meet criteria for HIT. Our recommendation is keep her on arixtra and to bridge to coumadin. Coumadin with goal INR 2-3. Dr Varela assessed patient with me today - Data of Consult Patient: new to practice Consult date: 12/14/17 Requesting Physician: Joy Borjas MD Primary Care Provider: Chel Munroe CNP - Consult Narrative Reason for consult: LV thrombus History of present illness: Ms. Cabrera is a 67 year old female with past medical history of chronic alcoholism, hypertension, GERD, and recent hospitalization for electrolyte abnormalities and failure to thrive who presented to [facility] on 12/05/2017 for altered mental status. Initial laboratory analysis revealed severe hypokalemia and hypomagnesemia. Patient had elevations of her troponin and T-wave inversions in 23 and V2 through V5. Cardiology was consulted from the ED and recommended a heparin drip and aspirin after CT scan of the head was negative for acute intracranial pathology. Admitted to ICU several days for CHF and encephalopathy. On 12/06/17 patient was found to have left ventricular thrombus, LVEF 15%. On 12/14/17 sent for C with minimal plaques, no stents. Hematology consulted for anticoagulation recommendations for LV thrombus Past Med Surg Social Fam HX - Past Medical History Medical history: COPD, GERD, hyperlipidemia, hypertension, migraine Psychiatric history: anxiety, depression, other (Chronic alcoholism) - Past Surgical History Surgical History: - Social History Smoking Status: Current every day smoker Packs per day: 2 Smokeless Tobacco Status: No Alcohol use: heavy Drug use: none - Family History Mother Living Status: Hx Family Cardiac Disorders: Yes Hx Family Endocrine Disorder: Yes (uncontrolled DM) Father Living Status: Hx Family Cardiac Disorders: Yes Hx Family GI Disorders: Yes Medications and Allergies Atorvastatin [Lipitor] 80 mg PO HS 09/10/17 [History] Omeprazole [PriLOSEC] 20 mg PO DAILY 09/10/17 [History] Tramadol HCl [Ultram] 50 mg PO Q6-8H PRN 09/10/17 [History] Atenolol [Tenormin] 50 mg PO BID #60 tablet 09/14/17 [Rx] Phos-NaK [Neutra-Phos] 2 each PO BID #120 powd.pack 09/14/17 [Rx] Potassium Chloride 20 meq PO BID #60 tab.er.prt 09/14/17 [Rx] Sodium Bicarbonate 650 mg PO TID #180 tablet 09/14/17 [Rx] amLODIPine [Norvasc] 10 mg PO DAILY #60 tablet 09/14/17 [Rx] Lactulose [Lactulose] 15 ml PO DAILY 12/05/17 [History] Magnesium Oxide [Mag-Ox] 400 mg PO TID 12/05/17 [History] 3 Allergy/AdvReac Type Severity Reaction Status Date / Time No Known Allergies Allergy Verified 12/05/17 18:06 Constitutional: Present: fatigue Cardiovascular: Present: chest pain with activity Musculoskeletal: Present: muscle cramps Oncology - Exam - Constitutional Vitals: Temp Pulse Resp BP Pulse Ox 99.3 F 88 14 130/80 98 12/14/17 11:35 12/14/17 11:35 12/14/17 11:35 12/14/17 11:35 12/14/17 11:35 General appearance: cooperative, no acute distress - Head Head exam: Present: atraumatic, normocephalic - Eye Pupils: Present: PERRL - ENT ENT exam: Present: mucous membranes moist - Neck Neck exam: Present: full ROM, normal inspection - Respiratory Respiratory exam: Present: CTAB - Cardiovascular Cardiovascular exam: Present: RRR, +S1, +S2 - GI/Abdominal GI/Abdominal exam: Present: normal bowel sounds, soft - Extremities Exam Extremities exam: Present: calf tenderness (right) - Neurological Exam Neurological exam: Present: alert, oriented X3, no focal deficits Oncology - Results Labs: Laboratory Last Values WBC 9.8 K/mcL (4.3-11.1) 12/13/17 04:06 RBC 2.63 M/mcL (3.82-4.97) L 12/13/17 04:06 Hgb 8.5 g/dL (11.5-15.4) L 12/13/17 04:06 Hct 25.7 % (35.3-44.9) L 12/13/17 04:06 MCV 97.7 fL (83.0-100.0) 12/13/17 04:06 MCH 32.3 pg (28.0-33.3) 12/13/17 04:06 MCHC 33.1 g/dL (31.6-35.5) 12/13/17 04:06 RDW 18.4 % (11.5-14.5) H 12/13/17 04:06 Plt Count 214 K/mcL (140-400) 12/13/17 04:06 MPV 10.4 fL (9.4-12.4) 12/13/17 04:06 Immature Gran % 0.7 % (0-4) 12/13/17 04:06 Seg Neutrophils % 77.5 % 12/13/17 04:06 Lymphocytes % 11.8 % 12/13/17 04:06 Monocytes % 9.0 % 12/13/17 04:06 Eosinophils % 0.7 % 12/13/17 04:06 Basophils % 0.3 % 12/13/17 04:06 Neutrophils # 7.6 K/mcL (1.6-8.9) 12/13/17 04:06 Lymphocytes # 1.2 K/mcL (0.6-4.6) 12/13/17 04:06 Monocytes # 0.9 K/mcL (0.0-1.3) 12/13/17 04:06 Eosinophils # 0.1 K/mcL (0.0-0.6) 12/13/17 04:06 Basophils # 0.0 K/mcL (0.0-0.2) 12/13/17 04:06 Nucleated RBCs/100 WBC 0.3 /100 WBC (0) H 12/09/17 04:00 Platelet Estimate Slight Decrease (Normal) L 12/10/17 04:15 Immature Plt Fraction 3.3 % (1.1-6.1) 12/13/17 04:06 Hypochromasia Present (Not Present) A 12/10/17 04:15 Poikilocytosis 1+ (Not Present) A 12/10/17 04:15 Anisocytosis 1+ (Not Present) A 12/09/17 04:00 Macrocytosis Present (Not Present) A 12/10/17 04:15 PT 16.3 Seconds (9.4-12.1) H 12/14/17 03:28 INR 1.5 12/14/17 03:28 APTT 50.7 Seconds (26.0-36.0) H 12/10/17 04:15 Sample Site R Radial 12/12/17 05:20 ABG pH 7.46 pH Units (7.32-7.45) H 12/12/17 05:20 ABG pCO2 38 mmHg (35-45) 12/12/17 05:20 ABG pO2 128 mmHg (85-104) H 12/12/17 05:20 ABG HCO3 27 mEq/L (21-27) 12/12/17 05:20 ABG Total CO2 28 mEq/L (20-26) H 12/12/17 05:20 ABG O2 Saturation 99 % (95-98) H 12/12/17 05:20 ABG Base Excess 3 mEq/L (-2 to 3) 12/12/17 05:20 Gunner Test N/A 12/12/17 05:20 VBG pH 7.32 pH Units (7.32-7.42) 12/10/17 05:31 Respiration Rate 12 12/11/17 05:16 O2 Delivery Device Adult Vent 12/12/17 05:20 Blood Gas Modality VC 12/12/17 05:20 Inspired O2 30.0 (1-15=lpm ou08-103=%) 12/12/17 05:20 Tidal Volume 450 cc 12/12/17 05:20 PEEP 5 cm H2O 12/11/17 05:16 Pressure Support 10 cm H2O 12/10/17 09:35 Sodium 144 mEq/L (136-145) 12/13/17 04:06 Potassium 4.0 mEq/L (3.5-5.1) 12/13/17 04:06 Chloride 107 mEq/L (98-107) 12/13/17 04:06 Carbon Dioxide 28 mEq/L (23-29) 12/13/17 04:06 BUN 17 mg/dL (8-23) 12/13/17 04:06 Creatinine 0.74 mg/dL (0.60-1.20) 12/13/17 04:06 Est GFR ( Amer) > 60 (> 60) 12/13/17 04:06 Est GFR (Non-Af Amer) > 60 (> 60) 12/13/17 04:06 BUN/Creatinine Ratio 23 (6-26) 12/13/17 04:06 Glucose 86 mg/dL (70-105) 12/13/17 04:06 POC Glucose 85 mg/dL (70-99) 12/14/17 12:04 Calculated Osmolality 299 (280-300) 12/13/17 04:06 Calcium 8.1 mg/dL (8.6-10.3) L 12/13/17 04:06 Venous Ioniz Calcium 1.09 mmol/L (1.15-1.35) L 12/13/17 13:40 Phosphorus 4.1 mg/dL (2.7-4.5) 12/11/17 04:14 Magnesium 2.0 mg/dL (1.6-2.6) 12/12/17 04:15 Total Bilirubin 0.4 mg/dL (0.3-1.0) 12/10/17 04:15 Direct Bilirubin 0.3 mg/dL (0.0-0.2) H 12/05/17 18:50 Indirect Bilirubin 0.7 mg/dL (0.0-1.2) 12/05/17 18:50 AST 14 Units/L (13-39) 12/10/17 04:15 ALT 15 Units/L (7-52) 12/10/17 04:15 Alkaline Phosphatase 90 Units/L (34-104) 12/10/17 04:15 Ammonia 24 mcmol/L (16-53) 12/06/17 06:01 Troponin I 1.10 ng/mL (< 0.04) H* 12/06/17 11:56 B-Natriuretic Peptide 2096 pg/mL (Less than 100) H 12/06/17 06:01 Serum Total Protein 4.3 g/dL (6.4-8.9) L 12/10/17 04:15 Albumin 2.1 g/dL (3.5-5.7) L 12/10/17 04:15 Globulin 2.2 g/dL (2.4-3.5) L 12/10/17 04:15 Albumin/Globulin Ratio 1.0 (1.1-2.2) L 12/10/17 04:15 Vitamin B12 > 1500 pg/mL (250-1100) H 12/13/17 09:20 Folate 13.5 ng/mL (3.0-16.0) 12/13/17 09:20 TSH 1.732 mcIU/mL (0.340-5.600) 12/06/17 06:01 Urine Color Yellow (Yellow) 12/05/17 19: Urine Clarity Cloudy (Clear) A 12/05/17 19: Urine pH 6.5 pH Units (5.0-8.0) 12/05/17: Ur Specific [place] 1.008 (1.010-1.025) L 12/05/17 19: Urine Protein Trace mg/dL (Neg-Trace) 12/05/17: Urine Glucose (UA) Normal mg/dL (Normal) 12/05/17 19: Urine Ketones 15 mg/dL (Negative) H 12/05/17 19: Urine Blood Negative (Negative) 12/05/17: Urine Nitrite Negative (Negative) 12/05/17: Urine Bilirubin Moderate (Negative) H 12/05/17 19: Urine Urobilinogen Normal mg/dL (Normal) 12/05/17 19: Ur Leukocyte Esterase Moderate (Negative) H 12/05/17 19:27 Urine Microscopic RBC 0-3 per hpf (0-3) 12/05/17 19: Urine Microscopic WBC 5-15 per hpf (0-3) H 12/05/17 19:27 Ur Squamous Epith Cells Many per lpf (None-Few) H 12/05/17 19: Urine Bacteria None Seen per hpf (None-Few) 12/05/17: Hyaline Casts None Seen per lpf (None-Few) 12/05/17 19: Ur Culture Indicated? NO. (NO) A 12/05/17 19: Urine Opiates Screen Negative ng/mL (Rrkurv=034) 12/06/17 01:30 Ur Barbiturates Screen Negative ng/mL (Acarmx=968) 12/06/17 01:30 Ur Phencyclidine Scrn Negative ng/mL (Cutoff=25) 12/06/17 01:30 Ur Amphetamines Screen Negative ng/mL (Moascp=9086) 12/06/17 01:30 U Benzodiazepines Scrn Positive ng/mL (Znggsp=588) H 12/06/17 01:30 Urine Cocaine Screen Negative ng/mL (Cutoff= 300) 12/06/17 01:30 U Marijuana (THC) Screen Negative ng/mL (Cutoff = 50) 12/06/17 01:30 Consult Discharge Plan - Plan Referrals: Chel Munroe CNP [Primary Care Provider] - <Hossein Varela - Last Filed: 12/15/17 08:33> Date of Encounter: 12/15/17 - Data of Consult Requesting Physician: Joy Borjas MD Primary Care Provider: Chel Munroe CNP - Consult Narrative History of present illness: Ms. Cabrera is a 67 year old female Oncology - Exam - Constitutional Vitals: Temp Pulse Resp BP Pulse Ox 98.6 F 100 16 153/80 95 12/15/17 07:09 12/15/17 07:09 12/15/17 07:09 12/15/17 07:09 12/15/17 07:09 Oncology - Results Labs: Short CBC 12/15/17 Range/Units 05:19 WBC 7.8 (4.3-11.1) K/mcL Hgb 7.3 L (11.5-15.4) g/dL Hct 23.2 L (35.3-44.9) % Plt Count 222 (140-400) K/mcL Neutrophils # 5.9 (1.6-8.9) K/mcL BMP 12/15/17 05:19 Sodium 147 H Potassium 3.5 Chloride 112 H Carbon Dioxide 29 BUN 14 Creatinine 0.69 Glucose 95 Calcium 8.6 - Attending Attestation I have seen and eamined Ms. Cabrera and agree with Mr. Clark's note. Although I do not think this is MANNY, I cannot confirm prior heparin exposures during prior hospitalization. As I do not have another explanation, and the time course could fit MANNY if exposed to prior heparin (a quick decline in platelet count as opposed to over a course of 4-5 days), I think the current care plan using arixtra as a bridge to therapeutic anticoagulation is completely reasoanble. BECKA with PF4 IgG has been sent and will likely take 5-7 days to process. She has porgressive anemia. I have sent iron studies. If they are diminished, would recommend IV iron. Will defer management of her cardiac thrombus to cardiology and will otherwise sign off.
[2017-12-14] MEDS: Thiamine (B-1) 100 MG TABLET PO SCH (17:53)
[2017-12-14] MEDS: *HR* Fondaparinux 7.5 MG/0.6 ML SYRINGE SQ SCH (17:53)
[2017-12-14] MEDS ORDERED: *HR* Enoxaparin 80 MG/0.8 ML SYRINGE SQ SCH (18:00)
[2017-12-14] MEDS ORDERED: *HR* Warfarin 5 MG TABLET PO ONE (18:00)
--- NOTE | 2017-12-14 18:09 | Internal Med Progress Note ---
Date of Encounter: 12/17/17 Time of Encounter: 14:08 - Assessment and plan (1) Encephalopathy Current Visit: Yes Status: Resolved Assessment and plan: Acute metabolic encephalopathy, consider alcohol withdrawal No evidence of hepatic encephalopathy Continue lactulose Concerns for recent onset of dementia. At this point considering metabolic versus toxic encephalopathy. -CT head negative for acute abnormality. -[facility] protocol - no longer needed - Taper Librium Resolved (2) NSTEMI (non-ST elevated myocardial infarction) Current Visit: Yes Status: Acute Assessment and plan: Non-STEMI EKG changes including T-wave inversions in II, III, and V2 through V5 and troponins elevated at 2.05. -Aspirin , atenolol, Lipitor - Patient is on Arixtra bridging to coumadin. LHC done on 12/14: 40%mLAD and 25% pLAD stenosis. Per Cardiology, No significant lesions that warrant intervention. NICMP. daily. - Continue BB. - ACEi was added, lisinopril 2.5 mg daily For LV thrombus, Coumadin with goal INR 2-3. Needs bridging per primary team until therapeutic. (3) COPD (chronic obstructive pulmonary disease) Current Visit: Yes Status: Chronic Qualifiers: COPD type: unspecified COPD Qualified Code(s): J44.9 - Chronic obstructive pulmonary disease, unspecified (4) Hypertension Current Visit: No Status: Chronic Assessment and plan: On Toprol XL and lisinopril Lisinopril 2.5 mg daily was added on 12/15. Continue medications Qualifiers: Hypertension type: unspecified Qualified Code(s): I10 - Essential (primary ) hypertension (5) Hypokalemia Current Visit: No Status: Acute Assessment and plan: -Repletion as necessary. (6) Hypomagnesemia Current Visit: Yes Status: Acute Assessment and plan: Replace as needed (7) Ovarian cyst, left Current Visit: No Status: Acute (8) Hypocalcemia Current Visit: Yes Status: Acute Assessment and plan: Replete orally - Time Spent With Patient Total time spent is greater than 50% in coordination of care (as documented) at patient's floor/unit and/or counseling patient: - Subjective Interval history: No acute events - Constitutional Vitals: Temp Pulse Resp BP Pulse Ox 98.2 F 94 16 123/70 93 12/14/17 17:17 12/14/17 18:01 12/14/17 18:01 12/14/17 18:01 12/14/17 18:01 General appearance: Present: disheveled, A&O X 3, no acute distress, underweight , loss of weight. Absent: cooperative Exam: CVS: RRR Lungs: Poor air exchange Abd: NT/ND Ext: no edema Internal Medicine: Result - Labs CBC & Chem 7: 12/17/17 14:07 12/17/17 04:09 - ABG Interpretation ABG results: ABG ABG pH 7.46 pH Units (7.32-7.45) H 12/12/17 05:20 ABG pCO2 38 mmHg (35-45) 12/12/17 05:20 ABG pO2 128 mmHg (85-104) H 12/12/17 05:20 ABG O2 Saturation 99 % (95-98) H 12/12/17 05:20 PT/INR, D-dimer PT 16.3 Seconds (9.4-12.1) H 12/14/17 03:28 Consult Discharge Plan - Plan Referrals: Chel Munroe, LOG HOOKER [Primary Care Provider] -
[2017-12-15 05:42] LABS: Basophils % 0.5 %; Eosinophils # 0.1 K/mcL (0.0-0.6); Eosinophils % 1.3 %; Hematocrit 23.2 % (35.3-44.9); Hemoglobin 7.3 g/dL (11.5-15.4); Lymphocytes # 1.1 K/mcL (0.6-4.6); Lymphocytes % 14.2 %; Mean Corpuscular HGB Conc 31.5 g/dL (31.6-35.5); Mean Corpuscular Hemoglobin 30.8 pg (28.0-33.3); Mean Corpuscular Volume 97.9 fL (83.0-100.0); Monocytes # 0.6 K/mcL (0.0-1.3); Monocytes % 7.5 %; Neutrophils # 5.9 K/mcL (1.6-8.9); Platelet Count 222 K/mcL (140-400); Red Blood Count 2.37 M/mcL (3.82-4.97); Red Cell Distribution Width 18.1 % (11.5-14.5); Segmented Neutrophils % 75.5 %
[2017-12-15 05:56] LABS: INR 1.9; Prothrombin Time 20.4 Seconds (9.4-12.1)
[2017-12-15 05:58] LABS: BUN/Creatinine Ratio 20 (6-26); Blood Urea Nitrogen 14 mg/dL (8-23); Calcium 8.6 mg/dL (8.6-10.3); Carbon Dioxide 29 mEq/L (23-29); Chloride 112 mEq/L (98-107); Glucose 95 mg/dL (70-105); Osmolality,Calculated 304 (280-300); Potassium 3.5 mEq/L (3.5-5.1); Sodium 147 mEq/L (136-145); eGFR For African Americans > 60 (> 60); eGFR For Non-African Americans > 60 (> 60)
[2017-12-15] MEDS: Nicotine 21 MG PATCH.TD24 TD SCH (07:55)
[2017-12-15] MEDS: Aspirin Enteric Coated 81 MG Tablet PO SCH (07:56)
[2017-12-15] MEDS: Magnesium Oxide 400 MG TABLET PO SCH (07:56)
[2017-12-15] MEDS: Lactulose Oral Soln 20 GM/30 ML UDC PO SCH (07:56)
[2017-12-15] MEDS: Cholecalciferol (D-3) 1,000 UNIT TABLET PO SCH (07:57)
[2017-12-15] MEDS: Metoprolol XL (24 HR) Succ 25 MG TAB.ER.24H PO SCH (07:57)
[2017-12-15] MEDS: Piperacillin/Tazobactam 3.375 GM in 0.9 % Sodium Chloride Mini Bag 100 ML IVPB SCH ×3 (07:58→23:32)
[2017-12-15 08:59] LABS: Alanine Aminotransferase 15 Units/L (7-52); Albumin 2.5 g/dL (3.5-5.7); Alkaline Phosphatase 96 Units/L (34-104); Aspartate Amino Transferase 30 Units/L (13-39); Bilirubin,Total 0.5 mg/dL (0.3-1.0); Globulin 2.5 g/dL (2.4-3.5); Magnesium 1.7 mg/dL (1.6-2.6); Phosphorous 3.1 mg/dL (2.7-4.5)
--- NOTE | 2017-12-15 14:50 | Internal Med Progress Note ---
Date of Encounter: 12/15/17 Time of Encounter: 18:26 - Assessment and plan (1) Encephalopathy Current Visit: Yes Status: Resolved Assessment and plan: Acute metabolic encephalopathy, consider alcohol withdrawal No evidence of hepatic encephalopathy Continue lactulose Concerns for recent onset of dementia. At this point considering metabolic versus toxic encephalopathy. -CT head negative for acute abnormality. -CIWA protocol - no longer needed, discontinued - Discontinue Ativan - Taper Librium (2) NSTEMI (non-ST elevated myocardial infarction) Current Visit: Yes Status: Acute Assessment and plan: Non-STEMI EKG changes including T-wave inversions in II, III, and V2 through V5 and troponins elevated at 2.05. -Aspirin , atenolol, Lipitor - Patient is on Arixtra bridging to coumadin. LHC done on 12/14: 40%mLAD and 25% pLAD stenosis. Per Cardiology, No significant lesions that warrant intervention. NICMP. daily. - Continue BB. - ACEi was added, lisinopril 2.5 mg daily For LV thrombus, Coumadin with goal INR 2-3. Needs bridging per primary team until therapeutic. (3) COPD (chronic obstructive pulmonary disease) Current Visit: Yes Status: Chronic Assessment and plan: Chronic, stable. No exacerbation Qualifiers: COPD type: unspecified COPD Qualified Code(s): J44.9 - Chronic obstructive pulmonary disease, unspecified (4) Hypertension Current Visit: No Status: Chronic Assessment and plan: Blood pressure was low upon admission. Stable Qualifiers: Hypertension type: unspecified Qualified Code(s): I10 - Essential (primary ) hypertension (5) Hypokalemia Current Visit: No Status: Acute Assessment and plan: -Repletion as necessary. (6) Hypomagnesemia Current Visit: Yes Status: Acute Assessment and plan: Replace as needed (7) Ovarian cyst, left Current Visit: No Status: Acute (8) Hypocalcemia Current Visit: Yes Status: Acute Assessment and plan: Received 2 g IV calcium gluconate given. Replete orally (9) CHF (congestive heart failure) Current Visit: Yes Status: Acute Assessment and plan: EF 15-20% on echocardiogram 12/06 On OCTAVIANO inhibitor On beta art LHC 12/14: no intervention per Cardiology Qualifiers: Heart failure type: systolic Heart failure chronicity: unspecified Qualified Code(s): I50.20 - Unspecified systolic (congestive) heart failure - Time Spent With Patient Total time spent is greater than 50% in coordination of care (as documented) at patient's floor/unit and/or counseling patient: - Subjective Interval history: No acute events overnight, patient complains of some soreness this morning. - Constitutional Vitals: Temp Pulse Resp BP Pulse Ox 98.6 F 91 18 153/96 95 12/15/17 11:42 12/15/17 11:42 12/15/17 11:42 12/15/17 11:42 12/15/17 11:42 General appearance: Present: disheveled, A&O X 3, no acute distress, underweight , loss of weight. Absent: cooperative Exam: - Head Head exam: Present: atraumatic, normocephalic - Eye Pupils: Present: PERRL - ENT ENT exam: Present: mucous membranes moist - Neck Neck exam: Present: full ROM, normal inspection - Respiratory Respiratory exam: Present: CTAB - Cardiovascular Cardiovascular exam: Present: RRR, +S1, +S2 - GI/Abdominal GI/Abdominal exam: Present: normal bowel sounds, soft - Extremities Exam Extremities exam: Present: calf tenderness Absent: pedal edema - Neurological Exam Neurological exam: Present: alert, oriented X3, no focal deficits Internal Medicine: Result - Labs CBC & Chem 7: 12/15/17 20:13 12/15/17 05:19 Labs: Short CBC 12/15/17 Range/Units 05:19 WBC 7.8 (4.3-11.1) K/mcL Hgb 7.3 L (11.5-15.4) g/dL Hct 23.2 L (35.3-44.9) % Plt Count 222 (140-400) K/mcL Neutrophils # 5.9 (1.6-8.9) K/mcL BMP 12/15/17 05:19 Sodium 147 H Potassium 3.5 Chloride 112 H Carbon Dioxide 29 BUN 14 Creatinine 0.69 Glucose 95 Calcium 8.6 Liver Function 12/15/17 Range/Units 05:19 Total Bilirubin 0.5 (0.3-1.0) mg/dL AST 30 (13-39) Units/L ALT 15 (7-52) Units/L Alkaline Phosphatase 96 (34-104) Units/L Albumin 2.5 L (3.5-5.7) g/dL - ABG Interpretation ABG results: ABG ABG pH 7.46 pH Units (7.32-7.45) H 12/12/17 05:20 ABG pCO2 38 mmHg (35-45) 12/12/17 05:20 ABG pO2 128 mmHg (85-104) H 12/12/17 05:20 ABG O2 Saturation 99 % (95-98) H 12/12/17 05:20 PT/INR, D-dimer PT 20.4 Seconds (9.4-12.1) H 12/15/17 05:19 Consult Discharge Plan - Plan Referrals: Chel Munroe, [facility] [Primary Care Provider] -
[2017-12-15] MEDS: Thiamine (B-1) 100 MG TABLET PO SCH (16:58)
[2017-12-15] MEDS: *HR* Fondaparinux 7.5 MG/0.6 ML SYRINGE SQ SCH (16:58)
[2017-12-15 17:56] LABS: Hematocrit 25.6 % (35.3-44.9); Hemoglobin 8.1 g/dL (11.5-15.4)
[2017-12-15] MEDS ORDERED: *HR* Warfarin 5 MG TABLET PO ONE (18:00)
[2017-12-15] MEDS ORDERED: *HR* Fondaparinux 7.5 MG/0.6 ML SYRINGE SQ SCH (18:00)
[2017-12-15] MEDS: OXYCODONE Oral CONC 10 MG/0.5 ML ORAL.SYG SL PRN (19:34)
[2017-12-15] MEDS: Pantoprazole 40 MG in 0.9 % Sodium Chloride Mini Bag 100 ML IVC SCH (19:35)
[2017-12-15 20:28] LABS: Hematocrit 21.7 % (35.3-44.9)
[2017-12-16 00:44] LABS: Hematocrit 20.7 % (35.3-44.9); Hemoglobin 6.6 g/dL (11.5-15.4)
[2017-12-16] MEDS: Pantoprazole 40 MG in 0.9 % Sodium Chloride Mini Bag 100 ML IVC SCH ×4 (00:58→15:47)
[2017-12-16] MEDS ORDERED: 0.9 % Sodium Chloride 500 ML ONE ×2 (01:26→05:16)
[2017-12-16] MEDS ORDERED: Oxymetazoline Nasal SPRAY BOTTLE NS PRN (04:00)
--- NOTE | 2017-12-16 04:53 | Event Note ---
Date of Encounter: 12/16/17 Time of Encounter: 04:39 I came to the bedside earlier with Dr. Jean Baptiste to assess patient for epistaxis and acute blood loss anemia. Patient currently anti-coagulated for Mural Thrombus. She has also had some blood loss over the course of her hospital stay. The source most likely is epistaxis. Her nosebleed has worsened throughout the night. Her H/H have been dropping. She is in the midst of 2 units PRBC transfusion. Most recently, her nosebleed has worsened and she is having significant post-nasal drip/bleeding. I called and requested assistance from Dr. Faulkner (ENT). He recommended saturating cotton balls with Afrin and soaking the nares with Afrin. Additionally, he recommended packing with Miracell after Afrin. We placed Afrin soaked cotton balls in the nares and then removed them. We also sprayed her nostrils with Afrin. She seems to have slowed and/or stopped her bleeding. We therefore did not pack with Miracell. We will continue to watch her closely and await Dr. Faulkner to see her in consult.
--- NOTE | 2017-12-16 07:50 | Internal Med Progress Note ---
Date of Encounter: 12/16/17 Time of Encounter: 07:48 - Assessment and plan (1) Acute blood loss anemia Current Visit: Yes Status: Acute Assessment and plan: Patient noted on 12/15 to have coughed up blood. Based on patient's alcohol history, she was started on protonix drip H&H cycled and baseline hemoglobin trended down to 6.6. She is being transfused 2 units PRBC. ENT consulted overnight and plans to see patient shortly Patient having Afrin spray with pressure applied which has briefly stopped bleeding. Currently hemodynamically stable. - This is likely epistaxis based on presentation - However, if after ENT evaluation there is no obvious ENT source of bleeding, we will consult Surgery for urgent EGD. - Reviewed an EGD done in 09/2017, there was gastritis but no varicies during that stud. - Continue Protonix drip - Arixtra and coumadin have been discontinued. (2) Encephalopathy Current Visit: Yes Status: Resolved Assessment and plan: Acute metabolic encephalopathy, consider alcohol withdrawal No evidence of hepatic encephalopathy Continue lactulose Concerns for recent onset of dementia. At this point considering metabolic versus toxic encephalopathy. -CT head negative for acute abnormality. -CIWA protocol - no longer needed, discontinued - Discontinue Ativan - Taper Librium (3) NSTEMI (non-ST elevated myocardial infarction) Current Visit: Yes Status: Acute Assessment and plan: Non-STEMI EKG changes including T-wave inversions in II, III, and V2 through V5 and troponins elevated at 2.05. -Aspirin , atenolol, Lipitor - Patient is on Arixtra bridging to coumadin. LHC done on 12/14: 40%mLAD and 25% pLAD stenosis. Per Cardiology, No significant lesions that warrant intervention. NICMP. daily. - Continue BB. - ACEi was added, lisinopril 2.5 mg daily For LV thrombus, Coumadin with goal INR 2-3. Needs bridging per primary team until therapeutic. (4) Left ventricular thrombosis Current Visit: Yes Status: Acute Assessment and plan: Patient was being anticoagulated during this admission for treatment. Initially started on heparin but after concern for HIT, she was switched to Arixtra. Arixtra was being used to bridge to coumadin for patient to remain on. Patient has developed acute blood loss, presumed epistaxis, since yesterday . Arixtra and coumadin are discontinued as the risks outweigh the benefits due to acute blood loss anemia. (5) COPD (chronic obstructive pulmonary disease) Current Visit: Yes Status: Chronic Assessment and plan: Chronic, stable. No exacerbation Adding Duo Nebs prn Qualifiers: COPD type: unspecified COPD Qualified Code(s): J44.9 - Chronic obstructive pulmonary disease, unspecified (6) Hypertension Current Visit: No Status: Chronic Assessment and plan: On Toprol XL and lisinopril Lisinopril 2.5 mg daily was added on 12/15. Currently elevated. Will increase lisinopril to 5 mg daily today. Qualifiers: Hypertension type: unspecified Qualified Code(s): I10 - Essential (primary ) hypertension (7) Hypokalemia Current Visit: No Status: Acute Assessment and plan: -Repletion as necessary. (8) Hypomagnesemia Current Visit: Yes Status: Acute Assessment and plan: Replace as needed (9) Ovarian cyst, left Current Visit: No Status: Acute (10) Hypocalcemia Current Visit: Yes Status: Acute Assessment and plan: Received 2 g IV calcium gluconate given. Replete orally (11) CHF (congestive heart failure) Current Visit: Yes Status: Acute Assessment and plan: EF 15-20% on echocardiogram 12/06/17 On OCTAVIANO inhibitor On beta art LHC done on 12/14: no intervention at this time per Cardiology recommendations Qualifiers: Heart failure type: systolic Heart failure chronicity: unspecified Qualified Code(s): I50.20 - Unspecified systolic (congestive) heart failure - Time Spent With Patient Total time spent is greater than 50% in coordination of care (as documented) at patient's floor/unit and/or counseling patient: - Subjective Interval history: Patient had episode of epistaxis with drop in hemoglobin. She was started on Afrin nose spray and given cotton balls to stop the bleeding, which has temporarily stopped the bleeding. Nursing reported this AM there was also blood in stool as well. She is being transfused PRBC at this time. Patient is now in no acute distress. - Constitutional Vitals: Temp Pulse Resp BP Pulse Ox 98.2 F 89 18 168/92 96 12/16/17 05:35 12/16/17 05:35 12/16/17 05:35 12/16/17 05:35 12/16/17 02:09 General appearance: Present: disheveled, A&O X 3, no acute distress, underweight. Absent: cooperative - Head Head exam: Present: atraumatic, normocephalic - ENT ENT exam: Present: mucous membranes moist Additional comments: Blood discharge noted from nares, no acute source can be visualized from nasal canal. - Respiratory Respiratory exam: Present: wheezes. Absent: accessory muscle use - Cardiovascular Cardiovascular exam: Present: RRR, +S1, +S2. Absent: diastolic murmur, gallop, rubs, systolic murmur - GI/Abdominal GI/Abdominal exam: Present: normal bowel sounds, soft, no peritoneal signs. Absent: distended, tenderness - Extremities Exam Extremities exam: Present: warm, radial pulses palpable and symmetrical. Absent : calf tenderness, cyanotic, pedal edema - Skin Skin exam: Present: dry, intact Internal Medicine: Result - Labs CBC & Chem 7: 12/16/17 00:34 12/15/17 05:19 Labs: Short CBC 12/15/17 12/15/17 12/16/17 Range/Units 17:42 20:13 00:34 Hgb 8.1 L 7.0 L 6.6 L (11.5-15.4) g/dL Hct 25.6 L 21.7 L 20.7 L (35.3-44.9) % BMP 12/15/17 05:19 Sodium 147 H Potassium 3.5 Chloride 112 H Carbon Dioxide 29 BUN 14 Creatinine 0.69 Glucose 95 Calcium 8.6 Liver Function 12/15/17 Range/Units 05:19 Total Bilirubin 0.5 (0.3-1.0) mg/dL AST 30 (13-39) Units/L ALT 15 (7-52) Units/L Alkaline Phosphatase 96 (34-104) Units/L Albumin 2.5 L (3.5-5.7) g/dL - ABG Interpretation ABG results: ABG ABG pH 7.46 pH Units (7.32-7.45) H 12/12/17 05:20 ABG pCO2 38 mmHg (35-45) 12/12/17 05:20 ABG pO2 128 mmHg (85-104) H 12/12/17 05:20 ABG O2 Saturation 99 % (95-98) H 12/12/17 05:20 PT/INR, D-dimer PT 20.4 Seconds (9.4-12.1) H 12/15/17 05:19 - Impressions Impressions Chest X-Ray 12/13/17 10:52 IMPRESSION: Small left pleural effusion with adjacent atelectasis. Subtle linear lucency along the left lateral hemithorax which is felt to be related to skin fold rather than a true pneumothorax. If there remains a high clinical suspicion, consider further evaluation with repeat chest x-ray after patient repositioning. The findings were sent to the Radiology Results Communication [facility] at 11:45 am on 12/13/2017to be communicated to a licensed caregiver. D/ / 12/13/2017 12:17:57 [facility] Interpreting Provider: Hannah Mark MD Chest X-Ray 12/16/17 03:42 IMPRESSION: No acute disease. D/ / Buddy Christie MD / Buddy Christie MD Interpreting Provider: Buddy Christie MD Consult Discharge Plan - Plan Referrals: Chel Munroe CNP [Primary Care Provider] -
[2017-12-16] MEDS: Aspirin Enteric Coated 81 MG Tablet PO SCH (08:29)
[2017-12-16] MEDS: Lactulose Oral Soln 20 GM/30 ML UDC PO SCH (08:29)
[2017-12-16] MEDS: Magnesium Oxide 400 MG TABLET PO SCH (08:30)
[2017-12-16] MEDS: Cholecalciferol (D-3) 1,000 UNIT TABLET PO SCH (08:30)
[2017-12-16] MEDS: Metoprolol XL (24 HR) Succ 25 MG TAB.ER.24H PO SCH (08:30)
[2017-12-16] MEDS ORDERED: *HR* Rocuronium Bromide 100 MG/10 ML VIAL IVC ONE (08:39)
[2017-12-16] MEDS ORDERED: *HR* Etomidate 20 MG/10 ML AMPUL IVP ONE (08:39)
[2017-12-16] MEDS: Nicotine 21 MG PATCH.TD24 TD SCH (09:41)
[2017-12-16] MEDS: Piperacillin/Tazobactam 3.375 GM in 0.9 % Sodium Chloride Mini Bag 100 ML IVPB SCH ×2 (09:42→16:34)
--- NOTE | 2017-12-16 09:42 | ENT - Consult Note ---
Date of Encounter: 12/16/17 Time of Encounter: 09:37 Assessment and Plan (1) Epistaxis Current Visit: Yes Status: Acute Pt admitted for NSTEMI s/p anticoagulation which was held today. ENT consulted for epistaxis. Pt denies prior issues with nosebleeds or nasal surgery. Hgb 6.6 today from 8.5 on 12/13. Exam today shows mild oozing from right nare with clot in nose and oropharynx. This was all removed and an 8cm Merocell pack was placed on the right, however bleeding then began on the left side and a left Merocell pack was then placed. She was nasally hemostatic at the end of my exam with very mild post nasal blood tinged mucus. Merocells to remain for 3-5 days. I would pull the left side pack first. Recommend abx coverage while pack in place. I will sign this patient out to the following ENT call coverage to begin tomorrow morning. I am concerned that her hematochezia is not all due to nasal bleeding source. I will discuss with admitting team the need for GI evaluation as well. (2) Acute blood loss anemia Current Visit: Yes Status: Acute Continue to follow H/H May need additional transfusion and GI evaluation for other sites of bleeding. History of Present Illness Consult date: 12/16/17 Reason for ENT Consult: epistaxis History of present illness: Pt is a 67 yo female admitted with NSTEMI s/p anticoagulation now with epistaxis and anemia. Hgb 6 today from 8.5 on 12/13. She is alert and oriented but admits dyspnea more than her baseline. Denies chest pain currently, but she admits dizziness and weakness. Also nursing notes hematochezia which is apparent on her bedsheets. She began with epistaxis yesterday, I was called last night, and her bleeding was able to be stopped w Afrin and head elevation. Today, she began bleeding again before I saw her. Her anticoagulants have now been stopped. She denies prior issues with nose bleeds or any type of nasal or sinus surgery in the past. Past Med Surg Social Fam HX - Past Medical History Medical history: COPD, GERD, hyperlipidemia, hypertension, migraine Psychiatric history: anxiety, depression, other (Chronic alcoholism) - Past Surgical History Surgical History: - Social History Smoking Status: Current every day smoker Packs per day: 2 Smokeless Tobacco Status: No Alcohol use: heavy Drug use: none - Family History Mother Living Status: Hx Family Cardiac Disorders: Yes Hx Family Endocrine Disorder: Yes (uncontrolled DM) Father Living Status: Hx Family Cardiac Disorders: Yes Hx Family GI Disorders: Yes Medications and Allergies Atorvastatin [Lipitor] 80 mg PO HS 09/10/17 [History] Omeprazole [PriLOSEC] 20 mg PO DAILY 09/10/17 [History] Tramadol HCl [Ultram] 50 mg PO Q6-8H PRN 09/10/17 [History] Atenolol [Tenormin] 50 mg PO BID #60 tablet 09/14/17 [Rx] Phos-NaK [Neutra-Phos] 2 each PO BID #120 powd.pack 09/14/17 [Rx] Potassium Chloride 20 meq PO BID #60 tab.er.prt 09/14/17 [Rx] Sodium Bicarbonate 650 mg PO TID #180 tablet 09/14/17 [Rx] amLODIPine [Norvasc] 10 mg PO DAILY #60 tablet 09/14/17 [Rx] Lactulose [Lactulose] 15 ml PO DAILY 12/05/17 [History] Magnesium Oxide [Mag-Ox] 400 mg PO TID 12/05/17 [History] 3 Allergy/AdvReac Type Severity Reaction Status Date / Time No Known Allergies Allergy Verified 12/05/17 18:06 ENT - ROS All systems PM: reviewed and no additional remarkable complaints except as stated (SOB, dizziness, weakness, bloody stools. Denies chest pain.) ENT Exam Initial Vital Signs Temp Pulse Resp BP Pulse Ox 97.8 F 86 16 121/23 98 12/05/17 18:03 12/05/17 18:03 12/05/17 18:03 12/05/17 18:03 12/05/17 18:03 - General physical appearance well developed, well nourished, moderate distress - Eyes normal ocular movement - ENT normal pinna, Other (She has mild oozing from her right nare at time of exam. I suctioned clot from the right nare and oropharynx. I then used Afrin and a merocell 8cm pack in the right nares. The left nare is without bleeding or clot. There was a small excoriation that I placed absorbable hemostatic gauze over. ) - Neck no masses, trachea midline - Respiratory normal expansion, other (Satting well on RA but some obvious dyspnea present. ) - Integumentary no rash, no growths, other (brusing on UE) - Neurologic CN 2-12 grossly intact, normal coordination, normal sensation - Musculoskeletal normal posture - Psychiatric oriented to time, oriented to person, oriented to place - Additional Findings Bloody stools within the bed Exam Initial Vital Signs Temp Pulse Resp BP Pulse Ox 97.8 F 86 16 121/23 98 12/05/17 18:03 12/05/17 18:03 12/05/17 18:03 12/05/17 18:03 12/05/17 18:03 Results - Labs 12/16/17 00:34 12/15/17 05:19 Abnormal lab results RBC 2.37 M/mcL (3.82-4.97) L 12/15/17 05:19 Hgb 6.6 g/dL (11.5-15.4) L 12/16/17 00:34 Hct 20.7 % (35.3-44.9) L 12/16/17 00:34 MCHC 31.5 g/dL (31.6-35.5) L 12/15/17 05:19 RDW 18.1 % (11.5-14.5) H 12/15/17 05:19 Nucleated RBCs/100 WBC 0.3 /100 WBC (0) H 12/09/17 04:00 Platelet Estimate Slight Decrease (Normal) L 12/10/17 04:15 Hypochromasia Present (Not Present) A 12/10/17 04:15 Poikilocytosis 1+ (Not Present) A 12/10/17 04:15 Anisocytosis 1+ (Not Present) A 12/09/17 04:00 Macrocytosis Present (Not Present) A 12/10/17 04:15 PT 20.4 Seconds (9.4-12.1) H 12/15/17 05:19 APTT 50.7 Seconds (26.0-36.0) H 12/10/17 04:15 ABG pH 7.46 pH Units (7.32-7.45) H 12/12/17 05:20 ABG pO2 128 mmHg (85-104) H 12/12/17 05:20 ABG Total CO2 28 mEq/L (20-26) H 12/12/17 05:20 ABG O2 Saturation 99 % (95-98) H 12/12/17 05:20 Sodium 147 mEq/L (136-145) H 12/15/17 05:19 Chloride 112 mEq/L (98-107) H 12/15/17 05:19 POC Glucose 106 mg/dL (70-99) H 12/15/17 07:07 Calculated Osmolality 304 (280-300) H 12/15/17 05:19 Venous Ioniz Calcium 1.09 mmol/L (1.15-1.35) L 12/13/17 13:40 Direct Bilirubin 0.3 mg/dL (0.0-0.2) H 12/05/17 18:50 Troponin I 1.10 ng/mL (< 0.04) H* 12/06/17 11:56 B-Natriuretic Peptide 2096 pg/mL (Less than 100) H 12/06/17 06:01 Serum Total Protein 5.0 g/dL (6.4-8.9) L 12/15/17 05:19 Albumin 2.5 g/dL (3.5-5.7) L 12/15/17 05:19 Albumin/Globulin Ratio 1.0 (1.1-2.2) L 12/15/17 05:19 Vitamin B12 > 1500 pg/mL (250-1100) H 12/13/17 09:20 Urine Clarity Cloudy (Clear) A 12/05/17 19:27 Ur Specific Mason 1.008 (1.010-1.025) L 12/05/17 19:27 Urine Ketones 15 mg/dL (Negative) H 12/05/17 19:27 Urine Bilirubin Moderate (Negative) H 12/05/17 19:27 Ur Leukocyte Esterase Moderate (Negative) H 12/05/17 19:27 Urine Microscopic WBC 5-15 per hpf (0-3) H 12/05/17 19:27 Ur Squamous Epith Cells Many per lpf (None-Few) H 12/05/17 19:27 Ur Culture Indicated? NO. (NO) A 12/05/17 19:27 U Benzodiazepines Scrn Positive ng/mL ([id number]) H 12/06/17 01:30 All other labs normal. Consult Discharge Plan - Plan Referrals: Chel Munroe, [facility] [Primary Care Provider] -
[2017-12-16] MEDS ORDERED: Furosemide 40 MG/4 ML VIAL IVP ONE (09:54)
[2017-12-16 10:08] LABS: % Iron Saturation 60 % (15-50); Ferritin 282 ng/ml (10-120); Iron 132 mcg/dL (50-170); Transferrin 158 mg/dL (203-362)
[2017-12-16 10:13] LABS: BUN/Creatinine Ratio 32 (6-26); Blood Urea Nitrogen 18 mg/dL (8-23); Calcium 8.3 mg/dL (8.6-10.3); Chloride 118 mEq/L (98-107); Glucose 113 mg/dL (70-105); Osmolality,Calculated 309 (280-300); Potassium 4.1 mEq/L (3.5-5.1); Sodium 148 mEq/L (136-145); eGFR For African Americans > 60 (> 60); eGFR For Non-African Americans > 60 (> 60)
[2017-12-16] MEDS: *HR* Metoprolol 5 MG/5 ML VIAL IVP PRN (10:54)
[2017-12-16 10:55] LABS: Carbon Dioxide 23 mEq/L (23-29)
[2017-12-16 10:57] LABS: Basophils # 0.1 K/mcL (0.0-0.2); Basophils % 0.8 %; Eosinophils # 0.1 K/mcL (0.0-0.6); Eosinophils % 1.1 %; Hematocrit 28.2 % (35.3-44.9); Immature Granulocytes % 1.4 % (0-4); Lymphocytes # 1.5 K/mcL (0.6-4.6); Lymphocytes % 13.3 %; Mean Corpuscular HGB Conc 34.4 g/dL (31.6-35.5); Mean Corpuscular Hemoglobin 31.2 pg (28.0-33.3); Mean Corpuscular Volume 90.7 fL (83.0-100.0); Monocytes # 0.6 K/mcL (0.0-1.3); Monocytes % 5.6 %; Neutrophils # 8.8 K/mcL (1.6-8.9); Platelet Count 244 K/mcL (140-400); Red Blood Count 3.11 M/mcL (3.82-4.97); Red Cell Distribution Width 18.1 % (11.5-14.5); Segmented Neutrophils % 77.8 %
[2017-12-16 11:00] LABS: Hemoglobin 9.7 g/dL (11.5-15.4)
[2017-12-16 11:00] LABS: ABG Base Excess 1 mEq/L (-2 to 3); ABG HCO3 25 mEq/L (21-27); ABG Oxygen Saturation 95 % (95-98); ABG PCO2 39 mmHg (35-45); ABG PH 7.42 pH Units (7.32-7.45); ABG PO2 73 mmHg (85-104); ABG TCO2 27 mEq/L (20-26)
[2017-12-16 11:10] LABS: INR 4.8; Prothrombin Time 53.1 Seconds (9.4-12.1)
[2017-12-16] MEDS: OXYCODONE Oral CONC 10 MG/0.5 ML ORAL.SYG SL PRN (11:48)
--- NOTE | 2017-12-16 11:58 | Event Note ---
Date of Encounter: 12/16/17 Time of Encounter: 11:56 I came back to the bedside to recheck the patients response to initial bilateral 8cm Merocell packing. She had persistent right bleeding around the pack and moreso posterior drainage in the throat with clotting in the oropharynx. INR 4.7 at that time. I decided to remove the right merocell. Place Floseal hemostatic agent into the right nare and re-pack with a dual chamber balloon pack. At the completion of this, her nasal hemostasis was improved. Will follow along and plan to pull nasal packs as able.
[2017-12-16] MEDS: Ipratropium/Albuterol Neb 3 ML IH PRN (13:02)
[2017-12-16] MEDS ORDERED: 0.9 % Sodium Chloride 2,000 ML ONE (13:48)
[2017-12-16] MEDS ORDERED: Lacri-Lube 3.5 GM TUBE BOTH EYES PRN (14:16)
[2017-12-16] MEDS ORDERED: TRANEXAMIC ACID NS PRN (14:23)
--- NOTE | 2017-12-16 14:33 | Pulmonology Consult Note ---
<Matt Feldman - Last Filed: 12/16/17 15:51> Date of Encounter: 12/16/17 Time of Encounter: 14:33 Assessment and Plan (1) Acute and chronic respiratory failure with hypoxia Current Visit: Yes Status: Acute Patient presented with acute hypoxemic respiratory failure with increased work of breathing. Patient had a supratherapeutic INR and had epistaxis. Patient had nasal packing performed earlier in the day by ENT. The nasal packing was removed. Patient had evidence of likely aspiration with blood in the posterior oropharynx. Patient could not provide a history. Patient was conversational dyspneic. Patient was tachypnea with rates in the 40s. Patient showed increased work of breathing with no airway protection. Patient was not a candidate for noninvasive positive pressure. Patient was transferred to ICU for critical care management and monitoring. PLAN -Airway secured-continue with mechanical ventilation -Patient was covered with Zosyn for aspiration pneumonia. Will add additional gram-positive coverage with vancomycin. -Continue with aerosols and respiratory support as needed. -Patient will likely require airway protection while her epistaxis is not resolved. (2) Supratherapeutic INR Current Visit: Yes Status: Acute INR of 4.8. Patient does have a mural thrombus and is being bridged to Coumadin. Reversal of the anticoagulation was initiated by the hospitalist rounding team. Patient received vitamin K as well as 2 units of FFP were ordered. (3) Aspiration pneumonia Current Visit: Yes Status: Acute Patient was being covered for aspiration pneumonia. Given the patient's current events patient will likely need broader coverage. Will add vancomycin. Continue ventilator support as described above. Qualifiers: Aspiration pneumonia type: unspecified Laterality: left Lung location: lower lobe of lung Qualified Code(s): J69.0 - Pneumonitis due to inhalation of food and vomit (4) Acute blood loss anemia Current Visit: Yes Status: Acute Patient noted on 12/15 to have coughed up blood. Based on patient's alcohol history, she was started on protonix drip H&H cycled and baseline hemoglobin trended down to 6.6. She is being transfused 2 units PRBC. ENT evaluated the patient earlier today and noted to have prominent right naris posterior oropharynx bleeding. Packing was placed with received adequate hemostasis. Patient subsequently removed the packing. - Reviewed an EGD done in 09/2017, there was gastritis but no varicies during that stud. PLAN -Continue Protonix -Arixtra and coumadin have been discontinued reversal of anticoagulation -Monitor for signs of bleeding -Transfuse hemoglobin less than 7 (5) Epistaxis Current Visit: Yes Status: Acute ENT following. Appreciate recommendations. Patient pulled the nasal packing out on the floor. Patient had increased work of breathing with concerns for aspiration. Patient was transferred to the ICU in intubated for airway protection. Discussed the patient's decompensation with ENT. Recommended Murocel versus balloon packing. Patient had balloon packing in the right near of 7.5 cm with topical TXA. Plan as above (6) CHF (congestive heart failure) Current Visit: Yes Status: Acute EF 15-20% on echocardiogram 12/06/17 On OCTAVIANO inhibitor,beta art Qualifiers: Heart failure type: systolic Heart failure chronicity: unspecified Qualified Code(s): I50.20 - Unspecified systolic (congestive) heart failure (7) LV (left ventricular) mural thrombus Current Visit: Yes Status: Acute Patient was being anticoagulated during this admission for treatment. Initially started on heparin but after concern for HIT, she was switched to Arixtra. Arixtra was being used to bridge to coumadin for patient to remain on. Patient has developed acute blood loss, presumed epistaxis, since yesterday . Arixtra and coumadin are discontinued as the risks outweigh the benefits due to acute blood loss anemia. (8) NSTEMI (non-ST elevated myocardial infarction) Current Visit: Yes Status: Acute Non-STEMI EKG changes including T-wave inversions in II, III, and V2 through V5 and troponins elevated at 2.05. -Aspirin , atenolol, Lipitor - Patient is on Arixtra bridging to coumadin. LHC done on 12/14: 40%mLAD and 25% pLAD stenosis. Per Cardiology, No significant lesions that warrant intervention. NICMP. daily. - Continue BB. - ACEi was added, lisinopril 2.5 mg daily For LV thrombus, Coumadin with goal INR 2-3. Needs bridging per primary team until therapeutic once the patient epistaxis is resolved. (9) COPD (chronic obstructive pulmonary disease) Current Visit: Yes Status: Chronic Chronic, stable. No exacerbation Adding Duo Nebs prn Qualifiers: COPD type: unspecified COPD Qualified Code(s): J44.9 - Chronic obstructive pulmonary disease, unspecified (10) Encephalopathy Current Visit: Yes Status: Resolved Currently unable to assess mental status Acute metabolic encephalopathy, consider alcohol withdrawal No evidence of hepatic encephalopathy Continue lactulose Concerns for recent onset of dementia. At this point considering metabolic versus toxic encephalopathy. -CT head negative for acute abnormality. -CIWA protocol - no longer needed, discontinued - Discontinue Ativan - Taper Librium (11) Hypertension Current Visit: No Status: Chronic On Toprol XL and lisinopril Lisinopril 2.5 mg daily was added on 12/15. Currently elevated. Will increase lisinopril to 5 mg daily today-Monitor the patient's kidney function Qualifiers: Hypertension type: unspecified Qualified Code(s): I10 - Essential (primary ) hypertension (12) DVT prophylaxis Current Visit: Yes Status: Acute EPCDs History of Present Illness Consult date: 12/16/17 Requesting physician: Jeff Jones Reason for consult: other (Airway protection, respiratory distress) Chief complaint: Epistaxis History of present illness: Patient was transferred to the ICU after increased work of breathing and respiratory distress. Patient was anticoagulated for a mural thrombus currently undergoing transition to Coumadin. Patient developed epistaxis and was evaluated by ENT. Patient reportedly pulled out the packing. Patient was tachypnea can and not able to provide a history on initial exam. Patient had increased work of breathing and concerns for posterior oropharyngeal bleeding. Patient's INR was elevated and [facility] Discussed the case with the ENT doctor who states that he placed Murocel packing and had hemostatic control wanted to ensure that the bleeding was resolved and subsequently placed a balloon packing. Believed to obtain appropriate hemostatic control following that intervention. Family is at bedside and updated on plan of care. Past Med Surg Social Fam HX - Past Medical History Medical history: COPD, GERD, hyperlipidemia, hypertension, migraine Psychiatric history: anxiety, depression, other (Chronic alcoholism) - Past Surgical History Surgical History: - Social History Smoking Status: Current every day smoker Packs per day: 2 Smokeless Tobacco Status: No Alcohol use: heavy Drug use: none - Family History Mother Living Status: Hx Family Cardiac Disorders: Yes Hx Family Endocrine Disorder: Yes (uncontrolled DM) Father Living Status: Hx Family Cardiac Disorders: Yes Hx Family GI Disorders: Yes Medications and Allergies Atorvastatin [Lipitor] 80 mg PO HS 02/05/18 [History] Omeprazole [PriLOSEC] 20 mg PO DAILY 09/10/17 [History] Tramadol HCl [Ultram] 50 mg PO Q6-8H PRN 09/10/17 [History] Atenolol [Tenormin] 50 mg PO BID #60 tablet 09/14/17 [Rx] Phos-NaK [Neutra-Phos] 2 each PO BID #120 powd.pack 09/14/17 [Rx] Potassium Chloride 20 meq PO BID #60 tab.er.prt 09/14/17 [Rx] Sodium Bicarbonate 650 mg PO TID #180 tablet 09/14/17 [Rx] amLODIPine [Norvasc] 10 mg PO DAILY #60 tablet 09/14/17 [Rx] Lactulose [Lactulose] 15 ml PO DAILY 12/05/17 [History] Magnesium Oxide [Mag-Ox] 400 mg PO TID 12/05/17 [History] 3 Allergy/AdvReac Type Severity Reaction Status Date / Time No Known Allergies Allergy Verified 12/05/17 18:06 ROS unobtainable: due to endotracheal tube All Systems: The remainder of the systems were reviewed and are negative Physical Examination Vital Signs: Vital Signs, Last 4 Hours Temp Pulse Resp BP Pulse Ox 12/16/17 13:14 88 40 168/87 92 12/16/17 12:54 92 52 173/89 96 12/16/17 11:23 98.9 F 83 22 151/74 99 12/16/17 11:03 84 145/94 12/16/17 10:42 93 26 165/97 98 General appearance: alert, appears uncomfortable, other (Increased work of breathing respiratory distress) ENT: other (Active epistaxis with blood and clots in the posterior pharynx. Left naris nasal packing in place. No nasal packing in the right near.) Neck: supple Effort: very labored Inspection: hyperextended Auscultation: bilateral: rhonchi (Coarse throughout) Cardiovascular: other (Tachycardia) Gastrointestinal: non-distended Integumentary: normal Extremities: no cyanosis unable to assess due to mental status Results - Laboratory Findings CBC and BMP: 12/16/17 14:35 12/16/17 09:36 ABG ABG pH 7.42 pH Units (7.32-7.45) 12/16/17 10:55 ABG pCO2 39 mmHg (35-45) 12/16/17 10:55 ABG pO2 73 mmHg (85-104) L 12/16/17 10:55 ABG O2 Saturation 95 % (95-98) 12/16/17 10:55 PT/INR, D-dimer PT 53.1 Seconds (9.4-12.1) H* D 12/16/17 10:44 Abnormal lab findings: Abnormal lab results WBC 11.4 K/mcL (4.3-11.1) H 12/16/17 10:44 RBC 3.11 M/mcL (3.82-4.97) L 12/16/17 10:44 Hgb 9.7 g/dL (11.5-15.4) L D 12/16/17 10:44 Hct 28.2 % (35.3-44.9) L 12/16/17 10:44 RDW 18.1 % (11.5-14.5) H 12/16/17 10:44 Nucleated RBCs/100 WBC 0.3 /100 WBC (0) H 12/09/17 04:00 Platelet Estimate Slight Decrease (Normal) L 12/10/17 04:15 Hypochromasia Present (Not Present) A 12/10/17 04:15 Poikilocytosis 1+ (Not Present) A 12/10/17 04:15 Anisocytosis 1+ (Not Present) A 12/09/17 04:00 Macrocytosis Present (Not Present) A 12/10/17 04:15 PT 53.1 Seconds (9.4-12.1) H* D 12/16/17 10:44 INR 4.8 H* D 12/16/17 10:44 APTT 50.7 Seconds (26.0-36.0) H 12/10/17 04:15 ABG pO2 73 mmHg (85-104) L 12/16/17 10:55 ABG Total CO2 27 mEq/L (20-26) H 12/16/17 10:55 Sodium 148 mEq/L (136-145) H 12/16/17 09:36 Chloride 118 mEq/L (98-107) H 12/16/17 09:36 Creatinine 0.56 mg/dL (0.60-1.20) L 12/16/17 09:36 BUN/Creatinine Ratio 32 (6-26) H 12/16/17 09:36 Glucose 113 mg/dL (70-105) H 12/16/17 09:36 POC Glucose 116 mg/dL (70-99) H 12/16/17 14:04 Calculated Osmolality 309 (280-300) H 12/16/17 09:36 Calcium 8.3 mg/dL (8.6-10.3) L 12/16/17 09:36 Venous Ioniz Calcium 1.09 mmol/L (1.15-1.35) L 12/13/17 13:40 % Saturation 60 % (15-50) H 12/16/17 09:36 Transferrin 158 mg/dL (203-362) L 12/16/17 09:36 Ferritin 282 ng/ml (10-120) H 12/16/17 09:36 Direct Bilirubin 0.3 mg/dL (0.0-0.2) H 12/05/17 18:50 Troponin I 1.10 ng/mL (< 0.04) H* 12/06/17 11:56 B-Natriuretic Peptide 2096 pg/mL (Less than 100) H 12/06/17 06:01 Serum Total Protein 5.0 g/dL (6.4-8.9) L 12/15/17 05:19 Albumin 2.5 g/dL (3.5-5.7) L 12/15/17 05:19 Albumin/Globulin Ratio 1.0 (1.1-2.2) L 12/15/17 05:19 Vitamin B12 > 1500 pg/mL (250-1100) H 12/13/17 09:20 Urine Clarity Cloudy (Clear) A 12/05/17 19:27 Ur Specific [place] 1.008 (1.010-1.025) L 12/05/17 19:27 Urine Ketones 15 mg/dL (Negative) H 12/05/17 19:27 Urine Bilirubin Moderate (Negative) H 12/05/17 19:27 Ur Leukocyte Esterase Moderate (Negative) H 12/05/17 19:27 Urine Microscopic WBC 5-15 per hpf (0-3) H 12/05/17 19:27 Ur Squamous Epith Cells Many per lpf (None-Few) H 12/05/17 19:27 Ur Culture Indicated? NO. (NO) A 12/05/17 19:27 U Benzodiazepines Scrn Positive ng/mL (Blubpn=762) H 12/06/17 01:30 - Clinical Findings Intake & Output: Intake & Output 12/15/17 12/16/17 12/16/17 23:59 07:59 15:59 Intake Total 130 / 130 750 / 750 400 / 400 Output Total 150 / 150 Balance 130 / 130 600 / 600 400 / 400 Pulmonary Procedures - Epistaxis Control Consent obtained: verbal consent Time out performed: No (Emergent) Nostril: right Direct inspection: unable to visualize Device inserted: hemostatic balloon Device size: 7 Patient tolerated procedure: well - Intubation Time out performed: Yes Sedative: Etomidate Mg given: 20 Paralytic: Rocuronium Mg given: 100 Laryngoscope: video scope ET tube size: 7.5 Tube secured depth (cm): 23 Tube secured location: lips Tube placement confirmation: visualized tube passing through cords, equal breath sounds bilaterally, no breath sounds over epigastrium, confirmation by capnometry Patient tolerated procedure: well, no complications Intubation complications: none Consult Discharge Plan - Plan Referrals: Chel [facility] [employer] [Primary Care Provider] - <Aria Bell - Last Filed: 12/17/17 07:44> Date of Encounter: 12/17/17 All Systems: The remainder of the systems were reviewed and are negative Physical Examination Vital Signs: Vital Signs, Last 4 Hours Temp Pulse Resp BP Pulse Ox 12/17/17 07:38 98.2 F 12/17/17 07:37 12 130/64 99 12/17/17 06:00 86 12 130/66 100 12/17/17 05:00 94 12 134/66 99 12/17/17 04:57 98.9 F 12/17/17 04:00 94 12 148/81 99 Ventilator Settings Ventilator Settings: Ventilator Settings, Last 8 Hours Ventilator Mode VC+ Ventilator Mode VC+ Ventilator Mode VC+ Ventilator Mode VC+ Ventilator Mode VC+ Ventilator Mode VC+ Ventilator Mode VC+ Ventilator Tidal Volume 500 Setting Ventilator Tidal Volume 500 Setting Ventilator Tidal Volume 500 Setting Ventilator Tidal Volume 500 Setting Ventilator Tidal Volume 500 Setting Ventilator Tidal Volume 500 Setting Ventilator Tidal Volume 500 Setting Ventilator Tidal Volume 500 Setting Ventilator Tidal Volume 500 Setting Ventilator Respiratory Rate 12 Setting Ventilator Respiratory Rate 12 Setting Ventilator Respiratory Rate 12 Setting Ventilator Respiratory Rate 12 Setting Ventilator Respiratory Rate 12 Setting Ventilator Respiratory Rate 12 Setting Ventilator Respiratory Rate 12 Setting Ventilator Respiratory Rate 12 Setting Ventilator Respiratory Rate 12 Setting Actual Respiratory Rate 12 Actual Respiratory Rate 12 Actual Respiratory Rate 12 Actual Respiratory Rate 12 Actual Respiratory Rate 12 Actual Respiratory Rate 12 Actual Respiratory Rate 12 Actual Respiratory Rate 12 Actual Respiratory Rate 12 Positive End Expiratory 5 Pressure Positive End Expiratory 5 Pressure Positive End Expiratory 5 Pressure Positive End Expiratory 5 Pressure Positive End Expiratory 5 Pressure Positive End Expiratory 5 Pressure Positive End Expiratory 5 Pressure Positive End Expiratory 5 Pressure Positive End Expiratory 5 Pressure Peak Inspiratory Airway 21 Pressure Peak Inspiratory Airway 21 Pressure Peak Inspiratory Airway 22 Pressure Peak Inspiratory Airway 23 Pressure Peak Inspiratory Airway 22 Pressure Peak Inspiratory Airway 22 Pressure Peak Inspiratory Airway 21 Pressure Peak Inspiratory Airway 22 Pressure Peak Inspiratory Airway 21 Pressure Results - Laboratory Findings CBC and BMP: 12/17/17 04:09 12/17/17 04:09 ABG ABG pH 7.46 pH Units (7.32-7.45) H 12/17/17 05:29 ABG pCO2 36 mmHg (35-45) 12/17/17 05:29 ABG pO2 151 mmHg (85-104) H 12/17/17 05:29 ABG O2 Saturation 99 % (95-98) H 12/17/17 05:29 PT/INR, D-dimer PT 16.4 Seconds (9.4-12.1) H 12/17/17 04:09 Abnormal lab findings: Abnormal lab results RBC 2.39 M/mcL (3.82-4.97) L 12/17/17 04:09 Hgb 7.6 g/dL (11.5-15.4) L 12/17/17 04:09 Hct 22.1 % (35.3-44.9) L 12/17/17 04:09 RDW 18.4 % (11.5-14.5) H 12/17/17 04:09 Nucleated RBCs/100 WBC 0.2 /100 WBC (0) H 12/17/17 04:09 Platelet Estimate Slight Decrease (Normal) L 12/10/17 04:15 Hypochromasia Present (Not Present) A 12/10/17 04:15 Poikilocytosis 1+ (Not Present) A 12/10/17 04:15 Anisocytosis 1+ (Not Present) A 12/09/17 04:00 Macrocytosis Present (Not Present) A 12/10/17 04:15 PT 16.4 Seconds (9.4-12.1) H 12/17/17 04:09 APTT 50.7 Seconds (26.0-36.0) H 12/10/17 04:15 ABG pH 7.46 pH Units (7.32-7.45) H 12/17/17 05:29 ABG pO2 151 mmHg (85-104) H 12/17/17 05:29 ABG O2 Saturation 99 % (95-98) H 12/17/17 05:29 Sodium 148 mEq/L (136-145) H 12/17/17 04:09 Potassium 3.3 mEq/L (3.5-5.1) L 12/17/17 04:09 Chloride 115 mEq/L (98-107) H 12/17/17 04:09 BUN/Creatinine Ratio 32 (6-26) H 12/17/17 04:09 Glucose 110 mg/dL (70-105) H 12/17/17 04:09 Calculated Osmolality 310 (280-300) H 12/17/17 04:09 Calcium 8.4 mg/dL (8.6-10.3) L 12/17/17 04:09 % Saturation 60 % (15-50) H 12/16/17 09:36 Transferrin 158 mg/dL (203-362) L 12/16/17 09:36 Ferritin 282 ng/ml (10-120) H 12/16/17 09:36 Direct Bilirubin 0.3 mg/dL (0.0-0.2) H 12/05/17 18:50 Troponin I 1.10 ng/mL (< 0.04) H* 12/06/17 11:56 B-Natriuretic Peptide 2096 pg/mL (Less than 100) H 12/06/17 06:01 Serum Total Protein 5.0 g/dL (6.4-8.9) L 12/15/17 05:19 Albumin 2.5 g/dL (3.5-5.7) L 12/15/17 05:19 Albumin/Globulin Ratio 1.0 (1.1-2.2) L 12/15/17 05:19 Vitamin B12 > 1500 pg/mL (250-1100) H 12/13/17 09:20 Urine Clarity Cloudy (Clear) A 12/05/17 19:27 Ur Specific [place] 1.008 (1.010-1.025) L 12/05/17 19:27 Urine Ketones 15 mg/dL (Negative) H 12/05/17 19:27 Urine Bilirubin Moderate (Negative) H 12/05/17 19:27 Ur Leukocyte Esterase Moderate (Negative) H 12/05/17 19:27 Urine Microscopic WBC 5-15 per hpf (0-3) H 12/05/17 19:27 Ur Squamous Epith Cells Many per lpf (None-Few) H 12/05/17 19:27 Ur Culture Indicated? NO. (NO) A 12/05/17 19:27 U Benzodiazepines Scrn Positive ng/mL (Glwpow=[id number]) H 12/06/17 01:30 - Microbiology Findings Microbiology Findings: Microbiology, Last 48 Hours 12/16/17 21:10 Sputum Culture - Preliminary Sputum - Clinical Findings Intake & Output: Intake & Output 12/16/17 12/16/17 12/17/17 15:59 23:59 07:59 Intake Total 690 / 690 970 / 970 100 / 100 Output Total 450 / 450 300 / 300 Balance 690 / 690 520 / 520 -200 / -200 Weight 57.1 kg - Attending Attestation I didnt see this Patient this note was wrongly assigned to me .
[2017-12-16 14:45] LABS: Hematocrit 30.2 % (35.3-44.9); Hemoglobin 9.8 g/dL (11.5-15.4)
[2017-12-16] MEDS: Tranexamic Acid 1,000 MG/10 ML VIAL NS SCH ×2 (14:56→21:07)
[2017-12-16] MEDS: FentaNYL (PF) 1,000 MCG in 0.9 % Sodium Chloride 80 ML IVC SCH (15:09)
[2017-12-16 15:21] LABS: Magnesium 1.8 mg/dL (1.6-2.6); Phosphorous 4.1 mg/dL (2.7-4.5)
[2017-12-16 15:28] LABS: ABG Base Excess -1 mEq/L (-2 to 3); ABG HCO3 24 mEq/L (21-27); ABG Oxygen Saturation 100 % (95-98); ABG PCO2 41 mmHg (35-45); ABG PH 7.38 pH Units (7.32-7.45); ABG PO2 313 mmHg (85-104); ABG TCO2 25 mEq/L (20-26); Blood Gas Modality ASSIST CONTROL; Blood Gas PEEP 5 cm H2O; Blood Gas Respiration Rate 12; Blood Gas VT 500 cc
[2017-12-16] MEDS: Pantoprazole 40 MG VIAL IVP SCH (16:34)
[2017-12-16] MEDS: Lacri-Lube 3.5 GM TUBE BOTH EYES SCH ×2 (16:35→21:11)
[2017-12-16 20:36] LABS: Hematocrit 22.8 % (35.3-44.9)
[2017-12-16 20:37] LABS: Hemoglobin 7.8 g/dL (11.5-15.4)
[2017-12-16] MEDS: Insulin LISPRO 300 UNITS/3 ML VIAL SQ SCH (21:07)
[2017-12-16] MEDS: Thiamine (B-1) 100 MG TABLET PO SCH (21:07)
[2017-12-16] MEDS: Chlorhexidine Rinse 15 ML MOUTHWASH MM SCH (21:08)
[2017-12-16] MEDS: Ipratropium/Albuterol Neb 3 ML IH SCH (21:37)
[2017-12-16 23:30] LABS: INR 1.5; Prothrombin Time 16.6 Seconds (9.4-12.1)
[2017-12-17] MEDS: Piperacillin/Tazobactam 3.375 GM in 0.9 % Sodium Chloride Mini Bag 100 ML IVPB SCH ×3 (00:07→16:20)
[2017-12-17] MEDS: Lacri-Lube 3.5 GM TUBE BOTH EYES SCH ×6 (00:07→20:51)
[2017-12-17] MEDS: Insulin LISPRO 300 UNITS/3 ML VIAL SQ SCH ×4 (00:07→17:50)
[2017-12-17 00:35] LABS: Hematocrit 22.1 % (35.3-44.9); Hemoglobin 7.3 g/dL (11.5-15.4)
[2017-12-17] MEDS: Ipratropium/Albuterol Neb 3 ML IH SCH ×4 (03:23→21:43)
[2017-12-17 04:31] LABS: Basophils # 0.1 K/mcL (0.0-0.2); Basophils % 0.6 %; Eosinophils # 0.1 K/mcL (0.0-0.6); Eosinophils % 0.6 %; Hematocrit 22.1 % (35.3-44.9); Hemoglobin 7.6 g/dL (11.5-15.4); Immature Granulocytes % 0.8 % (0-4); Lymphocytes # 1.5 K/mcL (0.6-4.6); Lymphocytes % 13.7 %; Mean Corpuscular HGB Conc 34.4 g/dL (31.6-35.5); Mean Corpuscular Hemoglobin 31.8 pg (28.0-33.3); Mean Corpuscular Volume 92.5 fL (83.0-100.0); Mean Platelet Volume 9.9 fL (9.4-12.4); Monocytes # 0.6 K/mcL (0.0-1.3); Monocytes % 5.4 %; Neutrophils # 8.6 K/mcL (1.6-8.9); Nucleated Red Blood Cells 0.2 /100 WBC (0); Platelet Count 198 K/mcL (140-400); Red Blood Count 2.39 M/mcL (3.82-4.97); Red Cell Distribution Width 18.4 % (11.5-14.5); Segmented Neutrophils % 78.9 %
[2017-12-17 04:36] LABS: VBG Ionized Calcium 1.15 mmol/L (1.15-1.35)
[2017-12-17 04:40] LABS: INR 1.5; Prothrombin Time 16.4 Seconds (9.4-12.1)
[2017-12-17 04:49] LABS: BUN/Creatinine Ratio 32 (6-26); Blood Urea Nitrogen 23 mg/dL (8-23); Calcium 8.4 mg/dL (8.6-10.3); Carbon Dioxide 25 mEq/L (23-29); Chloride 115 mEq/L (98-107); Glucose 110 mg/dL (70-105); Osmolality,Calculated 310 (280-300); Potassium 3.3 mEq/L (3.5-5.1); Sodium 148 mEq/L (136-145); eGFR For African Americans > 60 (> 60); eGFR For Non-African Americans > 60 (> 60)
[2017-12-17 05:32] LABS: ABG Base Excess 1 mEq/L (-2 to 3); ABG HCO3 25 mEq/L (21-27); ABG Oxygen Saturation 99 % (95-98); ABG PCO2 36 mmHg (35-45); ABG PH 7.46 pH Units (7.32-7.45); ABG PO2 151 mmHg (85-104); ABG TCO2 26 mEq/L (20-26); Blood Gas Modality PRVC; Blood Gas PEEP 5 cm H2O; Blood Gas Respiration Rate 12; Blood Gas VT 500 cc
[2017-12-17] MEDS: Pantoprazole 40 MG VIAL IVP SCH ×2 (05:56→17:54)
[2017-12-17] MEDS: Lactulose Oral Soln 20 GM/30 ML UDC PO SCH (08:11)
[2017-12-17] MEDS: Metoprolol XL (24 HR) Succ 25 MG TAB.ER.24H PO SCH (08:12)
[2017-12-17] MEDS: Magnesium Oxide 400 MG TABLET PO SCH (08:12)
[2017-12-17] MEDS: Cholecalciferol (D-3) 1,000 UNIT TABLET PO SCH (08:12)
[2017-12-17] MEDS: Nicotine 21 MG PATCH.TD24 TD SCH (08:21)
[2017-12-17] MEDS: Chlorhexidine Rinse 15 ML MOUTHWASH MM SCH ×2 (08:22→20:51)
[2017-12-17] MEDS ORDERED: Aminoglycoside Consult 1 EACH MC ONE (09:01)
--- NOTE | 2017-12-17 09:10 | Pulmonology Consult Note ---
Date of Encounter: 12/17/17 Time of Encounter: 09:06 Assessment and Plan (1) Acute and chronic respiratory failure with hypoxia Current Visit: Yes Status: Acute The patient has medical comorbidities including heart failure and COPD at baseline and with the acute epistaxis is concern for aspiration which was worsening respiratory status and she was intubated to maintain airway protection and to avoid impending respiratory failure. Overnight acceptable gas exchange on ventilator reviewed her settings decreased her tidal volume to be more in line with 60 mL per KG ideal body weight chest x-ray today without acute cardiopulmonary process she is not a candidate liberation trial today because I suspect some mild ongoing bleeding from the upper airway. There is some all older dried blood that is being suctioned periodically from the endotracheal true tube but no clear evidence of pulmonary hemorrhage at this time continue to monitor this closely will need to continue VAP bundle to prevent pneumonia while in bed and will continue GI prophylaxis (2) NSTEMI (non-ST elevated myocardial infarction) Current Visit: Yes Status: Acute Patient was admitted with NSTEMI status post left heart catheter STENT placement. Cardiology has evaluated the patient antiplatelet therapy on hold because of life threatening hemorrhage (3) LV (left ventricular) mural thrombus Current Visit: Yes Status: Acute Patient was noted to have a left ventricular mural thrombus and was anticoagulated for this this likely was the etiology of life-threatening hemorrhage given that warfarin was slightly supratherapeutic is currently on hold all of her risk of stroke will be increased during this time (4) Acute blood loss anemia Current Visit: Yes Status: Acute This is related to epistaxis and chronic illness H&H is been stable from the last blood draw and will continue to trend this every 6 hours DVT prophylaxis with SCDs (5) Epistaxis Current Visit: Yes Status: Acute Has been evaluated by ENT status post nasal packing she is on antimicrobial coverage with Zosyn while packing is in place this will also cover any aspiration organisms but I think this is less of an issue frankly (6) Supratherapeutic INR Current Visit: Yes Status: Acute This is been corrected with vitamin K and FFP (7) COPD (chronic obstructive pulmonary disease) Current Visit: Yes Status: Chronic Without evidence of acute exacerbation continue bronchodilators while on vent Qualifiers: COPD type: unspecified COPD Qualified Code(s): J44.9 - Chronic obstructive pulmonary disease, unspecified History of Present Illness Consult date: 05/13/18 Requesting physician: Jeff Jones Reason for consult: other Chief complaint: Epistaxis History of present illness: History is obtained by the medical record and the bedside nurse along with the overnight covering housestaff. As the patient is deeply sedated there is no family at bedside The patient was transferred yesterday the ICU after increased work of breathing and respiratory distress complicated by acute epistaxis. She had been anticoagulated for a mural thrombus with warfarin with a supratherapeutic INR. This had to responded to doses of vitamin K and FFP before transfer for to the ICU. The car seat coverer had been consulted and had placed murocel packing and subsequent balloon packing and had thought that that would be appropriate to maintain hemostasis. Overnight H&H has been stable otherwise hemodynamically stable with the very minimal ventilator requirement with regards to gas exchange. There has been some noted bloody output from the subglottic tube associated with endotracheal tube. Past Med Surg Social Fam HX - Past Medical History Medical history: COPD, GERD, hyperlipidemia, hypertension, migraine Psychiatric history: anxiety, depression, other (Chronic alcoholism) - Past Surgical History Surgical History: - Social History Smoking Status: Current every day smoker Packs per day: 2 Smokeless Tobacco Status: No Alcohol use: heavy Drug use: none - Family History Mother Living Status: Hx Family Cardiac Disorders: Yes Hx Family Endocrine Disorder: Yes (uncontrolled DM) Father Living Status: Hx Family Cardiac Disorders: Yes Hx Family GI Disorders: Yes Medications and Allergies Atorvastatin [Lipitor] 80 mg PO HS 09/10/17 [History] Omeprazole [PriLOSEC] 20 mg PO DAILY 09/10/17 [History] Tramadol HCl [Ultram] 50 mg PO Q6-8H PRN 09/10/17 [History] Atenolol [Tenormin] 50 mg PO BID #60 tablet 09/14/17 [Rx] Phos-NaK [Neutra-Phos] 2 each PO BID #120 powd.pack 09/14/17 [Rx] Potassium Chloride 20 meq PO BID #60 tab.er.prt 09/14/17 [Rx] Sodium Bicarbonate 650 mg PO TID #180 tablet 09/14/17 [Rx] amLODIPine [Norvasc] 10 mg PO DAILY #60 tablet 09/14/17 [Rx] Lactulose [Lactulose] 15 ml PO DAILY 12/05/17 [History] Magnesium Oxide [Mag-Ox] 400 mg PO TID 12/05/17 [History] 3 Allergy/AdvReac Type Severity Reaction Status Date / Time No Known Allergies Allergy Verified 12/05/17 18:06 All Systems: The remainder of the systems were reviewed and are negative Physical Examination Vital Signs: Vital Signs, Last 4 Hours Temp Pulse Resp BP Pulse Ox 12/17/17 08:00 88 12 134/65 98 12/17/17 07:42 12 130/64 99 12/17/17 07:38 98.2 F 12/17/17 07:37 12 130/64 99 12/17/17 07:00 86 12 135/63 98 12/17/17 06:00 86 12 130/66 100 General appearance: other (Sedated on vent appears comfortable) Eyes: nonicteric ENT: other (Endotracheal tube noted in satisfactory position; she has bilateral nasal packing that appears clean and dry there is some crusted blood in the oropharynx. No evidence of large clot formation or active exsanguination) Neck: supple Effort: normal Auscultation: bilateral: clear Cardiovascular: regular rate and rhythm Gastrointestinal: soft, non-tender Integumentary: normal Extremities: pink and warm, pulses normal Musculoskeletal: no deformities pupils equal and round other (She is sedated) Ventilator Settings Ventilator Settings: Ventilator Settings, Last 8 Hours Ventilator Mode VC+ Ventilator Mode VC+ Ventilator Mode VC+ Ventilator Mode VC+ Ventilator Mode VC+ Ventilator Mode VC+ Ventilator Mode VC+ Ventilator Tidal Volume 440 Setting Ventilator Tidal Volume 500 Setting Ventilator Tidal Volume 500 Setting Ventilator Tidal Volume 500 Setting Ventilator Tidal Volume 500 Setting Ventilator Tidal Volume 500 Setting Ventilator Tidal Volume 500 Setting Ventilator Tidal Volume 500 Setting Ventilator Tidal Volume 500 Setting Ventilator Respiratory Rate 12 Setting Ventilator Respiratory Rate 12 Setting Ventilator Respiratory Rate 12 Setting Ventilator Respiratory Rate 12 Setting Ventilator Respiratory Rate 12 Setting Ventilator Respiratory Rate 12 Setting Ventilator Respiratory Rate 12 Setting Ventilator Respiratory Rate 12 Setting Ventilator Respiratory Rate 12 Setting Actual Respiratory Rate 12 Actual Respiratory Rate 12 Actual Respiratory Rate 12 Actual Respiratory Rate 12 Actual Respiratory Rate 12 Actual Respiratory Rate 12 Actual Respiratory Rate 12 Actual Respiratory Rate 12 Actual Respiratory Rate 12 Positive End Expiratory 5 Pressure Positive End Expiratory 5 Pressure Positive End Expiratory 5 Pressure Positive End Expiratory 5 Pressure Positive End Expiratory 5 Pressure Positive End Expiratory 5 Pressure Positive End Expiratory 5 Pressure Positive End Expiratory 5 Pressure Positive End Expiratory 5 Pressure Peak Inspiratory Airway 19 Pressure Peak Inspiratory Airway 19 Pressure Peak Inspiratory Airway 21 Pressure Peak Inspiratory Airway 21 Pressure Peak Inspiratory Airway 22 Pressure Peak Inspiratory Airway 23 Pressure Peak Inspiratory Airway 22 Pressure Peak Inspiratory Airway 22 Pressure Results - Laboratory Findings CBC and BMP: 12/17/17 04:09 12/17/17 04:09 ABG ABG pH 7.46 pH Units (7.32-7.45) H 12/17/17 05:29 ABG pCO2 36 mmHg (35-45) 12/17/17 05:29 ABG pO2 151 mmHg (85-104) H 12/17/17 05:29 ABG O2 Saturation 99 % (95-98) H 12/17/17 05:29 PT/INR, D-dimer PT 16.4 Seconds (9.4-12.1) H 12/17/17 04:09 Abnormal lab findings: Abnormal lab results RBC 2.39 M/mcL (3.82-4.97) L 12/17/17 04:09 Hgb 7.6 g/dL (11.5-15.4) L 12/17/17 04:09 Hct 22.1 % (35.3-44.9) L 12/17/17 04:09 RDW 18.4 % (11.5-14.5) H 12/17/17 04:09 Nucleated RBCs/100 WBC 0.2 /100 WBC (0) H 12/17/17 04:09 Platelet Estimate Slight Decrease (Normal) L 12/10/17 04:15 Hypochromasia Present (Not Present) A 12/10/17 04:15 Poikilocytosis 1+ (Not Present) A 12/10/17 04:15 Anisocytosis 1+ (Not Present) A 12/09/17 04:00 Macrocytosis Present (Not Present) A 12/10/17 04:15 PT 16.4 Seconds (9.4-12.1) H 12/17/17 04:09 APTT 50.7 Seconds (26.0-36.0) H 12/10/17 04:15 ABG pH 7.46 pH Units (7.32-7.45) H 12/17/17 05:29 ABG pO2 151 mmHg (85-104) H 12/17/17 05:29 ABG O2 Saturation 99 % (95-98) H 12/17/17 05:29 Sodium 148 mEq/L (136-145) H 12/17/17 04:09 Potassium 3.3 mEq/L (3.5-5.1) L 12/17/17 04:09 Chloride 115 mEq/L (98-107) H 12/17/17 04:09 BUN/Creatinine Ratio 32 (6-26) H 12/17/17 04:09 Glucose 110 mg/dL (70-105) H 12/17/17 04:09 Calculated Osmolality 310 (280-300) H 12/17/17 04:09 Calcium 8.4 mg/dL (8.6-10.3) L 12/17/17 04:09 % Saturation 60 % (15-50) H 12/16/17 09:36 Transferrin 158 mg/dL (203-362) L 12/16/17 09:36 Ferritin 282 ng/ml (10-120) H 12/16/17 09:36 Direct Bilirubin 0.3 mg/dL (0.0-0.2) H 12/05/17 18:50 Troponin I 1.10 ng/mL (< 0.04) H* 12/06/17 11:56 B-Natriuretic Peptide 2096 pg/mL (Less than 100) H 12/06/17 06:01 Serum Total Protein 5.0 g/dL (6.4-8.9) L 12/15/17 05:19 Albumin 2.5 g/dL (3.5-5.7) L 12/15/17 05:19 Albumin/Globulin Ratio 1.0 (1.1-2.2) L 12/15/17 05:19 Vitamin B12 > 1500 pg/mL (250-1100) H 12/13/17 09:20 Urine Clarity Cloudy (Clear) A 12/05/17 19:27 Ur Specific [place] 1.008 (1.010-1.025) L 12/05/17 19:27 Urine Ketones 15 mg/dL (Negative) H 12/05/17 19:27 Urine Bilirubin Moderate (Negative) H 12/05/17 19:27 Ur Leukocyte Esterase Moderate (Negative) H 12/05/17 19:27 Urine Microscopic WBC 5-15 per hpf (0-3) H 12/05/17 19:27 Ur Squamous Epith Cells Many per lpf (None-Few) H 12/05/17 19:27 Ur Culture Indicated? NO. (NO) A 12/05/17 19:27 U Benzodiazepines Scrn Positive ng/mL (Jfskaj=334) H 12/06/17 01:30 - Microbiology Findings Microbiology Findings: Microbiology, Last 48 Hours 12/16/17 21:10 Sputum Culture - Preliminary Sputum - Diagnostic Findings Chest x-ray: report reviewed, image reviewed - Clinical Findings Intake & Output: Intake & Output 12/16/17 12/17/17 12/17/17 23:59 07:59 15:59 Intake Total 980 / 980 100 / 100 Output Total 450 / 450 300 / 300 Balance 530 / 530 -200 / -200 Weight 57.1 kg Consult Discharge Plan - Plan Referrals: Chel Munroe, [employer] FINAL FINISHER [Primary Care Provider] -
[2017-12-17] MEDS: FentaNYL (PF) 1,000 MCG in 0.9 % Sodium Chloride 80 ML IVC SCH (10:57)
--- NOTE | 2017-12-17 11:36 | Gastroenterology Consult Note ---
<Suyapa Milan - Last Filed: 12/18/17 08:07> Date of Encounter: 12/18/17 Time of Encounter: 09:00 - Assessment and plan (1) Anemia Current Visit: Yes Status: Acute Assessment and plan: 67 year old female seen in the CCU. She has been on coumadin for mural thrombus of the left ventricle. She developed epistaxis and respiratory failure. She has continued bright red blood from subglottic suction, ETT and small amount from OGT. Hgb dropped to 6.6 and is up to 7.6 after 2 units PrBCs. She is poor candidate for invasive workup. It appears the bleeding is from the epistaxis, however, she may need EGD to check for upper GI bleeding. Will discuss with Dr Copeland for further recommendations. Qualifiers: Anemia type: other cause Other causes of anemia: acute posthemorrhagic Qualified Code(s): D62 - Acute posthemorrhagic anemia - Time Spent With Patient Total time spent is greater than 50% in coordination of care (as documented) at patient's floor/unit and/or counseling patient: GI History of Present Illness - Data of Consult Consult date: 12/17/17 Requesting Physician: Joy Borjas MD - Consult Narrative Reason for consult: rule out upper GI bleed History of present illness: Ms. Cabrera is a 67 year old female with a past medical history significant for chronic alcoholism, hypertension, GERD, recent hospitalization for electrolyte abnormalities and a failure to thrive who presented to the [facility] on 12/05/2017 for altered mental status. Definitely, at the time of examination, the patient is unable to communicate effectively due to severe respiratory distress, and shortly after she was intubated. She was transferred yesterday the ICU after increased work of breathing and respiratory distress complicated by acute epistaxis. She had been anticoagulated for a mural thrombus with warfarin. Her INR was 4.8, she was given doses of vitamin K and FFP before transfer for to the ICU, and INR is now 1.5. The imaging administrator had been consulted and had placed murocel packing and subsequent balloon packing. There has been some noted bloody output from the subglottic tube associated with endotracheal tube. There is a small amount of bright red blood in the OGT, nursing denies any bloody or melonic stools. EGD: 09/23 normal esophagus enlarged gastric folds, normal duodenum Past Med Surg Social Fam HX - Past Medical History Medical history: COPD, GERD, hyperlipidemia, hypertension, migraine Psychiatric history: anxiety, depression, other (Chronic alcoholism) - Past Surgical History Surgical History: - Social History Smoking Status: Current every day smoker Packs per day: 2 Smokeless Tobacco Status: No Alcohol use: heavy Drug use: none - Family History Mother Living Status: Hx Family Cardiac Disorders: Yes Hx Family Endocrine Disorder: Yes (uncontrolled DM) Father Living Status: Hx Family Cardiac Disorders: Yes Hx Family GI Disorders: Yes ROS unobtainable: due to endotracheal tube - Constitutional Vitals: Temp Pulse Resp BP Pulse Ox 98.2 F 92 12 126/60 100 12/17/17 07:38 12/17/17 11:00 12/17/17 11:19 12/17/17 11:19 12/17/17 11:19 Exam: CONSTITUTIONAL:~sedated and mechanically ventilated.~HEAD:~normocephalic.~EYES:~ no jaundice.~NECK:~no obvious swelling.~HEART:~regular rate and rhythm, no murmurs.~LUNGS:~bilateral fair air entry.~ABDOMEN:~non distended, soft, non tender, no masses palpable, no organomegaly.~RECTAL EXAM:~Deferred.~EXTREMITIES: ~no clubbing, cyanosis or edema.~SKIN:~pallor noted no stigmata of chronic liver disease.~NEUROLOGIC:~no obvious focal defect.~~~~ Results - Labs CBC & Chem 7: 12/18/17 01:08 12/17/17 04:09 Labs: Last Result Calcium 8.4 mg/dL (8.6-10.3) L 12/17/17 04:09 Iron 132 mcg/dL (50-170) 12/16/17 09:36 % Saturation 60 % (15-50) H 12/16/17 09:36 Transferrin 158 mg/dL (203-362) L 12/16/17 09:36 Ferritin 282 ng/ml (10-120) H 12/16/17 09:36 Troponin I 1.10 ng/mL (< 0.04) H* 12/06/17 11:56 Vitamin B12 > 1500 pg/mL (250-1100) H 12/13/17 09:20 Folate 13.5 ng/mL (3.0-16.0) 12/13/17 09:20 Urine Opiates Screen Negative ng/mL (Jswluz=203) 12/06/17 01:30 Entire Visit Hgb 7.6 g/dL (11.5-15.4) L 12/17/17 04:09 Hct 22.1 % (35.3-44.9) L 12/17/17 04:09 PT 16.4 Seconds (9.4-12.1) H 12/17/17 04:09 Ferritin 282 ng/ml (10-120) H 12/16/17 09:36 Total Bilirubin 0.5 mg/dL (0.3-1.0) 12/15/17 05:19 AST 30 Units/L (13-39) 12/15/17 05:19 ALT 15 Units/L (7-52) 12/15/17 05:19 Ammonia 24 mcmol/L (16-53) 12/06/17 06:01 Folate 13.5 ng/mL (3.0-16.0) 12/13/17 09:20 - ABG ABG results: ABG ABG pH 7.46 pH Units (7.32-7.45) H 12/17/17 05:29 ABG pCO2 36 mmHg (35-45) 12/17/17 05:29 ABG pO2 151 mmHg (85-104) H 12/17/17 05:29 ABG O2 Saturation 99 % (95-98) H 12/17/17 05:29 PT/INR, D-dimer PT 16.4 Seconds (9.4-12.1) H 12/17/17 04:09 - Impressions Impressions Chest X-Ray 12/16/17 09:54 IMPRESSION: 1. No acute cardiopulmonary disease. 2. Interval resolution of the previously identified small left pleural effusion. 3. Interval resolution of the previously identified interface along the left lung base, which represented a skin fold on the prior exam. D/ / 12/16/2017 10:21:33 Derick Herrera MD / earnold Interpreting Provider: Derick Herrera MD Chest X-Ray 12/16/17 14:01 IMPRESSION: Endotracheal tube and gastric tube are in good position. New opacity within the right mid to lower lung. This may represent fluid within the fissure, atelectasis, or developing pneumonia. D/ / Rommel Duarte MD / Rommel Duarte MD Interpreting Provider: Rommel Duarte MD Chest X-Ray 12/17/17 08:34 IMPRESSION: Tip of the endotracheal tube is above the he. No radiographic evidence of acute cardiopulmonary process. D/ / 12/17/2017 09:03:49 Ti Mark MD / david Interpreting Provider: Ti Mark MD Consult Discharge Plan - Plan Referrals: Chel Munroe, ENVELOPE SEALER [Primary Care Provider] - <Johann Copeland - Last Filed: 12/25/17 18:45> Date of Encounter: 12/18/17 - Time Spent With Patient Total time spent is greater than 50% in coordination of care (as documented) at patient's floor/unit and/or counseling patient: GI History of Present Illness - Data of Consult Requesting Physician: Florentino Munoz - Consult Narrative History of present illness: Ms. Cabrera is a 67 year old female - Constitutional Vitals: Temp Pulse Resp BP Pulse Ox 99.7 F H 98 18 125/75 98 12/25/17 17:48 12/25/17 17:48 12/25/17 17:48 12/25/17 17:48 12/25/17 17:48 Results - Labs CBC & Chem 7: 12/25/17 07:53 12/25/17 07:53 Labs: Last Result Calcium 8.3 mg/dL (8.6-10.3) L 12/25/17 07:53 Iron 132 mcg/dL (50-170) 12/16/17 09:36 % Saturation 60 % (15-50) H 12/16/17 09:36 Transferrin 158 mg/dL (203-362) L 12/16/17 09:36 Ferritin 282 ng/ml (10-120) H 12/16/17 09:36 Troponin I 1.10 ng/mL (< 0.04) H* 12/06/17 11:56 Vitamin B12 > 1500 pg/mL (250-1100) H 12/13/17 09:20 Folate 13.5 ng/mL (3.0-16.0) 12/13/17 09:20 Urine Opiates Screen Negative ng/mL (Yigbnx=347) 12/06/17 01:30 Entire Visit Hgb 10.3 g/dL (11.5-15.4) L 12/25/17 07:53 Hct 31.4 % (35.3-44.9) L 12/25/17 07:53 PT 14.0 Seconds (9.4-12.1) H 12/25/17 07:30 Ferritin 282 ng/ml (10-120) H 12/16/17 09:36 Total Bilirubin 0.5 mg/dL (0.3-1.0) 12/15/17 05:19 AST 30 Units/L (13-39) 12/15/17 05:19 ALT 15 Units/L (7-52) 12/15/17 05:19 Ammonia 24 mcmol/L (16-53) 12/06/17 06:01 Folate 13.5 ng/mL (3.0-16.0) 12/13/17 09:20 - ABG ABG results: ABG ABG pH 7.43 pH Units (7.32-7.45) 12/23/17 05:10 ABG pCO2 44 mmHg (35-45) 12/23/17 05:10 ABG pO2 109 mmHg (85-104) H 12/23/17 05:10 ABG O2 Saturation 98 % (95-98) 12/23/17 05:10 PT/INR, D-dimer PT 14.0 Seconds (9.4-12.1) H 12/25/17 07:30 - Attending Attestation Besides some is unfortunate 8-year-old female 67-year-old female who comes in with epistaxis and is now intubated in the ICU. Ross to consult because the patient's been having some blood coming out of the OG tube. Presently it appears her hemoglobin is stable and if patient remains so would hold off on endoscopy until the patient is more stable patient given the point that the patient has epistaxis. We will reassess the situation in an ongoing fashion. Should anything change in the interim please do not hesitate to contact us. Thanking you for this consultation. I have personally performed a face to face evaluation on this patient. I have reviewed and agree with the care plan. History and Exam by me shows:
[2017-12-17] MEDS ORDERED: Potassium Chloride Elixir 20 MEQ/15 ML UDC GTUBE ONE (12:08)
--- NOTE | 2017-12-17 12:35 | ENT - Progress Note ---
Date of Encounter: 12/17/17 Time of Encounter: 12:30 - Assessment and Plan (1) Epistaxis Current Visit: Yes Status: Acute despite blood in the subglottic suction line, there does not appear to be active bleeding posteriorly in the oropharynx on my exam this morning. nasal packing will have to stay in place for 4-5 days. will continue to follow. (2) Acute blood loss anemia Current Visit: Yes Status: Acute H/H stable. no signficant epistaxis currently. leave nasal packs in place for 4-5 days. Subjective Narrative: I took over the care of this patient from Dr. Zamudio this morning. 67 year old female with history of CHF. Nasal packing was placed yesterday for apparent right sided epistaxis inthe setting of anticoagulation and supratherapeutic INR. bilateral merocel packs were placed initially with some persistent bleeding, which necessitated a double balloon pack on the right to control. H/H improving. INR is down. She developed respiratory distress since she was last seen by Dr. Zamudio and was intubated. She is currently sedated and intubated therefore history was obtained from the ICU staff and the medical record. there is some bloody mucous in the subglottic suction of the ET tube, however there has been no evidence of either anterior or posterior bleeding otherwise. Objective Initial Vital Signs Temp Pulse Resp BP Pulse Ox 97.8 F 86 16 121/23 98 12/05/17 18:03 12/05/17 18:03 12/05/17 18:03 12/05/17 18:03 12/05/17 18:03 - General physical appearance other (sedated and intubated) - ENT Other (bilateral nasal packs - merocel on left, double balloon posterior pack on right. able to examine the oropharynx and suction today without evidence of active bleeding) - Neck no masses, trachea midline - Labs 12/17/17 04:09 12/17/17 04:09 Diabetes panel 12/17/17 Range/Units 04:09 Sodium 148 H (136-145) mEq/L Potassium 3.3 L (3.5-5.1) mEq/L Chloride 115 H (98-107) mEq/L Carbon Dioxide 25 (23-29) mEq/L BUN 23 (8-23) mg/dL Creatinine 0.73 (0.60-1.20) mg/dL Glucose 110 H (70-105) mg/dL Calcium 8.4 L (8.6-10.3) mg/dL Calcium panel 12/16/17 12/17/17 Range/Units 14:35 04:09 Calcium 8.4 L (8.6-10.3) mg/dL Phosphorus 4.1 (2.7-4.5) mg/dL Pituitary panel 12/17/17 Range/Units 04:09 Sodium 148 H (136-145) mEq/L Potassium 3.3 L (3.5-5.1) mEq/L Chloride 115 H (98-107) mEq/L Carbon Dioxide 25 (23-29) mEq/L BUN 23 (8-23) mg/dL Creatinine 0.73 (0.60-1.20) mg/dL Glucose 110 H (70-105) mg/dL Calcium 8.4 L (8.6-10.3) mg/dL Adrenal panel 12/17/17 Range/Units 04:09 Sodium 148 H (136-145) mEq/L Potassium 3.3 L (3.5-5.1) mEq/L Chloride 115 H (98-107) mEq/L Carbon Dioxide 25 (23-29) mEq/L BUN 23 (8-23) mg/dL Creatinine 0.73 (0.60-1.20) mg/dL Glucose 110 H (70-105) mg/dL Calcium 8.4 L (8.6-10.3) mg/dL Consult Discharge Plan - Plan Referrals: Chel Munroe, [employer] PSYCHOLOGIST [Primary Care Provider] -
[2017-12-17 14:29] LABS: Basophils # 0.1 K/mcL (0.0-0.2); Basophils % 0.5 %; Eosinophils # 0.1 K/mcL (0.0-0.6); Eosinophils % 1.2 %; Hematocrit 21.9 % (35.3-44.9); Hemoglobin 7.4 g/dL (11.5-15.4); Immature Granulocytes % 0.5 % (0-4); Lymphocytes # 1.1 K/mcL (0.6-4.6); Lymphocytes % 11.7 %; Mean Corpuscular HGB Conc 33.8 g/dL (31.6-35.5); Mean Corpuscular Hemoglobin 31.5 pg (28.0-33.3); Mean Corpuscular Volume 93.2 fL (83.0-100.0); Monocytes # 0.5 K/mcL (0.0-1.3); Monocytes % 5.3 %; Neutrophils # 7.9 K/mcL (1.6-8.9); Platelet Count 199 K/mcL (140-400); Red Blood Count 2.35 M/mcL (3.82-4.97); Segmented Neutrophils % 80.8 %
[2017-12-17] MEDS: Thiamine (B-1) 100 MG TABLET PO SCH (17:50)
[2017-12-17 19:08] LABS: Basophils # 0.1 K/mcL (0.0-0.2); Basophils % 0.6 %; Eosinophils # 0.1 K/mcL (0.0-0.6); Eosinophils % 1.4 %; Hematocrit 21.1 % (35.3-44.9); Immature Granulocytes % 0.7 % (0-4); Lymphocytes # 1.3 K/mcL (0.6-4.6); Lymphocytes % 14.3 %; Mean Corpuscular HGB Conc 33.2 g/dL (31.6-35.5); Mean Corpuscular Hemoglobin 31.1 pg (28.0-33.3); Mean Corpuscular Volume 93.8 fL (83.0-100.0); Mean Platelet Volume 10.1 fL (9.4-12.4); Monocytes # 0.5 K/mcL (0.0-1.3); Monocytes % 5.6 %; Neutrophils # 6.9 K/mcL (1.6-8.9); Platelet Count 186 K/mcL (140-400); Red Blood Count 2.25 M/mcL (3.82-4.97); Red Cell Distribution Width 17.9 % (11.5-14.5); Segmented Neutrophils % 77.4 %
[2017-12-18] MEDS: Piperacillin/Tazobactam 3.375 GM in 0.9 % Sodium Chloride Mini Bag 100 ML IVPB SCH ×3 (00:04→16:22)
[2017-12-18] MEDS: Lacri-Lube 3.5 GM TUBE BOTH EYES SCH ×6 (00:04→20:46)
[2017-12-18] MEDS: FentaNYL (PF) 1,000 MCG in 0.9 % Sodium Chloride 80 ML IVC SCH ×2 (00:08→16:13)
[2017-12-18] MEDS: Insulin LISPRO 300 UNITS/3 ML VIAL SQ SCH ×4 (00:20→17:24)
[2017-12-18 01:29] LABS: Basophils % 0.5 %; Eosinophils # 0.2 K/mcL (0.0-0.6); Hemoglobin 6.7 g/dL (11.5-15.4); Immature Granulocytes % 0.7 % (0-4); Lymphocytes # 1.4 K/mcL (0.6-4.6); Lymphocytes % 16.1 %; Mean Corpuscular HGB Conc 33.5 g/dL (31.6-35.5); Mean Corpuscular Hemoglobin 31.5 pg (28.0-33.3); Mean Corpuscular Volume 93.9 fL (83.0-100.0); Monocytes # 0.5 K/mcL (0.0-1.3); Monocytes % 5.3 %; Neutrophils # 6.7 K/mcL (1.6-8.9); Platelet Count 188 K/mcL (140-400); Red Blood Count 2.13 M/mcL (3.82-4.97); Red Cell Distribution Width 17.9 % (11.5-14.5); Segmented Neutrophils % 75.4 %
[2017-12-18] MEDS: Ipratropium/Albuterol Neb 3 ML IH SCH ×4 (03:37→21:13)
[2017-12-18] MEDS ORDERED: 0.9 % Sodium Chloride 500 ML ONE (03:48)
[2017-12-18 05:05] LABS: ABG Base Excess 0 mEq/L (-2 to 3); ABG HCO3 24 mEq/L (21-27); ABG Oxygen Saturation 99 % (95-98); ABG PCO2 32 mmHg (35-45); ABG PH 7.48 pH Units (7.32-7.45); ABG PO2 127 mmHg (85-104); ABG TCO2 25 mEq/L (20-26); Blood Gas Modality VC; Blood Gas PEEP 5 cm H2O; Blood Gas Respiration Rate 12; Blood Gas VT 440 cc
[2017-12-18] MEDS: Pantoprazole 40 MG VIAL IVP SCH ×2 (06:11→17:44)
--- NOTE | 2017-12-18 07:58 | ENT - Progress Note ---
Date of Encounter: 12/18/17 Time of Encounter: 07:55 - Assessment and Plan (1) Epistaxis Current Visit: Yes Status: Acute no evidence of bleeding currently, subglottic suction is no longer bloody. will follow up later today for re-evaluation after she is extubated. nasal packing will have to stay in place for 4-5 days. will continue to follow. (2) Acute blood loss anemia Current Visit: Yes Status: Acute H/H trending down, but no evidence of signficant epistaxis currently. Subjective Patient reports: other (67 year old female originally admitted for NSTEMI with history of CHF, COPD. Mural thrombus found. she was anticoagulated and INR was supratherapeutic, then she had epistaxis necessitating nasal packing bilaterally. merocel in left, double balloon pack in right. INR is therapeutic now. she was intubated for respiratory distress two nights ago, weaning currently. no active bleeding. previously had blood in subglottic suction of ET tube, but clear currently. H/H continues to trend down despite a transfusion.) Objective Initial Vital Signs Temp Pulse Resp BP Pulse Ox 97.8 F 86 16 121/23 98 12/05/17 18:03 12/05/17 18:03 12/05/17 18:03 12/05/17 18:03 12/05/17 18:03 - General physical appearance other (intubated, sedation weaned, on CPAP in preparation for extubation.) - ENT Other (bilateral nasal packing in place with no evidence of recent bleeding. ) - Neck no masses, trachea midline - Labs 12/18/17 01:08 12/17/17 04:09 Consult Discharge Plan - Plan Referrals: Chel Munroe, CHEMIST HELPER [Primary Care Provider] -
--- NOTE | 2017-12-18 08:23 | Pulmonology Progress Note ---
<Miguel Irby W - Last Filed: 12/18/17 10:23> Date of Encounter: 12/18/17 Assessment and Plan (1) Acute and chronic respiratory failure with hypoxia Current Visit: Yes Status: Acute (2) NSTEMI (non-ST elevated myocardial infarction) Current Visit: Yes Status: Acute (3) LV (left ventricular) mural thrombus Current Visit: Yes Status: Acute (4) Acute blood loss anemia Current Visit: Yes Status: Acute (5) Epistaxis Current Visit: Yes Status: Acute (6) Supratherapeutic INR Current Visit: Yes Status: Acute (7) COPD (chronic obstructive pulmonary disease) Current Visit: Yes Status: Chronic Qualifiers: COPD type: unspecified COPD Qualified Code(s): J44.9 - Chronic obstructive pulmonary disease, unspecified Objective PUL Vital signs: Last Vital Signs Temp 97.7 F 12/18/17 07:46 Pulse 85 12/18/17 09:00 Resp 17 12/18/17 09:29 BP 155/83 12/18/17 09:00 Pulse Ox 99 12/18/17 09:18 Ventilator Settings Ventilator Settings: Ventilator Settings, Last 8 Hours Ventilator Mode VC+ Ventilator Mode VC+ Ventilator Mode VC+ Ventilator Mode VC+ Ventilator Mode VC+ Ventilator Mode VC+ Ventilator Tidal Volume 440 Setting Ventilator Tidal Volume 440 Setting Ventilator Tidal Volume 440 Setting Ventilator Tidal Volume 440 Setting Ventilator Tidal Volume 440 Setting Ventilator Tidal Volume 440 Setting Ventilator Tidal Volume 440 Setting Ventilator Tidal Volume 440 Setting Ventilator Tidal Volume 440 Setting Ventilator Respiratory Rate 12 Setting Ventilator Respiratory Rate 12 Setting Ventilator Respiratory Rate 12 Setting Ventilator Respiratory Rate 12 Setting Ventilator Respiratory Rate 12 Setting Ventilator Respiratory Rate 12 Setting Ventilator Respiratory Rate 12 Setting Ventilator Respiratory Rate 12 Setting Actual Respiratory Rate 12 Actual Respiratory Rate 17 Actual Respiratory Rate 12 Actual Respiratory Rate 12 Actual Respiratory Rate 12 Actual Respiratory Rate 13 Actual Respiratory Rate 12 Actual Respiratory Rate 12 Actual Respiratory Rate 12 Actual Respiratory Rate 12 Positive End Expiratory 5 Pressure Positive End Expiratory 5 Pressure Positive End Expiratory 5 Pressure Positive End Expiratory 5 Pressure Positive End Expiratory 5 Pressure Positive End Expiratory 5 Pressure Positive End Expiratory 5 Pressure Positive End Expiratory 5 Pressure Positive End Expiratory 5 Pressure Positive End Expiratory 5 Pressure Positive End Expiratory 5 Pressure Peak Inspiratory Airway 18 Pressure Peak Inspiratory Airway 13 Pressure Peak Inspiratory Airway 13 Pressure Peak Inspiratory Airway 22 Pressure Peak Inspiratory Airway 20 Pressure Peak Inspiratory Airway 20 Pressure Peak Inspiratory Airway 22 Pressure Peak Inspiratory Airway 19 Pressure Peak Inspiratory Airway 18 Pressure Peak Inspiratory Airway 16 Pressure Results - Laboratory Findings CBC and BMP: 12/18/17 04:00 12/18/17 04:00 ABG ABG pH 7.48 pH Units (7.32-7.45) H 12/18/17 05:02 ABG pCO2 32 mmHg (35-45) L 12/18/17 05:02 ABG pO2 127 mmHg (85-104) H 12/18/17 05:02 ABG O2 Saturation 99 % (95-98) H 12/18/17 05:02 PT/INR, D-dimer PT 16.4 Seconds (9.4-12.1) H 12/17/17 04:09 Abnormal lab findings: Abnormal lab results RBC 3.38 M/mcL (3.82-4.97) L 12/18/17 04:00 Hgb 10.2 g/dL (11.5-15.4) L D 12/18/17 04:00 Hct 31.2 % (35.3-44.9) L 12/18/17 04:00 RDW 17.3 % (11.5-14.5) H 12/18/17 04:00 Nucleated RBCs/100 WBC 0.2 /100 WBC (0) H 12/17/17 04:09 Platelet Estimate Slight Decrease (Normal) L 12/10/17 04:15 Hypochromasia Present (Not Present) A 12/10/17 04:15 Poikilocytosis 1+ (Not Present) A 12/10/17 04:15 Anisocytosis 1+ (Not Present) A 12/09/17 04:00 Macrocytosis Present (Not Present) A 12/10/17 04:15 PT 16.4 Seconds (9.4-12.1) H 12/17/17 04:09 APTT 50.7 Seconds (26.0-36.0) H 12/10/17 04:15 ABG pH 7.48 pH Units (7.32-7.45) H 12/18/17 05:02 ABG pCO2 32 mmHg (35-45) L 12/18/17 05:02 ABG pO2 127 mmHg (85-104) H 12/18/17 05:02 ABG O2 Saturation 99 % (95-98) H 12/18/17 05:02 Sodium 147 mEq/L (136-145) H 12/18/17 04:00 Chloride 116 mEq/L (98-107) H 12/18/17 04:00 Carbon Dioxide 22 mEq/L (23-29) L 12/18/17 04:00 BUN/Creatinine Ratio 27 (6-26) H 12/18/17 04:00 Calculated Osmolality 305 (280-300) H 12/18/17 04:00 Calcium 8.3 mg/dL (8.6-10.3) L 12/18/17 04:00 % Saturation 60 % (15-50) H 12/16/17 09:36 Transferrin 158 mg/dL (203-362) L 12/16/17 09:36 Ferritin 282 ng/ml (10-120) H 12/16/17 09:36 Direct Bilirubin 0.3 mg/dL (0.0-0.2) H 12/05/17 18:50 Troponin I 1.10 ng/mL (< 0.04) H* 12/06/17 11:56 B-Natriuretic Peptide 2096 pg/mL (Less than 100) H 12/06/17 06:01 Serum Total Protein 5.0 g/dL (6.4-8.9) L 12/15/17 05:19 Albumin 2.5 g/dL (3.5-5.7) L 12/15/17 05:19 Albumin/Globulin Ratio 1.0 (1.1-2.2) L 12/15/17 05:19 Vitamin B12 > 1500 pg/mL (250-1100) H 12/13/17 09:20 Urine Clarity Cloudy (Clear) A 12/05/17 19:27 Ur Specific [place] 1.008 (1.010-1.025) L 12/05/17 19:27 Urine Ketones 15 mg/dL (Negative) H 12/05/17 19:27 Urine Bilirubin Moderate (Negative) H 12/05/17 19:27 Ur Leukocyte Esterase Moderate (Negative) H 12/05/17 19:27 Urine Microscopic WBC 5-15 per hpf (0-3) H 12/05/17 19:27 Ur Squamous Epith Cells Many per lpf (None-Few) H 12/05/17 19:27 Ur Culture Indicated? NO. (NO) A 12/05/17 19:27 Vancomycin Trough 25 mcg/mL (5-10) H 12/18/17 01:08 U Benzodiazepines Scrn Positive ng/mL (Zezzqm=094) H 12/06/17 01:30 - Microbiology Findings Microbiology Findings: Microbiology, Last 48 Hours 12/16/17 21:10 Sputum Culture - Preliminary Sputum - Clinical Findings Intake & Output: Intake & Output 12/17/17 12/18/17 12/18/17 23:59 07:59 15:59 Intake Total 550 / 550 621.7 / 621.7 Output Total 450 / 450 350 / 350 Balance 100 / 100 271.7 / 271.7 Weight 58.2 kg Consult Discharge Plan - Plan Referrals: Chel Munroe, RECREATIONAL VEHICLE RESORT MANAGER [Primary Care Provider] - - Attending Attestation I examined this patient and my medical decision-making was reviewed with the Resident Physician. I agree with the documented findings, disposition and treatment plan as described except to the extent set forth below. We independently had [id number] contact with the patient Patient seen and examined at bedside Labs, radiology, chart personally reviewed. Management was reviewed during multidisciplinary critical care rounds. ACCESS SERVICES REPRESENTATIVE: Follows commands on SAT. Cont mild sedation and analgesia for vent goal Jain 2-3 HEENT: Epistaxis with packing in place ENT follows stable. Pulm: Passed CPAP trial today but no air leak on exam. start steroids will reevaluate tomorrow. Cards: Hemodynamicall stable; Mural thrombus holding anticoaulation because of bleeding FEN-GI: Start enteral nutrition Renal: uop monitored and stable ID: cont abs for espistais with packing Heme/Onc: DVT prophylaxis with SCDS Endo: Glucose Monitored Integ/MSK: Skin Care per routine ICU Nursing Protocol to prevent ulcers. Lines: All lines examined without evidence of infection : Dispo: Remain in ICU for vent mngt CODE: Full. <Derick Liang - Last Filed: 12/18/17 11:36> Date of Encounter: 12/18/17 Time of Encounter: 08:23 Assessment and Plan (1) Acute and chronic respiratory failure with hypoxia Current Visit: Yes Status: Acute - Acute on chronic respiratory failure possibly secondary to aspiration in the setting of epistaxis - Currently intubated. Did attempt CPAP trials which she did well with, however there is evidence of laryngeal edema and was unable to be extubated today. - Currently day #6 for Zosyn for aspiration coverage, will discontinue vancomycin, day #3 - No clear evidence of pulmonary hemorrhage despite dry blood in endotracheal tube yesterday - ABG showing mild respiratory alkalosis. PH 7.48, CO2 32 - Sputum culture prelim on 12/16 shows no growth. Plan - Continue ventilator support - Antibiotics as above - Start Solu-Medrol 40 mg twice a day for swelling - Attempt additional CPAP trial tomorrow (2) Anemia Current Visit: Yes Status: Acute - Anemia in the setting of epistaxis - ENT has been evaluating and does not see acute bleed today - Nasal packing in place, will need to remain in place for 4-5 days per their note - H/H of 6.7/20.0 this morning, decreased from 7.0 - Currently has 2 units of packed red blood cells infusing Plan - Recheck H/H after units of transfused - Continue to monitor, transfuse as necessary with goal hemoglobin greater than 7 - Treatment of underlying causes as below Qualifiers: Anemia type: other cause Other causes of anemia: acute posthemorrhagic Qualified Code(s): D62 - Acute posthemorrhagic anemia (3) COPD (chronic obstructive pulmonary disease) Current Visit: Yes Status: Chronic Does not appear to be in acute exacerbation Qualifiers: COPD type: unspecified COPD Qualified Code(s): J44.9 - Chronic obstructive pulmonary disease, unspecified (4) NSTEMI (non-ST elevated myocardial infarction) Current Visit: Yes Status: Acute - And STEMI on admission status post left heart catheterization without stent placement. Cardiology has evaluated and antiplatelet therapy is currently on hold due to hemorrhage (5) Aspiration pneumonia Current Visit: Yes Status: Acute - Possible aspiration pneumonia secondary to epistaxis - Evidence of blood in the endotracheal tube yesterday - Patient has been afebrile, no WBC elevation - Currently on Zosyn day #6, we will continue and discontinue vancomycin today - Lower suspicion for aspiration at this time Qualifiers: Aspiration pneumonia type: unspecified Laterality: left Lung location: lower lobe of lung Qualified Code(s): J69.0 - Pneumonitis due to inhalation of food and vomit (6) Left ventricular thrombosis Current Visit: Yes Status: Acute - LV thrombus seen on echocardiogram - Was previously anticoagulated on fondaparinux and transition to warfarin - Warfarin being held due to bleeding as above - INR has corrected from supratherapeutic levels with addition of vitamin K and fresh frozen plasma - Most recent INR of 1.8 (7) Acute blood loss anemia Current Visit: Yes Status: Acute As above for anemia (8) Epistaxis Current Visit: Yes Status: Acute - Epistaxis in the setting of supratherapeutic INR on presentation - Status post nasal packing by ENT - ENT is followed and sees no signs of further bleeding at this time - H/H did not mildly decreased, however this is likely a delayed reaction from blood seen in the endotracheal tube yesterday - We will transfuse as necessary as above - We will keep nasal packing in place for a total of 4-5 days per ENT recommendations (9) Supratherapeutic INR Current Visit: Yes Status: Resolved - Resolved, INR of 4.8 on 12/16 - Most recent value of 1.8 - Corrected with the addition of fresh frozen plasma and vitamin K - We will continue to monitor in the setting of bleed and hold warfarin (10) DVT prophylaxis Current Visit: Yes Status: Acute SCDs in the setting of bleed Subjective Principal diagnosis: Respiratory Failure Interval history: Patient was seen and examined at bedside this morning. She is intubated and sedated however is awake enough to nod her head and respond to questions. States that overall she feels about the same. She is wondering when her nasal packing can come out. No further complaints she is able to express Objective PUL Vital signs: Last Vital Signs Temp 97.7 F 12/18/17 07:46 Pulse 86 12/18/17 06:42 Resp 17 12/18/17 07:25 BP 139/80 12/18/17 06:51 Pulse Ox 100 12/18/17 07:25 Gen.: Vitals noted. No acute distress. Alert, intubated and sedated HEENT: PERRL/EOMI, oropharynx clear, Normocephalic, atraumatic, MMM, endotracheal tube in place, nasal packing in place. No obvious signs of recent bleeds Cardiac: RRR, no murmur, +S1/S2 Pulmonary: Moderate wheezing more prominent on the left, equal chest expansion Abdomen: soft, nontender, BS noted, no guarding, no rebound. MSK: ROM intact, no joint swelling noted Extremities: no BLE edema, nontender calf, no cyanosis or clubbing Neuro: Alert, unable to assess further due to endotracheal tube Psych: Sedated, unable to assess Ventilator Settings Ventilator Settings: Ventilator Settings, Last 8 Hours Ventilator Mode VC+ Ventilator Mode VC+ Ventilator Mode VC+ Ventilator Mode VC+ Ventilator Mode VC+ Ventilator Mode VC+ Ventilator Mode VC+ Ventilator Tidal Volume 440 Setting Ventilator Tidal Volume 440 Setting Ventilator Tidal Volume 440 Setting Ventilator Tidal Volume 440 Setting Ventilator Tidal Volume 440 Setting Ventilator Tidal Volume 440 Setting Ventilator Tidal Volume 440 Setting Ventilator Tidal Volume 440 Setting Ventilator Tidal Volume 440 Setting Ventilator Tidal Volume 440 Setting Ventilator Respiratory Rate 12 Setting Ventilator Respiratory Rate 12 Setting Ventilator Respiratory Rate 12 Setting Ventilator Respiratory Rate 12 Setting Ventilator Respiratory Rate 12 Setting Ventilator Respiratory Rate 12 Setting Ventilator Respiratory Rate 12 Setting Ventilator Respiratory Rate 12 Setting Ventilator Respiratory Rate 12 Setting Ventilator Respiratory Rate 12 Setting Actual Respiratory Rate 17 Actual Respiratory Rate 12 Actual Respiratory Rate 12 Actual Respiratory Rate 12 Actual Respiratory Rate 13 Actual Respiratory Rate 12 Actual Respiratory Rate 12 Actual Respiratory Rate 12 Actual Respiratory Rate 12 Actual Respiratory Rate 12 Actual Respiratory Rate 12 Positive End Expiratory 5 Pressure Positive End Expiratory 5 Pressure Positive End Expiratory 5 Pressure Positive End Expiratory 5 Pressure Positive End Expiratory 5 Pressure Positive End Expiratory 5 Pressure Positive End Expiratory 5 Pressure Positive End Expiratory 5 Pressure Positive End Expiratory 5 Pressure Positive End Expiratory 5 Pressure Positive End Expiratory 5 Pressure Positive End Expiratory 5 Pressure Peak Inspiratory Airway 13 Pressure Peak Inspiratory Airway 13 Pressure Peak Inspiratory Airway 22 Pressure Peak Inspiratory Airway 20 Pressure Peak Inspiratory Airway 20 Pressure Peak Inspiratory Airway 22 Pressure Peak Inspiratory Airway 19 Pressure Peak Inspiratory Airway 18 Pressure Peak Inspiratory Airway 16 Pressure Peak Inspiratory Airway 17 Pressure Peak Inspiratory Airway 16 Pressure Results - Laboratory Findings CBC and BMP: 12/18/17 04:00 12/18/17 04:00 ABG ABG pH 7.48 pH Units (7.32-7.45) H 12/18/17 05:02 ABG pCO2 32 mmHg (35-45) L 12/18/17 05:02 ABG pO2 127 mmHg (85-104) H 12/18/17 05:02 ABG O2 Saturation 99 % (95-98) H 12/18/17 05:02 PT/INR, D-dimer PT 16.4 Seconds (9.4-12.1) H 12/17/17 04:09 Abnormal lab findings: Abnormal lab results RBC 2.13 M/mcL (3.82-4.97) L 12/18/17 01:08 Hgb 6.7 g/dL (11.5-15.4) L 12/18/17 01:08 Hct 20.0 % (35.3-44.9) L 12/18/17 01:08 RDW 17.9 % (11.5-14.5) H 12/18/17 01:08 Nucleated RBCs/100 WBC 0.2 /100 WBC (0) H 12/17/17 04:09 Platelet Estimate Slight Decrease (Normal) L 12/10/17 04:15 Hypochromasia Present (Not Present) A 12/10/17 04:15 Poikilocytosis 1+ (Not Present) A 12/10/17 04:15 Anisocytosis 1+ (Not Present) A 12/09/17 04:00 Macrocytosis Present (Not Present) A 12/10/17 04:15 PT 16.4 Seconds (9.4-12.1) H 12/17/17 04:09 APTT 50.7 Seconds (26.0-36.0) H 12/10/17 04:15 ABG pH 7.48 pH Units (7.32-7.45) H 12/18/17 05:02 ABG pCO2 32 mmHg (35-45) L 12/18/17 05:02 ABG pO2 127 mmHg (85-104) H 12/18/17 05:02 ABG O2 Saturation 99 % (95-98) H 12/18/17 05:02 Sodium 148 mEq/L (136-145) H 12/17/17 04:09 Potassium 3.3 mEq/L (3.5-5.1) L 12/17/17 04:09 Chloride 115 mEq/L (98-107) H 12/17/17 04:09 BUN/Creatinine Ratio 32 (6-26) H 12/17/17 04:09 Glucose 110 mg/dL (70-105) H 12/17/17 04:09 Calculated Osmolality 310 (280-300) H 12/17/17 04:09 Calcium 8.4 mg/dL (8.6-10.3) L 12/17/17 04:09 % Saturation 60 % (15-50) H 12/16/17 09:36 Transferrin 158 mg/dL (203-362) L 12/16/17 09:36 Ferritin 282 ng/ml (10-120) H 12/16/17 09:36 Direct Bilirubin 0.3 mg/dL (0.0-0.2) H 12/05/17 18:50 Troponin I 1.10 ng/mL (< 0.04) H* 12/06/17 11:56 B-Natriuretic Peptide 2096 pg/mL (Less than 100) H 12/06/17 06:01 Serum Total Protein 5.0 g/dL (6.4-8.9) L 12/15/17 05:19 Albumin 2.5 g/dL (3.5-5.7) L 12/15/17 05:19 Albumin/Globulin Ratio 1.0 (1.1-2.2) L 12/15/17 05:19 Vitamin B12 > 1500 pg/mL (250-1100) H 12/13/17 09:20 Urine Clarity Cloudy (Clear) A 12/05/17 19:27 Ur Specific [place] 1.008 (1.010-1.025) L 12/05/17 19:27 Urine Ketones 15 mg/dL (Negative) H 12/05/17 19:27 Urine Bilirubin Moderate (Negative) H 12/05/17 19:27 Ur Leukocyte Esterase Moderate (Negative) H 12/05/17 19:27 Urine Microscopic WBC 5-15 per hpf (0-3) H 12/05/17 19:27 Ur Squamous Epith Cells Many per lpf (None-Few) H 12/05/17 19:27 Ur Culture Indicated? NO. (NO) A 12/05/17 19:27 Vancomycin Trough 25 mcg/mL (5-10) H 12/18/17 01:08 U Benzodiazepines Scrn Positive ng/mL ([place]=080) H 12/06/17 01:30 - Microbiology Findings Microbiology Findings: Microbiology, Last 48 Hours 12/16/17 21:10 Sputum Culture - Preliminary Sputum - Clinical Findings Intake & Output: Intake & Output 12/17/17 12/18/17 12/18/17 23:59 07:59 15:59 Intake Total 550 / 550 621.7 / 621.7 Output Total 450 / 450 350 / 350 Balance 100 / 100 271.7 / 271.7 Weight 58.2 kg
[2017-12-18] MEDS ORDERED: Furosemide 40 MG/4 ML VIAL IVP ONE (09:00)
[2017-12-18] MEDS ORDERED: *HR* LORazepam 2 MG/ML VIAL IVP ONE (09:00)
[2017-12-18] MEDS: Lactulose Oral Soln 20 GM/30 ML UDC PO SCH (09:08)
[2017-12-18] MEDS: Chlorhexidine Rinse 15 ML MOUTHWASH MM SCH ×2 (09:08→20:46)
[2017-12-18] MEDS: Nicotine 21 MG PATCH.TD24 TD SCH (09:08)
[2017-12-18] MEDS: Cholecalciferol (D-3) 1,000 UNIT TABLET PO SCH (09:10)
[2017-12-18] MEDS: Metoprolol XL (24 HR) Succ 25 MG TAB.ER.24H PO SCH (09:10)
[2017-12-18] MEDS: Magnesium Oxide 400 MG TABLET PO SCH (09:10)
[2017-12-18 09:23] LABS: Basophils # 0.1 K/mcL (0.0-0.2); Basophils % 0.5 %; Eosinophils # 0.2 K/mcL (0.0-0.6); Eosinophils % 1.7 %; Hematocrit 31.2 % (35.3-44.9); Immature Granulocytes % 0.8 % (0-4); Lymphocytes % 10.8 %; Mean Corpuscular HGB Conc 32.7 g/dL (31.6-35.5); Mean Corpuscular Hemoglobin 30.2 pg (28.0-33.3); Mean Corpuscular Volume 92.3 fL (83.0-100.0); Mean Platelet Volume 9.8 fL (9.4-12.4); Monocytes # 0.5 K/mcL (0.0-1.3); Monocytes % 5.3 %; Neutrophils # 7.5 K/mcL (1.6-8.9); Platelet Count 202 K/mcL (140-400); Red Blood Count 3.38 M/mcL (3.82-4.97); Red Cell Distribution Width 17.3 % (11.5-14.5); Segmented Neutrophils % 80.9 %
[2017-12-18 09:27] LABS: Hemoglobin 10.2 g/dL (11.5-15.4)
[2017-12-18 09:42] LABS: BUN/Creatinine Ratio 27 (6-26); Blood Urea Nitrogen 18 mg/dL (8-23); Calcium 8.3 mg/dL (8.6-10.3); Carbon Dioxide 22 mEq/L (23-29); Chloride 116 mEq/L (98-107); Glucose 77 mg/dL (70-105); Osmolality,Calculated 305 (280-300); Potassium 3.5 mEq/L (3.5-5.1); Sodium 147 mEq/L (136-145); eGFR For African Americans > 60 (> 60); eGFR For Non-African Americans > 60 (> 60)
[2017-12-18 09:52] LABS: INR 1.8; Prothrombin Time 19.9 Seconds (9.4-12.1)
[2017-12-18] MEDS: MethylPREDNISolone 40 MG/ML VIAL IVP SCH ×2 (11:44→17:45)
[2017-12-18 13:56] LABS: Hematocrit 31.6 % (35.3-44.9); Hemoglobin 10.6 g/dL (11.5-15.4)
[2017-12-18] MEDS: Thiamine (B-1) 100 MG TABLET PO SCH (17:45)
[2017-12-18 20:46] LABS: Hematocrit 32.2 % (35.3-44.9); Hemoglobin 10.8 g/dL (11.5-15.4); Mean Corpuscular HGB Conc 33.5 g/dL (31.6-35.5); Mean Corpuscular Hemoglobin 30.4 pg (28.0-33.3); Mean Corpuscular Volume 90.7 fL (83.0-100.0); Mean Platelet Volume 10.5 fL (9.4-12.4); Platelet Count 219 K/mcL (140-400); Red Blood Count 3.55 M/mcL (3.82-4.97); Red Cell Distribution Width 17.2 % (11.5-14.5)
[2017-12-19] MEDS: Piperacillin/Tazobactam 3.375 GM in 0.9 % Sodium Chloride Mini Bag 100 ML IVPB SCH ×4 (00:07→23:29)
[2017-12-19] MEDS: Insulin LISPRO 300 UNITS/3 ML VIAL SQ SCH ×5 (00:08→23:34)
[2017-12-19] MEDS: Lacri-Lube 3.5 GM TUBE BOTH EYES SCH ×7 (00:09→23:22)
[2017-12-19] MEDS: Ipratropium/Albuterol Neb 3 ML IH SCH ×4 (03:26→23:14)
[2017-12-19 03:54] LABS: Basophils % 0.4 %; Hematocrit 28.6 % (35.3-44.9); Hemoglobin 9.8 g/dL (11.5-15.4); Immature Granulocytes % 0.9 % (0-4); Lymphocytes # 0.5 K/mcL (0.6-4.6); Lymphocytes % 9.2 %; Mean Corpuscular HGB Conc 34.3 g/dL (31.6-35.5); Mean Corpuscular Hemoglobin 30.9 pg (28.0-33.3); Mean Corpuscular Volume 90.2 fL (83.0-100.0); Mean Platelet Volume 10.3 fL (9.4-12.4); Monocytes # 0.2 K/mcL (0.0-1.3); Monocytes % 4.1 %; Neutrophils # 4.6 K/mcL (1.6-8.9); Platelet Count 201 K/mcL (140-400); Red Blood Count 3.17 M/mcL (3.82-4.97); Segmented Neutrophils % 85.4 %
[2017-12-19 03:59] LABS: INR 2.1; Prothrombin Time 22.8 Seconds (9.4-12.1)
[2017-12-19 04:11] LABS: BUN/Creatinine Ratio 26 (6-26); Blood Urea Nitrogen 18 mg/dL (8-23); Calcium 8.1 mg/dL (8.6-10.3); Carbon Dioxide 23 mEq/L (23-29); Chloride 113 mEq/L (98-107); Glucose 225 mg/dL (70-105); Osmolality,Calculated 309 (280-300); Potassium 3.3 mEq/L (3.5-5.1); Sodium 145 mEq/L (136-145); eGFR For African Americans > 60 (> 60); eGFR For Non-African Americans > 60 (> 60)
[2017-12-19] MEDS: Potassium Chloride Elixir 20 MEQ/15 ML UDC GTUBE PRN (05:18)
[2017-12-19] MEDS: MethylPREDNISolone 40 MG/ML VIAL IVP SCH ×2 (05:19→18:25)
[2017-12-19] MEDS: Pantoprazole 40 MG VIAL IVP SCH ×2 (05:19→18:26)
[2017-12-19 05:21] LABS: ABG Base Excess 0 mEq/L (-2 to 3); ABG HCO3 24 mEq/L (21-27); ABG Oxygen Saturation 98 % (95-98); ABG PCO2 35 mmHg (35-45); ABG PH 7.44 pH Units (7.32-7.45); ABG PO2 103 mmHg (85-104); ABG TCO2 25 mEq/L (20-26); Blood Gas Modality PRVC; Blood Gas PEEP 5 cm H2O; Blood Gas Respiration Rate 12; Blood Gas VT 440 cc
[2017-12-19] MEDS ORDERED: *HR* Phytonadione 10 MG/ML AMPUL SQ ONE (07:00)
--- NOTE | 2017-12-19 08:49 | Pulmonology Progress Note ---
<Miguel Irby W - Last Filed: 12/19/17 10:41> Date of Encounter: 12/19/17 Assessment and Plan (1) Acute and chronic respiratory failure with hypoxia Current Visit: Yes Status: Acute (2) NSTEMI (non-ST elevated myocardial infarction) Current Visit: Yes Status: Acute (3) LV (left ventricular) mural thrombus Current Visit: Yes Status: Acute (4) Acute blood loss anemia Current Visit: Yes Status: Acute (5) Epistaxis Current Visit: Yes Status: Acute (6) Supratherapeutic INR Current Visit: Yes Status: Resolved (7) COPD (chronic obstructive pulmonary disease) Current Visit: Yes Status: Chronic Qualifiers: COPD type: unspecified COPD Qualified Code(s): J44.9 - Chronic obstructive pulmonary disease, unspecified Objective PUL Vital signs: Last Vital Signs Temp 96.7 F L 12/19/17 07:44 Pulse 76 12/19/17 09:00 Resp 12 12/19/17 09:00 BP 117/62 12/19/17 09:00 Pulse Ox 100 12/19/17 09:00 Ventilator Settings Ventilator Settings: Ventilator Settings, Last 8 Hours Ventilator Mode A/C Ventilator Mode A/C Ventilator Mode A/C Ventilator Mode A/C Ventilator Mode A/C Ventilator Tidal Volume 440 Setting Ventilator Tidal Volume 440 Setting Ventilator Tidal Volume 440 Setting Ventilator Tidal Volume 440 Setting Ventilator Tidal Volume 440 Setting Ventilator Tidal Volume 440 Setting Ventilator Tidal Volume 440 Setting Ventilator Tidal Volume 440 Setting Ventilator Tidal Volume 440 Setting Ventilator Tidal Volume 440 Setting Ventilator Respiratory Rate 12 Setting Ventilator Respiratory Rate 12 Setting Ventilator Respiratory Rate 12 Setting Ventilator Respiratory Rate 12 Setting Ventilator Respiratory Rate 12 Setting Ventilator Respiratory Rate 12 Setting Ventilator Respiratory Rate 12 Setting Ventilator Respiratory Rate 12 Setting Ventilator Respiratory Rate 12 Setting Actual Respiratory Rate 12 Actual Respiratory Rate 24 Actual Respiratory Rate 21 Actual Respiratory Rate 22 Actual Respiratory Rate 21 Actual Respiratory Rate 12 Actual Respiratory Rate 12 Actual Respiratory Rate 12 Actual Respiratory Rate 12 Positive End Expiratory 5 Pressure Positive End Expiratory 5 Pressure Positive End Expiratory 5 Pressure Positive End Expiratory 5 Pressure Positive End Expiratory 5 Pressure Positive End Expiratory 5 Pressure Positive End Expiratory 5 Pressure Positive End Expiratory 5 Pressure Positive End Expiratory 5 Pressure Positive End Expiratory 5 Pressure Peak Inspiratory Airway 16 Pressure Peak Inspiratory Airway 14 Pressure Peak Inspiratory Airway 14 Pressure Peak Inspiratory Airway 13 Pressure Peak Inspiratory Airway 19 Pressure Peak Inspiratory Airway 35 Pressure Peak Inspiratory Airway 22 Pressure Peak Inspiratory Airway 20 Pressure Peak Inspiratory Airway 21 Pressure Results - Laboratory Findings CBC and BMP: 12/19/17 03:39 12/19/17 03:39 ABG ABG pH 7.44 pH Units (7.32-7.45) 12/19/17 05:12 ABG pCO2 35 mmHg (35-45) 12/19/17 05:12 ABG pO2 103 mmHg (85-104) 12/19/17 05:12 ABG O2 Saturation 98 % (95-98) 12/19/17 05:12 PT/INR, D-dimer PT 22.8 Seconds (9.4-12.1) H 12/19/17 03:39 Abnormal lab findings: Abnormal lab results RBC 3.17 M/mcL (3.82-4.97) L 12/19/17 03:39 Hgb 9.8 g/dL (11.5-15.4) L 12/19/17 03:39 Hct 28.6 % (35.3-44.9) L 12/19/17 03:39 RDW 17.0 % (11.5-14.5) H 12/19/17 03:39 Lymphocytes # 0.5 K/mcL (0.6-4.6) L 12/19/17 03:39 Nucleated RBCs/100 WBC 0.2 /100 WBC (0) H 12/17/17 04:09 Platelet Estimate Slight Decrease (Normal) L 12/10/17 04:15 Hypochromasia Present (Not Present) A 12/10/17 04:15 Poikilocytosis 1+ (Not Present) A 12/10/17 04:15 Anisocytosis 1+ (Not Present) A 12/09/17 04:00 Macrocytosis Present (Not Present) A 12/10/17 04:15 PT 22.8 Seconds (9.4-12.1) H 12/19/17 03:39 APTT 50.7 Seconds (26.0-36.0) H 12/10/17 04:15 Potassium 3.3 mEq/L (3.5-5.1) L 12/19/17 03:39 Chloride 113 mEq/L (98-107) H 12/19/17 03:39 Glucose 225 mg/dL (70-105) H 12/19/17 03:39 POC Glucose 198 mg/dL (70-99) H 12/19/17 05:20 Calculated Osmolality 309 (280-300) H 12/19/17 03:39 Calcium 8.1 mg/dL (8.6-10.3) L 12/19/17 03:39 % Saturation 60 % (15-50) H 12/16/17 09:36 Transferrin 158 mg/dL (203-362) L 12/16/17 09:36 Ferritin 282 ng/ml (10-120) H 12/16/17 09:36 Direct Bilirubin 0.3 mg/dL (0.0-0.2) H 12/05/17 18:50 Troponin I 1.10 ng/mL (< 0.04) H* 12/06/17 11:56 B-Natriuretic Peptide 2096 pg/mL (Less than 100) H 12/06/17 06:01 Serum Total Protein 5.0 g/dL (6.4-8.9) L 12/15/17 05:19 Albumin 2.5 g/dL (3.5-5.7) L 12/15/17 05:19 Albumin/Globulin Ratio 1.0 (1.1-2.2) L 12/15/17 05:19 Vitamin B12 > 1500 pg/mL (250-1100) H 12/13/17 09:20 Urine Clarity Cloudy (Clear) A 12/05/17 19:27 Ur Specific [place] 1.008 (1.010-1.025) L 12/05/17 19:27 Urine Ketones 15 mg/dL (Negative) H 12/05/17 19:27 Urine Bilirubin Moderate (Negative) H 12/05/17 19:27 Ur Leukocyte Esterase Moderate (Negative) H 12/05/17 19:27 Urine Microscopic WBC 5-15 per hpf (0-3) H 12/05/17 19:27 Ur Squamous Epith Cells Many per lpf (None-Few) H 12/05/17 19:27 Ur Culture Indicated? NO. (NO) A 12/05/17 19:27 Vancomycin Trough 25 mcg/mL (5-10) H 12/18/17 01:08 U Benzodiazepines Scrn Positive ng/mL ([id number]=842) H 12/06/17 01:30 - Microbiology Findings Microbiology Findings: Microbiology, Last 48 Hours 12/16/17 21:10 Sputum Culture - Final Sputum - Clinical Findings Intake & Output: Intake & Output 12/18/17 12/19/17 12/19/17 23:59 07:59 15:59 Intake Total 913 / 913 1051 / 1051 Output Total 150 / 150 225 / 225 Balance 763 / 763 826 / 826 Weight 61.8 kg Consult Discharge Plan - Plan Referrals: Chel Munroe, [employer] [Primary Care Provider] - - Attending Attestation I examined this patient and my medical decision-making was reviewed with the Resident Physician. I agree with the documented findings, disposition and treatment plan as described except to the extent set forth below. We independently had [id number] contact with the patient Patient seen and examined at bedside Labs, radiology, chart personally reviewed. Management was reviewed during multidisciplinary critical care rounds. 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 cont low dose sedation for comfort on vent for goal Jain 2-3. Pulm: Acute Respiratory failure. improving. no ok for CPAP trial today but no extubation because of lack of air leak. Cards: BP stable cont to monitor recent NSTEMI antiplatelet therapy on hold. FEN-GI: cont enteral nutrition per dietary recs BRBPR GI consulted Renal: UOP monitored and stable ID: Cont ABx for epistaxis with packing Heme/Onc: acute blood loss anemia s/t GI source GI consulted plan for upper and lower endocoscopy cont mecahnical DVT prophylaxis; mild coagulopathy in setting of bleeding Vit K and FFP will be given Endo: Glucose Monitored Integ/MSK: Skin Care per routine ICU Nursing Protocol to prevent ulcers. Lines: All lines examined without evidence of infection : Dispo: remain in ICU CODE: Full. <Tracee Gan - Last Filed: 12/19/17 11:33> Date of Encounter: 12/19/17 Time of Encounter: 08:47 Assessment and Plan (1) Acute and chronic respiratory failure with hypoxia Current Visit: Yes Status: Acute Acute on chronic respiratory failure possibly secondary to aspiration in the setting of epistaxis - Currently intubated. No air leak around tubing. - ABG pH 7.44, CO2 35, HCO3 24 - Sputum culture no growth Plan - Continue ventilator support, patient is to go for endoscopy tomorrow -will plan to extubate once endoscopy completed and air leak around endotracheal tube, CPAP well - zosyn day 7 -continue Solu-Medrol 40 mg twice a day for swelling (2) NSTEMI (non-ST elevated myocardial infarction) Current Visit: Yes Status: Acute NSTEMI on admission status post left heart catheterization without stent placement. Cardiology has evaluated and antiplatelet therapy is currently on hold due to hemorrhage (3) Aspiration pneumonia Current Visit: Yes Status: Acute Possible aspiration pneumonia secondary to epistaxis Evidence of blood in the endotracheal tube afebrile, WBC WNL sputum culture no growth - Currently on Zosyn day 7 Qualifiers: Aspiration pneumonia type: unspecified Laterality: left Lung location: lower lobe of lung Qualified Code(s): J69.0 - Pneumonitis due to inhalation of food and vomit (4) Left ventricular thrombosis Current Visit: Yes Status: Acute LV thrombosis seen on echocardiogram Was previously anticoagulated on fondaparinux and transition to warfarin, however warfarin being held due to bleeding INR 2.1 -will consult hem/onc on recommendations for anticoagulation's due to supratherapeutic INR (5) Anemia Current Visit: Yes Status: Acute Anemia in setting of epistaxis and New rectal bleeding that began overnight. Bright red blood per rectum x2 hemoglobin 9.8 (10.8) patient has been ordered a total of 5 units PRBC, 5 plasma -G.I. consulted and is to perform endoscopy tomorrow -ENT following and nasal packing day 4 (total of 4-5 days per ENT) -NPO -holding anticoagulation -will continue to monitor for bleeding H&H q6h -will transfuse as needed Qualifiers: Anemia type: other cause Other causes of anemia: acute posthemorrhagic Qualified Code(s): D62 - Acute posthemorrhagic anemia (6) COPD (chronic obstructive pulmonary disease) Current Visit: Yes Status: Chronic History of COPD, not an exacerbation Qualifiers: COPD type: unspecified COPD Qualified Code(s): J44.9 - Chronic obstructive pulmonary disease, unspecified (7) Acute blood loss anemia Current Visit: Yes Status: Acute New rectal bleeding that began overnight. Bright red blood per rectum x2 -see management above (8) Epistaxis Current Visit: Yes Status: Acute Epistaxis is likely secondary to anticoagulation and supratherapeutic INR s/p packing by ENT day 4 -ENT following for epistaxis and no further bleeding at this time -continue packing for total of 4-5 days per ENT recommendations -on antibiotics as above (9) Supratherapeutic INR Current Visit: Yes Status: Resolved INR increasing despite holding warfarin. INR 2.1 (1.8) Patient has received fresh frozen plasma and vitamin K -Continue to hold warfarin and monitor for signs of bleeding -May consider consulting heme/on at some point for recommendations on anticoagulation due to supratherapeutic INR (10) DVT prophylaxis Current Visit: Yes Status: Acute SCD in setting of bleed Subjective Principal diagnosis: Respiratory Failure Interval history: Patient examined at bedside. She is currently intubated, in no acute distress. Nurses overnight reported new bright red rectal bleeding. No other complaints. Objective PUL Vital signs: Last Vital Signs Temp 96.7 F L 12/19/17 07:44 Pulse 98 12/19/17 06:00 Resp 34 12/19/17 07:54 BP 117/81 12/19/17 06:00 Pulse Ox 99 12/19/17 07:54 General appearance: no acute distress Eyes: nonicteric ENT: oropharynx moist Neck: supple Effort: normal Auscultation: bilateral: clear Cardiovascular: regular rate and rhythm Gastrointestinal: normoactive bowel sounds, soft, non-tender, non-distended Integumentary: normal Extremities: no cyanosis Musculoskeletal: no deformities non-focal exam Ventilator Settings Ventilator Settings: Ventilator Settings, Last 8 Hours Ventilator Mode A/C Ventilator Mode A/C Ventilator Mode A/C Ventilator Mode A/C Ventilator Mode A/C Ventilator Tidal Volume 440 Setting Ventilator Tidal Volume 440 Setting Ventilator Tidal Volume 440 Setting Ventilator Tidal Volume 440 Setting Ventilator Tidal Volume 440 Setting Ventilator Tidal Volume 440 Setting Ventilator Tidal Volume 440 Setting Ventilator Tidal Volume 440 Setting Ventilator Tidal Volume 440 Setting Ventilator Tidal Volume 440 Setting Ventilator Tidal Volume 440 Setting Ventilator Respiratory Rate 12 Setting Ventilator Respiratory Rate 12 Setting Ventilator Respiratory Rate 12 Setting Ventilator Respiratory Rate 12 Setting Ventilator Respiratory Rate 12 Setting Ventilator Respiratory Rate 12 Setting Ventilator Respiratory Rate 12 Setting Ventilator Respiratory Rate 12 Setting Ventilator Respiratory Rate 12 Setting Ventilator Respiratory Rate 12 Setting Actual Respiratory Rate 24 Actual Respiratory Rate 21 Actual Respiratory Rate 22 Actual Respiratory Rate 21 Actual Respiratory Rate 12 Actual Respiratory Rate 12 Actual Respiratory Rate 12 Actual Respiratory Rate 12 Actual Respiratory Rate 12 Actual Respiratory Rate 12 Positive End Expiratory 5 Pressure Positive End Expiratory 5 Pressure Positive End Expiratory 5 Pressure Positive End Expiratory 5 Pressure Positive End Expiratory 5 Pressure Positive End Expiratory 5 Pressure Positive End Expiratory 5 Pressure Positive End Expiratory 5 Pressure Positive End Expiratory 5 Pressure Positive End Expiratory 5 Pressure Positive End Expiratory 5 Pressure Peak Inspiratory Airway 14 Pressure Peak Inspiratory Airway 14 Pressure Peak Inspiratory Airway 13 Pressure Peak Inspiratory Airway 19 Pressure Peak Inspiratory Airway 35 Pressure Peak Inspiratory Airway 22 Pressure Peak Inspiratory Airway 20 Pressure Peak Inspiratory Airway 21 Pressure Peak Inspiratory Airway 23 Pressure Peak Inspiratory Airway 23 Pressure Results - Laboratory Findings CBC and BMP: 12/19/17 03:39 12/19/17 03:39 ABG ABG pH 7.44 pH Units (7.32-7.45) 12/19/17 05:12 ABG pCO2 35 mmHg (35-45) 12/19/17 05:12 ABG pO2 103 mmHg (85-104) 12/19/17 05:12 ABG O2 Saturation 98 % (95-98) 12/19/17 05:12 PT/INR, D-dimer PT 22.8 Seconds (9.4-12.1) H 12/19/17 03:39 Abnormal lab findings: Abnormal lab results RBC 3.17 M/mcL (3.82-4.97) L 12/19/17 03:39 Hgb 9.8 g/dL (11.5-15.4) L 12/19/17 03:39 Hct 28.6 % (35.3-44.9) L 12/19/17 03:39 RDW 17.0 % (11.5-14.5) H 12/19/17 03:39 Lymphocytes # 0.5 K/mcL (0.6-4.6) L 12/19/17 03:39 Nucleated RBCs/100 WBC 0.2 /100 WBC (0) H 12/17/17 04:09 Platelet Estimate Slight Decrease (Normal) L 12/10/17 04:15 Hypochromasia Present (Not Present) A 12/10/17 04:15 Poikilocytosis 1+ (Not Present) A 12/10/17 04:15 Anisocytosis 1+ (Not Present) A 12/09/17 04:00 Macrocytosis Present (Not Present) A 12/10/17 04:15 PT 22.8 Seconds (9.4-12.1) H 12/19/17 03:39 APTT 50.7 Seconds (26.0-36.0) H 12/10/17 04:15 Potassium 3.3 mEq/L (3.5-5.1) L 12/19/17 03:39 Chloride 113 mEq/L (98-107) H 12/19/17 03:39 Glucose 225 mg/dL (70-105) H 12/19/17 03:39 POC Glucose 198 mg/dL (70-99) H 12/19/17 05:20 Calculated Osmolality 309 (280-300) H 12/19/17 03:39 Calcium 8.1 mg/dL (8.6-10.3) L 12/19/17 03:39 % Saturation 60 % (15-50) H 12/16/17 09:36 Transferrin 158 mg/dL (203-362) L 12/16/17 09:36 Ferritin 282 ng/ml (10-120) H 12/16/17 09:36 Direct Bilirubin 0.3 mg/dL (0.0-0.2) H 12/05/17 18:50 Troponin I 1.10 ng/mL (< 0.04) H* 12/06/17 11:56 B-Natriuretic Peptide 2096 pg/mL (Less than 100) H 12/06/17 06:01 Serum Total Protein 5.0 g/dL (6.4-8.9) L 12/15/17 05:19 Albumin 2.5 g/dL (3.5-5.7) L 12/15/17 05:19 Albumin/Globulin Ratio 1.0 (1.1-2.2) L 12/15/17 05:19 Vitamin B12 > 1500 pg/mL (250-1100) H 12/13/17 09:20 Urine Clarity Cloudy (Clear) A 12/05/17 19:27 Ur Specific [place] 1.008 (1.010-1.025) L 12/05/17 19:27 Urine Ketones 15 mg/dL (Negative) H 12/05/17 19:27 Urine Bilirubin Moderate (Negative) H 12/05/17 19:27 Ur Leukocyte Esterase Moderate (Negative) H 12/05/17 19:27 Urine Microscopic WBC 5-15 per hpf (0-3) H 12/05/17 19:27 Ur Squamous Epith Cells Many per lpf (None-Few) H 12/05/17 19:27 Ur Culture Indicated? NO. (NO) A 12/05/17 19:27 Vancomycin Trough 25 mcg/mL (5-10) H 12/18/17 01:08 U Benzodiazepines Scrn Positive ng/mL (Kjexku=575) H 12/06/17 01:30 - Microbiology Findings Microbiology Findings: Microbiology, Last 48 Hours 12/16/17 21:10 Sputum Culture - Final Sputum - Clinical Findings Intake & Output: Intake & Output 12/18/17 12/19/17 12/19/17 23:59 07:59 15:59 Intake Total 913 / 913 951 / 951 Output Total 150 / 150 225 / 225 Balance 763 / 763 726 / 726 Weight 61.8 kg - VTE Documentation of Mechanical Device: Intermittent pneumatic compression device
[2017-12-19] MEDS: Lactulose Oral Soln 20 GM/30 ML UDC PO SCH (09:20)
[2017-12-19] MEDS: Chlorhexidine Rinse 15 ML MOUTHWASH MM SCH ×2 (09:20→20:48)
[2017-12-19] MEDS: Magnesium Oxide 400 MG TABLET PO SCH (09:21)
[2017-12-19] MEDS: Metoprolol XL (24 HR) Succ 25 MG TAB.ER.24H PO SCH (09:21)
[2017-12-19] MEDS: Nicotine 21 MG PATCH.TD24 TD SCH (09:21)
[2017-12-19] MEDS: Cholecalciferol (D-3) 1,000 UNIT TABLET PO SCH (09:21)
[2017-12-19] MEDS: FentaNYL (PF) 1,000 MCG in 0.9 % Sodium Chloride 80 ML IVC SCH ×2 (09:29→23:16)
[2017-12-19] MEDS ORDERED: 0.9 % Sodium Chloride 250 ML ONE (10:58)
--- NOTE | 2017-12-19 12:59 | Gastroenterology Progress Note ---
Date of Encounter: 12/19/17 Time of Encounter: 09:45 - Assessment and plan (1) Anemia Current Visit: Yes Status: Acute Assessment and plan: Pt has developed large bright red rectal bleeding. She has been transfused and has been getting platelets. She needs EGD and colonoscopy to evaluate for upper and lower GI bleed, will plan for tomorrow. Qualifiers: Anemia type: other cause Other causes of anemia: acute posthemorrhagic Qualified Code(s): D62 - Acute posthemorrhagic anemia - Time Spent With Patient Total time spent is greater than 50% in coordination of care (as documented) at patient's floor/unit and/or counseling patient: - Subjective Interval history: Pt remains orally ventilated. She has nasal packing. She has three large bright red BMs over night. Hgb dropped to 6.7 yesterday, she has been transfused and hgb is 9.8 today. - Constitutional Vitals: Temp Pulse Resp BP Pulse Ox 97.8 F 85 14 104/53 100 12/19/17 12:11 12/19/17 12:11 12/19/17 12:11 12/19/17 12:11 12/19/17 12:11 Exam: CONSTITUTIONAL:~sedated and mechanically ventilated.~HEAD:~normocephalic, nasal packing in place.~EYES:~no jaundice.~NECK:~no obvious swelling.~HEART:~regular rate and rhythm, no murmurs.~LUNGS:~bilateral fair air entry.~ABDOMEN:~non distended, soft, non tender, no masses palpable, no organomegaly.~RECTAL EXAM:~ Deferred.~EXTREMITIES:~no clubbing, cyanosis, generalized edema.~SKIN:~pallor noted no stigmata of chronic liver disease.~ Results - Labs CBC & Chem 7: 12/19/17 03:39 12/19/17 03:39 Labs: Last Result Calcium 8.1 mg/dL (8.6-10.3) L 12/19/17 03:39 Iron 132 mcg/dL (50-170) 12/16/17 09:36 % Saturation 60 % (15-50) H 12/16/17 09:36 Transferrin 158 mg/dL (203-362) L 12/16/17 09:36 Ferritin 282 ng/ml (10-120) H 12/16/17 09:36 Troponin I 1.10 ng/mL (< 0.04) H* 12/06/17 11:56 Vitamin B12 > 1500 pg/mL (250-1100) H 12/13/17 09:20 Folate 13.5 ng/mL (3.0-16.0) 12/13/17 09:20 Urine Opiates Screen Negative ng/mL (Gotoie=843) 12/06/17 01:30 Entire Visit Hgb 9.8 g/dL (11.5-15.4) L 12/19/17 03:39 Hct 28.6 % (35.3-44.9) L 12/19/17 03:39 PT 22.8 Seconds (9.4-12.1) H 12/19/17 03:39 Ferritin 282 ng/ml (10-120) H 12/16/17 09:36 Total Bilirubin 0.5 mg/dL (0.3-1.0) 12/15/17 05:19 AST 30 Units/L (13-39) 12/15/17 05:19 ALT 15 Units/L (7-52) 12/15/17 05:19 Ammonia 24 mcmol/L (16-53) 12/06/17 06:01 Folate 13.5 ng/mL (3.0-16.0) 12/13/17 09:20 - ABG ABG results: ABG ABG pH 7.44 pH Units (7.32-7.45) 12/19/17 05:12 ABG pCO2 35 mmHg (35-45) 12/19/17 05:12 ABG pO2 103 mmHg (85-104) 12/19/17 05:12 ABG O2 Saturation 98 % (95-98) 12/19/17 05:12 PT/INR, D-dimer PT 22.8 Seconds (9.4-12.1) H 12/19/17 03:39 - Impressions Impressions Chest X-Ray 12/17/17 08:34 IMPRESSION: 1. Tip of the endotracheal tube is above the he. 2. No radiographic evidence of acute cardiopulmonary process. D/ / 12/17/2017 09:03:49 Ti Mark MD / david Interpreting Provider: Ti Mark MD - VTE Documentation of Mechanical Device: Intermittent pneumatic compression device Consult Discharge Plan - Plan Referrals: Chel Munroe CNP [Primary Care Provider] -
[2017-12-19 15:39] LABS: Hematocrit 27.6 % (35.3-44.9); Hemoglobin 9.3 g/dL (11.5-15.4)
[2017-12-19] MEDS ORDERED: SODIUM CHLORIDE/NAHCO3/KCL/PEG 4,000 ML SOLN.RECON PO ONE (17:00)
[2017-12-19] MEDS: Thiamine (B-1) 100 MG TABLET PO SCH (18:26)
[2017-12-19 20:57] LABS: Hematocrit 29.5 % (35.3-44.9); Hemoglobin 9.8 g/dL (11.5-15.4)
[2017-12-20] MEDS: Ipratropium/Albuterol Neb 3 ML IH SCH ×4 (03:16→21:45)
[2017-12-20] MEDS: Lacri-Lube 3.5 GM TUBE BOTH EYES SCH ×6 (03:52→23:37)
[2017-12-20 04:31] LABS: Basophils % 0.2 %; Eosinophils % 0.2 %; Hematocrit 30.1 % (35.3-44.9); Hemoglobin 9.6 g/dL (11.5-15.4); Immature Granulocytes % 0.8 % (0-4); Lymphocytes # 0.8 K/mcL (0.6-4.6); Lymphocytes % 11.6 %; Mean Corpuscular HGB Conc 31.9 g/dL (31.6-35.5); Mean Corpuscular Hemoglobin 29.4 pg (28.0-33.3); Mean Platelet Volume 10.7 fL (9.4-12.4); Monocytes # 0.3 K/mcL (0.0-1.3); Neutrophils # 5.4 K/mcL (1.6-8.9); Platelet Count 283 K/mcL (140-400); Red Blood Count 3.27 M/mcL (3.82-4.97); Red Cell Distribution Width 17.3 % (11.5-14.5); Segmented Neutrophils % 83.2 %
[2017-12-20 04:37] LABS: INR 1.7; Prothrombin Time 18.8 Seconds (9.4-12.1)
[2017-12-20 04:47] LABS: BUN/Creatinine Ratio 25 (6-26); Blood Urea Nitrogen 15 mg/dL (8-23); Calcium 8.5 mg/dL (8.6-10.3); Carbon Dioxide 26 mEq/L (23-29); Chloride 110 mEq/L (98-107); Glucose 106 mg/dL (70-105); Magnesium 1.7 mg/dL (1.6-2.6); Osmolality,Calculated 297 (280-300); Potassium 3.9 mEq/L (3.5-5.1); Sodium 143 mEq/L (136-145); eGFR For African Americans > 60 (> 60); eGFR For Non-African Americans > 60 (> 60)
[2017-12-20] MEDS: Insulin LISPRO 300 UNITS/3 ML VIAL SQ SCH ×3 (05:29→17:23)
[2017-12-20 05:30] LABS: ABG Base Excess 3 mEq/L (-2 to 3); ABG HCO3 28 mEq/L (21-27); ABG Oxygen Saturation 99 % (95-98); ABG PCO2 43 mmHg (35-45); ABG PH 7.42 pH Units (7.32-7.45); ABG PO2 117 mmHg (85-104); ABG TCO2 29 mEq/L (20-26); Blood Gas Modality PRVC; Blood Gas PEEP 5 cm H2O; Blood Gas Respiration Rate 12; Blood Gas VT 440 cc
[2017-12-20] MEDS: Pantoprazole 40 MG VIAL IVP SCH (05:33)
[2017-12-20] MEDS: MethylPREDNISolone 40 MG/ML VIAL IVP SCH ×2 (05:37→17:00)
--- NOTE | 2017-12-20 07:25 | Pulmonology Progress Note ---
<Miguel Irby W - Last Filed: 12/20/17 10:37> Date of Encounter: 12/20/17 Assessment and Plan (1) Acute and chronic respiratory failure with hypoxia Current Visit: Yes Status: Acute (2) NSTEMI (non-ST elevated myocardial infarction) Current Visit: Yes Status: Acute (3) LV (left ventricular) mural thrombus Current Visit: Yes Status: Acute (4) Acute blood loss anemia Current Visit: Yes Status: Acute (5) Epistaxis Current Visit: Yes Status: Acute (6) Supratherapeutic INR Current Visit: Yes Status: Resolved (7) COPD (chronic obstructive pulmonary disease) Current Visit: Yes Status: Chronic Qualifiers: COPD type: unspecified COPD Qualified Code(s): J44.9 - Chronic obstructive pulmonary disease, unspecified Objective PUL Vital signs: Last Vital Signs Temp 97.5 F L 12/20/17 07:53 Pulse 71 12/20/17 09:00 Resp 12 12/20/17 09:00 BP 147/70 12/20/17 09:00 Pulse Ox 99 12/20/17 09:00 Ventilator Settings Ventilator Settings: Ventilator Settings, Last 8 Hours Ventilator Mode A/C Ventilator Mode A/C Ventilator Mode A/C Ventilator Mode A/C Ventilator Mode A/C Ventilator Mode A/C Ventilator Mode A/C Ventilator Mode A/C Ventilator Mode A/C Ventilator Tidal Volume 440 Setting Ventilator Tidal Volume 440 Setting Ventilator Tidal Volume 440 Setting Ventilator Tidal Volume 440 Setting Ventilator Tidal Volume 440 Setting Ventilator Tidal Volume 440 Setting Ventilator Tidal Volume 440 Setting Ventilator Tidal Volume 440 Setting Ventilator Tidal Volume 440 Setting Ventilator Tidal Volume 440 Setting Ventilator Tidal Volume 440 Setting Ventilator Respiratory Rate 12 Setting Ventilator Respiratory Rate 12 Setting Ventilator Respiratory Rate 12 Setting Ventilator Respiratory Rate 12 Setting Ventilator Respiratory Rate 12 Setting Ventilator Respiratory Rate 12 Setting Ventilator Respiratory Rate 12 Setting Ventilator Respiratory Rate 12 Setting Ventilator Respiratory Rate 12 Setting Ventilator Respiratory Rate 12 Setting Ventilator Respiratory Rate 12 Setting Actual Respiratory Rate 12 Actual Respiratory Rate 12 Actual Respiratory Rate 12 Actual Respiratory Rate 12 Actual Respiratory Rate 12 Actual Respiratory Rate 12 Actual Respiratory Rate 16 Actual Respiratory Rate 12 Actual Respiratory Rate 12 Actual Respiratory Rate 12 Positive End Expiratory 5 Pressure Positive End Expiratory 5 Pressure Positive End Expiratory 5 Pressure Positive End Expiratory 5 Pressure Positive End Expiratory 5 Pressure Positive End Expiratory 5 Pressure Positive End Expiratory 5 Pressure Positive End Expiratory 5 Pressure Positive End Expiratory 5 Pressure Positive End Expiratory 5 Pressure Positive End Expiratory 5 Pressure Peak Inspiratory Airway 23 Pressure Peak Inspiratory Airway 24 Pressure Peak Inspiratory Airway 22 Pressure Peak Inspiratory Airway 22 Pressure Peak Inspiratory Airway 20 Pressure Peak Inspiratory Airway 21 Pressure Peak Inspiratory Airway 23 Pressure Peak Inspiratory Airway 21 Pressure Peak Inspiratory Airway 22 Pressure Peak Inspiratory Airway 22 Pressure Results - Laboratory Findings CBC and BMP: 12/20/17 04:10 12/20/17 04:10 ABG ABG pH 7.42 pH Units (7.32-7.45) 12/20/17 05:26 ABG pCO2 43 mmHg (35-45) 12/20/17 05:26 ABG pO2 117 mmHg (85-104) H 12/20/17 05:26 ABG O2 Saturation 99 % (95-98) H 12/20/17 05:26 PT/INR, D-dimer PT 18.8 Seconds (9.4-12.1) H 12/20/17 04:10 Abnormal lab findings: Abnormal lab results RBC 3.27 M/mcL (3.82-4.97) L 12/20/17 04:10 Hgb 9.6 g/dL (11.5-15.4) L 12/20/17 04:10 Hct 30.1 % (35.3-44.9) L 12/20/17 04:10 RDW 17.3 % (11.5-14.5) H 12/20/17 04:10 Nucleated RBCs/100 WBC 0.2 /100 WBC (0) H 12/17/17 04:09 Platelet Estimate Slight Decrease (Normal) L 12/10/17 04:15 Hypochromasia Present (Not Present) A 12/10/17 04:15 Poikilocytosis 1+ (Not Present) A 12/10/17 04:15 Anisocytosis 1+ (Not Present) A 12/09/17 04:00 Macrocytosis Present (Not Present) A 12/10/17 04:15 PT 18.8 Seconds (9.4-12.1) H 12/20/17 04:10 APTT 50.7 Seconds (26.0-36.0) H 12/10/17 04:15 ABG pO2 117 mmHg (85-104) H 12/20/17 05:26 ABG HCO3 28 mEq/L (21-27) H 12/20/17 05:26 ABG Total CO2 29 mEq/L (20-26) H 12/20/17 05:26 ABG O2 Saturation 99 % (95-98) H 12/20/17 05:26 Chloride 110 mEq/L (98-107) H 12/20/17 04:10 Creatinine 0.59 mg/dL (0.60-1.20) L 12/20/17 04:10 Glucose 106 mg/dL (70-105) H 12/20/17 04:10 POC Glucose 107 mg/dL (70-99) H 12/19/17 23:34 Calcium 8.5 mg/dL (8.6-10.3) L 12/20/17 04:10 % Saturation 60 % (15-50) H 12/16/17 09:36 Transferrin 158 mg/dL (203-362) L 12/16/17 09:36 Ferritin 282 ng/ml (10-120) H 12/16/17 09:36 Direct Bilirubin 0.3 mg/dL (0.0-0.2) H 12/05/17 18:50 Troponin I 1.10 ng/mL (< 0.04) H* 12/06/17 11:56 B-Natriuretic Peptide 2096 pg/mL (Less than 100) H 12/06/17 06:01 Serum Total Protein 5.0 g/dL (6.4-8.9) L 12/15/17 05:19 Albumin 2.5 g/dL (3.5-5.7) L 12/15/17 05:19 Albumin/Globulin Ratio 1.0 (1.1-2.2) L 12/15/17 05:19 Vitamin B12 > 1500 pg/mL (250-1100) H 12/13/17 09:20 Urine Clarity Cloudy (Clear) A 12/05/17 19:27 Ur Specific [place] 1.008 (1.010-1.025) L 12/05/17 19:27 Urine Ketones 15 mg/dL (Negative) H 12/05/17 19:27 Urine Bilirubin Moderate (Negative) H 12/05/17 19:27 Ur Leukocyte Esterase Moderate (Negative) H 12/05/17 19:27 Urine Microscopic WBC 5-15 per hpf (0-3) H 12/05/17 19:27 Ur Squamous Epith Cells Many per lpf (None-Few) H 12/05/17 19:27 Ur Culture Indicated? NO. (NO) A 12/05/17 19:27 Vancomycin Trough 25 mcg/mL (5-10) H 12/18/17 01:08 U Benzodiazepines Scrn Positive ng/mL (Xpjwrw=667) H 12/06/17 01:30 - Microbiology Findings Microbiology Findings: Microbiology, Last 48 Hours 12/16/17 21:10 Sputum Culture - Final Sputum - Clinical Findings Intake & Output: Intake & Output 12/19/17 12/20/17 12/20/17 23:59 07:59 15:59 Intake Total 1880 / 1880 1550 / 1550 100 / 100 Output Total 160 / 160 200 / 200 Balance 1720 / 1720 1350 / 1350 100 / 100 Weight 62.4 kg Consult Discharge Plan - Plan Referrals: Chel Munroe, PHYSICAL THERAPY COORDINATOR [Primary Care Provider] - - Attending Attestation I examined this patient and my medical decision-making was reviewed with the Resident Physician. I agree with the documented findings, disposition and treatment plan as described except to the extent set forth below. We independently had [id number] contact with the patient Patient seen and examined at bedside Labs, radiology, chart personally reviewed. Management was reviewed during multidisciplinary critical care rounds. 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 SAT planned today; She has had periods of significant agitation. HEENT: ENT following for epistaxis packing removed today no further episodes Pulm: Minimal vent requirements OK for SBT after endoscopy. Air leak present today Cards: Hemodynamially stable FEN-GI:Gi bleed start Protonixi infusion as worsening blood output. GI following plan for upper and lower endoscopy Renal: Uop monitored and stable ID: Stop ABx for packing for epistaxis Heme/Onc: Endo: Glucose Monitored Integ/MSK: Skin Care per routine ICU Nursing Protocol to prevent ulcers. Lines: All lines examined without evidence of infection : Dispo: Remain in ICU CODE: Full. <Tracee Gan - Last Filed: 12/20/17 11:45> Date of Encounter: 12/20/17 Time of Encounter: 07:24 Assessment and Plan (1) Acute and chronic respiratory failure with hypoxia Current Visit: Yes Status: Acute Acute on chronic respiratory failure possibly secondary to aspiration in the setting of epistaxis - Currently intubated. No air leak around tubing. - ABG pH 7.42, CO2 43, HCO3 28 - Sputum culture no growth Plan -Continue ventilator support, patient is to go for endoscopy today -air leak on examination of tubing, may extubate today after endoscopy -will plan to extubate once endoscopy completed and air leak around endotracheal tube, CPAP well -stop Solu-Medrol 40 mg twice a day for swelling (2) NSTEMI (non-ST elevated myocardial infarction) Current Visit: Yes Status: Acute NSTEMI on admission status post left heart catheterization without stent placement. Cardiology has evaluated and antiplatelet therapy is currently on hold due to hemorrhage (3) Anemia Current Visit: Yes Status: Acute Anemia in setting of epistaxis and New rectal bleeding. epistaxis resolved hemoglobin 9.6 (9.8) patient has been ordered a total of 5 units PRBC, 5 plasma -G.I. consulted and is to perform endoscopy today -patient had significant rectal bleeding overnight, now has a rectal tube in place -ENT removed nasal packing day 5 (total of 4-5 days per ENT) -NPO -holding anticoagulation -will continue to monitor for bleeding H&H q6h -will transfuse as needed Qualifiers: Anemia type: other cause Other causes of anemia: acute posthemorrhagic Qualified Code(s): D62 - Acute posthemorrhagic anemia (4) Aspiration pneumonia Current Visit: Yes Status: Acute Possible aspiration pneumonia secondary to epistaxis Evidence of blood in the endotracheal tube afebrile, WBC WNL sputum culture no growth - Stopped Zosyn day 8 Qualifiers: Aspiration pneumonia type: unspecified Laterality: left Lung location: lower lobe of lung Qualified Code(s): J69.0 - Pneumonitis due to inhalation of food and vomit (5) Left ventricular thrombosis Current Visit: Yes Status: Acute LV thrombosis seen on echocardiogram Was previously anticoagulated on fondaparinux and transition to warfarin, however warfarin being held due to bleeding INR 1.7 (2.1) -will consult hem/onc on recommendations for anticoagulation's due to supratherapeutic INR (6) COPD (chronic obstructive pulmonary disease) Current Visit: Yes Status: Chronic History of COPD, not an exacerbation Qualifiers: COPD type: unspecified COPD Qualified Code(s): J44.9 - Chronic obstructive pulmonary disease, unspecified (7) Acute blood loss anemia Current Visit: Yes Status: Acute New rectal bleeding. -see management above (8) Epistaxis Current Visit: Yes Status: Acute Resolved Epistaxis is likely secondary to anticoagulation and supratherapeutic INR s/p packing by ENT day 12/08 -ENT following for epistaxis and removed nasal packing day 12/08 -Zosyn was antibiotic given during packing and has been discontinued day 8 (9) Supratherapeutic INR Current Visit: Yes Status: Resolved INR increasing despite holding warfarin. INR 1.7 (2.1) Patient has received fresh frozen plasma and vitamin K -Continue to hold warfarin and monitor for signs of bleeding -May consider consulting heme/on at some point for recommendations on anticoagulation due to supratherapeutic INR (10) DVT prophylaxis Current Visit: Yes Status: Acute SCD in setting of bleed Subjective Principal diagnosis: Respiratory Failure Interval history: Patient examined at bedside. She is currently intubated, and in no acute distress. Nurse reported they placed a rectal tube in the cork insulation setter and she had significant rectal bleeding this morning as well. She has had significant agitation. Objective PUL Vital signs: Last Vital Signs Temp 97.0 F L 12/20/17 00:00 Pulse 72 12/20/17 06:00 Resp 12 12/20/17 06:00 BP 146/67 12/20/17 06:00 Pulse Ox 98 12/20/17 06:00 General appearance: no acute distress, asleep Eyes: nonicteric ENT: oropharynx moist Neck: supple Effort: normal Auscultation: bilateral: clear Cardiovascular: regular rate and rhythm Gastrointestinal: normoactive bowel sounds, soft, non-distended Integumentary: normal Extremities: no cyanosis, no edema Musculoskeletal: no deformities unable to assess due to mental status Ventilator Settings Ventilator Settings: Ventilator Settings, Last 8 Hours Ventilator Mode A/C Ventilator Mode A/C Ventilator Mode A/C Ventilator Mode A/C Ventilator Mode A/C Ventilator Mode A/C Ventilator Mode A/C Ventilator Mode A/C Ventilator Tidal Volume 440 Setting Ventilator Tidal Volume 440 Setting Ventilator Tidal Volume 440 Setting Ventilator Tidal Volume 440 Setting Ventilator Tidal Volume 440 Setting Ventilator Tidal Volume 440 Setting Ventilator Tidal Volume 440 Setting Ventilator Tidal Volume 440 Setting Ventilator Tidal Volume 440 Setting Ventilator Tidal Volume 440 Setting Ventilator Respiratory Rate 12 Setting Ventilator Respiratory Rate 12 Setting Ventilator Respiratory Rate 12 Setting Ventilator Respiratory Rate 12 Setting Ventilator Respiratory Rate 12 Setting Ventilator Respiratory Rate 12 Setting Ventilator Respiratory Rate 12 Setting Ventilator Respiratory Rate 12 Setting Ventilator Respiratory Rate 12 Setting Ventilator Respiratory Rate 12 Setting Actual Respiratory Rate 12 Actual Respiratory Rate 12 Actual Respiratory Rate 12 Actual Respiratory Rate 16 Actual Respiratory Rate 12 Actual Respiratory Rate 12 Actual Respiratory Rate 12 Actual Respiratory Rate 12 Actual Respiratory Rate 12 Positive End Expiratory 5 Pressure Positive End Expiratory 5 Pressure Positive End Expiratory 5 Pressure Positive End Expiratory 5 Pressure Positive End Expiratory 5 Pressure Positive End Expiratory 5 Pressure Positive End Expiratory 5 Pressure Positive End Expiratory 5 Pressure Positive End Expiratory 5 Pressure Positive End Expiratory 5 Pressure Peak Inspiratory Airway 22 Pressure Peak Inspiratory Airway 20 Pressure Peak Inspiratory Airway 21 Pressure Peak Inspiratory Airway 23 Pressure Peak Inspiratory Airway 21 Pressure Peak Inspiratory Airway 22 Pressure Peak Inspiratory Airway 22 Pressure Peak Inspiratory Airway 21 Pressure Peak Inspiratory Airway 21 Pressure Results - Laboratory Findings CBC and BMP: 12/20/17 04:10 12/20/17 04:10 ABG ABG pH 7.42 pH Units (7.32-7.45) 12/20/17 05:26 ABG pCO2 43 mmHg (35-45) 12/20/17 05:26 ABG pO2 117 mmHg (85-104) H 12/20/17 05:26 ABG O2 Saturation 99 % (95-98) H 12/20/17 05:26 PT/INR, D-dimer PT 18.8 Seconds (9.4-12.1) H 12/20/17 04:10 Abnormal lab findings: Abnormal lab results RBC 3.27 M/mcL (3.82-4.97) L 12/20/17 04:10 Hgb 9.6 g/dL (11.5-15.4) L 12/20/17 04:10 Hct 30.1 % (35.3-44.9) L 12/20/17 04:10 RDW 17.3 % (11.5-14.5) H 12/20/17 04:10 Nucleated RBCs/100 WBC 0.2 /100 WBC (0) H 12/17/17 04:09 Platelet Estimate Slight Decrease (Normal) L 12/10/17 04:15 Hypochromasia Present (Not Present) A 12/10/17 04:15 Poikilocytosis 1+ (Not Present) A 12/10/17 04:15 Anisocytosis 1+ (Not Present) A 12/09/17 04:00 Macrocytosis Present (Not Present) A 12/10/17 04:15 PT 18.8 Seconds (9.4-12.1) H 12/20/17 04:10 APTT 50.7 Seconds (26.0-36.0) H 12/10/17 04:15 ABG pO2 117 mmHg (85-104) H 12/20/17 05:26 ABG HCO3 28 mEq/L (21-27) H 12/20/17 05:26 ABG Total CO2 29 mEq/L (20-26) H 12/20/17 05:26 ABG O2 Saturation 99 % (95-98) H 12/20/17 05:26 Chloride 110 mEq/L (98-107) H 12/20/17 04:10 Creatinine 0.59 mg/dL (0.60-1.20) L 12/20/17 04:10 Glucose 106 mg/dL (70-105) H 12/20/17 04:10 POC Glucose 107 mg/dL (70-99) H 12/19/17 23:34 Calcium 8.5 mg/dL (8.6-10.3) L 12/20/17 04:10 % Saturation 60 % (15-50) H 12/16/17 09:36 Transferrin 158 mg/dL (203-362) L 12/16/17 09:36 Ferritin 282 ng/ml (10-120) H 12/16/17 09:36 Direct Bilirubin 0.3 mg/dL (0.0-0.2) H 12/05/17 18:50 Troponin I 1.10 ng/mL (< 0.04) H* 12/06/17 11:56 B-Natriuretic Peptide 2096 pg/mL (Less than 100) H 12/06/17 06:01 Serum Total Protein 5.0 g/dL (6.4-8.9) L 12/15/17 05:19 Albumin 2.5 g/dL (3.5-5.7) L 12/15/17 05:19 Albumin/Globulin Ratio 1.0 (1.1-2.2) L 12/15/17 05:19 Vitamin B12 > 1500 pg/mL (250-1100) H 12/13/17 09:20 Urine Clarity Cloudy (Clear) A 12/05/17 19:27 Ur Specific [place] 1.008 (1.010-1.025) L 12/05/17 19:27 Urine Ketones 15 mg/dL (Negative) H 12/05/17 19:27 Urine Bilirubin Moderate (Negative) H 12/05/17 19:27 Ur Leukocyte Esterase Moderate (Negative) H 12/05/17 19:27 Urine Microscopic WBC 5-15 per hpf (0-3) H 12/05/17 19:27 Ur Squamous Epith Cells Many per lpf (None-Few) H 12/05/17 19:27 Ur Culture Indicated? NO. (NO) A 12/05/17 19:27 Vancomycin Trough 25 mcg/mL (5-10) H 12/18/17 01:08 U Benzodiazepines Scrn Positive ng/mL (Gowipg=065) H 12/06/17 01:30 - Microbiology Findings Microbiology Findings: Microbiology, Last 48 Hours 12/16/17 21:10 Sputum Culture - Final Sputum - Clinical Findings Intake & Output: Intake & Output 12/19/17 12/19/17 12/20/17 15:59 23:59 07:59 Intake Total 520 / 520 1880 / 1880 1550 / 1550 Output Total 50 / 50 160 / 160 Balance 470 / 470 1720 / 1720 1550 / 1550 Weight 62.4 kg - VTE Documentation of Mechanical Device: Intermittent pneumatic compression device
--- NOTE | 2017-12-20 07:57 | ENT - Progress Note ---
Date of Encounter: 12/20/17 Time of Encounter: 07:54 - Assessment and Plan (1) Epistaxis Current Visit: Yes Status: Acute packs removed today with only old clotted blood on the packs. no evidence of bleeding after removal. please contact me if there is concern for additional bleeding. (2) Acute and chronic respiratory failure with hypoxia Current Visit: Yes Status: Acute difficulty with extubation. no leak. could be laryngeal edema or large tube/ small larynx. discussed possibility of flexible laryngoscopy but I will not likely get a great view due to secretions and the presence of the ET tube. I am happy to stand by during extubation if desired. Subjective Narrative: 67 year old female originally admitted for NSTEMI with history of CHF, COPD. Mural thrombus found. she was anticoagulated and INR was supratherapeutic, then she had epistaxis necessitating nasal packing bilaterally on 12/16/17. merocel in left, double balloon pack in right. INR is therapeutic now. no evidence of active bleeding for several days now. she was intubated for respiratory distress and has been difficult to extubate due to lack of leak around the tube. she is going for colonoscopy and EGD today to work up for GI bleed with likely extubation later today. Objective Initial Vital Signs Temp Pulse Resp BP Pulse Ox 97.8 F 86 16 121/23 98 12/05/17 18:03 12/05/17 18:03 12/05/17 18:03 12/05/17 18:03 12/05/17 18:03 - General physical appearance no distress (sedated, intubated) - ENT Other (bilateral nasal packs in place, both removed today with no evidence of bleeding. ) - Neck no masses, no bruits, trachea midline - Labs 12/20/17 04:10 12/20/17 04:10 Diabetes panel 12/20/17 Range/Units 04:10 Sodium 143 (136-145) mEq/L Potassium 3.9 (3.5-5.1) mEq/L Chloride 110 H (98-107) mEq/L Carbon Dioxide 26 (23-29) mEq/L BUN 15 (8-23) mg/dL Creatinine 0.59 L (0.60-1.20) mg/dL Glucose 106 H (70-105) mg/dL Calcium 8.5 L (8.6-10.3) mg/dL Calcium panel 12/20/17 Range/Units 04:10 Calcium 8.5 L (8.6-10.3) mg/dL Pituitary panel 12/20/17 Range/Units 04:10 Sodium 143 (136-145) mEq/L Potassium 3.9 (3.5-5.1) mEq/L Chloride 110 H (98-107) mEq/L Carbon Dioxide 26 (23-29) mEq/L BUN 15 (8-23) mg/dL Creatinine 0.59 L (0.60-1.20) mg/dL Glucose 106 H (70-105) mg/dL Calcium 8.5 L (8.6-10.3) mg/dL Adrenal panel 12/20/17 Range/Units 04:10 Sodium 143 (136-145) mEq/L Potassium 3.9 (3.5-5.1) mEq/L Chloride 110 H (98-107) mEq/L Carbon Dioxide 26 (23-29) mEq/L BUN 15 (8-23) mg/dL Creatinine 0.59 L (0.60-1.20) mg/dL Glucose 106 H (70-105) mg/dL Calcium 8.5 L (8.6-10.3) mg/dL - VTE Documentation of Mechanical Device: Intermittent pneumatic compression device Consult Discharge Plan - Plan Referrals: Chel Munroe, LONG [Primary Care Provider] -
[2017-12-20] MEDS: Nicotine 21 MG PATCH.TD24 TD SCH (08:03)
[2017-12-20] MEDS: Piperacillin/Tazobactam 3.375 GM in 0.9 % Sodium Chloride Mini Bag 100 ML IVPB SCH ×3 (08:03→23:36)
[2017-12-20] MEDS: Chlorhexidine Rinse 15 ML MOUTHWASH MM SCH ×2 (09:18→20:42)
[2017-12-20] MEDS: Lactulose Oral Soln 20 GM/30 ML UDC PO SCH (09:18)
[2017-12-20] MEDS: Cholecalciferol (D-3) 1,000 UNIT TABLET PO SCH (09:19)
[2017-12-20] MEDS: Metoprolol XL (24 HR) Succ 25 MG TAB.ER.24H PO SCH (09:19)
[2017-12-20] MEDS: Magnesium Oxide 400 MG TABLET PO SCH (09:19)
--- NOTE | 2017-12-20 10:36 | Anesthesia Evaluation PreOp ---
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 (Encephalopathy from Alcohol Abuse) Other Medical History: GERD Anesthesia History: No Prior Anesthetic Complications : Yes Test: Positive Alcohol Use: heavy Drug use: none Medications and Allergies Atorvastatin [Lipitor] 80 mg PO HS 09/10/17 [History] Omeprazole [PriLOSEC] 20 mg PO DAILY 09/10/17 [History] Tramadol HCl [Ultram] 50 mg PO Q6-8H PRN 09/10/17 [History] Atenolol [Tenormin] 50 mg PO BID #60 tablet 09/14/17 [Rx] Phos-NaK [Neutra-Phos] 2 each PO BID #120 powd.pack 09/14/17 [Rx] Potassium Chloride 20 meq PO BID #60 tab.er.prt 09/14/17 [Rx] Sodium Bicarbonate 650 mg PO TID #180 tablet 09/14/17 [Rx] amLODIPine [Norvasc] 10 mg PO DAILY #60 tablet 09/14/17 [Rx] Lactulose [Lactulose] 15 ml PO DAILY 12/05/17 [History] Magnesium Oxide [Mag-Ox] 400 mg PO TID 12/05/17 [History] 3 Allergy/AdvReac Type Severity Reaction Status Date / Time No Known Allergies Allergy Verified 12/05/17 18:06 - Meds/Allergy Pre-op Review Medications Reviewed: Yes Allergies Reviewed: Yes Beta Blockers on Current Med List: Yes (Metoprolol IV prn) Anesthesia Results - Labs 12/20/17 04:10 12/20/17 04:10 - Imaging EKG: report reviewed (SR) Additional studies: ECHO EF 30%, moderate to severe tricuspid regurge, mild pulm htn Anesthesia Exam O2 Sat Weight 62.4 kg O2 Sat by Pulse Oximetry 97 O2 Sat by Pulse Oximetry 97 O2 Sat by Pulse Oximetry 98 O2 Sat by Pulse Oximetry 99 O2 Sat by Pulse Oximetry 100 O2 Sat by Pulse Oximetry 100 O2 Sat by Pulse Oximetry 100 O2 Sat by Pulse Oximetry 99 O2 Sat by Pulse Oximetry 98 O2 Sat by Pulse Oximetry 98 O2 Sat by Pulse Oximetry 99 O2 Sat by Pulse Oximetry 99 O2 Sat by Pulse Oximetry 100 O2 Sat by Pulse Oximetry 100 O2 Sat by Pulse Oximetry 99 O2 Sat by Pulse Oximetry 99 O2 Sat by Pulse Oximetry 99 O2 Sat by Pulse Oximetry 99 O2 Sat by Pulse Oximetry 100 O2 Sat by Pulse Oximetry 99 O2 Sat by Pulse Oximetry 100 O2 Sat by Pulse Oximetry 100 O2 Sat by Pulse Oximetry 99 O2 Sat by Pulse Oximetry 100 O2 Sat by Pulse Oximetry 99 O2 Sat by Pulse Oximetry 99 O2 Sat by Pulse Oximetry 99 O2 Sat by Pulse Oximetry 100 O2 Sat by Pulse Oximetry 99 O2 Sat by Pulse Oximetry 99 O2 Sat by Pulse Oximetry 99 O2 Sat by Pulse Oximetry 99 O2 Sat by Pulse Oximetry 98 O2 Sat by Pulse Oximetry 97 O2 Sat by Pulse Oximetry 99 O2 Sat by Pulse Oximetry 100 O2 Sat by Pulse Oximetry 99 O2 Sat by Pulse Oximetry 100 O2 Sat by Pulse Oximetry 100 O2 Sat by Pulse Oximetry 100 O2 Sat by Pulse Oximetry 100 Vital Signs Temp Pulse Resp BP Pulse Ox 97.8 F 86 16 121/23 98 12/05/17 18:03 12/05/17 18:03 12/05/17 18:03 12/05/17 18:03 12/05/17 18:03 Height: 5'6 Weight: 137 lbs NPO (# of Hours): MN Pain Scale: 0 - HEENT Pupil (Motor): Pupils equal, EOMI Mallampati: Intubated - 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
[2017-12-20] MEDS: FentaNYL (PF) 1,000 MCG in 0.9 % Sodium Chloride 80 ML IVC SCH (13:00)
[2017-12-20] MEDS: Pantoprazole 40 MG in 0.9 % Sodium Chloride Mini Bag 100 ML IVC SCH ×3 (13:53→23:36)
[2017-12-20] MEDS: Potassium Chloride Elixir 20 MEQ/15 ML UDC GTUBE PRN (13:53)
[2017-12-20] MEDS: Thiamine (B-1) 100 MG TABLET PO SCH (17:00)
[2017-12-20] MEDS ORDERED: SODIUM CHLORIDE/NAHCO3/KCL/PEG 4,000 ML SOLN.RECON PO ONE (17:13)
[2017-12-20 18:52] LABS: Hematocrit 31.2 % (35.3-44.9); Hemoglobin 9.8 g/dL (11.5-15.4)
[2017-12-21] MEDS: Insulin LISPRO 300 UNITS/3 ML VIAL SQ SCH ×4 (00:12→17:41)
[2017-12-21 01:11] LABS: Hematocrit 29.2 % (35.3-44.9); Hemoglobin 9.5 g/dL (11.5-15.4)
[2017-12-21] MEDS: Ipratropium/Albuterol Neb 3 ML IH SCH ×4 (03:38→21:10)
[2017-12-21] MEDS: FentaNYL (PF) 1,000 MCG in 0.9 % Sodium Chloride 80 ML IVC SCH ×2 (04:11→21:50)
[2017-12-21] MEDS: MethylPREDNISolone 40 MG/ML VIAL IVP SCH (04:16)
[2017-12-21] MEDS: Pantoprazole 40 MG in 0.9 % Sodium Chloride Mini Bag 100 ML IVC SCH ×2 (04:16→10:22)
[2017-12-21] MEDS: Lacri-Lube 3.5 GM TUBE BOTH EYES SCH ×5 (04:16→19:55)
[2017-12-21 04:26] LABS: Basophils % 0.3 %; Eosinophils % 0.1 %; Hematocrit 30.7 % (35.3-44.9); Hemoglobin 9.9 g/dL (11.5-15.4); Immature Granulocytes % 1.1 % (0-4); Lymphocytes % 14.3 %; Mean Corpuscular HGB Conc 32.2 g/dL (31.6-35.5); Mean Corpuscular Hemoglobin 30.7 pg (28.0-33.3); Mean Platelet Volume 10.7 fL (9.4-12.4); Monocytes # 0.5 K/mcL (0.0-1.3); Monocytes % 6.3 %; Neutrophils # 5.7 K/mcL (1.6-8.9); Platelet Count 299 K/mcL (140-400); Red Blood Count 3.23 M/mcL (3.82-4.97); Red Cell Distribution Width 17.4 % (11.5-14.5); Segmented Neutrophils % 77.9 %
[2017-12-21 04:31] LABS: INR 1.2; Prothrombin Time 13.3 Seconds (9.4-12.1)
[2017-12-21 04:36] LABS: BUN/Creatinine Ratio 23 (6-26); Blood Urea Nitrogen 14 mg/dL (8-23); Calcium 8.4 mg/dL (8.6-10.3); Carbon Dioxide 24 mEq/L (23-29); Chloride 113 mEq/L (98-107); Glucose 95 mg/dL (70-105); Osmolality,Calculated 304 (280-300); Potassium 3.7 mEq/L (3.5-5.1); Sodium 147 mEq/L (136-145); eGFR For African Americans > 60 (> 60); eGFR For Non-African Americans > 60 (> 60)
[2017-12-21 04:56] LABS: ABG Base Excess 1 mEq/L (-2 to 3); ABG HCO3 26 mEq/L (21-27); ABG Oxygen Saturation 98 % (95-98); ABG PCO2 42 mmHg (35-45); ABG PO2 110 mmHg (85-104); ABG TCO2 27 mEq/L (20-26); Blood Gas Modality ASSIST CONTROL; Blood Gas PEEP 5 cm H2O; Blood Gas Respiration Rate 12; Blood Gas VT 440 cc
[2017-12-21] MEDS: Potassium Chloride Elixir 20 MEQ/15 ML UDC GTUBE PRN (06:29)
--- NOTE | 2017-12-21 07:21 | Pulmonology Progress Note ---
Date of Encounter: 12/21/17 Time of Encounter: 07:21 Assessment and Plan (1) Acute and chronic respiratory failure with hypoxia Current Visit: Yes Status: Acute She remains intubated and sedated on the vent acceptable gas exchange today plan for liberation trial after endoscopy. Continue GI prophylaxis Continue ventilator bundle to prevent ventilator associated pneumonia DVT prophylaxis with SCDs NPO for now (2) NSTEMI (non-ST elevated myocardial infarction) Current Visit: Yes Status: Acute This is being managed medically however antiplatelet therapy is on hold because of hemorrhage.. She remains on statin and beta art (3) LV (left ventricular) mural thrombus Current Visit: Yes Status: Acute This is requiring anticoagulation but is on hold for hemorrhage will need to discuss with cardiology and hematology regarding initiation of therapy/timing. Unfortunately she will be at higher risk for stroke during this time. (4) Acute blood loss anemia Current Visit: Yes Status: Acute She is status post transfusion and H&H has been relatively stable although she has clinical evidence of continued bleeding which I think is related to lower GI bleed plan for upper and lower endoscopy today (5) Epistaxis Current Visit: Yes Status: Acute This is resolved packing out she has received antibiotics for this ENT following (6) Supratherapeutic INR Current Visit: Yes Status: Resolved This is corrected (7) COPD (chronic obstructive pulmonary disease) Current Visit: Yes Status: Chronic Continue bronchodilators on vent. No evidence of exacerbation at present Qualifiers: COPD type: unspecified COPD Qualified Code(s): J44.9 - Chronic obstructive pulmonary disease, unspecified Subjective Principal diagnosis: Respiratory Failure Interval history: Overnight the patient continues to have blood mixed in with stool. Encouragingly her H&H has remained stable. Otherwise hemodynamically stable minimal vent requirements she remains sedated Objective PUL Vital signs: Last Vital Signs Temp 98.4 F 12/21/17 00:00 Pulse 75 12/21/17 05:00 Resp 12 12/21/17 06:15 BP 149/74 12/21/17 06:15 Pulse Ox 100 12/21/17 06:15 General appearance: other (She is sedated on the venture does have spontaneous movements of all extremities but does not follow full voice command) Auscultation: bilateral: clear Cardiovascular: regular rate and rhythm Gastrointestinal: hypoactive bowel sounds, soft, non-tender Integumentary: normal Extremities: no edema Musculoskeletal: no deformities pupils equal and round Ventilator Settings Ventilator Settings: Ventilator Settings, Last 8 Hours Ventilator Mode A/C Ventilator Mode A/C Ventilator Mode A/C Ventilator Mode A/C Ventilator Mode A/C Ventilator Mode A/C Ventilator Mode A/C Ventilator Tidal Volume 440 Setting Ventilator Tidal Volume 440 Setting Ventilator Tidal Volume 440 Setting Ventilator Tidal Volume 440 Setting Ventilator Tidal Volume 440 Setting Ventilator Tidal Volume 440 Setting Ventilator Tidal Volume 440 Setting Ventilator Tidal Volume 440 Setting Ventilator Tidal Volume 440 Setting Ventilator Tidal Volume 440 Setting Ventilator Tidal Volume 440 Setting Ventilator Respiratory Rate 12 Setting Ventilator Respiratory Rate 12 Setting Ventilator Respiratory Rate 12 Setting Ventilator Respiratory Rate 12 Setting Ventilator Respiratory Rate 12 Setting Ventilator Respiratory Rate 12 Setting Ventilator Respiratory Rate 12 Setting Ventilator Respiratory Rate 12 Setting Ventilator Respiratory Rate 12 Setting Ventilator Respiratory Rate 12 Setting Ventilator Respiratory Rate 12 Setting Actual Respiratory Rate 12 Actual Respiratory Rate 12 Actual Respiratory Rate 12 Actual Respiratory Rate 12 Actual Respiratory Rate 12 Actual Respiratory Rate 12 Actual Respiratory Rate 12 Actual Respiratory Rate 12 Actual Respiratory Rate 12 Actual Respiratory Rate 12 Positive End Expiratory 5 Pressure Positive End Expiratory 5 Pressure Positive End Expiratory 5 Pressure Positive End Expiratory 5 Pressure Positive End Expiratory 5 Pressure Positive End Expiratory 5 Pressure Positive End Expiratory 5 Pressure Positive End Expiratory 5 Pressure Positive End Expiratory 5 Pressure Positive End Expiratory 5 Pressure Positive End Expiratory 5 Pressure Peak Inspiratory Airway 23 Pressure Peak Inspiratory Airway 23 Pressure Peak Inspiratory Airway 23 Pressure Peak Inspiratory Airway 23 Pressure Peak Inspiratory Airway 23 Pressure Peak Inspiratory Airway 23 Pressure Peak Inspiratory Airway 23 Pressure Peak Inspiratory Airway 24 Pressure Peak Inspiratory Airway 25 Pressure Peak Inspiratory Airway 25 Pressure Results - Laboratory Findings CBC and BMP: 12/21/17 03:55 12/21/17 03:55 ABG ABG pH 7.40 pH Units (7.32-7.45) 12/21/17 04:53 ABG pCO2 42 mmHg (35-45) 12/21/17 04:53 ABG pO2 110 mmHg (85-104) H 12/21/17 04:53 ABG O2 Saturation 98 % (95-98) 12/21/17 04:53 PT/INR, D-dimer PT 13.3 Seconds (9.4-12.1) H 12/21/17 03:55 Abnormal lab findings: Abnormal lab results RBC 3.23 M/mcL (3.82-4.97) L 12/21/17 03:55 Hgb 9.9 g/dL (11.5-15.4) L 12/21/17 03:55 Hct 30.7 % (35.3-44.9) L 12/21/17 03:55 RDW 17.4 % (11.5-14.5) H 12/21/17 03:55 Nucleated RBCs/100 WBC 0.2 /100 WBC (0) H 12/17/17 04:09 Platelet Estimate Slight Decrease (Normal) L 12/10/17 04:15 Hypochromasia Present (Not Present) A 12/10/17 04:15 Poikilocytosis 1+ (Not Present) A 12/10/17 04:15 Anisocytosis 1+ (Not Present) A 12/09/17 04:00 Macrocytosis Present (Not Present) A 12/10/17 04:15 PT 13.3 Seconds (9.4-12.1) H 12/21/17 03:55 APTT 50.7 Seconds (26.0-36.0) H 12/10/17 04:15 ABG pO2 110 mmHg (85-104) H 12/21/17 04:53 ABG Total CO2 27 mEq/L (20-26) H 12/21/17 04:53 Sodium 147 mEq/L (136-145) H 12/21/17 03:55 Chloride 113 mEq/L (98-107) H 12/21/17 03:55 Calculated Osmolality 304 (280-300) H 12/21/17 03:55 Calcium 8.4 mg/dL (8.6-10.3) L 12/21/17 03:55 % Saturation 60 % (15-50) H 12/16/17 09:36 Transferrin 158 mg/dL (203-362) L 12/16/17 09:36 Ferritin 282 ng/ml (10-120) H 12/16/17 09:36 Direct Bilirubin 0.3 mg/dL (0.0-0.2) H 12/05/17 18:50 Troponin I 1.10 ng/mL (< 0.04) H* 12/06/17 11:56 B-Natriuretic Peptide 2096 pg/mL (Less than 100) H 12/06/17 06:01 Serum Total Protein 5.0 g/dL (6.4-8.9) L 12/15/17 05:19 Albumin 2.5 g/dL (3.5-5.7) L 12/15/17 05:19 Albumin/Globulin Ratio 1.0 (1.1-2.2) L 12/15/17 05:19 Vitamin B12 > 1500 pg/mL (250-1100) H 12/13/17 09:20 Urine Clarity Cloudy (Clear) A 12/05/17 19:27 Ur Specific [place] 1.008 (1.010-1.025) L 12/05/17 19:27 Urine Ketones 15 mg/dL (Negative) H 12/05/17 19:27 Urine Bilirubin Moderate (Negative) H 12/05/17 19:27 Ur Leukocyte Esterase Moderate (Negative) H 12/05/17 19:27 Urine Microscopic WBC 5-15 per hpf (0-3) H 12/05/17 19:27 Ur Squamous Epith Cells Many per lpf (None-Few) H 12/05/17 19:27 Ur Culture Indicated? NO. (NO) A 12/05/17 19: Vancomycin Trough 25 mcg/mL (5-10) H 12/18/17 01:08 U Benzodiazepines Scrn Positive ng/mL (Fmmmro=[id number]) H 12/06/17 01:30 - Microbiology Findings Microbiology Findings: Microbiology, Last 48 Hours 12/16/17 21:10 Sputum Culture - Final Sputum - Clinical Findings Intake & Output: Intake & Output 12/20/17 12/20/17 12/21/17 15:59 23:59 07:59 Intake Total 300 / 300 1480 / 1480 1600 / 1600 Output Total 2100 / 2100 450 / 450 600 / 600 Balance -1800 / -1800 1030 / 1030 1000 / 1000 - VTE Documentation of Mechanical Device: Intermittent pneumatic compression device Consult Discharge Plan - Plan Referrals: Chel Munroe, [employer] [Primary Care Provider] -
[2017-12-21] MEDS: Piperacillin/Tazobactam 3.375 GM in 0.9 % Sodium Chloride Mini Bag 100 ML IVPB SCH (08:13)
[2017-12-21] MEDS: Chlorhexidine Rinse 15 ML MOUTHWASH MM SCH ×2 (08:13→19:54)
[2017-12-21] MEDS: Nicotine 21 MG PATCH.TD24 TD SCH (08:19)
[2017-12-21] MEDS ORDERED: *HR* Atropine Sulfate 1 MG/10 ML SYRINGE ONE (09:23)
[2017-12-21] MEDS: Ipratropium/Albuterol Neb 3 ML IH PRN (11:43)
[2017-12-21] MEDS: Metoprolol XL (24 HR) Succ 25 MG TAB.ER.24H PO SCH (12:22)
[2017-12-21] MEDS: Cholecalciferol (D-3) 1,000 UNIT TABLET PO SCH (14:55)
[2017-12-21] MEDS: Magnesium Oxide 400 MG TABLET PO SCH (14:55)
[2017-12-21] MEDS: Thiamine (B-1) 100 MG TABLET PO SCH (17:48)
[2017-12-22] MEDS: Lacri-Lube 3.5 GM TUBE BOTH EYES SCH ×7 (01:16→23:43)
[2017-12-22] MEDS: Insulin LISPRO 300 UNITS/3 ML VIAL SQ SCH ×5 (01:16→23:42)
[2017-12-22] MEDS: Ipratropium/Albuterol Neb 3 ML IH SCH ×4 (03:21→21:24)
[2017-12-22 03:51] LABS: Basophils % 0.5 %; Eosinophils # 0.1 K/mcL (0.0-0.6); Eosinophils % 1.6 %; Hematocrit 32.5 % (35.3-44.9); Hemoglobin 10.4 g/dL (11.5-15.4); Immature Granulocytes % 1.3 % (0-4); Lymphocytes # 1.4 K/mcL (0.6-4.6); Lymphocytes % 17.6 %; Mean Corpuscular Hemoglobin 30.4 pg (28.0-33.3); Mean Platelet Volume 10.3 fL (9.4-12.4); Monocytes # 0.4 K/mcL (0.0-1.3); Monocytes % 5.1 %; Platelet Count 290 K/mcL (140-400); Red Blood Count 3.42 M/mcL (3.82-4.97); Red Cell Distribution Width 17.1 % (11.5-14.5); Segmented Neutrophils % 73.9 %
[2017-12-22 04:08] LABS: VBG Ionized Calcium 1.15 mmol/L (1.15-1.35); VBG PH 7.42 pH Units (7.32-7.42)
[2017-12-22 04:10] LABS: BUN/Creatinine Ratio 26 (6-26); Blood Urea Nitrogen 12 mg/dL (8-23); Calcium 8.4 mg/dL (8.6-10.3); Carbon Dioxide 26 mEq/L (23-29); Chloride 113 mEq/L (98-107); Glucose 99 mg/dL (70-105); Magnesium 1.7 mg/dL (1.6-2.6); Osmolality,Calculated 296 (280-300); Potassium 3.5 mEq/L (3.5-5.1); Sodium 143 mEq/L (136-145); eGFR For African Americans > 60 (> 60); eGFR For Non-African Americans > 60 (> 60)
[2017-12-22] MEDS: Potassium Chloride Elixir 20 MEQ/15 ML UDC GTUBE PRN (04:39)
[2017-12-22 05:30] LABS: ABG Base Excess 2 mEq/L (-2 to 3); ABG HCO3 27 mEq/L (21-27); ABG Oxygen Saturation 98 % (95-98); ABG PCO2 42 mmHg (35-45); ABG PH 7.42 pH Units (7.32-7.45); ABG PO2 102 mmHg (85-104); ABG TCO2 29 mEq/L (20-26); Blood Gas Modality ASSIST CONTROL; Blood Gas PEEP 5 cm H2O; Blood Gas Respiration Rate 12; Blood Gas VT 440 cc
--- NOTE | 2017-12-22 07:06 | Pulmonology Progress Note ---
Date of Encounter: 12/22/17 Time of Encounter: 07:05 Assessment and Plan (1) Acute and chronic respiratory failure with hypoxia Current Visit: Yes Status: Acute She remains intubated and sedated on the vent acceptable gas exchange today plan for liberation trial Hold sedation Continue GI prophylaxis Continue ventilator bundle to prevent ventilator associated pneumonia DVT prophylaxis with SCDs NPO for now (2) NSTEMI (non-ST elevated myocardial infarction) Current Visit: Yes Status: Acute This is being managed medically however antiplatelet therapy is on hold because of hemorrhage.. She remains on statin and beta art (3) LV (left ventricular) mural thrombus Current Visit: Yes Status: Acute Discussed the case with cardiology they recommend continuation of warfarin. Will likely need heparin bridging discussing with hematology about the timing of initiation of this but would like to ideally challenge her while she is in the ICU Unfortunately she will be at higher risk for stroke during the times that she is not anticoagulated (4) Acute blood loss anemia Current Visit: Yes Status: Acute No further evidence of GI bleeding. The patient had upper and lower endoscopy without identifying a source of bleeding she does have a polyp in the colon which was sent for pathology she also had evidence of mild gastritis will continue ppi for this (5) Epistaxis Current Visit: Yes Status: Acute This is resolved packing out she has received antibiotics for this ENT following (6) COPD (chronic obstructive pulmonary disease) Current Visit: Yes Status: Chronic Continue bronchodilators on vent. No evidence of exacerbation at present Qualifiers: COPD type: unspecified COPD Qualified Code(s): J44.9 - Chronic obstructive pulmonary disease, unspecified Subjective Principal diagnosis: Respiratory Failure Interval history: Remains hemodynamically stable overnight. Lethargic off sedation intermittently able to follow commands. Very sedate when I examined her Objective PUL Vital signs: Last Vital Signs Temp 97.6 F 12/22/17 00:22 Pulse 66 12/22/17 06:00 Resp 11 12/22/17 06:38 BP 101/55 12/22/17 06:05 Pulse Ox 99 12/22/17 06:38 General appearance: other (Sedated) Eyes: nonicteric ENT: other (Endotracheal tube noticed in satisfactory position) Effort: normal Auscultation: bilateral: rales Cardiovascular: regular rate and rhythm Gastrointestinal: normoactive bowel sounds Integumentary: other (No new rash) Extremities: no cyanosis, no ischemia or petechiae, edema Musculoskeletal: no deformities pupils equal and round, unable to assess due to mental status Ventilator Settings Ventilator Settings: Ventilator Settings, Last 8 Hours Ventilator Mode A/C Ventilator Mode A/C Ventilator Mode A/C Ventilator Mode A/C Ventilator Mode A/C Ventilator Mode A/C Ventilator Mode A/C Ventilator Tidal Volume 440 Setting Ventilator Tidal Volume 440 Setting Ventilator Tidal Volume 440 Setting Ventilator Tidal Volume 440 Setting Ventilator Tidal Volume 440 Setting Ventilator Tidal Volume 440 Setting Ventilator Tidal Volume 440 Setting Ventilator Tidal Volume 440 Setting Ventilator Tidal Volume 440 Setting Ventilator Tidal Volume 440 Setting Ventilator Tidal Volume 440 Setting Ventilator Tidal Volume 440 Setting Ventilator Respiratory Rate 12 Setting Ventilator Respiratory Rate 12 Setting Ventilator Respiratory Rate 12 Setting Ventilator Respiratory Rate 12 Setting Ventilator Respiratory Rate 12 Setting Ventilator Respiratory Rate 12 Setting Ventilator Respiratory Rate 12 Setting Ventilator Respiratory Rate 12 Setting Ventilator Respiratory Rate 12 Setting Ventilator Respiratory Rate 12 Setting Ventilator Respiratory Rate 12 Setting Ventilator Respiratory Rate 12 Setting Actual Respiratory Rate 12 Actual Respiratory Rate 12 Actual Respiratory Rate 12 Actual Respiratory Rate 12 Actual Respiratory Rate 12 Actual Respiratory Rate 12 Actual Respiratory Rate 12 Actual Respiratory Rate 12 Actual Respiratory Rate 12 Actual Respiratory Rate 12 Actual Respiratory Rate 12 Positive End Expiratory 5 Pressure Positive End Expiratory 5 Pressure Positive End Expiratory 5 Pressure Positive End Expiratory 5 Pressure Positive End Expiratory 5 Pressure Positive End Expiratory 5 Pressure Positive End Expiratory 5 Pressure Positive End Expiratory 5 Pressure Positive End Expiratory 5 Pressure Positive End Expiratory 5 Pressure Positive End Expiratory 5 Pressure Positive End Expiratory 5 Pressure Positive End Expiratory 5 Pressure Peak Inspiratory Airway 13 Pressure Peak Inspiratory Airway 26 Pressure Peak Inspiratory Airway 26 Pressure Peak Inspiratory Airway 29 Pressure Peak Inspiratory Airway 31 Pressure Peak Inspiratory Airway 25 Pressure Peak Inspiratory Airway 26 Pressure Peak Inspiratory Airway 23 Pressure Peak Inspiratory Airway 24 Pressure Peak Inspiratory Airway 24 Pressure Peak Inspiratory Airway 22 Pressure Peak Inspiratory Airway 22 Pressure Results - Laboratory Findings CBC and BMP: 12/22/17 03:25 12/22/17 03:25 ABG ABG pH 7.42 pH Units (7.32-7.45) 12/22/17 05:28 ABG pCO2 42 mmHg (35-45) 12/22/17 05:28 ABG pO2 102 mmHg (85-104) 12/22/17 05:28 ABG O2 Saturation 98 % (95-98) 12/22/17 05:28 PT/INR, D-dimer PT 13.3 Seconds (9.4-12.1) H 12/21/17 03:55 Abnormal lab findings: Abnormal lab results RBC 3.42 M/mcL (3.82-4.97) L 12/22/17 03:25 Hgb 10.4 g/dL (11.5-15.4) L 12/22/17 03:25 Hct 32.5 % (35.3-44.9) L 12/22/17 03:25 RDW 17.1 % (11.5-14.5) H 12/22/17 03:25 Nucleated RBCs/100 WBC 0.2 /100 WBC (0) H 12/17/17 04:09 Platelet Estimate Slight Decrease (Normal) L 12/10/17 04:15 Hypochromasia Present (Not Present) A 12/10/17 04:15 Poikilocytosis 1+ (Not Present) A 12/10/17 04:15 Anisocytosis 1+ (Not Present) A 12/09/17 04:00 Macrocytosis Present (Not Present) A 12/10/17 04:15 PT 13.3 Seconds (9.4-12.1) H 12/21/17 03:55 APTT 50.7 Seconds (26.0-36.0) H 12/10/17 04:15 ABG Total CO2 29 mEq/L (20-26) H 12/22/17 05:28 Chloride 113 mEq/L (98-107) H 12/22/17 03:25 Creatinine 0.46 mg/dL (0.60-1.20) L 12/22/17 03:25 Calcium 8.4 mg/dL (8.6-10.3) L 12/22/17 03:25 % Saturation 60 % (15-50) H 12/16/17 09:36 Transferrin 158 mg/dL (203-362) L 12/16/17 09:36 Ferritin 282 ng/ml (10-120) H 12/16/17 09:36 Direct Bilirubin 0.3 mg/dL (0.0-0.2) H 12/05/17 18:50 Troponin I 1.10 ng/mL (< 0.04) H* 12/06/17 11:56 B-Natriuretic Peptide 2096 pg/mL (Less than 100) H 12/06/17 06:01 Serum Total Protein 5.0 g/dL (6.4-8.9) L 12/15/17 05:19 Albumin 2.5 g/dL (3.5-5.7) L 12/15/17 05:19 Albumin/Globulin Ratio 1.0 (1.1-2.2) L 12/15/17 05:19 Vitamin B12 > 1500 pg/mL (250-1100) H 12/13/17 09:20 Urine Clarity Cloudy (Clear) A 12/05/17 19:27 Ur Specific [place] 1.008 (1.010-1.025) L 12/05/17 19:27 Urine Ketones 15 mg/dL (Negative) H 12/05/17 19:27 Urine Bilirubin Moderate (Negative) H 12/05/17 19:27 Ur Leukocyte Esterase Moderate (Negative) H 12/05/17 19:27 Urine Microscopic WBC 5-15 per hpf (0-3) H 12/05/17 19:27 Ur Squamous Epith Cells Many per lpf (None-Few) H 12/05/17 19:27 Ur Culture Indicated? NO. (NO) A 12/05/17 19:27 Vancomycin Trough 25 mcg/mL (5-10) H 12/18/17 01:08 U Benzodiazepines Scrn Positive ng/mL (Uctqjl=[id number]) H 12/06/17 01:30 - Clinical Findings Intake & Output: Intake & Output 12/21/17 12/21/17 12/22/17 15:59 23:59 07:59 Intake Total 538 / 538 462 / 462 513 / 513 Output Total 650 / 650 325 / 325 300 / 300 Balance -112 / -112 137 / 137 213 / 213 Weight 61.1 kg - VTE Documentation of Mechanical Device: Intermittent pneumatic compression device Consult Discharge Plan - Plan Referrals: Chel Munroe, [employer] [Primary Care Provider] -
[2017-12-22] MEDS: Cholecalciferol (D-3) 1,000 UNIT TABLET PO SCH (08:47)
[2017-12-22] MEDS: Magnesium Oxide 400 MG TABLET PO SCH (08:47)
[2017-12-22] MEDS: Nicotine 21 MG PATCH.TD24 TD SCH (08:47)
[2017-12-22] MEDS: Chlorhexidine Rinse 15 ML MOUTHWASH MM SCH ×2 (08:47→19:52)
[2017-12-22] MEDS: Pantoprazole 40 MG VIAL IVP SCH (08:48)
[2017-12-22] MEDS: Metoprolol XL (24 HR) Succ 25 MG TAB.ER.24H PO SCH (08:48)
[2017-12-22] MEDS: Dexmedetomidine HCl 400 MCG/100 ML MLS IVC SCH (14:51)
[2017-12-22] MEDS: *HR* Heparin 5,000 UNIT/ML VIAL SQ SCH ×2 (14:54→23:41)
[2017-12-22] MEDS: Thiamine (B-1) 100 MG TABLET PO SCH (17:51)
[2017-12-22] MEDS: FentaNYL (PF) 1,000 MCG in 0.9 % Sodium Chloride 80 ML IVC SCH (23:38)
[2017-12-23] MEDS: Ipratropium/Albuterol Neb 3 ML IH SCH ×4 (03:27→21:23)
[2017-12-23 03:44] LABS: Basophils # 0.1 K/mcL (0.0-0.2); Basophils % 0.5 %; Eosinophils # 0.2 K/mcL (0.0-0.6); Eosinophils % 1.9 %; Hematocrit 33.1 % (35.3-44.9); Hemoglobin 10.6 g/dL (11.5-15.4); Immature Granulocytes % 0.8 % (0-4); Lymphocytes # 1.1 K/mcL (0.6-4.6); Lymphocytes % 10.3 %; Mean Corpuscular Hemoglobin 30.8 pg (28.0-33.3); Mean Corpuscular Volume 96.2 fL (83.0-100.0); Mean Platelet Volume 10.5 fL (9.4-12.4); Monocytes # 0.5 K/mcL (0.0-1.3); Monocytes % 4.2 %; Neutrophils # 8.9 K/mcL (1.6-8.9); Platelet Count 278 K/mcL (140-400); Red Blood Count 3.44 M/mcL (3.82-4.97); Red Cell Distribution Width 16.7 % (11.5-14.5); Segmented Neutrophils % 82.3 %
[2017-12-23 04:05] LABS: BUN/Creatinine Ratio 17 (6-26); Blood Urea Nitrogen 9 mg/dL (8-23); Calcium 8.7 mg/dL (8.6-10.3); Carbon Dioxide 27 mEq/L (23-29); Chloride 112 mEq/L (98-107); Glucose 98 mg/dL (70-105); Magnesium 1.6 mg/dL (1.6-2.6); Osmolality,Calculated 297 (280-300); Potassium 3.6 mEq/L (3.5-5.1); Sodium 144 mEq/L (136-145); eGFR For African Americans > 60 (> 60); eGFR For Non-African Americans > 60 (> 60)
[2017-12-23] MEDS: *HR* Heparin 5,000 UNIT/ML VIAL SQ SCH (05:06)
[2017-12-23] MEDS: Lacri-Lube 3.5 GM TUBE BOTH EYES SCH ×5 (05:06→19:28)
[2017-12-23] MEDS: Insulin LISPRO 300 UNITS/3 ML VIAL SQ SCH ×3 (05:06→17:59)
[2017-12-23 05:13] LABS: ABG Base Excess 4 mEq/L (-2 to 3); ABG HCO3 29 mEq/L (21-27); ABG Oxygen Saturation 98 % (95-98); ABG PCO2 44 mmHg (35-45); ABG PH 7.43 pH Units (7.32-7.45); ABG PO2 109 mmHg (85-104); ABG TCO2 30 mEq/L (20-26); Blood Gas Modality ASSIST CONTROL; Blood Gas PEEP 5 cm H2O; Blood Gas Respiration Rate 12; Blood Gas VT 440 cc
[2017-12-23] MEDS: Potassium Chloride Elixir 20 MEQ/15 ML UDC GTUBE PRN (06:32)
[2017-12-23] MEDS: Lactulose Oral Soln 20 GM/30 ML UDC PO SCH (06:51)
[2017-12-23] MEDS ORDERED: Fluconazole 100 MG TABLET PO ONE (07:27)
[2017-12-23] MEDS ORDERED: Furosemide 40 MG/4 ML VIAL ONE (07:29)
[2017-12-23] MEDS ORDERED: Furosemide 40 MG/4 ML VIAL IVP ONE (07:38)
--- NOTE | 2017-12-23 07:47 | Pulmonology Progress Note ---
<Miguel Irby W - Last Filed: 12/23/17 09:52> Date of Encounter: 12/23/17 Assessment and Plan (1) Acute and chronic respiratory failure with hypoxia Current Visit: Yes Status: Acute (2) NSTEMI (non-ST elevated myocardial infarction) Current Visit: Yes Status: Acute (3) LV (left ventricular) mural thrombus Current Visit: Yes Status: Acute (4) Acute blood loss anemia Current Visit: Yes Status: Acute (5) Epistaxis Current Visit: Yes Status: Acute (6) COPD (chronic obstructive pulmonary disease) Current Visit: Yes Status: Chronic Qualifiers: COPD type: unspecified COPD Qualified Code(s): J44.9 - Chronic obstructive pulmonary disease, unspecified Objective PUL Vital signs: Last Vital Signs Temp 98.2 F 12/23/17 08:20 Pulse 75 12/23/17 09:00 Resp 16 12/23/17 09:45 BP 132/67 12/23/17 09:00 Pulse Ox 100 12/23/17 09:45 Ventilator Settings Ventilator Settings: Ventilator Settings, Last 8 Hours Ventilator Mode CPAP Ventilator Mode A/C Ventilator Mode A/C Ventilator Mode A/C Ventilator Mode A/C Ventilator Mode A/C Ventilator Mode A/C Ventilator Tidal Volume 440 Setting Ventilator Tidal Volume 440 Setting Ventilator Tidal Volume 440 Setting Ventilator Tidal Volume 440 Setting Ventilator Tidal Volume 440 Setting Ventilator Tidal Volume 440 Setting Ventilator Tidal Volume 440 Setting Ventilator Respiratory Rate 12 Setting Ventilator Respiratory Rate 12 Setting Ventilator Respiratory Rate 12 Setting Ventilator Respiratory Rate 12 Setting Ventilator Respiratory Rate 12 Setting Ventilator Respiratory Rate 12 Setting Actual Respiratory Rate 12 Actual Respiratory Rate 10 Actual Respiratory Rate 10 Actual Respiratory Rate 12 Actual Respiratory Rate 12 Actual Respiratory Rate 12 Actual Respiratory Rate 12 Actual Respiratory Rate 12 Positive End Expiratory 5 Pressure Positive End Expiratory 5 Pressure Positive End Expiratory 5 Pressure Positive End Expiratory 5 Pressure Positive End Expiratory 5 Pressure Positive End Expiratory 5 Pressure Positive End Expiratory 5 Pressure Positive End Expiratory 5 Pressure Positive End Expiratory 5 Pressure Peak Inspiratory Airway 12 Pressure Peak Inspiratory Airway 13 Pressure Peak Inspiratory Airway 13 Pressure Peak Inspiratory Airway 21 Pressure Peak Inspiratory Airway 21 Pressure Peak Inspiratory Airway 21 Pressure Peak Inspiratory Airway 21 Pressure Peak Inspiratory Airway 21 Pressure Results - Laboratory Findings CBC and BMP: 12/23/17 03:15 12/23/17 03:15 ABG ABG pH 7.43 pH Units (7.32-7.45) 12/23/17 05:10 ABG pCO2 44 mmHg (35-45) 12/23/17 05:10 ABG pO2 109 mmHg (85-104) H 12/23/17 05:10 ABG O2 Saturation 98 % (95-98) 12/23/17 05:10 PT/INR, D-dimer PT 13.3 Seconds (9.4-12.1) H 12/21/17 03:55 Abnormal lab findings: Abnormal lab results RBC 3.44 M/mcL (3.82-4.97) L 12/23/17 03:15 Hgb 10.6 g/dL (11.5-15.4) L 12/23/17 03:15 Hct 33.1 % (35.3-44.9) L 12/23/17 03:15 RDW 16.7 % (11.5-14.5) H 12/23/17 03:15 Nucleated RBCs/100 WBC 0.2 /100 WBC (0) H 12/17/17 04:09 Platelet Estimate Slight Decrease (Normal) L 12/10/17 04:15 Hypochromasia Present (Not Present) A 12/10/17 04:15 Poikilocytosis 1+ (Not Present) A 12/10/17 04:15 Anisocytosis 1+ (Not Present) A 12/09/17 04:00 Macrocytosis Present (Not Present) A 12/10/17 04:15 PT 13.3 Seconds (9.4-12.1) H 12/21/17 03:55 APTT 50.7 Seconds (26.0-36.0) H 12/10/17 04:15 ABG pO2 109 mmHg (85-104) H 12/23/17 05:10 ABG HCO3 29 mEq/L (21-27) H 12/23/17 05:10 ABG Total CO2 30 mEq/L (20-26) H 12/23/17 05:10 ABG Base Excess 4 mEq/L (-2 to 3) H 12/23/17 05:10 Chloride 112 mEq/L (98-107) H 12/23/17 03:15 Creatinine 0.52 mg/dL (0.60-1.20) L 12/23/17 03:15 % Saturation 60 % (15-50) H 12/16/17 09:36 Transferrin 158 mg/dL (203-362) L 12/16/17 09:36 Ferritin 282 ng/ml (10-120) H 12/16/17 09:36 Direct Bilirubin 0.3 mg/dL (0.0-0.2) H 12/05/17 18:50 Troponin I 1.10 ng/mL (< 0.04) H* 12/06/17 11:56 B-Natriuretic Peptide 2096 pg/mL (Less than 100) H 12/06/17 06:01 Serum Total Protein 5.0 g/dL (6.4-8.9) L 12/15/17 05:19 Albumin 2.5 g/dL (3.5-5.7) L 12/15/17 05:19 Albumin/Globulin Ratio 1.0 (1.1-2.2) L 12/15/17 05:19 Vitamin B12 > 1500 pg/mL (250-1100) H 12/13/17 09:20 Urine Clarity Cloudy (Clear) A 12/05/17 19:27 Ur Specific [place] 1.008 (1.010-1.025) L 12/05/17 19:27 Urine Ketones 15 mg/dL (Negative) H 12/05/17 19:27 Urine Bilirubin Moderate (Negative) H 12/05/17 19:27 Ur Leukocyte Esterase Moderate (Negative) H 12/05/17 19:27 Urine Microscopic WBC 5-15 per hpf (0-3) H 12/05/17 19:27 Ur Squamous Epith Cells Many per lpf (None-Few) H 12/05/17 19:27 Ur Culture Indicated? NO. (NO) A 12/05/17 19:27 Vancomycin Trough 25 mcg/mL (5-10) H 12/18/17 01:08 U Benzodiazepines Scrn Positive ng/mL (Mjdvfw=540) H 12/06/17 01:30 - Clinical Findings Intake & Output: Intake & Output 12/22/17 12/23/17 12/23/17 23:59 07:59 15:59 Intake Total 385.5 / 385.5 175 / 175 20 Output Total 400 / 400 250 / 250 100 / 100 Balance -14.5 / -14.5 -75 / -75 -80 / -80 Weight 61.3 kg Consult Discharge Plan - Plan Referrals: Chel Munroe, [employer]OR [Primary Care Provider] - - Attending Attestation I examined this patient and my medical decision-making was reviewed with the Resident Physician. I agree with the documented findings, disposition and treatment plan as described except to the extent set forth below. We independently had etsq-kg-hfmt contact with the patient Patient seen and examined at bedside Labs, radiology, chart personally reviewed. Management was reviewed during multidisciplinary critical care rounds. 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 She presented with an STEMI and has a left mural thrombus we will reinstitute her antiplatelet therapy and likely will need heparin challenge today pending hematology recommendations with transition to warfarin she will be at increased risk for hemorrhage FEN-GI: Nothing by mouth for now pending speech and swallow eval Renal: Urine output monitored serum creatinine stable continue to follow electrolytes daily ID: No active issues continue to monitor Heme/Onc: Continue DVT prophylaxis; we are waiting final hematology oncology recommendations for anticoagulation Endo: Glucose Monitored Integ/MSK: Skin Care per routine ICU Nursing Protocol to prevent ulcers. Lines: All lines examined without evidence of infection : Dispo: Remain in ICU today can likely be transitioned to med telemetry tomorrow CODE: Full <Tracee Gan - Last Filed: 12/23/17 10:30> Date of Encounter: 12/23/17 Time of Encounter: 07:47 Assessment and Plan (1) Acute and chronic respiratory failure with hypoxia Current Visit: Yes Status: Acute Acute on chronic respiratory failure possibly secondary to aspiration in the setting of epistaxis - Currently intubated. No air leak around tubing. - 12/22/2017 ABG pH 7.42, CO2 43, HCO3 28 - Sputum culture normal Plan -patient was liberated from ventilator today and is on nasal cannula -NPO until speech evaluation (2) NSTEMI (non-ST elevated myocardial infarction) Current Visit: Yes Status: Acute NSTEMI on admission status post left heart catheterization without stent placement. Cardiology has evaluated and antiplatelet therapy is currently on hold due to hemorrhage. She is on beta art and Lipitor (3) Acute blood loss anemia Current Visit: Yes Status: Acute Anemia in setting of epistaxis and New rectal bleeding. epistaxis and rectal bleeding resolved. No further evidence of G.I. bleeding hemoglobin 10.6 (9.8) stable patient has been ordered a total of 5 units PRBC, 5 plasma -upper and for endoscopy demonstrated no source of bleeding however she did have a polyp in the: that was sent for pathology, evidence of mild gastritis -holding anticoagulation until hematology gives recommendations on went to initiate anticoagulation and what to give -will continue to monitor for bleeding -will transfuse as needed (4) Left ventricular thrombosis Current Visit: Yes Status: Acute LV thrombosis seen on echocardiogram Was previously anticoagulated on fondaparinux and transition to warfarin, however warfarin being held due to bleeding -Awaiting hem/onc recommendations for anticoagulation due to supratherapeutic INR and went to initiate bridging with heparin. -will get PT/INR in a.m. (5) Aspiration pneumonia Current Visit: Yes Status: Acute Resolved Possible aspiration pneumonia secondary to epistaxis Evidence of blood in the endotracheal tube afebrile, WBC WNL sputum culture no growth - Stopped Zosyn day 8 Qualifiers: Aspiration pneumonia type: unspecified Laterality: left Lung location: lower lobe of lung Qualified Code(s): J69.0 - Pneumonitis due to inhalation of food and vomit (6) COPD (chronic obstructive pulmonary disease) Current Visit: Yes Status: Chronic History of COPD, not an exacerbation -continue bronchodilators Qualifiers: COPD type: unspecified COPD Qualified Code(s): J44.9 - Chronic obstructive pulmonary disease, unspecified (7) Epistaxis Current Visit: Yes Status: Acute Resolved Epistaxis is likely secondary to anticoagulation and supratherapeutic INR s/p packing by ENT for total of 5 days -s/p removal of nasal packing by ENT -Zosyn was antibiotic given during packing and has been discontinued day 8 (8) Supratherapeutic INR Current Visit: Yes Status: Resolved INR increasing despite holding warfarin. INR 1.7 (2.1) Patient has received fresh frozen plasma and vitamin K -Continue to hold warfarin and monitor for signs of bleeding -May consider consulting heme/on at some point for recommendations on anticoagulation due to supratherapeutic INR -repeat PT/INR in a.m. (9) DVT prophylaxis Current Visit: Yes Status: Acute SCD in setting of bleed Subjective Principal diagnosis: Respiratory Failure Interval history: Patient examined at bedside. She has been liberated from the ventilator today. She is alert sitting up in bed. She has difficulty speaking due to soreness in her throat. Her only complaint is the soreness in her throat. Objective PUL Vital signs: Last Vital Signs Temp 98.6 F 12/23/17 00:20 Pulse 90 12/23/17 07:00 Resp 14 12/23/17 07:00 BP 144/71 12/23/17 07:00 Pulse Ox 100 12/23/17 07:00 General appearance: no acute distress, alert Eyes: nonicteric ENT: oropharynx moist Neck: supple Effort: normal Auscultation: bilateral: clear Cardiovascular: regular rate and rhythm Gastrointestinal: normoactive bowel sounds, soft, non-tender Integumentary: normal Extremities: no cyanosis Musculoskeletal: no deformities non-focal exam mood appropriate, affect normal Ventilator Settings Ventilator Settings: Ventilator Settings, Last 8 Hours Ventilator Mode CPAP Ventilator Mode A/C Ventilator Mode A/C Ventilator Mode A/C Ventilator Mode A/C Ventilator Mode A/C Ventilator Mode A/C Ventilator Mode A/C Ventilator Mode A/C Ventilator Tidal Volume 440 Setting Ventilator Tidal Volume 440 Setting Ventilator Tidal Volume 440 Setting Ventilator Tidal Volume 440 Setting Ventilator Tidal Volume 440 Setting Ventilator Tidal Volume 440 Setting Ventilator Tidal Volume 440 Setting Ventilator Tidal Volume 440 Setting Ventilator Tidal Volume 440 Setting Ventilator Tidal Volume 440 Setting Ventilator Respiratory Rate 12 Setting Ventilator Respiratory Rate 12 Setting Ventilator Respiratory Rate 12 Setting Ventilator Respiratory Rate 12 Setting Ventilator Respiratory Rate 12 Setting Ventilator Respiratory Rate 12 Setting Ventilator Respiratory Rate 12 Setting Ventilator Respiratory Rate 12 Setting Ventilator Respiratory Rate 12 Setting Actual Respiratory Rate 10 Actual Respiratory Rate 10 Actual Respiratory Rate 12 Actual Respiratory Rate 12 Actual Respiratory Rate 12 Actual Respiratory Rate 12 Actual Respiratory Rate 12 Actual Respiratory Rate 12 Actual Respiratory Rate 12 Actual Respiratory Rate 12 Positive End Expiratory 5 Pressure Positive End Expiratory 5 Pressure Positive End Expiratory 5 Pressure Positive End Expiratory 5 Pressure Positive End Expiratory 5 Pressure Positive End Expiratory 5 Pressure Positive End Expiratory 5 Pressure Positive End Expiratory 5 Pressure Positive End Expiratory 5 Pressure Positive End Expiratory 5 Pressure Positive End Expiratory 5 Pressure Peak Inspiratory Airway 13 Pressure Peak Inspiratory Airway 13 Pressure Peak Inspiratory Airway 21 Pressure Peak Inspiratory Airway 21 Pressure Peak Inspiratory Airway 21 Pressure Peak Inspiratory Airway 21 Pressure Peak Inspiratory Airway 21 Pressure Peak Inspiratory Airway 24 Pressure Peak Inspiratory Airway 22 Pressure Peak Inspiratory Airway 31 Pressure Results - Laboratory Findings CBC and BMP: 12/23/17 03:15 12/23/17 03:15 ABG ABG pH 7.43 pH Units (7.32-7.45) 12/23/17 05:10 ABG pCO2 44 mmHg (35-45) 12/23/17 05:10 ABG pO2 109 mmHg (85-104) H 12/23/17 05:10 ABG O2 Saturation 98 % (95-98) 12/23/17 05:10 PT/INR, D-dimer PT 13.3 Seconds (9.4-12.1) H 12/21/17 03:55 Abnormal lab findings: Abnormal lab results RBC 3.44 M/mcL (3.82-4.97) L 12/23/17 03:15 Hgb 10.6 g/dL (11.5-15.4) L 12/23/17 03:15 Hct 33.1 % (35.3-44.9) L 12/23/17 03:15 RDW 16.7 % (11.5-14.5) H 12/23/17 03:15 Nucleated RBCs/100 WBC 0.2 /100 WBC (0) H 12/17/17 04:09 Platelet Estimate Slight Decrease (Normal) L 12/10/17 04:15 Hypochromasia Present (Not Present) A 12/10/17 04:15 Poikilocytosis 1+ (Not Present) A 12/10/17 04:15 Anisocytosis 1+ (Not Present) A 12/09/17 04:00 Macrocytosis Present (Not Present) A 12/10/17 04:15 PT 13.3 Seconds (9.4-12.1) H 12/21/17 03:55 APTT 50.7 Seconds (26.0-36.0) H 12/10/17 04:15 ABG pO2 109 mmHg (85-104) H 12/23/17 05:10 ABG HCO3 29 mEq/L (21-27) H 12/23/17 05:10 ABG Total CO2 30 mEq/L (20-26) H 12/23/17 05:10 ABG Base Excess 4 mEq/L (-2 to 3) H 12/23/17 05:10 Chloride 112 mEq/L (98-107) H 12/23/17 03:15 Creatinine 0.52 mg/dL (0.60-1.20) L 12/23/17 03:15 % Saturation 60 % (15-50) H 12/16/17 09:36 Transferrin 158 mg/dL (203-362) L 12/16/17 09:36 Ferritin 282 ng/ml (10-120) H 12/16/17 09:36 Direct Bilirubin 0.3 mg/dL (0.0-0.2) H 12/05/17 18:50 Troponin I 1.10 ng/mL (< 0.04) H* 12/06/17 11:56 B-Natriuretic Peptide 2096 pg/mL (Less than 100) H 12/06/17 06:01 Serum Total Protein 5.0 g/dL (6.4-8.9) L 12/15/17 05:19 Albumin 2.5 g/dL (3.5-5.7) L 12/15/17 05:19 Albumin/Globulin Ratio 1.0 (1.1-2.2) L 12/15/17 05:19 Vitamin B12 > 1500 pg/mL (250-1100) H 12/13/17 09:20 Urine Clarity Cloudy (Clear) A 12/05/17 19:27 Ur Specific [place] 1.008 (1.010-1.025) L 12/05/17 19:27 Urine Ketones 15 mg/dL (Negative) H 12/05/17 19:27 Urine Bilirubin Moderate (Negative) H 12/05/17 19:27 Ur Leukocyte Esterase Moderate (Negative) H 12/05/17 19:27 Urine Microscopic WBC 5-15 per hpf (0-3) H 12/05/17 19:27 Ur Squamous Epith Cells Many per lpf (None-Few) H 12/05/17 19:27 Ur Culture Indicated? NO. (NO) A 12/05/17 19:27 Vancomycin Trough 25 mcg/mL (5-10) H 12/18/17 01:08 U Benzodiazepines Scrn Positive ng/mL (Xeadcz=888) H 12/06/17 01:30 - Clinical Findings Intake & Output: Intake & Output 12/22/17 12/22/17 12/23/17 15:59 23:59 07:59 Intake Total 375.5 / 375.5 385.5 / 385.5 175 / 175 Output Total 780 / 780 400 / 400 250 / 250 Balance -404.5 / -404.5 -14.5 / -14.5 -75 / -75 Weight 61.3 kg - VTE Documentation of Mechanical Device: Intermittent pneumatic compression device
[2017-12-23] MEDS: Cholecalciferol (D-3) 1,000 UNIT TABLET PO SCH (08:24)
[2017-12-23] MEDS: Magnesium Oxide 400 MG TABLET PO SCH (08:24)
[2017-12-23] MEDS: Nicotine 21 MG PATCH.TD24 TD SCH (08:29)
[2017-12-23] MEDS: Chlorhexidine Rinse 15 ML MOUTHWASH MM SCH ×2 (08:30→19:47)
[2017-12-23] MEDS: Pantoprazole 40 MG VIAL IVP SCH (08:36)
[2017-12-23] MEDS ORDERED: Chloraseptic Spray 177 ML BOTTLE MM PRN (08:41)
[2017-12-23] MEDS: Metoprolol XL (24 HR) Succ 25 MG TAB.ER.24H PO SCH (08:50)
[2017-12-23] MEDS: *HR* Metoprolol 5 MG/5 ML VIAL IVP PRN (08:50)
[2017-12-23] MEDS ORDERED: Fluconazole 100 MG/50 ML 100 MG/50 ML BAG IVPB SCH (09:00)
[2017-12-23] MEDS ORDERED: Acetaminophen 325 MG TABLET PO PRN (10:19)
[2017-12-23 11:00] LABS: INR 1.2
[2017-12-23] MEDS: Dexmedetomidine HCl 400 MCG/100 ML MLS IVC SCH (11:32)
[2017-12-23] MEDS ORDERED: *HR* Heparin 5,000 UNIT/ML VIAL IVP PRN ×2 (11:59)
[2017-12-23] MEDS ORDERED: *HR* Heparin 5,000 UNIT/ML VIAL IVP ONE (11:59)
[2017-12-23] MEDS ORDERED: Heparin 25,000 UNIT/500 ML D5W 25,000 UNIT/500 ML BAG IVC SCH (12:00)
[2017-12-23] MEDS: Ketorolac 15 MG/ML VIAL IVP PRN ×2 (12:55→19:43)
[2017-12-23] MEDS: Thiamine (B-1) 100 MG TABLET PO SCH (16:04)
[2017-12-23] MEDS ORDERED: *HR* OxyCODONE/APAP 7.5/325 TABLET PO PRN (17:42)
[2017-12-23] MEDS ORDERED: OXYCODONE Oral CONC 10 MG/0.5 ML ORAL.SYG SL PRN ×2 (17:43→18:00)
[2017-12-23] MEDS ORDERED: *HR* Warfarin 2.5 MG TABLET PO SCH (18:00)
[2017-12-24] MEDS: Lacri-Lube 3.5 GM TUBE BOTH EYES SCH ×3 (00:07→09:15)
[2017-12-24] MEDS: Insulin LISPRO 300 UNITS/3 ML VIAL SQ SCH ×5 (00:07→23:25)
[2017-12-24 03:22] LABS: Basophils # 0.1 K/mcL (0.0-0.2); Basophils % 0.4 %; Eosinophils # 0.2 K/mcL (0.0-0.6); Eosinophils % 1.6 %; Hematocrit 31.6 % (35.3-44.9); Hemoglobin 10.1 g/dL (11.5-15.4); Immature Granulocytes % 0.6 % (0-4); Lymphocytes # 1.1 K/mcL (0.6-4.6); Lymphocytes % 8.2 %; Mean Corpuscular Hemoglobin 30.2 pg (28.0-33.3); Mean Corpuscular Volume 94.6 fL (83.0-100.0); Mean Platelet Volume 10.5 fL (9.4-12.4); Monocytes # 0.6 K/mcL (0.0-1.3); Monocytes % 4.3 %; Neutrophils # 11.8 K/mcL (1.6-8.9); Platelet Count 312 K/mcL (140-400); Red Blood Count 3.34 M/mcL (3.82-4.97); Red Cell Distribution Width 15.9 % (11.5-14.5); Segmented Neutrophils % 84.9 %
[2017-12-24] MEDS: Ipratropium/Albuterol Neb 3 ML IH SCH ×4 (03:22→22:00)
[2017-12-24 03:32] LABS: INR 1.3; Prothrombin Time 14.4 Seconds (9.4-12.1)
[2017-12-24 03:36] LABS: BUN/Creatinine Ratio 15 (6-26); Blood Urea Nitrogen 9 mg/dL (8-23); Calcium 8.5 mg/dL (8.6-10.3); Carbon Dioxide 29 mEq/L (23-29); Chloride 110 mEq/L (98-107); Glucose 82 mg/dL (70-105); Magnesium 1.7 mg/dL (1.6-2.6); Osmolality,Calculated 296 (280-300); Potassium 3.2 mEq/L (3.5-5.1); Sodium 144 mEq/L (136-145); eGFR For African Americans > 60 (> 60); eGFR For Non-African Americans > 60 (> 60)
[2017-12-24 03:48] LABS: Activated Partial Thrombo Time 110.9 Seconds (26.0-36.0)
[2017-12-24 03:55] LABS: Heparin anti-factor XA UFH 0.59 IU/mL (0.30-0.70)
--- NOTE | 2017-12-24 07:36 | Pulmonology Progress Note ---
<HarperYojana M - Last Filed: 12/24/17 10:12> Date of Encounter: 12/24/17 Objective PUL Vital signs: Last Vital Signs Temp 98.2 F 12/24/17 07:25 Pulse 95 12/24/17 08:00 Resp 30 12/24/17 08:00 BP 155/79 12/24/17 08:00 Pulse Ox 95 12/24/17 08:00 Results - Laboratory Findings CBC and BMP: 12/24/17 03:00 12/24/17 03:00 ABG ABG pH 7.43 pH Units (7.32-7.45) 12/23/17 05:10 ABG pCO2 44 mmHg (35-45) 12/23/17 05:10 ABG pO2 109 mmHg (85-104) H 12/23/17 05:10 ABG O2 Saturation 98 % (95-98) 12/23/17 05:10 PT/INR, D-dimer PT 14.4 Seconds (9.4-12.1) H 12/24/17 03:00 Abnormal lab findings: Abnormal lab results WBC 13.9 K/mcL (4.3-11.1) H 12/24/17 03:00 RBC 3.34 M/mcL (3.82-4.97) L 12/24/17 03:00 Hgb 10.1 g/dL (11.5-15.4) L 12/24/17 03:00 Hct 31.6 % (35.3-44.9) L 12/24/17 03:00 RDW 15.9 % (11.5-14.5) H 12/24/17 03:00 Neutrophils # 11.8 K/mcL (1.6-8.9) H 12/24/17 03:00 Nucleated RBCs/100 WBC 0.2 /100 WBC (0) H 12/17/17 04:09 Platelet Estimate Slight Decrease (Normal) L 12/10/17 04:15 Hypochromasia Present (Not Present) A 12/10/17 04:15 Poikilocytosis 1+ (Not Present) A 12/10/17 04:15 Anisocytosis 1+ (Not Present) A 12/09/17 04:00 Macrocytosis Present (Not Present) A 12/10/17 04:15 PT 14.4 Seconds (9.4-12.1) H 12/24/17 03:00 APTT 110.9 Seconds (26.0-36.0) H* 12/24/17 03:00 ABG pO2 109 mmHg (85-104) H 12/23/17 05:10 ABG HCO3 29 mEq/L (21-27) H 12/23/17 05:10 ABG Total CO2 30 mEq/L (20-26) H 12/23/17 05:10 ABG Base Excess 4 mEq/L (-2 to 3) H 12/23/17 05:10 Potassium 3.2 mEq/L (3.5-5.1) L 12/24/17 03:00 Chloride 110 mEq/L (98-107) H 12/24/17 03:00 Creatinine 0.59 mg/dL (0.60-1.20) L 12/24/17 03:00 Calcium 8.5 mg/dL (8.6-10.3) L 12/24/17 03:00 % Saturation 60 % (15-50) H 12/16/17 09:36 Transferrin 158 mg/dL (203-362) L 12/16/17 09:36 Ferritin 282 ng/ml (10-120) H 12/16/17 09:36 Direct Bilirubin 0.3 mg/dL (0.0-0.2) H 12/05/17 18:50 Troponin I 1.10 ng/mL (< 0.04) H* 12/06/17 11:56 B-Natriuretic Peptide 2096 pg/mL (Less than 100) H 12/06/17 06:01 Serum Total Protein 5.0 g/dL (6.4-8.9) L 12/15/17 05:19 Albumin 2.5 g/dL (3.5-5.7) L 12/15/17 05:19 Albumin/Globulin Ratio 1.0 (1.1-2.2) L 12/15/17 05:19 Vitamin B12 > 1500 pg/mL (250-1100) H 12/13/17 09:20 Urine Clarity Cloudy (Clear) A 12/05/17 19:27 Ur Specific [place] 1.008 (1.010-1.025) L 12/05/17 19:27 Urine Ketones 15 mg/dL (Negative) H 12/05/17 19:27 Urine Bilirubin Moderate (Negative) H 12/05/17 19:27 Ur Leukocyte Esterase Moderate (Negative) H 12/05/17 19:27 Urine Microscopic WBC 5-15 per hpf (0-3) H 12/05/17 19:27 Ur Squamous Epith Cells Many per lpf (None-Few) H 12/05/17 19:27 Ur Culture Indicated? NO. (NO) A 12/05/17 19:27 Vancomycin Trough 25 mcg/mL (5-10) H 12/18/17 01:08 U Benzodiazepines Scrn Positive ng/mL (Mrgdkw=003) H 12/06/17 01:30 - Clinical Findings Intake & Output: Intake & Output 12/23/17 12/24/17 12/24/17 23:59 07:59 15:59 Intake Total 118 / 118 316 / 316 Output Total 400 / 400 75 / 75 200 / 200 Balance -282 / -282 241 / 241 -200 / -200 Weight 57.5 kg Consult Discharge Plan - Plan Referrals: Chel Munroe, AIR TRAFFIC CONTROL SPECIALIST [Primary Care Provider] - - Attending Attestation I examined this patient and my medical decision-making was reviewed with the Resident Physician. I agree with the documented findings, disposition and treatment plan as described except to the extent set forth below. Patient seen and examined. Labs, radiology, chart personally reviewed. Agree with resident's history and physical, assessment, plan with following comments: COB SAWYER: Patient follows commands, Pulmonary: Acceptable oxygenation and ventilation Cardiovascular: stable GI: Nutrition per dietary and GI prophylaxis per routine Heme: DVT prophylaxis per routine and follow up heme recommendations and continue anticoagulation. Renal; urine out put and renal funtion reviewed Endorcine: blood glucose is monitored Lines: all lines checked and no evidence of infections Skin: skin care to prevent pressure ulcers per nursing routine care Transfer to telem. <Donaldo Ochoa - Last Filed: 12/24/17 11:23> Date of Encounter: 12/24/17 Time of Encounter: 09:36 Assessment and Plan (1) Acute and chronic respiratory failure with hypoxia Current Visit: Yes Status: Acute Acute on chronic respiratory failure with hypoxia, possibly secondary to aspiration in the setting of epistaxis. Patient's respiratory status improved greatly after being extubated The patient this time does not demonstrate any infectious processes. Next line chest x-ray does show some air trapping however no consolidation. Patient is no longer intubated she was x-rayed with success and more alert but not fully oriented at this time. Respirations has gotten better since removing the endotracheal tube. Sputum cultures were normal Patient is now on nasal cannula Speech came and saw the patient gave a recommendation for diet we will follow their recommendations. (2) NSTEMI (non-ST elevated myocardial infarction) Current Visit: Yes Status: Acute NSTEMI on admission status post left heart catheterization without stent placement. Cardiology has evaluated and antiplatelet therapy was on hold where not to restart it. It was on hold due to hemorrhage. She is also on beta art and Lipitor. Due to patient not being able to take metoprolol XL as it cannot be crushed we will change to Coreg 6.25 twice a day. This is per pharmacy's recommendation. We will start bridging of Coumadin per pharmacy's dosing (3) Acute blood loss anemia Current Visit: Yes Status: Acute Anemia in setting of epistaxis and New rectal bleeding. epistaxis and rectal bleeding resolved. No further evidence of G.I. bleeding hemoglobin 10.6 (9.8) stable patient has been ordered a total of 5 units PRBC, 5 plasma -upper and for endoscopy demonstrated no source of bleeding however she did have a polyp in the: that was sent for pathology, evidence of mild gastritis -Hematology was spoken to yesterday and they said they are okay with starting Coumadin with a goal INR between 2 and 3 and bridging with heparin, pharmacy to dose Coumadin -will continue to monitor for bleeding -will transfuse as needed (4) Aspiration pneumonia Current Visit: Yes Status: Acute Resolved Possible aspiration pneumonia secondary to epistaxis Evidence of blood in the endotracheal tube afebrile, WBC WNL sputum culture no growth - Stopped Zosyn day 8 Qualifiers: Aspiration pneumonia type: unspecified Laterality: left Lung location: lower lobe of lung Qualified Code(s): J69.0 - Pneumonitis due to inhalation of food and vomit (5) Mural thrombus of heart Current Visit: Yes Status: Acute Mural thrombus demonstrated on echocardiogram Was previously anticoagulated on fondaparinux and dyspnea warfarin however warfarin is being hold due to bleeding. Hematology has recommended that we continue the Coumadin bridge with a goal INR between 2 and 3. (6) Hypertension Current Visit: No Status: Chronic Blood pressure has been borderline low continue to hold medications now and will continue to monitor Qualifiers: Hypertension type: unspecified Qualified Code(s): I10 - Essential (primary ) hypertension (7) COPD (chronic obstructive pulmonary disease) Current Visit: Yes Status: Chronic History of COPD, non-exacerbation Continue bronchodilators as needed Qualifiers: COPD type: unspecified COPD Qualified Code(s): J44.9 - Chronic obstructive pulmonary disease, unspecified (8) Malnutrition Current Visit: Yes Status: Acute Due to patient's alcoholism as well as electrolyte imbalance she does have history of malnutrition and she does not feel herself and mainly just eats food by drinking alcohol. Nutrition and dietary is following the patient and is getting her tube feeds. We will continue to follow their recommendations were to feeds. As far as for the electrolyte imbalance we will follow the electrolyte protocol for the nurses to replenish. Once patient goes to the floor the left foot can be managed by the primary team Qualifiers: Malnutrition type: protein-calorie malnutrition Protein-calorie malnutrition severity: moderate Qualified Code(s): E44.0 - Moderate protein- calorie malnutrition (9) DVT prophylaxis Current Visit: Yes Status: Acute Currently on heparin we will bridge to Coumadin per pharmacy's dosing. Subjective Principal diagnosis: Respiratory Failure Interval history: Patient did well overnight there are no acute events. She was extubated yesterday and did well she is a little more alert and able to answer questions but is having a slow time with her voice. We are planning to transfer patient out of the ICU to the hospital for bed. Patient was able hold conversation today says she is feeling much better and did not really just feeling tired. Otherwise there are no acute events she is alert and oriented 3 Objective PUL Vital signs: Last Vital Signs Temp 98.2 F 12/24/17 07:25 Pulse 73 12/24/17 06:00 Resp 16 12/24/17 06:00 BP 138/56 12/24/17 06:00 Pulse Ox 96 12/24/17 06:00 General appearance: no acute distress Eyes: nonicteric ENT: oropharynx moist Neck: supple Effort: normal Auscultation: bilateral: clear Cardiovascular: regular rate and rhythm Gastrointestinal: normoactive bowel sounds, non-distended Integumentary: normal Extremities: no cyanosis, no edema, no clubbing Musculoskeletal: no deformities, ROM normal normal mental status, non-focal exam, pupils equal and round, motor strength normal and symmetric Results - Laboratory Findings CBC and BMP: 12/24/17 03:00 12/24/17 03:00 ABG ABG pH 7.43 pH Units (7.32-7.45) 12/23/17 05:10 ABG pCO2 44 mmHg (35-45) 12/23/17 05:10 ABG pO2 109 mmHg (85-104) H 12/23/17 05:10 ABG O2 Saturation 98 % (95-98) 12/23/17 05:10 PT/INR, D-dimer PT 14.4 Seconds (9.4-12.1) H 12/24/17 03:00 Abnormal lab findings: Abnormal lab results WBC 13.9 K/mcL (4.3-11.1) H 12/24/17 03:00 RBC 3.34 M/mcL (3.82-4.97) L 12/24/17 03:00 Hgb 10.1 g/dL (11.5-15.4) L 12/24/17 03:00 Hct 31.6 % (35.3-44.9) L 12/24/17 03:00 RDW 15.9 % (11.5-14.5) H 12/24/17 03:00 Neutrophils # 11.8 K/mcL (1.6-8.9) H 12/24/17 03:00 Nucleated RBCs/100 WBC 0.2 /100 WBC (0) H 12/17/17 04:09 Platelet Estimate Slight Decrease (Normal) L 12/10/17 04:15 Hypochromasia Present (Not Present) A 12/10/17 04:15 Poikilocytosis 1+ (Not Present) A 12/10/17 04:15 Anisocytosis 1+ (Not Present) A 12/09/17 04:00 Macrocytosis Present (Not Present) A 12/10/17 04:15 PT 14.4 Seconds (9.4-12.1) H 12/24/17 03:00 APTT 110.9 Seconds (26.0-36.0) H* 12/24/17 03:00 ABG pO2 109 mmHg (85-104) H 12/23/17 05:10 ABG HCO3 29 mEq/L (21-27) H 12/23/17 05:10 ABG Total CO2 30 mEq/L (20-26) H 12/23/17 05:10 ABG Base Excess 4 mEq/L (-2 to 3) H 12/23/17 05:10 Potassium 3.2 mEq/L (3.5-5.1) L 12/24/17 03:00 Chloride 110 mEq/L (98-107) H 12/24/17 03:00 Creatinine 0.59 mg/dL (0.60-1.20) L 12/24/17 03:00 Calcium 8.5 mg/dL (8.6-10.3) L 12/24/17 03:00 % Saturation 60 % (15-50) H 12/16/17 09:36 Transferrin 158 mg/dL (203-362) L 12/16/17 09:36 Ferritin 282 ng/ml (10-120) H 12/16/17 09:36 Direct Bilirubin 0.3 mg/dL (0.0-0.2) H 12/05/17 18:50 Troponin I 1.10 ng/mL (< 0.04) H* 12/06/17 11:56 B-Natriuretic Peptide 2096 pg/mL (Less than 100) H 12/06/17 06:01 Serum Total Protein 5.0 g/dL (6.4-8.9) L 12/15/17 05:19 Albumin 2.5 g/dL (3.5-5.7) L 12/15/17 05:19 Albumin/Globulin Ratio 1.0 (1.1-2.2) L 12/15/17 05:19 Vitamin B12 > 1500 pg/mL (250-1100) H 12/13/17 09:20 Urine Clarity Cloudy (Clear) A 12/05/17 19:27 Ur Specific [place] 1.008 (1.010-1.025) L 12/05/17 19:27 Urine Ketones 15 mg/dL (Negative) H 12/05/17 19:27 Urine Bilirubin Moderate (Negative) H 12/05/17 19:27 Ur Leukocyte Esterase Moderate (Negative) H 12/05/17 19:27 Urine Microscopic WBC 5-15 per hpf (0-3) H 12/05/17 19:27 Ur Squamous Epith Cells Many per lpf (None-Few) H 12/05/17 19:27 Ur Culture Indicated? NO. (NO) A 12/05/17 19:27 Vancomycin Trough 25 mcg/mL (5-10) H 12/18/17 01:08 U Benzodiazepines Scrn Positive ng/mL (Pxzvjy=124) H 12/06/17 01:30 - Clinical Findings Intake & Output: Intake & Output 12/23/17 12/23/17 12/24/17 15:59 23:59 07:59 Intake Total 70 / 70 118 / 118 316 / 316 Output Total 2500 / 2500 400 / 400 75 / 75 Balance -2430 / -2430 -282 / -282 241 / 241 Weight 57.5 kg - VTE Documentation of Mechanical Device: Intermittent pneumatic compression device
[2017-12-24] MEDS ORDERED: Chloraseptic Spray 177 ML BOTTLE MM PRN (09:15)
[2017-12-24] MEDS ORDERED: Oxymetazoline Nasal SPRAY BOTTLE NS PRN (09:15)
[2017-12-24] MEDS ORDERED: D5% in Water 1,000 ML IVC PRN (09:15)
[2017-12-24] MEDS ORDERED: Naloxone 0.4 MG/ML INJ IVP PRN (09:15)
[2017-12-24] MEDS ORDERED: Acetaminophen 325 MG TABLET PO PRN (09:15)
[2017-12-24] MEDS ORDERED: GuaiFENesin Liq 200 MG/10 ML UDC PO PRN (09:15)
[2017-12-24] MEDS ORDERED: *HR* Metoprolol 5 MG/5 ML VIAL IVP PRN (09:15)
[2017-12-24] MEDS: Chlorhexidine Rinse 15 ML MOUTHWASH MM SCH (09:15)
[2017-12-24] MEDS ORDERED: *HR* OxyCODONE/APAP 7.5/325 TABLET PO PRN (09:15)
[2017-12-24] MEDS ORDERED: Dextrose Gel 15 GM/37.5 ML TUBE PO PRN ×2 (09:15)
[2017-12-24] MEDS ORDERED: Ketorolac 15 MG/ML VIAL IVP PRN (09:15)
[2017-12-24] MEDS ORDERED: *HR* Heparin 5,000 UNIT/ML VIAL IVP PRN (09:15)
[2017-12-24] MEDS ORDERED: *HR* Dextrose 50 % in Water (Syg) 50 ML SYRINGE IVP PRN (09:15)
[2017-12-24] MEDS ORDERED: Ipratropium/Albuterol Neb 3 ML IH PRN (09:15)
[2017-12-24] MEDS: Nicotine 21 MG PATCH.TD24 TD SCH (09:25)
[2017-12-24] MEDS: Magnesium Oxide 400 MG TABLET PO SCH (09:25)
[2017-12-24] MEDS: Metoprolol XL (24 HR) Succ 25 MG TAB.ER.24H PO SCH (09:27)
[2017-12-24] MEDS: Cholecalciferol (D-3) 1,000 UNIT TABLET PO SCH (09:27)
[2017-12-24] MEDS: Pantoprazole 40 MG VIAL IVP SCH (09:27)
[2017-12-24] MEDS: Heparin 25,000 UNIT/500 ML D5W 25,000 UNIT/500 ML BAG IVC SCH (09:40)
[2017-12-24] MEDS: OXYCODONE Oral CONC 10 MG/0.5 ML ORAL.SYG SL PRN ×2 (11:09→23:17)
[2017-12-24] MEDS: *HR* Warfarin 2.5 MG TABLET PO SCH (17:41)
[2017-12-24] MEDS: Thiamine (B-1) 100 MG TABLET PO SCH (17:41)
[2017-12-24] MEDS ORDERED: Warfarin perPT PO PRN (18:00)
[2017-12-24] MEDS: *HR* Heparin 5,000 UNIT/ML VIAL IVP PRN (19:23)
[2017-12-25] MEDS: Ipratropium/Albuterol Neb 3 ML IH SCH ×4 (04:10→21:42)
[2017-12-25] MEDS: Insulin LISPRO 300 UNITS/3 ML VIAL SQ SCH ×5 (06:03→21:52)
[2017-12-25] MEDS ORDERED: *HR* OxyCODONE/APAP 7.5/325 TABLET PO PRN (07:28)
[2017-12-25] MEDS ORDERED: OXYCODONE Oral CONC 10 MG/0.5 ML ORAL.SYG SL PRN (07:28)
[2017-12-25] MEDS: Acetaminophen 325 MG TABLET PO PRN ×2 (07:54→18:12)
[2017-12-25] MEDS: Cholecalciferol (D-3) 1,000 UNIT TABLET PO SCH (07:54)
[2017-12-25] MEDS: Nicotine 21 MG PATCH.TD24 TD SCH (07:55)
[2017-12-25 08:02] LABS: INR 1.3
[2017-12-25 08:05] LABS: Activated Partial Thrombo Time 51.2 Seconds (26.0-36.0)
[2017-12-25] MEDS: *HR* Heparin 5,000 UNIT/ML VIAL IVP PRN (08:11)
[2017-12-25] MEDS: Heparin 25,000 UNIT/500 ML D5W 25,000 UNIT/500 ML BAG IVC SCH (08:12)
[2017-12-25] MEDS ORDERED: Metoprolol XL (24 HR) Succ 25 MG TAB.ER.24H PO SCH (09:00)
[2017-12-25 09:22] LABS: Hematocrit 31.4 % (35.3-44.9); Hemoglobin 10.3 g/dL (11.5-15.4); Mean Corpuscular HGB Conc 32.8 g/dL (31.6-35.5); Mean Corpuscular Hemoglobin 30.8 pg (28.0-33.3); Mean Platelet Volume 10.5 fL (9.4-12.4); Platelet Count 284 K/mcL (140-400); Red Blood Count 3.34 M/mcL (3.82-4.97); Red Cell Distribution Width 16.2 % (11.5-14.5); Segmented Neutrophils % 74.1 %
[2017-12-25 09:23] LABS: Basophils # 0.1 K/mcL (0.0-0.2); Basophils % 0.6 %; Eosinophils # 0.3 K/mcL (0.0-0.6); Immature Granulocytes % 0.6 % (0-4); Lymphocytes # 1.5 K/mcL (0.6-4.6); Lymphocytes % 14.8 %; Monocytes # 0.7 K/mcL (0.0-1.3); Monocytes % 6.9 %; Neutrophils # 7.2 K/mcL (1.6-8.9)
[2017-12-25 09:30] LABS: BUN/Creatinine Ratio 18 (6-26); Blood Urea Nitrogen 11 mg/dL (8-23); Calcium 8.3 mg/dL (8.6-10.3); Carbon Dioxide 27 mEq/L (23-29); Chloride 111 mEq/L (98-107); Glucose 118 mg/dL (70-105); Osmolality,Calculated 298 (280-300); Potassium 3.5 mEq/L (3.5-5.1); Sodium 144 mEq/L (136-145); eGFR For African Americans > 60 (> 60); eGFR For Non-African Americans > 60 (> 60)
[2017-12-25] MEDS: Thiamine (B-1) 100 MG TABLET PO SCH (18:12)
[2017-12-25] MEDS: *HR* Warfarin 2.5 MG TABLET PO SCH (18:12)
--- NOTE | 2017-12-25 18:41 | Internal Med Progress Note ---
Date of Encounter: 12/25/17 Time of Encounter: 11:00 - Assessment and plan (1) NSTEMI (non-ST elevated myocardial infarction) Current Visit: Yes Status: Acute Assessment and plan: NSTEMI on admission status post left heart catheterization without stent placement. Cardiology has evaluated and antiplatelet therapy was on hold where not to restart it. It was on hold due to hemorrhage. Bridging of Coumadin per pharmacy's dosing (2) Acute and chronic respiratory failure with hypoxia Current Visit: Yes Status: Acute Assessment and plan: Resolved; patient extubated Continue to monitor (3) Aspiration pneumonia Current Visit: Yes Status: Acute Assessment and plan: She completed a 8 day course of Zosyn Qualifiers: Aspiration pneumonia type: unspecified Laterality: left Lung location: lower lobe of lung Qualified Code(s): J69.0 - Pneumonitis due to inhalation of food and vomit (4) Left ventricular thrombosis Current Visit: Yes Status: Acute Assessment and plan: Patient was being anticoagulated during this admission for treatment. Initially started on heparin but after concern for HIT, she was switched to Arixtra. Arixtra was being used to bridge to coumadin for patient to remain on. Patient has developed acute blood loss, presumed epistaxis, since yesterday . Arixtra and coumadin are discontinued as the risks outweigh the benefits due to acute blood loss anemia. Patient has been restarted on Coumadin and bridge with heparin (5) Acute blood loss anemia Current Visit: Yes Status: Acute Assessment and plan: Patient has been ordered a total of 5 units PRBC, 5 plasma Upper and for endoscopy demonstrated no source of bleeding however she did have a polyp in the: that was sent for pathology, evidence of mild gastritis Continue to monitor (6) COPD (chronic obstructive pulmonary disease) Current Visit: Yes Status: Chronic Assessment and plan: Chronic, stable. No exacerbation Adding Duo Nebs prn Qualifiers: COPD type: unspecified COPD Qualified Code(s): J44.9 - Chronic obstructive pulmonary disease, unspecified (7) DVT prophylaxis Current Visit: Yes Status: Acute Assessment and plan: Patient currently on heparin drip. - Time Spent With Patient Total time spent is greater than 50% in coordination of care (as documented) at patient's floor/unit and/or counseling patient: - Subjective Interval history: Patient with no complaints this morning and now acute events overnight - Constitutional Vitals: Temp Pulse Resp BP Pulse Ox 99.7 F H 98 18 125/75 98 12/25/17 17:48 12/25/17 17:48 12/25/17 17:48 12/25/17 17:48 12/25/17 17:48 General appearance: Present: disheveled, A&O X 3, no acute distress, underweight , loss of weight. Absent: cooperative - Respiratory Respiratory exam: Present: CTAB. Absent: accessory muscle use, rales, rhonchi, wheezes - Cardiovascular Cardiovascular exam: Present: RRR, +S1, +S2. Absent: diastolic murmur, gallop, rubs, systolic murmur Internal Medicine: Result - Labs CBC & Chem 7: 12/25/17 07:53 12/25/17 07:53 Labs: Short CBC 12/25/17 Range/Units 07:53 WBC 9.8 (4.3-11.1) K/mcL Hgb 10.3 L (11.5-15.4) g/dL Hct 31.4 L (35.3-44.9) % Plt Count 284 (140-400) K/mcL Neutrophils # 7.2 (1.6-8.9) K/mcL BMP 12/25/17 07:53 Sodium 144 Potassium 3.5 Chloride 111 H Carbon Dioxide 27 BUN 11 Creatinine 0.61 Glucose 118 H Calcium 8.3 L - ABG Interpretation ABG results: ABG ABG pH 7.43 pH Units (7.32-7.45) 12/23/17 05:10 ABG pCO2 44 mmHg (35-45) 12/23/17 05:10 ABG pO2 109 mmHg (85-104) H 12/23/17 05:10 ABG O2 Saturation 98 % (95-98) 12/23/17 05:10 PT/INR, D-dimer PT 14.0 Seconds (9.4-12.1) H 12/25/17 07:30 - VTE Documentation of Mechanical Device: Intermittent pneumatic compression device Consult Discharge Plan - Plan Referrals: Chel Munroe, MANAGEMENT PROFESSIONAL [Primary Care Provider] -
[2017-12-26] MEDS: Ipratropium/Albuterol Neb 3 ML IH SCH ×4 (03:54→21:26)
[2017-12-26 04:41] LABS: INR 1.3; Prothrombin Time 14.3 Seconds (9.4-12.1)
[2017-12-26] MEDS: Heparin 25,000 UNIT/500 ML D5W 25,000 UNIT/500 ML BAG IVC SCH (04:46)
[2017-12-26 04:50] LABS: Activated Partial Thrombo Time 92.3 Seconds (26.0-36.0)
[2017-12-26] MEDS: Insulin LISPRO 300 UNITS/3 ML VIAL SQ SCH ×4 (08:24→20:57)
[2017-12-26] MEDS: Acetaminophen 325 MG TABLET PO PRN (08:25)
[2017-12-26] MEDS: Cholecalciferol (D-3) 1,000 UNIT TABLET PO SCH (08:26)
[2017-12-26] MEDS: Nicotine 21 MG PATCH.TD24 TD SCH (08:34)
[2017-12-26] MEDS: Thiamine (B-1) 100 MG TABLET PO SCH (17:23)
[2017-12-26] MEDS: *HR* Enoxaparin 60 MG/0.6 ML SYRINGE SQ SCH (17:23)
[2017-12-26] MEDS ORDERED: *HR* Warfarin 5 MG TABLET PO ONE (18:00)
--- NOTE | 2017-12-26 19:45 | Internal Med Progress Note ---
Date of Encounter: 12/27/17 Time of Encounter: 11:00 - Assessment and plan (1) NSTEMI (non-ST elevated myocardial infarction) Current Visit: Yes Status: Acute Assessment and plan: NSTEMI on admission status post left heart catheterization without stent placement. Cardiology has evaluated and antiplatelet therapy was on hold where not to restart it. It was on hold due to hemorrhage. Bridging of Coumadin per pharmacy's dosing now with Lovenox subcutaneous instead of heparin per detention require (2) Acute and chronic respiratory failure with hypoxia Current Visit: Yes Status: Acute Assessment and plan: Resolved; patient extubated Continue to monitor (3) Aspiration pneumonia Current Visit: Yes Status: Acute Assessment and plan: She completed a 8 day course of Zosyn Qualifiers: Aspiration pneumonia type: unspecified Laterality: left Lung location: lower lobe of lung Qualified Code(s): J69.0 - Pneumonitis due to inhalation of food and vomit (4) Left ventricular thrombosis Current Visit: Yes Status: Acute Assessment and plan: Patient was being anticoagulated during this admission for treatment. Initially started on heparin but after concern for HIT, she was switched to Arixtra. Arixtra was being used to bridge to coumadin for patient to remain on. Patient has developed acute blood loss, presumed epistaxis, since yesterday . Arixtra and coumadin are discontinued as the risks outweigh the benefits due to acute blood loss anemia. Patient has been restarted on Coumadin and bridge with heparin (5) Acute blood loss anemia Current Visit: Yes Status: Acute Assessment and plan: Patient has been ordered a total of 5 units PRBC, 5 plasma Upper and for endoscopy demonstrated no source of bleeding however she did have a polyp in the: that was sent for pathology, evidence of mild gastritis Continue to monitor (6) COPD (chronic obstructive pulmonary disease) Current Visit: Yes Status: Chronic Assessment and plan: Chronic, stable. No exacerbation Adding Duo Nebs prn Qualifiers: COPD type: unspecified COPD Qualified Code(s): J44.9 - Chronic obstructive pulmonary disease, unspecified (7) DVT prophylaxis Current Visit: Yes Status: Acute Assessment and plan: Heparin drip has been discontinued and patient started on subcutaneous Lovenox to bridge her Coumadin her detention - Time Spent With Patient Total time spent is greater than 50% in coordination of care (as documented) at patient's floor/unit and/or counseling patient: - Subjective Interval history: Patient with no complaints this morning and now acute events overnight Awaiting placement to senior care facility - Constitutional Vitals: Temp Pulse Resp BP Pulse Ox 98.6 F 73 16 157/81 99 12/26/17 15:50 12/26/17 15:50 12/26/17 16:06 12/26/17 15:50 12/26/17 16:06 General appearance: Present: disheveled, A&O X 3, no acute distress, underweight , loss of weight. Absent: cooperative Internal Medicine: Result - Labs CBC & Chem 7: 12/25/17 07:53 12/25/17 07:53 - ABG Interpretation ABG results: ABG ABG pH 7.43 pH Units (7.32-7.45) 12/23/17 05:10 ABG pCO2 44 mmHg (35-45) 12/23/17 05:10 ABG pO2 109 mmHg (85-104) H 12/23/17 05:10 ABG O2 Saturation 98 % (95-98) 12/23/17 05:10 PT/INR, D-dimer PT 14.3 Seconds (9.4-12.1) H 12/26/17 04:15 - VTE Documentation of Mechanical Device: Intermittent pneumatic compression device Consult Discharge Plan - Plan Referrals: Chel Munroe CNP [Primary Care Provider] - 12/28/17 3:00 pm Prescriptions: Tramadol HCl [Ultram] 50 mg PO Q6-8H PRN 2 Days #8 tablet PRN Reason: Pain
[2017-12-27] MEDS: Ipratropium/Albuterol Neb 3 ML IH SCH ×2 (03:41→10:23)
[2017-12-27 05:27] LABS: INR 1.3; Prothrombin Time 14.2 Seconds (9.4-12.1)
[2017-12-27] MEDS: *HR* Enoxaparin 60 MG/0.6 ML SYRINGE SQ SCH (06:09)
[2017-12-27] MEDS: Insulin LISPRO 300 UNITS/3 ML VIAL SQ SCH ×2 (07:38→11:06)
--- NOTE | 2017-12-27 08:49 | Discharge Summary ---
Orders not resulted at time of discharge: Pending orders 12/09/17 04:00 Ionized Calcium,venous blood AM 0400 12/15/17 17:14 Occult Blood,Stool [BF] Routine 12/15/17 17:42 Red Blood Cells [BBK] Stat Type and Screen [BBK] Routine 12/16/17 13:21 FFP [PLASMA] [BBK] Stat 12/27/17 10:00 PTT [Activated Partial Thrombo Time] [COAG] Routine 12/28/17 04:00 PT/INR [Prothrombin Time INR] [COAG] AM 0400 12/29/17 04:00 PT/INR [Prothrombin Time INR] [COAG] AM 040 Date of Encounter: 12/27/17 Time of Encounter: 11:00 - Discharge Diagnosis (1) NSTEMI (non-ST elevated myocardial infarction) Priority: Primary Status: Acute (2) Acute and chronic respiratory failure with hypoxia Priority: Primary Status: Acute (3) Aspiration pneumonia Priority: Primary Status: Acute Qualifiers: Aspiration pneumonia type: unspecified Laterality: left Lung location: lower lobe of lung Qualified Code(s): J69.0 - Pneumonitis due to inhalation of food and vomit (4) Left ventricular thrombosis Priority: Primary Status: Acute (5) Acute blood loss anemia Priority: Primary Status: Acute (6) COPD (chronic obstructive pulmonary disease) Priority: Primary Status: Chronic Qualifiers: COPD type: unspecified COPD Qualified Code(s): J44.9 - Chronic obstructive pulmonary disease, unspecified Hospital course: Patient is a 67-year-old female with past medical history significant for chronic alcoholism, hypertension, GERD, and recent hospitalization for electrolyte abnormalities and failure to thrive who presented to [facility] on 12/05/2017 for altered mental status. Per patient's daughter and son who are at bedside, the patient was found down wall retrieving her mail yesterday by the neighbor. A squad was called at that time. Patient was initially treated, however, she quickly refused to be transferred to the ED. Patient's daughter saw her when she got off work yesterday evening and states that she seemed a little confused but still who she was and was alert and oriented. Her daughter checked on her today after she got off work, and the patient was unable to identify her. She was minimally responsive. Upon arrival to the ED, patient was restless picking at things. She was not alert or oriented at all. Initial laboratory analysis revealed severe hypokalemia and hypomagnesemia. Patient had elevations of her troponin and T- wave inversions in 23 and V2 through V5. Cardiology was consulted from the ED and recommended a heparin drip and aspirin after CT scan of the head was negative for acute intracranial pathology. Patient was given multiple doses of benzodiazepine to quell her agitation. She was able to report at one point that she had not drank alcohol for a week and a half. During patients hospital stay cardiology was consulted for left heart catheterization which was done without stent placement. Patient was also treated for suspected aspiration pneumonia and completed a 1 week course of Zosyn. Patient was also found to have left ventricular thrombosis and patient was anticoagulated with Coumadin and Arixtra. However this was discontinued due to acute blood loss anemia and patient having to be transfused a total of 5 units of packed red blood cells. Upper endoscopy did not demonstrate any source of active bleeding. She was started on Coumadin and bridged with heparin. She is heparin was later changed to Lovenox to continue bridging with Coumadin. [facility] Lovenox Coumadin bridge to therapeutic INR is achieved. - Time Spent with Patient Total time spent providing and/or coordinating discharge services: Less than 30 minutes - Discharge Medications Prescriptions: Tramadol HCl [Ultram] 50 mg PO Q6-8H PRN 2 Days #8 tablet PRN Reason: Pain Home Medications: Atorvastatin [Lipitor] 80 mg PO HS 09/10/17 [History] Omeprazole [PriLOSEC] 20 mg PO DAILY 09/10/17 [History] Phos-NaK [Neutra-Phos] 2 each PO BID #120 powd.pack 09/14/17 [Rx] Potassium Chloride 20 meq PO BID #60 tab.er.prt 09/14/17 [Rx] Sodium Bicarbonate 650 mg PO TID #180 tablet 09/14/17 [Rx] Lactulose 15 ml PO DAILY 12/05/17 [History] Magnesium Oxide [Mag-Ox] 400 mg PO TID 12/05/17 [History] Carvedilol [Coreg] 6.25 mg PO BIDWM tablet 12/26/17 [Rx] Chlordiazepoxide [Librium] 10 mg PO BID 5 Days #10 capsule 12/26/17 [Rx] Cholecalciferol (D-3) [Vitamin D] 1,000 unit PO DAILY tablet 12/26/17 [Rx] Enoxaparin [Lovenox] 60 mg SQ Q12HR syringe 12/26/17 [Rx] Ipratropium/Albuterol Neb [Duoneb] 3 ml IH [id number] inhsol 12/26/17 [Rx] Nicotine Patch [Nicoderm] 21 mg TD DAILY patch.td24 12/26/17 [Rx] Thiamine (B-1) [Vitamin B-1] 100 mg PO 1800 tablet 12/26/17 [Rx] Tramadol HCl [Ultram] 50 mg PO Q6-8H PRN 2 Days #8 tablet 12/26/17 [Rx] Warfarin perPT [Coumadin perPT] 1 each PO DAILY@1800 PRN each 12/26/17 [Rx] Allergies/Adverse Reactions: 3 Allergy/AdvReac Type Severity Reaction Status Date / Time No Known Allergies Allergy Verified 12/05/17 18:06 Date of admission: 12/06/17 00:10 Primary care physician: Chel Munroe CNP Consults: 12/06/17 01:05 Consult to Nutrition [CONS] Routine Comment: Consulting Provider: NUTRITION Reason for Dietary Consult: MST Score Consult to Drilling Foreman [CONS] Routine Reason for SW Consult: Failure to thrive. Daughter wanting to get POA and discuss ECF placement. 12/07/17 07:06 Consult to Pulmonology [CONS] Routine Consulting Provider: [facility] Reason for Consult: Resp distress Time Notified: 07:06 Call Completed: Yes 12/07/17 08:11 Midline [Consult to Invasive Line Access Team] [CONS] Routine Reason for Consult: Two midlines Line Type: Midline PICC line indications: Limited vascular access 12/11/17 16:20 Consult to Oncology Hematology [CONS] Routine Consulting Provider: Navjot Amor Reason for Consult: Evaluate for HIT, call placed 12/10/17 Call Completed: Yes 12/14/17 13:28 Consult to Oncology [CONS] Routine Consulting Provider: [facility] Reason for Consult: Anticoagulation Call Completed: No 12/15/17 19:11 Consult to Gastroenterology [CONS] Routine Consulting Provider: Gastroenterology Early Reason for Consult: Possible UGIB Call Completed: No 12/16/17 04:02 Consult to ENT [CONS] Stat Consulting Provider: BRIDGETT Byrnes Reason for Consult: nosebleed on Coumadin; blood loss anemia Time Notified: 04:03 Call Completed: Yes 12/16/17 13:23 Consult to Pulmonology [CONS] Routine Consulting Provider: [facility] Reason for Consult: Acute bleed Call Completed: Yes 12/23/17 10:37 Consult to Speech Therapy [CONS] Routine Comment: Evaluate, develop and implement POC Reason for Consult: Extubated today. Previously had difficulty eating Call Completed: No 12/25/17 12:06 Consult to Occupational Therapy [CONS] Routine Comment: Evaluate, develop and implement POC Reason for Consult: Weakness, discharge planning Does patient have active BEDREST order?: No Is patient medically & hemodynamically stable?: Yes Consult to Physical Therapy [CONS] Routine Comment: Evaluate, develop and implement POC Reason for Consult: Weakness, discharge planning Does patient have active BEDREST order?: No Is patient medically & hemodynamically stable?: Yes 12/25/17 13:28 Consult to Occupational Therapy [CONS] Routine Comment: Evaluate, develop and implement POC Reason for Consult: needs re-eval for placement Does patient have active BEDREST order?: No Is patient medically & hemodynamically stable?: Yes Consult to Physical Therapy [CONS] Routine Comment: Evaluate, develop and implement POC Reason for Consult: needs re-eval for placement Does patient have active BEDREST order?: No Is patient medically & hemodynamically stable?: Yes - Constitutional Vitals: Temp Pulse Resp BP Pulse Ox 98.4 F 71 16 156/78 96 12/27/17 07:31 12/27/17 07:31 12/27/17 07:31 12/27/17 07:31 12/27/17 07:31 General appearance: Present: disheveled, A&O X 3, no acute distress, underweight , loss of weight. Absent: cooperative - Respiratory Respiratory exam: Present: CTAB. Absent: accessory muscle use, rales, rhonchi, wheezes - Cardiovascular Cardiovascular exam: Present: RRR, +S1, +S2. Absent: diastolic murmur, gallop, rubs, systolic murmur - Patient Status Disposition: Transfer SNF Condition: Undetermined - Discharge Instructions Follow Up With: Chel Munroe MOTOR BUS DRIVER [Primary Care Provider] - 12/28/17 3:00 pm - VTE Documentation of Mechanical Device: Intermittent pneumatic compression device
[2017-12-27] MEDS: Cholecalciferol (D-3) 1,000 UNIT TABLET PO SCH (09:20)
[2017-12-27] MEDS: Nicotine 21 MG PATCH.TD24 TD SCH (09:20)
[2017-12-27 10:45] VITALS: BP 144/72
--- NOTE | 2017-12-27 11:03 | Physician Discharge Referral ---
ExtendedCare Referral Info Transfer To: swing bed Institutional Level of Care: Skilled - Diagnosis (1) NSTEMI (non-ST elevated myocardial infarction) Status: Acute (2) Acute and chronic respiratory failure with hypoxia Status: Acute (3) Aspiration pneumonia Status: Acute (4) Left ventricular thrombosis Status: Acute (5) Acute blood loss anemia Status: Acute (6) COPD (chronic obstructive pulmonary disease) Status: Chronic (7) DVT prophylaxis Status: Acute - Transfer Medications Prescriptions: Tramadol HCl [Ultram] 50 mg PO Q6-8H PRN 2 Days #8 tablet PRN Reason: Pain Home Medications: Atorvastatin [Lipitor] 80 mg PO HS 09/10/17 [History] Omeprazole [PriLOSEC] 20 mg PO DAILY 09/10/17 [History] Phos-NaK [Neutra-Phos] 2 each PO BID #120 powd.pack 09/14/17 [Rx] Potassium Chloride 20 meq PO BID #60 tab.er.prt 09/14/17 [Rx] Sodium Bicarbonate 650 mg PO TID #180 tablet 09/14/17 [Rx] Lactulose 15 ml PO DAILY 12/05/17 [History] Magnesium Oxide [Mag-Ox] 400 mg PO TID 12/05/17 [History] Carvedilol [Coreg] 6.25 mg PO BIDWM tablet 12/26/17 [Rx] Chlordiazepoxide [Librium] 10 mg PO BID 5 Days #10 capsule 12/26/17 [Rx] Cholecalciferol (D-3) [Vitamin D] 1,000 unit PO DAILY tablet 12/26/17 [Rx] Enoxaparin [Lovenox] 60 mg SQ Q12HR syringe 12/26/17 [Rx] Ipratropium/Albuterol Neb [Duoneb] 3 ml IH [id number] inhsol 12/26/17 [Rx] Nicotine Patch [Nicoderm] 21 mg TD DAILY patch.td24 12/26/17 [Rx] Thiamine (B-1) [Vitamin B-1] 100 mg PO 1800 tablet 12/26/17 [Rx] Tramadol HCl [Ultram] 50 mg PO Q6-8H PRN 2 Days #8 tablet 12/26/17 [Rx] Warfarin perPT [Coumadin perPT] 1 each PO DAILY@1800 PRN each 12/26/17 [Rx] Allergies/Adverse Reactions: 3 Allergy/AdvReac Type Severity Reaction Status Date / Time No Known Allergies Allergy Verified 12/05/17 18:06 - Respiratory Orders Smoking Cessation: Smoking cessation has been advised. For more information, call the [place] Tobacco Quit Line at 8-685-SKRU-NOW. CERTIFICATION: I certify that the transfer of the above named patient to an Extended Care Facility is necessary for the continuing treatment of the diagnosis listed. The above information is true and accurate reflection of patient's current condition. Confidential - Redisclosure prohibited without a patient's written consent.
[2017-12-27] MEDS ORDERED: *HR* Warfarin 5 MG TABLET PO ONE (18:00)
== END 2017-12-27 11:48 | DRG 280 ==
LOC: EMEROO 17:58 → SUATTDRO 12-06 00:10 → ICNU 12-06 00:10 → 3ANU 12-13 16:09 → 2NNU 12-14 17:08 → ICNU 12-16 14:11 → 2ANU 12-24 16:08
PROVIDERS: ADMIT Internal Medicine; ATTEND Hospitalist
PROC: ENDOEBX (2017-12-21 08:00)

== ENCOUNTER 2019-09-17 16:30 | Observation (INO) ==
[2019-09-17] MEDS ORDERED: *HR* LORazepam 2 MG/ML VIAL IVP ONE (16:52)
[2019-09-17] MEDS ORDERED: Thiamine (B-1) 100 MG, Folic Acid 1 MG, MVI, adult with vitamin K 10 ML in 0.9 % Sodi... IVPB ONE (17:00)
[2019-09-17 17:55] LABS: Amphetamine Screen,Urine Negative ng/mL (Cutoff=1000); Barbiturate Screen,Urine Negative ng/mL (Cutoff=200); Benzodiazepines Screen,Urine Negative ng/mL (Cutoff=200); Cannabinoid Screen,Urine Negative ng/mL (Cutoff = 50); Cocaine Screen,Urine Negative ng/mL (Cutoff= 300); Opiate Screen,Urine Negative ng/mL (Cutoff=300); Phencyclidine Screen,Urine Negative ng/mL (Cutoff=25)
[2019-09-17 18:11] LABS: Hematocrit 38.3 % (35.3-44.9); Hemoglobin 12.3 g/dL (11.5-15.4); Mean Corpuscular HGB Conc 32.1 g/dL (31.6-35.5); Mean Corpuscular Hemoglobin 32.8 pg (28.0-33.3); Mean Corpuscular Volume 102.1 fL (83.0-100.0); Mean Platelet Volume 9.4 fL (9.4-12.4); Platelet Count 210 K/mcL (140-400); Red Blood Count 3.75 M/mcL (3.82-4.97); Red Cell Distribution Width 16.2 % (11.5-14.5); White Blood Count 9.6 K/mcL (4.3-11.1)
[2019-09-17 18:32] LABS: INR 1.2; Prothrombin Time 14.1 Seconds (9.4-12.1)
[2019-09-17 18:35] LABS: Alanine Aminotransferase 33 Units/L (7-52); Albumin 3.5 g/dL (3.5-5.7); Albumin/Globulin Ratio 1.6 (1.1-2.2); Alkaline Phosphatase 110 Units/L (34-104); Aspartate Amino Transferase 62 Units/L (13-39); BUN/Creatinine Ratio 28 (6-26); Bilirubin,Total 0.9 mg/dL (0.3-1.0); Blood Urea Nitrogen 20 mg/dL (8-23); Calcium 7.8 mg/dL (8.6-10.3); Carbon Dioxide 13 mEq/L (23-29); Chloride 94 mEq/L (98-107); Ethanol < 10 mg/dL (Less than 10); Globulin 2.2 g/dL (2.4-3.5); Glucose 52 mg/dL (70-105); Osmolality,Calculated 278 (280-300); Sodium 134 mEq/L (136-145); Total Protein 5.7 g/dL (6.4-8.9); eGFR For African Americans > 60 (> 60); eGFR For Non-African Americans > 60 (> 60)
[2019-09-17] MEDS ORDERED: *HR* LORazepam 2 MG/ML VIAL IVP PRN ×3 (20:15)
[2019-09-17] MEDS ORDERED: D5% in 0.9% NACL 1,000 ML IVC SCH (20:30)
[2019-09-17 21:26] LABS: Magnesium 1.5 mg/dL (1.6-2.6); Phosphorous 2.1 mg/dL (2.7-4.5)
[2019-09-17 21:46] LABS: Bilirubin,Urine Small (Negative); Blood,Urine Negative (Negative); Clarity,Urine Clear (Clear); Color,Urine Yellow (Yellow); Glucose,Urine (UA) Normal (Normal); Ketones,Urine >=160 mg/dL (Negative); Leukocyte Esterase,Urine Negative (Negative); Nitrite,Urine Negative (Negative); Protein,Urine 30 mg/dL (Neg-Trace); Specific Gravity,Urine 1.021 (1.010-1.025); Urobilinogen,Urine Normal (Normal)
[2019-09-17 21:49] LABS: Bacteria,Urine None Seen per hpf (None-Few); Hyaline Casts,Urine None Seen per lpf (None-Few); RBC,Urine 0-3 per hpf (0-3); Squamous Epithelial Cell,Urine Many per lpf (None-Few); WBC,Urine 0-3 per hpf (0-3)
[2019-09-18 03:07] LABS: Hematocrit 32.7 % (35.3-44.9); Hemoglobin 11.1 g/dL (11.5-15.4); Mean Corpuscular HGB Conc 33.9 g/dL (31.6-35.5); Mean Corpuscular Hemoglobin 32.9 pg (28.0-33.3); Mean Platelet Volume 9.2 fL (9.4-12.4); Platelet Count 181 K/mcL (140-400); Red Blood Count 3.37 M/mcL (3.82-4.97); Red Cell Distribution Width 16.2 % (11.5-14.5); White Blood Count 6.1 K/mcL (4.3-11.1)
[2019-09-18 03:22] LABS: Alanine Aminotransferase 23 Units/L (7-52); Albumin/Globulin Ratio 1.6 (1.1-2.2); Alkaline Phosphatase 90 Units/L (34-104); Aspartate Amino Transferase 35 Units/L (13-39); BUN/Creatinine Ratio 30 (6-26); Blood Urea Nitrogen 20 mg/dL (8-23); Calcium 7.4 mg/dL (8.6-10.3); Carbon Dioxide 19 mEq/L (23-29); Chloride 99 mEq/L (98-107); Globulin 1.9 g/dL (2.4-3.5); Glucose 84 mg/dL (70-105); Osmolality,Calculated 280 (280-300); Phosphorous 1.2 mg/dL (2.7-4.5); Sodium 134 mEq/L (136-145); Total Protein 4.9 g/dL (6.4-8.9); eGFR For African Americans > 60 (> 60); eGFR For Non-African Americans > 60 (> 60)
[2019-09-18] MEDS: *HR* Heparin 5,000 UNIT/ML VIAL SQ SCH ×3 (05:50→20:58)
[2019-09-18 14:27] LABS: Alanine Aminotransferase 21 Units/L (7-52); Albumin 2.9 g/dL (3.5-5.7); Albumin/Globulin Ratio 1.6 (1.1-2.2); Alkaline Phosphatase 84 Units/L (34-104); Aspartate Amino Transferase 30 Units/L (13-39); BUN/Creatinine Ratio 22 (6-26); Bilirubin,Total 0.7 mg/dL (0.3-1.0); Blood Urea Nitrogen 17 mg/dL (8-23); Calcium 7.4 mg/dL (8.6-10.3); Carbon Dioxide 20 mEq/L (23-29); Chloride 102 mEq/L (98-107); Globulin 1.8 g/dL (2.4-3.5); Glucose 208 mg/dL (70-105); Osmolality,Calculated 284 (280-300); Potassium 3.4 mEq/L (3.5-5.1); Sodium 133 mEq/L (136-145); Total Protein 4.7 g/dL (6.4-8.9); eGFR For African Americans > 60 (> 60); eGFR For Non-African Americans > 60 (> 60)
[2019-09-18] MEDS ORDERED: Potassium Phosphate 44 MEQ in 0.9 % Sodium Chloride 250 ML IVPB ONE (15:35)
[2019-09-18] MEDS ORDERED: 0.9 % Sodium Chloride 1,000 ML IVC SCH (15:45)
[2019-09-18] MEDS: Acetaminophen 325 MG TABLET PO PRN (20:58)
[2019-09-19 01:31] LABS: Basophils % 0.9 %; Eosinophils # 0.1 K/mcL (0.0-0.6); Eosinophils % 1.2 %; Hematocrit 31.7 % (35.3-44.9); Hemoglobin 10.7 g/dL (11.5-15.4); Immature Granulocytes % 0.5 % (0-4); Lymphocytes # 1.1 K/mcL (0.6-4.6); Lymphocytes % 25.9 %; Mean Corpuscular HGB Conc 33.8 g/dL (31.6-35.5); Mean Corpuscular Volume 97.8 fL (83.0-100.0); Mean Platelet Volume 9.7 fL (9.4-12.4); Monocytes # 0.3 K/mcL (0.0-1.3); Monocytes % 7.9 %; Neutrophils # 2.8 K/mcL (1.6-8.9); Platelet Count 158 K/mcL (140-400); Red Blood Count 3.24 M/mcL (3.82-4.97); Segmented Neutrophils % 63.6 %; White Blood Count 4.3 K/mcL (4.3-11.1)
[2019-09-19 01:54] LABS: Alanine Aminotransferase 20 Units/L (7-52); Albumin 2.8 g/dL (3.5-5.7); Albumin/Globulin Ratio 1.6 (1.1-2.2); Alkaline Phosphatase 80 Units/L (34-104); Aspartate Amino Transferase 30 Units/L (13-39); BUN/Creatinine Ratio 28 (6-26); Bilirubin,Total 0.7 mg/dL (0.3-1.0); Blood Urea Nitrogen 17 mg/dL (8-23); Calcium 7.7 mg/dL (8.6-10.3); Carbon Dioxide 21 mEq/L (23-29); Chloride 104 mEq/L (98-107); Globulin 1.8 g/dL (2.4-3.5); Glucose 118 mg/dL (70-105); Magnesium 2.3 mg/dL (1.6-2.6); Osmolality,Calculated 285 (280-300); Phosphorous 4.1 mg/dL (2.7-4.5); Potassium 3.5 mEq/L (3.5-5.1); Sodium 136 mEq/L (136-145); Total Protein 4.6 g/dL (6.4-8.9); eGFR For African Americans > 60 (> 60); eGFR For Non-African Americans > 60 (> 60)
[2019-09-19] MEDS: Thiamine (B-1) 100 MG, Folic Acid 1 MG, MVI, adult with vitamin K 10 ML in 0.9 % Sodi... IVPB SCH ×2 (02:08→18:45)
[2019-09-19] MEDS: *HR* Heparin 5,000 UNIT/ML VIAL SQ SCH (05:13)
[2019-09-20 03:23] LABS: Basophils % 0.9 %; Eosinophils # 0.1 K/mcL (0.0-0.6); Eosinophils % 1.6 %; Hematocrit 30.7 % (35.3-44.9); Hemoglobin 10.1 g/dL (11.5-15.4); Immature Granulocytes % 0.2 % (0-4); Lymphocytes # 1.5 K/mcL (0.6-4.6); Mean Corpuscular HGB Conc 32.9 g/dL (31.6-35.5); Mean Corpuscular Hemoglobin 32.9 pg (28.0-33.3); Mean Platelet Volume 9.4 fL (9.4-12.4); Monocytes # 0.4 K/mcL (0.0-1.3); Monocytes % 9.1 %; Neutrophils # 2.3 K/mcL (1.6-8.9); Nucleated Red Blood Cells 0.5 /100 WBC (0); Platelet Count 120 K/mcL (140-400); Red Blood Count 3.07 M/mcL (3.82-4.97); Segmented Neutrophils % 54.2 %; White Blood Count 4.3 K/mcL (4.3-11.1)
[2019-09-20 03:42] LABS: BUN/Creatinine Ratio 28 (6-26); Blood Urea Nitrogen 17 mg/dL (8-23); Calcium 7.9 mg/dL (8.6-10.3); Carbon Dioxide 25 mEq/L (23-29); Chloride 104 mEq/L (98-107); Glucose 106 mg/dL (70-105); Magnesium 1.5 mg/dL (1.6-2.6); Osmolality,Calculated 286 (280-300); Phosphorous 2.2 mg/dL (2.7-4.5); Potassium 3.8 mEq/L (3.5-5.1); Sodium 137 mEq/L (136-145); eGFR For African Americans > 60 (> 60); eGFR For Non-African Americans > 60 (> 60)
[2019-09-20] MEDS: Cyanocobalamin (B-12) 1,000 MCG TABLET PO SCH (13:49)
[2019-09-20] MEDS: Nicotine 7 MG PATCH.TD24 TD SCH (14:36)
[2019-09-20] MEDS: Acetaminophen 325 MG TABLET PO PRN (16:32)
[2019-09-20 19:00] LABS: BUN/Creatinine Ratio 24 (6-26); Blood Urea Nitrogen 20 mg/dL (8-23); Calcium 8.3 mg/dL (8.6-10.3); Carbon Dioxide 27 mEq/L (23-29); Chloride 101 mEq/L (98-107); Glucose 133 mg/dL (70-105); Magnesium 1.7 mg/dL (1.6-2.6); Osmolality,Calculated 291 (280-300); Phosphorous 4.4 mg/dL (2.7-4.5); Potassium 4.1 mEq/L (3.5-5.1); Sodium 138 mEq/L (136-145); eGFR For African Americans > 60 (> 60); eGFR For Non-African Americans > 60 (> 60)
[2019-09-21 03:33] LABS: Hemoglobin 10.8 g/dL (11.5-15.4); Immature Platelets 2.2 % (1.1-6.1); Mean Corpuscular HGB Conc 32.7 g/dL (31.6-35.5); Mean Corpuscular Hemoglobin 32.9 pg (28.0-33.3); Mean Corpuscular Volume 100.6 fL (83.0-100.0); Mean Platelet Volume 9.6 fL (9.4-12.4); Red Blood Count 3.28 M/mcL (3.82-4.97); Red Cell Distribution Width 16.2 % (11.5-14.5); White Blood Count 4.1 K/mcL (4.3-11.1)
[2019-09-21 04:07] LABS: BUN/Creatinine Ratio 27 (6-26); Blood Urea Nitrogen 17 mg/dL (8-23); Calcium 8.4 mg/dL (8.6-10.3); Carbon Dioxide 27 mEq/L (23-29); Chloride 102 mEq/L (98-107); Glucose 132 mg/dL (70-105); Magnesium 1.6 mg/dL (1.6-2.6); Osmolality,Calculated 285 (280-300); Phosphorous 3.1 mg/dL (2.7-4.5); Potassium 3.6 mEq/L (3.5-5.1); Sodium 136 mEq/L (136-145); eGFR For African Americans > 60 (> 60); eGFR For Non-African Americans > 60 (> 60)
[2019-09-21 07:27] VITALS: BP 125/71
[2019-09-21] MEDS: Nicotine 7 MG PATCH.TD24 TD SCH (08:34)
[2019-09-21] MEDS: Cyanocobalamin (B-12) 1,000 MCG TABLET PO SCH (08:34)
== END 2019-09-21 12:15 | disposition home or self-care (01) ==
LOC: 3BNU 16:30 → EMEROOARM 16:30 → 3BNU 21:03
PROVIDERS: ADMIT Internal Medicine; ATTEND Internal Medicine

== ENCOUNTER 2020-10-07 17:38 | Observation (INO) ==
[2020-10-07 21:10] LABS: Basophils # 0.1 K/mcL (0.0-0.2); Basophils % 0.8 %; Eosinophils # 0.4 K/mcL (0.0-0.6); Eosinophils % 3.7 %; Hemoglobin 14.5 g/dL (11.5-15.4); Immature Granulocytes % 0.7 % (0-4); Lymphocytes % 9.6 %; Mean Corpuscular HGB Conc 30.9 g/dL (31.6-35.5); Mean Corpuscular Hemoglobin 28.1 pg (28.0-33.3); Mean Corpuscular Volume 91.1 fL (83.0-100.0); Mean Platelet Volume 9.2 fL (9.4-12.4); Monocytes # 0.6 K/mcL (0.0-1.3); Monocytes % 5.5 %; Neutrophils # 8.1 K/mcL (1.6-8.9); Platelet Count 260 K/mcL (140-400); Red Blood Count 5.16 M/mcL (3.82-4.97); Red Cell Distribution Width 14.2 % (11.5-14.5); Segmented Neutrophils % 79.7 %; White Blood Count 10.1 K/mcL (4.3-11.1)
[2020-10-07 21:26] LABS: BUN/Creatinine Ratio 21 (6-26); Blood Urea Nitrogen 20 mg/dL (8-23); Calcium 8.9 mg/dL (8.6-10.3); Carbon Dioxide 12 mEq/L (23-29); Chloride 103 mEq/L (98-107); Ethanol 152 mg/dL (Less than 10); Glucose 103 mg/dL (70-105); Osmolality,Calculated 279 (280-300); Potassium 3.4 mEq/L (3.5-5.1); Sodium 133 mEq/L (136-145); eGFR For African Americans > 60 (> 60); eGFR For Non-African Americans 59 (> 60)
[2020-10-07] MEDS ORDERED: Nicotine 21 MG PATCH.TD24 TD STA (22:37)
[2020-10-07] MEDS ORDERED: Melatonin 3 MG TABLET PO PRN (22:55)
[2020-10-07] MEDS ORDERED: Ondansetron 4 MG/2 ML VIAL IVP PRN (22:55)
[2020-10-07] MEDS ORDERED: Naloxone 0.4 MG/ML INJ IVP PRN (22:55)
[2020-10-07] MEDS ORDERED: *HR* Promethazine 25 MG/ML VIAL IM PRN (22:55)
[2020-10-07] MEDS ORDERED: Acetaminophen 325 MG TABLET PO PRN (23:03)
[2020-10-07] MEDS ORDERED: *HR* LORazepam 2 MG/ML VIAL IVP PRN ×3 (23:03)
[2020-10-07] MEDS: Ringers Solution, Lactated 1,000 ML IVC SCH (23:45)
[2020-10-08 00:24] LABS: VBG HCO3 15 mEq/L (21-27); VBG PCO2 28 mmHg (41-51); VBG PH 7.34 pH Units (7.32-7.42); VBG PO2 192 mmHg (25-50)
[2020-10-08 02:47] LABS: Bilirubin,Urine Negative (Negative); Blood,Urine Negative (Negative); Clarity,Urine Clear (Clear); Color,Urine Yellow (Yellow); Glucose,Urine (UA) Normal (Normal); Hyaline Casts,Urine Moderate per lpf (None Seen); Ketones,Urine Trace mg/dL (Negative); Leukocyte Esterase,Urine Trace (Negative); Mucus,Urine Few per lpf (None-Few); Nitrite,Urine Negative (Negative); Protein,Urine 100 mg/dL (Neg-Trace); RBC,Urine 0-3 per hpf (0-3); Specific Gravity,Urine 1.021 (1.010-1.025); Squamous Epithelial Cell,Urine Few per hpf (None-Few); WBC,Urine 15-30 per hpf (0-3)
[2020-10-08 02:48] LABS: Chloride,Urine 60 mEq/L; Potassium,Urine 29.1 mEq/L; Sodium, Urine < 10.0 mEq/L
[2020-10-08] MEDS: *HR* OxyCODONE Immed Rel 5 MG TABLET PO PRN ×2 (04:41→10:44)
[2020-10-08 05:03] LABS: Basophils # 0.1 K/mcL (0.0-0.2); Basophils % 1.1 %; Eosinophils # 0.8 K/mcL (0.0-0.6); Eosinophils % 7.6 %; Hematocrit 40.6 % (35.3-44.9); Immature Granulocytes % 0.5 % (0-4); Lymphocytes # 1.9 K/mcL (0.6-4.6); Lymphocytes % 18.5 %; Mean Corpuscular Hemoglobin 28.6 pg (28.0-33.3); Mean Corpuscular Volume 89.2 fL (83.0-100.0); Mean Platelet Volume 8.9 fL (9.4-12.4); Monocytes % 9.7 %; Neutrophils # 6.3 K/mcL (1.6-8.9); Platelet Count 235 K/mcL (140-400); Red Blood Count 4.55 M/mcL (3.82-4.97); Red Cell Distribution Width 14.3 % (11.5-14.5); Segmented Neutrophils % 62.6 %
[2020-10-08 05:19] LABS: BUN/Creatinine Ratio 28 (6-26); Blood Urea Nitrogen 20 mg/dL (8-23); Calcium 8.8 mg/dL (8.6-10.3); Carbon Dioxide 17 mEq/L (23-29); Chloride 107 mEq/L (98-107); Glucose 98 mg/dL (70-105); Osmolality,Calculated 279 (280-300); Potassium 3.5 mEq/L (3.5-5.1); Sodium 133 mEq/L (136-145); eGFR For African Americans > 60 (> 60); eGFR For Non-African Americans > 60 (> 60)
[2020-10-08] MEDS: Ringers Solution, Lactated 1,000 ML IVC SCH (09:00)
[2020-10-08] MEDS: *HR* HYDROcodone/Acet 5/325 mg TABLET PO PRN (17:19)
[2020-10-08] MEDS ORDERED: Thiamine (B-1) 100 MG, Folic Acid 1 MG, MVI, adult with vitamin K 10 ML in 0.9 % Sodi... IVPB SCH (18:00)
[2020-10-09] MEDS: *HR* HYDROcodone/Acet 5/325 mg TABLET PO PRN ×3 (00:12→11:39)
[2020-10-09 11:29] VITALS: BP 158/92
== END 2020-10-09 14:26 | disposition home or self-care (01) ==
LOC: EMEROOARM 17:38 → 3NENU 17:38 → SUATTDRO 22:05 → 3NENU 23:17
PROVIDERS: ADMIT Family Medicine; ATTEND Internal Medicine